=== PATIENT | female | born 1995 | race Caucasian/White ===

== ENCOUNTER 2020-03-13 08:10 | Observation (INO) | payer OTHER, SELFPAY ==
[2020-03-13] VITALS (26 sets, daily range): BP systolic 117–148; BP diastolic 65–106; PULSE 85–135; RESP 12–36; TEMP 36.6–36.8; O2SAT 86–97
--- NOTE | ~2020-03-13 | XR_ITS ---
EXAMINATION: XR chest 1V portable INDICATION: Shortness of breath and chest pressure TECHNIQUE: Portable AP chest at 0844 hours COMPARISON: None available FINDINGS: The lungs are free of acute opacities. There is no pleural effusion or pneumothorax. The ca rdiomediastinal silhouette is normal. The visualized bones and soft tissues are unremarkable. IMPRESSION: 1. No acute cardiopulmonary abnormality. Reviewed, dictated and finalized at location A. [facility]
--- NOTE | 2020-03-13 08:19 | ED.ASTHMA ---
HPI - Asthma General Chief Complaint: Asthma Stated Complaint: diff breathing Time Seen by Provider: 03/13/20 08:14 Source: RN notes reviewed History of Present Illness HPI Narrative: Patient presents to emergency department from home for asthma. Patient states symptoms began 2 days ago. She states that she has been having increased wheezing that she has been trying to control with her home nebulizer machine. She states she is out of her albuterol inhaler. States symptoms progressively got worse and this morning she woke up with increased wheezing and shortness of breath. Patient states she does smoke marijuana she denies any fevers or chills chest pain abdominal pain nausea vomiting or any other symptoms Related Data Home Medications Medication Instructions Recorded Confirmed albuterol (refill) See Rx Instructions .ROUTE 03/13/20 03/13/20 .COMPLEX PRN Allergies Allergy/AdvReac Type Severity Reaction Status Date / Time No Known Allergies Allergy Verified 03/13/20 08:20 Review of Systems Review of Systems: Narrative: Gen.: Denies fevers or chills ENT: Denies congestion Respiratory: See HPI CV: Denies chest pain or palpitations GI: Denies abdominal pain nausea, emesis or diarrhea Musculoskeletal: Denies back pain or muscle pain Neuro: Denies numbness, tingling, weakness or focal weakness Skin: Denies rash Except as documented, all other systems reviewed and negative [facility] Past Medical History Medical History (Updated 03/13/20 @ 11:12 by Aaron Quinn DO) Asthma Social History Social History (Updated 03/13/20 @ 08:20 by Aaron Quinn DO) Smoking status: Never smoker Substance use type: marijuana Gender identity (if verbalized by the patient): Female Exam Narrative: Exam Narrative: APPEARANCE: Moderate respiratory distress, sitting upright in bed speaking short phrases EYES: EOMI HEENT: Normocephalic, atraumatic, OMM RESPIRATORY: Mild respiratory distress wheezing throughout the bilateral lung fernando with decreased breath sounds in the bases no rhonchi CARDIOVASCULAR: Regular rate and rhythm without murmurs rubs or gallops. ABDOMINAL: Soft, nontender, nondistended, no rebound or guarding MUSCULOSKELETAl: Moves all extremities. No clubbing, cyanosis or edema. NEURO: Awake and alert. Following commands, speech normal, no focal deficits SKIN:: Warm, dry. No rashes lesions or abrasions PSYCHIATRIC: Normal affect/mood, Course Course Emergency Course: Following breathing treatments patient's wheezing did improve still has mild wheezing upper lung fernando. The patient continued to have oxygen saturations running in the low 90s of approximately 91 to 92% was placed on 2 L nasal cannula at that time which did also alleviate the patient's heart rate which have been running in the 150s down to the 120s. Magnesium was added at that time. With continued wheezing and required oxygen will admit at this time Discussed with Dr. Mason presentation work-up. Agrees with admission at this time Discussed with patient and family results of workup and diagnosis. Discussed need for admission. Patient and family understand and agree to current treatment plan Vital Signs Vital signs: Vital Signs Temperature 97.9 F 03/13/20 08:14 Pulse Rate 121 H 03/13/20 08:14 Respiratory Rate 17 03/13/20 08:14 Blood Pressure 136/106 H 03/13/20 08:14 Pulse Oximetry 93 03/13/20 08:14 Temperature 97.9 F 03/13/20 08:14 Pulse Rate 104 H 03/13/20 10:17 Respiratory Rate 12 03/13/20 10:17 Blood Pressure 119/68 03/13/20 10:17 Pulse Oximetry 96 03/13/20 10:17 MDM - Asthma Lab Data Result diagrams: 03/13/20 08:27 03/13/20 08:27 Labs: Lab Results 03/13/20 03/13/20 Range/Units 08:27 08:27 WBC 10.7 H (4.5-10.0) K/mm3 RBC 4.60 (4.2-5.4) M/mm3 Hgb 14.8 (12.0-15.0) g/dL Hct 42.6 (37.0-47.0) % MCV 92.6 (80-100) fl MCH 32.2 (26-34) pg
[2020-03-13] MEDS: ALBUTEROL SULFATE NEB 2.5 MG/0.5 ML INH 5 MG INHALATION ×4 (08:21→14:49)
[2020-03-13] MEDS: IPRATROPIUM BR 0.02% INH SOLN 0.5 MG/2.5 ML VIAL INHALATION ×5 (08:21→19:38)
--- NOTE | 2020-03-13 08:23 | ECG_ITS ---
Measurements Intervals [place] Rate: 97 P: TN: 0 QRS: 85 QRSD: 91 T: -14 QT: 332 QTc: 422 Interpretive Statements SINUS RHYTHM WITH MARKED SINUS ARRHYTHMIA ST-T WAVE ABNORMALITY IN INFERIOR LEADS- CONSIDER ISCHEMIA BASELINE ARTIFACT- I, AVR ABNORMAL ECG Electronically Signed On 03-13-2020 8:27:47 HE[employer] RECEPTIONIST by Nasir Hutchison D.O.
[2020-03-13] MEDS: methylPREDNISolone SOD SUCC 125 MG VIAL IV PUSH (08:32)
[2020-03-13 08:33] LABS: Basophils Absolute Auto 0.1 K/mm3 (0.0-0.1); Basophils Percent Auto 1.1 % (0.2-1.2); Eosinophils Absolute Auto 0.5 K/mm3 (0-0.3); Eosinophils Percent Auto 4.5 % (0-4.4); Hematocrit 42.6 % (37.0-47.0); Hemoglobin 14.8 g/dL (12.0-15.0); Immature Granulocyte Absolute 0.03 K/mm3 (0.00-0.031); Immature Granulocyte Percent A 0.3 % (0-0.5); Lymphocytes Absolute Auto 1.41 K/mm3 (0.9-3.2); Lymphocytes Percent Auto 13.2 % (18.3-44.2); Mean Corpuscular HGB Conc 34.7 g/dl (32-36); Mean Corpuscular Hemoglobin 32.2 pg (26-34); Mean Corpuscular Volume 92.6 fl (80-100); Mean Platelet Volume 9.8 fl (7.4-10.4); Monocytes Absolute Auto 0.8 K/mm3 (0.1-0.6); Monocytes Percent Auto 7.2 % (2.6-8.5); Neutrophils Absolute Auto 7.9 K/mm3 (1.3-6.7); Neutrophils Percent Auto 73.7 % (45.5-73.1); Platelet Count Result 275 k/mm3 (150-375); Red Cell Distribution Width 11.9 % (11.5-14.5); White Blood Count 10.7 K/mm3 (4.5-10.0)
[2020-03-13 08:45] LABS: Anion Gap 10 mmol/L (8-16); Blood Urea Nitrogen 13 mg/dL (7-17); Calcium 9.4 mg/dL (8.4-10.2); Carbon Dioxide 27 mmol/L (22-30); Chloride 106 mmol/L (98-107); Estimated CRCL calculation 168 ml/min; Estimated Glomerular Filt Rate > 60; Glucose 102 mg/dL (65-105); Potassium 3.9 mmol/L (3.4-5.0); Sodium 143 mmol/L (137-145)
[2020-03-13] MEDS: ONDANSETRON INJ 4 MG/2 ML VIAL IV PUSH (09:36)
[2020-03-13] MEDS: SODIUM CHLORIDE 0.9% IV 1,000 ML 999 ML IV CONT (09:37)
--- NOTE | 2020-03-13 09:40 | PC.NURSE ---
placed on o2 at 2 lpm nc per md request for room air sats 90-93%. pt's sat improved to 96 % after oxygen placed
[2020-03-13] MEDS: MAGNESIUM SULF 2 GM/WATER 50ML 2 GM/50 ML BAG IVPB (09:47)
--- NOTE | 2020-03-13 12:30 | PC.NURSE ---
This patient, Alexandra Rendon, was admitted to [facility] Surg Room 304-01 on 03/13/20 @ 1230. Patient/family oriented to hospital policies and general routines including ID bracelet, bed and alarms, visiting hours, pain management, procedures, bathroom and other care routines, personal items, smoking policy, room service/diet, and visiting hours. Information on how to activate the Rapid Response Team has been discussed. Patient/Family are encouraged to report perceived risks to care and to ask questions if they do not understand what they are told or what they should do.
[2020-03-13] MEDS: methylPREDNISolone SOD SUCC 125 MG VIAL 60 MG IV PUSH ×4 (13:05→23:05)
--- NOTE | 2020-03-13 19:00 | PM.IMHP ---
H&P: HPI History of Present Illness Date/Time: 03/13/20 19:00 Chief complaint: Shortness of breath. Narrative: Alexandra Rendon is a very pleasant 24-year-old female with asthma who presented to the emergency department earlier this morning from home for evaluation of shortness of breath. She was diagnosed with asthma about 4 years ago after being treated for walking pneumonia, and was maintained on Dulera for some time however she ran out of that about a year ago. She now uses an albuterol nebulizer as needed, which seems to be quite rare except around the spring and fall allergy seasons. For the last 3 days or so she reports productive of clear sputum, wheezing, and shortness of breath to the point where she has some conversational dyspnea. Her a nebulizer has provided her with lesser and lesser benefit and thus she came in for evaluation. Last night she used her nebulizer 3 times, and once this morning and still has continued to be very short of breath. She also describes a tightness in her chest due to the wheezing and shortness of breath. She smoked cigarettes for about 5 years and quit maybe for 4 years ago or so. She does smoke marijuana in large quantities, smoking about 5 blunts a day for at least the past 8 years. In the emergency department she received a continuous nebulizer, Solu-Medrol, and magnesium with some improvement however she continues to wheeze pretty significantly and has an oxygen requirement, and thus is being admitted for further treatment. She has lived in the same house for about 5 years, and reports that there was some old prior to the moving in which was eradicated. They have a dog and a cat, both who are outside. She has a 1-year-old daughter at home whom she is breast-feeding and is very anxious being away from her. No sick contacts, exposure to COVID-19, fever, sinus congestion, otalgia, odynophagia (she did have a mild sore throat last week), or pleuritic pain. Review of Systems Review of Systems: Narrative: Twelve systems were reviewed with pertinent positives and negatives as per HPI. Weight has remained stable. She reports anxiety being away from her daughter and feelings of palpitations and racing heart after the nebulizers and steroids. No nausea, vomiting, or diarrhea. No dysphagia or concerns for aspiration. She denies dysuria. Last menstrual period was on 02/25/2020. No history of venous thromboembolism. She denies eczema and drug allergies, but it sounds like she has some mild environmental allergies. [facility] Past Medical History Medical History (Updated 03/13/20 @ 20:21 by Sara Mcneill PA-C) Asthma Marijuana abuse Surgical History Surgical History (Updated 03/13/20 @ 20:16 by Sara Mcneill PA-C) History of breast biopsy Family History Family History (Updated 03/13/20 @ 20:16 by Sara Mcneill PA-C) Sibling Asthma Social History Social History (Updated 03/13/20 @ 20:17 by Sara Mcneill PA-C) Social History: The patient lives in [place] with her long-term boyfriend and that 1-year-old daughter. 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 She smoked about a pack of cigarettes per day for 3 years and quit 5 years ago. She smokes 5 blunts a day and has for at least 8 to 9 years. No alcohol use. She designates her mother, Mikaela Rendon, and her boyfriend, Himanshu Watson, as her surrogate decision makers and she wishes to be a full code. Spiritual care concerns: No Meds Home Medications and Allergies Home Medications Medication Instructions Recorded Confirmed Type albuterol (refill) See Rx Instructions .ROUTE 03/13/20 03/13/20 History .COMPLEX PRN mometasone-formoterol [Dulera] 2 puff INHALATION PRN PRN 03/13/20 03/13/20 History Allergies Allergy/AdvReac Type Severity Reaction Status Date / Time No Known Allergies Allergy Verified 03/13/20 12:57 Vital Signs Vital Signs - 24 hr 03/13/20 08:14 03/13/20 08:21 03/13/20 08:31 Temperature
[2020-03-13] MEDS: guaiFENesin 12 HR 600 MG TABCR PO (20:41)
[2020-03-13] MEDS: ALPRAZolam (*CRX) 0.125 MG TABLET PO (23:00)
[2020-03-13] MEDS: ACETAMINOPHEN 325 MG TABLET 650 MG PO (23:00)
[2020-03-13] MEDS: LEVALBUTEROL NEB 1.25 MG/3 ML 0.63 MG INHALATION (23:05)
[2020-03-14] VITALS (13 sets, daily range): BP systolic 121–124; BP diastolic 61–69; PULSE 99–133; RESP 18–20; TEMP 36.4; O2SAT 93–97
[2020-03-14] MEDS: IPRATROPIUM BR 0.02% INH SOLN 0.5 MG/2.5 ML VIAL INHALATION ×3 (01:54→13:42)
[2020-03-14] MEDS: methylPREDNISolone SOD SUCC 125 MG VIAL 60 MG IV PUSH ×2 (05:38→17:55)
[2020-03-14 06:46] LABS: Basophils Percent Auto 0.2 % (0.2-1.2); Hematocrit 37.9 % (37.0-47.0); Hemoglobin 13.1 g/dL (12.0-15.0); Immature Granulocyte Absolute 0.05 K/mm3 (0.00-0.031); Immature Granulocyte Percent A 0.4 % (0-0.5); Lymphocytes Absolute Auto 0.72 K/mm3 (0.9-3.2); Lymphocytes Percent Auto 6.3 % (18.3-44.2); Mean Corpuscular HGB Conc 34.6 g/dl (32-36); Mean Corpuscular Volume 92.4 fl (80-100); Mean Platelet Volume 10.1 fl (7.4-10.4); Monocytes Absolute Auto 0.2 K/mm3 (0.1-0.6); Monocytes Percent Auto 1.8 % (2.6-8.5); Neutrophils Absolute Auto 10.5 K/mm3 (1.3-6.7); Neutrophils Percent Auto 91.3 % (45.5-73.1); Platelet Count Result 252 k/mm3 (150-375); Red Cell Distribution Width 12.2 % (11.5-14.5); White Blood Count 11.5 K/mm3 (4.5-10.0)
[2020-03-14] MEDS: ACETAMINOPHEN 325 MG TABLET 650 MG PO (06:52)
[2020-03-14 07:13] LABS: Anion Gap 10 mmol/L (8-16); Blood Urea Nitrogen 13 mg/dL (7-17); Calcium 9.1 mg/dL (8.4-10.2); Carbon Dioxide 27 mmol/L (22-30); Chloride 104 mmol/L (98-107); Estimated CRCL calculation 168 ml/min; Estimated Glomerular Filt Rate > 60; Glucose 148 mg/dL (65-105); Potassium 3.5 mmol/L (3.4-5.0); Sodium 141 mmol/L (137-145)
[2020-03-14 08:01] LABS: Thyroid Stimulating Hormone Reflex 0.047 uIU/mL (0.465-4.68)
[2020-03-14] MEDS: guaiFENesin 12 HR 600 MG TABCR PO (09:45)
[2020-03-14 12:24] LABS: Total Triiodothyronine (T3) 0.99 NG/ML (0.97-1.69)
--- NOTE | 2020-03-14 17:00 | PM.CNPUL ---
Assessment and Plan Assessment and plan (1) Asthma: Code(s): J45.909 - Unspecified asthma, uncomplicated Status: Acute Assessment and Plan: ok for her to go home; her peak flow is 290 L/min, improved since admission. Her estimated personal best PF may be ~ 600, will have to see after she recovers. can follow up in 2 weeks in the office plan on PFTs in 6-8 weeks, probably in May; she needs to stop smoking marijuana, avoid excessively fragrance in home products such as detergents, fabric sprays such as Febreze, wax melts and air fresheners. These VOC -volatile organic compounds- can worsen air quality and act as endocrine disruputors. She may need more testing after recovery. Her pets live outdoors. She needs Dulera 200/5 inhaler and albuterol for her nebulizer to go home. She is out of both of these. (2) Status asthmaticus: Qualifiers: Asthma severity: severe Asthma persistence: unspecified Qualified Code(s): J45.902 - Unspecified asthma with status asthmaticus Code(s): J45.902 - Unspecified asthma with status asthmaticus Status: Acute Assessment and Plan: admitted with uncontrolled asthma, feels much better now. Last uncontrolled episode was several years ago with walking pneumonia, was treated in the ER for 4 hours and sen home. (3) Marijuana abuse: Code(s): F12.10 - Cannabis abuse, uncomplicated Status: Acute Assessment and Plan: She smokes a great amount of marijuana. Smoking is bad for pulmonary health. She may be able to change form smoking marijuana to using edibles. She has depression and anxiety, may be self treating thes conditions with marijuana. She needs to have a primary care provider manage some of these conditions with a different SSRI. History of Present Illness History of Present Illness Consult date: 03/14/20 Chief complaint: Shortness of breath. Narrative: cc: asthma Alexandra Rendon is a 24 yo female, and her mnother Mikaela is at the bedside. She was diagnosed with asthma 4 years ago at an ER visit when she had walking pneumonia, was discharged home after 4 hours. She has a nebulizer at home currently is out of medication. She does not have asthma symptoms on most days. She had a Dulera inhaler, ran out a year ago. She is smoking marijuana 5 blunts daily ( 1 Blunt = 1 gram ) which she uses for anxiety. She started smoking marijuana at age 14, also smoked tobacco less than a pack a day for 3 years, quit 6 years ago. 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 Her symptoms started to increase 3 days prior to admission, and frequent use of her nebulizer could not alleviated her wheezing and shortness of breath. She had clear sputum, wheezing, chest tightness She has triggers for her asthma including infections; she deos nto hav efrequent infections. SHe does nto have problems being aroudn pets, has a cat and a dog who live in the garage. She has a family history with her 31 year old sister having asthma. Review of Systems Review of Systems: All systems reviewed & are unremarkable except as noted in HPI and below PMFSH Past Medical History Medical History Asthma Marijuana abuse Surgical History Surgical History History of breast biopsy Family History Family History Sibling Asthma Social History Social History (Updated 03/13/20 @ 20:17 by Sara Mcneill PA-C) Social History: The patient lives in [place] with her long-term boyfriend and that 1-year-old daughter. 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
[2020-03-14] MEDS: ACETAMINOPHEN 500 MG TABLET 1000 MG (17:52)
--- NOTE | 2020-03-14 17:54 | PM.DS ---
DS: Admitting Diagnosis Admitting Diagnosis Admitting Diagnosis: Shortness of breath. DS: Discharge Diagnosis Discharge Diagnosis (1) Acute respiratory failure with hypoxia: Code(s): J96.01 - Acute respiratory failure with hypoxia Status: Acute (2) Status asthmaticus: Code(s): J45.902 - Unspecified asthma with status asthmaticus Status: Acute DS: Summary Hospital Course Reason for hospitalization: SOB Hospital Course: Alexandra Rendon is a very pleasant 24-year-old female with asthma who presented to the emergency department earlier this morning from home for evaluation of shortness of breath. She was diagnosed with asthma about 4 years ago after being treated for walking pneumonia, and was maintained on Dulera for some time however she ran out of that about a year ago. She now uses an albuterol nebulizer as needed, which seems to be quite rare except around the spring and fall allergy seasons. For the last 3 days or so she reports productive of clear sputum, wheezing, and shortness of breath to the point where she has some conversational dyspnea. Her nebulizer has provided her with lesser and lesser benefit and thus she came in for evaluation. Currently she is doing much better, still wheezing on exam but not SOB anymore, she is back on room air saturating above 92%. She is going to be discharged on Dulera, albuterol and a prednisone taper, she was counseled about marihuana smoking cessation. The patient was seen by pulmonary and is to follow up with them in 2 weeks. Time spent discussing smoking cessation with patient: 3 to 10 minutes Status at Discharge Functional status at discharge: independent ambulation Overall status at discharge: patient is back to baseline Time Spent with Patient Time attestation: Total time spent providing and/or coordinating discharge services: Time spent: Greater than 30 minutes Exam Const: General: cooperative, comfortable, alert and awake Neck: Neck: supple and no JVD Resp: Effort & Inspection: normal respiratory effort and able to speak in complete sentences Auscultation: wheezes Cardio: Rate: regular rate and tachycardic Rhythm: regular rhythm Heart sounds: S1 normal heart sound present and S2 normal heart sound present GI: GI Palp: Yes Soft to palpation Auscultation: normal bowel sounds Skin: General skin exam: no rashes or lesions noted Neuro: General: patient oriented x3 and no focal motor deficits Extrem: General: no clubbing, cyanosis or edema DS: Data Data Completed and Pending Labs on day of discharge: Labs from last 24 hours 03/14/20 03/14/20 03/14/20 05:44 05:44 05:44 WBC RBC Hgb Hct MCV MCH MCHC RDW Plt Count MPV Immature Gran % (Auto) Neut % (Auto) Lymph % (Auto) Gilchrist % (Auto) Eos % (Auto) Baso % (Auto) Lymph # (Auto) Gilchrist # (Auto) Eos # (Auto) Baso # (Auto) Abs Immat Gran (auto) Absolute Neuts (auto) Absolute Nucleated RBC Nucleated RBC % Sodium 141 Potassium 3.5 Chloride 104 Carbon Dioxide 27 Anion Gap 10 BUN 13 Creatinine 0.60 L Estim Creat Clear Calc 168 Estimated GFR > 60 Glucose 148 H Calcium 9.1 TSH (Reflex) Free T4 1.00 Total T3 0.99 03/14/20 03/14/20 05:44 05:44 WBC 11.5 H RBC 4.10 L Hgb 13.1 Hct 37.9 MCV 92.4 MCH 32.0 MCHC 34.6 RDW 12.2 Plt Count 252 MPV 10.1 Immature Gran % (Auto) 0.4 Neut % (Auto) 91.3 H Lymph % (Auto) 6.3 L Gilchrist % (Auto) 1.8 L Eos % (Auto) 0.0 Baso % (Auto) 0.2 Lymph # (Auto) 0.72 L Gilchrist # (Auto) 0.2 Eos # (Auto) 0.0 Baso # (Auto) 0.0 Abs Immat Gran (auto) 0.05 H Absolute Neuts (auto) 10.5 H Absolute Nucleated RBC 0.0 Nucleated RBC % 0.0 Sodium Potassium Chloride Carbon Dioxide Anion Gap BUN Creatinine Estim Creat Clear Calc Estimated GFR Glucose Calcium TSH (Reflex) 0.04
== END 2020-03-14 19:25 | disposition home or self-care (01) ==
LOC: ANHED 11:12 → ANH3MEDSUR 13:22
PROVIDERS: Physician Assistant; Admitting Provider Family Medicine; Emergency Provider Emergency Medicine; Visit Provider Hospitalist
DX: J96.01 Acute respiratory failure with hypoxia (principal); J45.902 Unspecified asthma with status asthmaticus; R00.0 Tachycardia, unspecified; F12.10 Cannabis abuse, uncomplicated; F41.8 Other specified anxiety disorders; Z82.5 Family history of asthma and other chronic lower respiratory diseases; Z87.891 Personal history of nicotine dependence; Z79.51 Long term (current) use of inhaled steroids
CPT/HCPCS: 36415; 71045; 80048; 84439; 84443; 84480; 85025; 93005; 94640; 94667; 94668; 96365; 96374; 96375; 96376; 99285; A9270; G0378; G0379; J2405; J2930; J3475; J7030

== ENCOUNTER 2020-05-20 10:09 | Outpatient (CLI) | payer OTHER, SELFPAY ==
--- NOTE | 2020-05-20 16:27 | WPDPFTINT ---
PFT Interpretation This is a pulmonary function test with pre and post-bronchodilator spirometry, plethysmography and diffusing capacity. The test was performed and results interpreted in accordance with the 2019 and 2005 ATS/ERS Task Force guidelines respectively using the Tiago/Luciano reference equations. Findings: Spirometry: There is decreased maximal expiratory airflow at all lung volumes with a concave expiratory flow tracing. The pre-bronchodilator FVC is 4.44 L, 108% predicted. The pre bronchodilator FEV1 is 2.80 L, 85% predicted. The FEV1: FVC ratio was 63%. The post bronchodilator FVC is 4.47 L, representing 1% increase. The post bronchodilator FEV1 is 2.89 L, representing a 3% increase. Plethysmography: The total lung capacity is 5.97 L, 107% predicted. The functional residual capacity is 3.38 L, 111% predicted. The residual volume is 1.53 L, 90% predicted. Diffusing capacity: The absolute diffusing capacity is 21.4, 86% predicted. The diffusing capacity corrected for alveolar volume is 4.38, 94% predicted. Impression: There is a mild obstructive abnormality without significant improvement after inhaling a single dose of albuterol. The lung volumes are normal. The diffusing capacity is normal. There are no prior studies for comparison.
== END 2020-05-20 10:10 | disposition home or self-care (01) ==
PROVIDERS: PCP Internal Medicine Infectious Disease; Visit Provider Nurse Practitioner Family
DX: J45.909 Unspecified asthma, uncomplicated (principal)
CPT/HCPCS: 94060; 94726; 94729

== ENCOUNTER 2020-07-28 05:41 | Emergency (ER) | payer OTHER, SELFPAY ==
--- NOTE | ~2020-07-28 | XR_ITS ---
EXAMINATION: XR chest 1V portable DATE: 07/28/2020 05:58 INDICATION: 2 days of cough and shortness of breath TECHNIQUE: frontal view of the chest was obtained. COMPARISON: Chest radiograph dated 03/13/2020 FINDINGS: The lungs remain clear with no focal airspace opacities, pulmonary edema, pleural effusion or pneumot horax. The cardiomediastinal silhouette is normal. Visualized bones and soft tissues are unremarkable . IMPRESSION: 1. No acute cardiopulmonary disease. Reviewed, dictated and finalized at location A.
[2020-07-28 05:45] VITALS: BP 150/87; PULSE 105; RESP 20; TEMP 36.7; O2SAT 97
--- NOTE | 2020-07-28 05:59 | ED.SOB ---
HPI - SOB/Dyspnea General Chief Complaint: Shortness of Breath/Dyspnea Stated Complaint: SOB Time Seen by Provider: 07/28/20 05:47 Source: RN notes reviewed History of Present Illness HPI Narrative: Patient presents emergency room from home for shortness of breath. Patient states she has a history of asthma which has been flared up for the past 2 days since she was doing some alex work at her house. States that she has been wheezing with a nonproductive cough states she has been using her inhaler at home with minimal relief is followed by pulmonary denies any fevers or chills chest pain abdominal pain nausea vomiting or any other symptoms Related Data Home Medications Medication Instructions Recorded Confirmed mometasone-formoterol HFA 200 2 puff INHALATION BID 07/05/20 07/05/20 mcg-5 mcg/actuation aerosol inhaler Allergies Allergy/AdvReac Type Severity Reaction Status Date / Time No Known Allergies Allergy Verified 07/28/20 05:48 Review of Systems Review of Systems: Narrative: Gen.: Denies fevers or chills ENT: Denies congestion Respiratory: See HPI CV: Denies chest pain or palpitations GI: Denies abdominal pain nausea, emesis or diarrhea denies chance of Musculoskeletal: Denies back pain or muscle pain Neuro: Denies numbness, tingling, weakness or focal weakness Skin: Denies rash Except as documented, all other systems reviewed and negative [facility] Past Medical History Medical History Asthma Marijuana abuse Surgical History Surgical History History of breast biopsy Family History Family History Sibling Asthma Social History Social History Social History: The patient lives in [place] with her long-term boyfriend and that 1-year-old daughter. 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 She smoked about a pack of cigarettes per day for 3 years and quit 5 years ago. She smokes 1 blunt a day and has for at least 8 to 9 years. No alcohol use. She designates her mother, Mikaela Rendon, and her boyfriend, Himanshu Watson, as her surrogate decision makers and she wishes to be a full code. Spiritual care concerns: No Exam Narrative: Exam Narrative: APPEARANCE: Mild respiratory distress nontoxic, resting in bed HEENT: Normocephalic, atraumatic OMM RESPIRATORY: Mild respiratory distress, wheezing throughout bilateral lung fernando with decreased breath sounds in the bases no rhonchi CARDIOVASCULAR: Regular rate and rhythm without murmurs rubs or gallops. ABDOMINAL: Soft, nontender, nondistended, no rebound or guarding MUSCULOSKELETAl: Moves all extremities. No clubbing, cyanosis or edema. Bilateral calves soft and nontender NEURO: Awake and alert. Following commands, speech normal, no focal deficits SKIN:: Warm, dry. Normal Color PSYCHIATRIC: Normal affect/mood, Course Course Emergency Course: Patient states she is feeling much better following breathing treatment repeat lung exam is clear to auscultation bilaterally Discussed with patient results of workup and diagnosis. Discussed need for follow-up with primary care, proper use of medication, and reasons to return to the emergency department. Patient understands and agrees to current treatment plan Vital Signs Vital signs: Vital Signs Temperature 98.1 F 07/28/20 05:45 Pulse Rate 105 H 07/28/20 05:45 Respiratory Rate 20 07/28/20 05:45 Blood Pressure 150/87 H 07/28/20 05:45 Pulse Oximetry 97 07/28/20 05:45 Temperature 98.1 F 07/28/20 05:45 Pulse Rate 105 H 07/28/20 05:45 Respiratory Rate 20 07/28/20 05:45 Blood Pressure 150/87 H 07/28/20 05:45 Pulse Oximetry 97 07/28/20 05:45 MDM - SOB/Dyspnea Imaging Data Attestation: I personally reviewed and interpreted this imaging study as follows: My imp
[2020-07-28] MEDS: IPRATROPIUM BR 0.02% INH SOLN 0.5 MG/2.5 ML VIAL INHALATION (06:04)
[2020-07-28] MEDS: predniSONE 20 MG TABLET 60 MG PO (06:04)
[2020-07-28] MEDS: ALBUTEROL SULFATE NEB 2.5 MG/0.5 ML INH 5 MG INHALATION (06:05)
[2020-07-28 07:01] VITALS: BP 140/78; PULSE 89; RESP 18; O2SAT 98
== END 2020-07-28 07:02 | disposition home or self-care (01) ==
PROVIDERS: Emergency Provider Emergency Medicine; PCP Internal Medicine Infectious Disease
DX: J45.901 Unspecified asthma with (acute) exacerbation (principal); Z87.891 Personal history of nicotine dependence
CPT/HCPCS: 71045; 99283; J7512

== ENCOUNTER 2020-07-28 19:39 | Observation (INO) | payer OTHER, SELFPAY ==
[2020-07-28] VITALS (24 sets, daily range): BP systolic 117–149; BP diastolic 54–118; PULSE 78–127; RESP 13–26; TEMP 36.9; O2SAT 95
--- NOTE | ~2020-07-28 | XR_ITS ---
XR chest 1V portable DATE: 07/28/2020 21:02 INDICATION: Cough and shortness of breath for 2 days. History of asthma and COPD. TECHNIQUE: Portable AP chest on 07/28/2020 at 2057 hours COMPARISON: 07/28/2020 portable AP chest at 0602 hours FINDINGS: No pulmonary infiltrate or consolidation, pleural effusion or pulmonary vascular congestion or pneumo thorax. Normal heart size. No hilar or mediastinal enlargement. Included skeletal structures are unremarkable other than minimal dextroscoliosis thoracic spine. IMPRESSION: No active cardiopulmonary disease Reviewed, dictated and finalized at location A.
--- NOTE | 2020-07-28 19:52 | ECG_ITS ---
Measurements Intervals [place] Rate: 75 P: -30 IN: 128 QRS: 77 QRSD: 88 T: -22 QT: 344 QTc: 384 Interpretive Statements SINUS OR ECTOPIC ATRIAL RHYTHM ST-T WAVE ABNORMALITY IN ANTEROLAT/INF LEADS- CONSIDER ISCHEMIA ABNORMAL ECG Electronically Signed On 07-29-2020 7:07:31 CDT by Nasir Hutchison D.O.
--- NOTE | 2020-07-28 19:52 | ED.ASTHMA ---
HPI - Asthma General Chief Complaint: Asthma Stated Complaint: difficulty breathing Time Seen by Provider: 07/28/20 19:48 Source: RN notes reviewed History of Present Illness HPI Narrative: Patient presents emergency department from home for shortness of breath. Patient with a history of asthma. Patient was seen this morning for asthma exacerbation at that time she was given steroids and breathing treatments improvement of her symptoms and resolution of wheezing gone home and again noted this afternoon began to feel wheezing short of breath again used her inhaler at home with minimal relief she states she has not taken any further prednisone since her visit this morning she denies any fevers or chills abdominal pain nausea vomiting she does note a feeling of chest tightness with her shortness of breath Related Data Home Medications Medication Instructions Recorded Confirmed mometasone-formoterol HFA 200 2 puff INHALATION BID 07/05/20 07/05/20 mcg-5 mcg/actuation aerosol inhaler Allergies Allergy/AdvReac Type Severity Reaction Status Date / Time No Known Allergies Allergy Verified 07/28/20 05:48 Review of Systems Review of Systems: Narrative: Gen.: Denies fevers or chills ENT: Denies congestion Respiratory: See HPI CV: Denies chest pain or palpitations GI: Denies abdominal pain nausea, emesis or diarrhea Musculoskeletal: Denies back pain or muscle pain Neuro: Denies numbness, tingling, weakness or focal weakness Skin: Denies rash Except as documented, all other systems reviewed and negative [facility] Past Medical History Medical History Asthma Marijuana abuse Surgical History Surgical History History of breast biopsy Family History Family History Sibling Asthma Social History Social History Social History: The patient lives in [place] with her long-term boyfriend and that 1-year-old daughter. 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 She smoked about a pack of cigarettes per day for 3 years and quit 5 years ago. She smokes 1 blunt a day and has for at least 8 to 9 years. No alcohol use. She designates her mother, Mikaela Rendon, and her boyfriend, Himanshu Watson, as her surrogate decision makers and she wishes to be a full code. Spiritual care concerns: No Exam Narrative: Exam Narrative: APPEARANCE: Moderate respiratory distress nontoxic, resting in bed HEENT: Normocephalic, atraumatic OMM RESPIRATORY: No respiratory distress wheezing throughout the bilateral lung fernando with decreased breath sounds in the bases no rhonchi CARDIOVASCULAR: Regular rate and rhythm without murmurs rubs or gallops. ABDOMINAL: Soft, nontender, nondistended, no rebound or guarding MUSCULOSKELETAl: Moves all extremities. No clubbing, cyanosis or edema. Bilateral calves soft and nontender NEURO: Awake and alert. Following commands, speech normal, no focal deficits SKIN:: Warm, dry. Normal Color PSYCHIATRIC: Normal affect/mood, Course Course Emergency Course: Following breathing treatments the patient states breathing is improved at rest the patient's wheezing has improved on repeat exam patient with a walking pulse ox in the ED shows oxygen stayed normal patient's heart rate increases up to the 1 25-1 30 RN patient again becomes short of breath Discussed with Dr. Busby presentation work-up agrees with admission at this time Discussed with patient and family results of workup and diagnosis. Discussed need for admission. Patient and family understand and agree to current treatment plan Vital Signs Vital signs: Vital Signs Temperature 98.5 F 07/28/20 19:41 Pulse Rate 119 H 07/28/20 19:41 Respiratory Rate 20 07/28/20 19:41 Blood Pressure 142/73 H 07/28/20 19:41 Pulse Oximetry 95 07/28/20 19:41
[2020-07-28] MEDS: ALBUTEROL SULFATE NEB 2.5 MG/0.5 ML INH 5 MG INHALATION ×2 (19:55→20:32)
[2020-07-28] MEDS: IPRATROPIUM BR 0.02% INH SOLN 0.5 MG/2.5 ML VIAL INHALATION ×2 (19:55→20:31)
[2020-07-28] MEDS: methylPREDNISolone SOD SUCC 125 MG VIAL IV PUSH (20:16)
[2020-07-28 20:20] LABS: Basophils Percent Auto 0.3 % (0.2-1.2); Eosinophils Percent Auto 0.1 % (0-4.4); Hematocrit 37.5 % (37.0-47.0); Hemoglobin 13.3 g/dL (12.0-15.0); Immature Granulocyte Absolute 0.02 K/mm3 (0.00-0.031); Immature Granulocyte Percent A 0.3 % (0-0.5); Lymphocytes Absolute Auto 0.93 K/mm3 (0.9-3.2); Lymphocytes Percent Auto 12.2 % (18.3-44.2); Mean Corpuscular HGB Conc 35.5 g/dl (32-36); Mean Corpuscular Hemoglobin 31.4 pg (26-34); Mean Corpuscular Volume 88.7 fl (80-100); Mean Platelet Volume 9.7 fl (7.4-10.4); Monocytes Absolute Auto 0.6 K/mm3 (0.1-0.6); Monocytes Percent Auto 8.4 % (2.6-8.5); Neutrophils Percent Auto 78.7 % (45.5-73.1); Platelet Count Result 263 k/mm3 (150-375); Red Blood Count 4.23 M/mm3 (4.2-5.4); Red Cell Distribution Width 11.3 % (11.5-14.5); White Blood Count 7.7 K/mm3 (4.5-10.0)
[2020-07-28 20:33] LABS: Anion Gap 9 mmol/L (8-16); Blood Urea Nitrogen 10 mg/dL (7-17); Calcium 9.6 mg/dL (8.4-10.2); Carbon Dioxide 22 mmol/L (22-30); Chloride 107 mmol/L (98-107); Estimated CRCL calculation 133 ml/min; Estimated Glomerular Filt Rate > 60; Glucose 118 mg/dL (65-105); Potassium 3.7 mmol/L (3.4-5.0); Sodium 138 mmol/L (137-145)
[2020-07-29] VITALS (10 sets, daily range): BP systolic 121–127; BP diastolic 60–83; PULSE 83–120; RESP 12–20; TEMP 36.7–36.9; O2SAT 95–99
--- NOTE | 2020-07-29 01:13 | PC.NURSE ---
This patient, Alexandra Rendon, was admitted to [facility] Surg Room 326-01. Patient/family oriented to hospital policies and general routines including ID bracelet, bed and alarms, visiting hours, pain management, procedures, bathroom and other care routines, personal items, smoking policy, room service/diet, and visiting hours. Information on how to activate the Rapid Response Team has been discussed. Patient/Family are encouraged to report perceived risks to care and to ask questions if they do not understand what they are told or what they should do.
[2020-07-29] MEDS: ALBUTEROL SULFATE NEB 2.5 MG/0.5 ML INH INHALATION ×4 (02:56→18:42)
[2020-07-29] MEDS: methylPREDNISolone SOD SUCC 40 MG VIAL IV PUSH ×3 (05:47→21:30)
[2020-07-29 06:26] LABS: Basophils Percent Auto 0.1 % (0.2-1.2); Hematocrit 37.5 % (37.0-47.0); Immature Granulocyte Absolute 0.04 K/mm3 (0.00-0.031); Immature Granulocyte Percent A 0.5 % (0-0.5); Lymphocytes Absolute Auto 0.54 K/mm3 (0.9-3.2); Lymphocytes Percent Auto 7.3 % (18.3-44.2); Mean Corpuscular HGB Conc 34.7 g/dl (32-36); Mean Corpuscular Hemoglobin 31.1 pg (26-34); Mean Corpuscular Volume 89.7 fl (80-100); Mean Platelet Volume 9.8 fl (7.4-10.4); Monocytes Absolute Auto 0.1 K/mm3 (0.1-0.6); Monocytes Percent Auto 1.4 % (2.6-8.5); Neutrophils Absolute Auto 6.7 K/mm3 (1.3-6.7); Neutrophils Percent Auto 90.7 % (45.5-73.1); Platelet Count Result 249 k/mm3 (150-375); Red Blood Count 4.18 M/mm3 (4.2-5.4); Red Cell Distribution Width 11.4 % (11.5-14.5); White Blood Count 7.4 K/mm3 (4.5-10.0)
[2020-07-29 06:43] LABS: Anion Gap 9 mmol/L (8-16); Blood Urea Nitrogen 11 mg/dL (7-17); Calcium 8.9 mg/dL (8.4-10.2); Carbon Dioxide 23 mmol/L (22-30); Chloride 107 mmol/L (98-107); Estimated CRCL calculation 113 ml/min; Estimated Glomerular Filt Rate > 60; Glucose 164 mg/dL (65-105); Potassium 3.8 mmol/L (3.4-5.0); Sodium 139 mmol/L (137-145)
--- NOTE | 2020-07-29 08:17 | PM.IMHP ---
H&P: HPI History of Present Illness Date/Time: 07/29/20 08:17 Chief Complaint: Shortness of breath Narrative: This is a 24-year-old female with past medical history significant for recently diagnosed chronic obstructive pulmonary disease had PFTs done recently in the outpatient setting and was started on albuterol and mometasone formoterol. the patient presented to the emergency room just due to worsening shortness of breath ,cough which is nonproductive, no fevers no rigors no chills, no hemoptysis. The patient has been having shortness of breath for about she does have recently is rated her home floor and she says that she was exposed to black mold, also patient will volunteers that she used to smoke a lot of weed to help her cope with her anxiety but she has quit. On the 1st occasion that she presented to emergency room she was given neb treatment and was discharged home once she was back into her house, noticed increased nasal secretions, chest congestion and shortness of breath that came back. She presented to the emergency room a 2nd time and she again was treated with breathing treatments but she was noted to be tachycardic upon standing and walking around the room at that moment to the doctor in ED decided to place her in the hospital. Preliminary workup has been essentially not revealing. Review of Systems Review of Systems: Narrative: patient has been having shortness of breath worsening for the last couple weeks or had outpatient PFTs done which showed chronic obstructive pulmonary disease pattern. Patient presented to the emergency x2 due to shortness of breath dry cough of renal Deborah chest congestion and was decided to admit the patient Constitutional: Comments: no fevers no rigors no chills ENT: Reports nasal congestion and Reports nasal discharge Cardiovascular: Comments: no chest pain no PND no orthopnea Respiratory: Comments: shortness of breath chest congestion dry cough Gastrointestinal: Comments: no nausea no vomiting no abdominal pain no diarrhea Musculoskeletal: Comments: no joint or muscle pain Integumentary/Breasts: Comments: no rashes Neurologic: Comments: no sensorimotor deficit PMFSH Past Medical History Medical History Asthma Marijuana abuse Surgical History Surgical History History of breast biopsy Family History Family History Sibling Asthma Social History Social History Social History: The patient lives in [place] with her long-term boyfriend and that 1-year-old daughter. 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 She smoked about a pack of cigarettes per day for 3 years and quit 5 years ago. She smokes 1 blunt a day and has for at least 8 to 9 years. No alcohol use. She designates her mother, Mikaela Rendon, and her boyfriend, Himanshu Watson, as her surrogate decision makers and she wishes to be a full code. Smoking status: Former smoker Alcohol intake: never Substance use: former Substance use type: marijuana Gender identity (if verbalized by the patient): Female Spiritual care concerns: No Meds Home Medications and Allergies Home Medications Medication Instructions Recorded Confirmed Type mometasone-formoterol HFA 200 2 puff INHALATION BID 07/05/20 07/29/20 History mcg-5 mcg/actuation aerosol inhaler albuterol sulfate 2 puff INHALATION QID PRN #6.7 gm 07/28/20 07/29/20 Rx prednisone 20 mg PO BID #10 tablet 07/28/20 07/29/20 Rx Allergies Allergy/AdvReac Type Severity Reaction Status Date / Time No Known Allergies Allergy Verified 07/28/20 05:48 Vital Signs Vital Signs - 24 hr 07/28/20 19:41 07/28/20 19:50 07/28/20 19:51 Temperature 98.5 F Pulse Rate 119 H 115 H 112 H Respiratory Rate 20 20 18 Blood Pressure
--- NOTE | 2020-07-29 13:12 | PCRCNOTE ---
Window of time for administration has passed. See next scheduled administration.
[2020-07-30 02:21] VITALS: PULSE 89; RESP 16
[2020-07-30] MEDS: ALBUTEROL SULFATE NEB 2.5 MG/0.5 ML INH INHALATION ×2 (02:21→08:56)
[2020-07-30 02:29] VITALS: PULSE 84; RESP 18
[2020-07-30 06:00] VITALS: BP 100/44; PULSE 72; RESP 18; TEMP 36.6; O2SAT 97
[2020-07-30] MEDS: methylPREDNISolone SOD SUCC 40 MG VIAL IV PUSH (06:19)
[2020-07-30] MEDS: ACETAMINOPHEN 325 MG TABLET 650 MG PO (06:24)
--- NOTE | 2020-07-30 08:35 | PM.DS ---
DS: Admitting Diagnosis Admitting Diagnosis Admitting Diagnosis: (1) Status asthmaticus: (2) Asthma with acute exacerbation: (3) Failure of outpatient treatment: (4) Marijuana abuse: DS: Discharge Diagnosis Discharge Diagnosis (1) Status asthmaticus: Qualifiers: Asthma persistence: unspecified Asthma severity: severe Qualified Code(s): J45.902 - Unspecified asthma with status asthmaticus Code(s): J45.902 - Unspecified asthma with status asthmaticus Status: Acute (2) Failure of outpatient treatment: Code(s): Z78.9 - Other specified health status Status: Acute (3) Marijuana abuse: Code(s): F12.10 - Cannabis abuse, uncomplicated Status: Acute (4) Anxiety: Code(s): F41.9 - Anxiety disorder, unspecified Status: Acute DS: Summary Hospital Course Reason for hospitalization: SOB Hospital Course: This is a 25-year-old female who presented to the emergency due to shortness of breath, wheezing, nasal congestion and discharge chest congestion, she has had pulmonary function testing in the outpatient setting with has shown did undergo obstructive pulmonary disease pattern.She presented 2 times to the emergency room the 1st time she got nebulizer treatment and she was let go home but she returned later in the evening due to worsening symptoms of nasal congestion shortness of breath and dry cough. in view of these it was decided to admit the patient for observation she was treated with IV systemic steroids schedule nebulizer treatment and she did well. no consults were obtained no procedures were performed Time Spent with Patient Time attestation: Total time spent providing and/or coordinating discharge services: Exam Const: General: comfortable, no acute distress, well developed, alert and awake Nutritional Appearance: average body habitus Orientation/consciousness: patient oriented x3 HENMT: Head: normal to inspection, normocephalic and atraumatic Ears: hearing grossly normal bilaterally Face and sinus: normal facial exam Eyes: General: appearance normal, both eyes and all related structures Pupils: Equal, round and reactive pupils present EOM: EOMs intact bilaterally Neck: Neck: full ROM, no lymphadenopathy and no JVD Thyroid: thyroid normal Lymphatic: no lymphadenopathy noted Resp: Effort & Inspection: normal respiratory effort and able to speak in complete sentences Auscultation: clear to auscultation bilaterally Cardio: Jugular venous distension: no JVD Rate: regular rate Rhythm: regular rhythm Heart sounds: S1 normal heart sound present and S2 normal heart sound present GI: GI Palp: Yes Soft to palpation and Yes No hepatosplenomegaly present : General: Yes deferred Skin: Rashes: no rashes Wounds: no wounds Neuro: General: patient oriented x3 and CN's II-XI intact bilaterally Cranial nerves: Yes CN's II-XII intact bilaterally and Yes Equal, round and reactive pupils present Cognition (Neuro): normal cognition Speech: normal speech Gait exam (Neuro): Normal gait present Motor exam (neuro): 5/5 motor strength present throughout Extrem: General: normal to inspection, full ROM, no joint enlargement and no pedal edema DS: Data Data Completed and Pending Completed studies during hospitalization: EXAMINATION: XR chest 1V portable DATE: 07/28/2020 05:58 INDICATION: 2 days of cough and shortness of breath TECHNIQUE: frontal view of the chest was obtained. COMPARISON: Chest radiograph dated 03/13/2020 FINDINGS: The lungs remain clear with no focal airspace opacities, pulmonary edema, pleural effusion or pneumothorax. The cardiomediastinal silhouette is normal. Visualized bones and soft tissues are unremarkable. IMPRESSION: 1. No acute cardiopulmonary disease. XR chest 1V portable DATE: 07/28/2020 21:02 INDICATION: Cough and shortness of breath for 2 days. History of asthma and COPD. TECHNIQUE: Portable
[2020-07-30] MEDS: FLUTICASONE/SALMETEROL 230-21 MCG INHALER 1 PUFF 2 PUFF INHALATION (08:56)
[2020-07-30 08:59] VITALS: PULSE 106; RESP 18
[2020-07-30 09:08] VITALS: PULSE 92; RESP 18
== END 2020-07-30 11:45 | disposition home or self-care (01) ==
LOC: ANHED 23:16 → ANH3MEDSUR 07-29 06:53
PROVIDERS: Admitting Provider Internal Medicine; Emergency Provider Emergency Medicine; PCP Internal Medicine Infectious Disease; Visit Provider Internal Medicine
DX: J45.902 Unspecified asthma with status asthmaticus (principal); J45.901 Unspecified asthma with (acute) exacerbation; Z87.891 Personal history of nicotine dependence; F12.10 Cannabis abuse, uncomplicated; F41.9 Anxiety disorder, unspecified; Z79.51 Long term (current) use of inhaled steroids
CPT/HCPCS: 36415; 71045; 80048; 81025; 85025; 93005; 94640; 96374; 96376; 99285; A9270; G0378; G0379; J2920; J2930; J7512

== ENCOUNTER 2023-03-30 15:25 | Observation (INO) | payer OTHER, SELFPAY ==
[2023-03-30 15:55] VITALS: BMI 27.0
--- NOTE | 2023-03-30 15:55 | OBADM ---
This patient, Alexandra Rendon, admitted to the OB room Labor/Delivery/Recovery 105 for observation. Patient/family oriented to hospital policies and general routines including ID bracelet, bed and alarms, visiting hours, pain management, procedures, bathroom and other care routines, personal items, smoking policy, room service/diet, and visiting hours. Patient/Family are encouraged to report perceived risks to care and to ask questions if they do not understand what they are told or what they should do.
[2023-03-30 16:01] VITALS: BP 139/80; PULSE 87
[2023-03-30 16:16] VITALS: BP 137/77; PULSE 80
[2023-03-30 16:23] LABS: Appearance Urine Clear (Clear); Bilirubin Urine Negative (Negative); Blood Urine Negative (Negative); Color Urine Yellow (Yellow); Glucose Urine UA Negative (Negative); Ketones Urine Negative (Negative); Leukocyte Esterase Ur Negative LEU/UL (Negative); Nitrate Urine Negative (Negative); Protein Urine Negative (Negative); Specific Grav Ur 1.018 (1.001-1.035); pH Urine 7.5 (5.0-9.0)
[2023-03-30 16:35] LABS: Add Urine Microscopic? NO
--- NOTE | 2023-03-30 16:53 | PC.NURSE ---
Patient with arrival on unit at 1525 with complaints of pressure and back pain. Patient received care at [facility] and is now wanting to be seen here. Prenatals requested. Patient denies any obstetric complications. FHT category 1 with no contractions noted. SVE 1.5/70/-2. No leaking of fluids or vaginal bleeding. Dr. Henderson notified of findings. Okay to discharge.
[2023-03-30 17:12] VITALS: BP 137/77; PULSE 80
--- NOTE | 2023-04-28 08:52 | PM.OBTRLD ---
OB - Triage/Final Diagnosis Visit Information Comments/Additional reasons for admission: I have assessed the risk for this patient, Alexandra Rendon, and determined that she would benefit from observation care. Evaluation Laboratory results: Laboratory Tests 03/30/23 16:07 Urine Color Yellow Urine Appearance Clear Urine pH 7.5 Ur Specific [place] 1.018 Urine Protein Negative Urine Glucose (UA) Negative Urine Ketones Negative Ur Blood (Man) Negative Urine Nitrate Negative Urine Bilirubin Negative Urine Urobilinogen 1.0 Leukocyte Esterase Rfl Negative Final Diagnosis (1) Low back pain: Code(s): M54.50 - Low back pain, unspecified Status: Acute
== END 2023-03-30 17:10 | disposition home or self-care (01) ==
PROVIDERS: Admitting Provider Obstetrics & Gynecology; PCP Family Medicine; Visit Provider Obstetrics & Gynecology
DX: O99.891 Other specified diseases and conditions complicating pregnancy (principal); M54.50 Low back pain, unspecified; Z3A.39 39 weeks gestation of pregnancy
CPT/HCPCS: 59025; 81003; G0378; G0379

== ENCOUNTER 2023-04-04 23:24 | Observation (INO) | payer OTHER, SELFPAY ==
[2023-04-04 23:44] VITALS: BP 134/83; PULSE 78
[2023-04-05 00:01] VITALS: BP 131/78; PULSE 77
[2023-04-05 00:16] VITALS: BP 130/75; PULSE 81
[2023-04-05 00:31] VITALS: BP 125/69; PULSE 81
[2023-04-05 00:46] VITALS: BP 140/88; PULSE 84
[2023-04-05 01:01] VITALS: BP 138/89; PULSE 91
[2023-04-05 01:16] VITALS: BP 122/78; PULSE 83
[2023-04-05 01:38] VITALS: BMI 27.3
--- NOTE | 2023-04-05 01:38 | OBADM ---
This patient, Alexandra Rendon, admitted to the OB room Labor/Delivery/Recovery 106 for observation. Patient/family oriented to hospital policies and general routines including ID bracelet, bed and alarms, visiting hours, pain management, procedures, bathroom and other care routines, personal items, smoking policy, room service/diet, and visiting hours. Patient/Family are encouraged to report perceived risks to care and to ask questions if they do not understand what they are told or what they should do.
--- NOTE | 2023-04-05 01:50 | PC.NURSE ---
0150 DISCHARGE INSTRUCTIONS GIVEN WRITTEN AND VERBALLY. PT DENIES QUESTIONS OR CONCERNS AND VERBALIZES UNDERSTANDING. PT LEAVES L&D AMBULATORY, NO DISTRESS NOTED.
--- NOTE | 2023-04-06 09:26 | PM.OBTRLD ---
OB - Triage/Final Diagnosis Visit Information Comments/Additional reasons for admission: I have assessed the risk for this patient, Alexandra Rendon, and determined that she would benefit from observation care. Final Diagnosis (1) Irregular contractions: Code(s): O47.9 - False labor, unspecified Status: Acute
== END 2023-04-05 01:55 | disposition home or self-care (01) ==
PROVIDERS: Admitting Provider Obstetrics & Gynecology; PCP Family Medicine; Visit Provider Obstetrics & Gynecology
DX: O47.1 False labor at or after 37 completed weeks of gestation (principal); Z3A.39 39 weeks gestation of pregnancy
CPT/HCPCS: G0378; G0379

== ENCOUNTER 2023-04-09 22:43 | Inpatient (IN) | payer OTHER, SELFPAY ==
[2023-04-09 23:00] VITALS: BP 125/82; PULSE 82
[2023-04-09 23:01] VITALS: BP 126/77; PULSE 87
[2023-04-09 23:17] VITALS: BP 120/49; PULSE 86
[2023-04-09 23:31] VITALS: BP 137/78; PULSE 75
[2023-04-09 23:46] VITALS: BP 116/63; PULSE 74
[2023-04-10] VITALS (124 sets, daily range): BP systolic 93–174; BP diastolic 39–103; PULSE 61–139; RESP 16; TEMP 36.7–37; O2SAT 94–100; BMI 26.6
[2023-04-10] MEDS: AMPICILLIN 2 GM/NS 100 ML 2 GM/100 ML BAG IVPB (00:15)
[2023-04-10] MEDS: LACTATED RINGERS 500 ML 999 ML IV CONT (00:15)
[2023-04-10 00:36] LABS: Basophils Percent Auto 0.4 % (0.2-1.2); Eosinophils Absolute Auto 0.1 K/mm3 (0-0.3); Eosinophils Percent Auto 1.8 % (0-4.4); Hematocrit 36.9 % (37.0-47.0); Hemoglobin 12.9 g/dL (12.0-15.0); Immature Granulocyte Absolute 0.02 K/mm3 (0.00-0.031); Immature Granulocyte Percent A 0.3 % (0-0.5); Lymphocytes Absolute Auto 1.99 K/mm3 (0.9-3.2); Lymphocytes Percent Auto 24.9 % (18.3-44.2); Mean Corpuscular Volume 85.8 fl (80-100); Mean Platelet Volume 10.1 fl (7.4-10.4); Monocytes Absolute Auto 0.7 K/mm3 (0.1-0.6); Monocytes Percent Auto 9.1 % (2.6-8.5); Neutrophils Absolute Auto 5.1 K/mm3 (1.3-6.7); Neutrophils Percent Auto 63.5 % (45.5-73.1); Platelet Count Result 295 k/mm3 (150-375); Red Cell Distribution Width 12.8 % (11.5-14.5)
--- NOTE | 2023-04-10 00:48 | WPDANESEPP ---
Anes - Eval Pre Procedure Procedure: labor epidural Date/Time: 04/10/23 00:48 Pre Op Diagnosis: contractions Patient Data Age: 27 Gender: F Height: Weight: Last Vital Signs Pulse 88 04/10/23 00:46 BP 142/98 H 04/10/23 00:46 Allergies Allergy/AdvReac Type Severity Reaction Status Date / Time No Known Allergies Allergy Verified 07/06/22 09:26 Home Medications Medication Instructions Recorded Confirmed Type albuterol sulfate 2.5 mg/3 mL 2.5 mg (3 mL) inhalation QID PRN 01/03/21 07/06/22 Rx (0.083 %) solution for nebulization shortness of breath or wheezing #360 mL Dulera 100 mcg-5 mcg/actuation HFA 2 puff inhalation Q12H #13 grams 09/30/22 Rx aerosol inhaler (mometasone-formoterol) albuterol sulfate 90 mcg/actuation See Rx Instructions .Route 09/30/22 Rx aerosol inhaler .COMPLEX #8.5 grams Laboratory Tests 04/10/23 00:18 WBC 8.0 K/mm3 (4.5-10.0) RBC 4.30 M/mm3 (4.2-5.4) Hgb 12.9 g/dL (12.0-15.0) Hct 36.9 L % (37.0-47.0) MCV 85.8 fl (80-100) MCH 30.0 pg (26-34) MCHC 35.0 g/dl (32-36) RDW 12.8 % (11.5-14.5) Plt Count 295 k/mm3 (150-375) MPV 10.1 fl (7.4-10.4) Immature Gran % (Auto) 0.3 % (0-0.5) Neut % (Auto) 63.5 % (45.5-73.1) Lymph % (Auto) 24.9 % (18.3-44.2) Harnett % (Auto) 9.1 H % (2.6-8.5) Eos % (Auto) 1.8 % (0-4.4) Baso % (Auto) 0.4 % (0.2-1.2) Lymph # (Auto) 1.99 K/mm3 (0.9-3.2) Harnett # (Auto) 0.7 H K/mm3 (0.1-0.6) Eos # (Auto) 0.1 K/mm3 (0-0.3) Baso # (Auto) 0.0 K/mm3 (0.0-0.1) Abs Immat Gran (auto) 0.02 K/mm3 (0.00-0.031) Absolute Neuts (auto) 5.1 K/mm3 (1.3-6.7) Absolute Nucleated RBC 0.0 K/mm3 (0.0-0.012) Nucleated RBC % 0.0 % (0.0-0.2) Sodium Pending Potassium Pending Chloride Pending Carbon Dioxide Pending Anion Gap Pending BUN Pending Creatinine Pending Estim Creat Clear Calc Pending Estimated GFR Pending Glucose Pending Calcium Pending Total Bilirubin Pending AST Pending ALT Pending Alkaline Phosphatase Pending Total Protein Pending Albumin Pending RPR Pending Hep Bs Antigen Pending HIV 1&2 Ab/P24 Ag 4thGn Pending Rubella IgG Antibody Pending Patient hx anesthesia problems: none Family hx anesthesia problems: none Results Review: All pre-operative results and documents have been reviewed as part of the pre-operative evaluation. [facility] Past Medical History Medical History Acute respiratory failure with hypoxia Anxiety Asthma COVID-19 Marijuana abuse Obesity, Class I, BMI 30-34.9 Status asthmaticus Surgical History Surgical History History of breast biopsy Family History Family History Sibling Asthma Social History Social History Social History: The patient lives in [place] with her long-term boyfriend and daughter. She smoked about a pack of cigarettes per day for 3 years and quit 2013. She smokes 1 blunt a day and has for at least 8 to 9 years; transitioned to edibles. No alcohol use. She designates her mother, Mikaela Rendon, and her boyfriend, Himanshu Watson, as her surrogate decision makers and she wishes to be a full code. Smoking status: Former smoker Alcohol intake: never Substance use: former Substance use type: marijuana Occupation/Education: occupation Additional occupation/education comments: [employer] Gender identity (if verbalized by the patient): Female Spiritual care concerns: No Exam Day of Procedure 04/10/23 00:48 Patient weight: obese Heart: regular rate and rhythm Lungs: clear to auscultat
[2023-04-10 01:08] LABS: Alanine Aminotransferase 13 U/L (6-35); Albumin Level 3.6 g/dL (3.5-5.1); Alkaline Phosphatase 109 U/L (38-126); Anion Gap 10 mmol/L (8-16); Aspartate Amino Transferase 19 U/L (14-36); Bilirubin,Total 0.5 mg/dL (0.2-1.3); Blood Urea Nitrogen 7 mg/dL (7-17); Calcium 8.7 mg/dL (8.4-10.2); Carbon Dioxide 21 mmol/L (22-30); Chloride 104 mmol/L (98-107); Estimated Glomerular Filt Rate > 60; Glucose 86 mg/dL (65-110); Potassium 3.4 mmol/L (3.4-5.0); Sodium 135 mmol/L (137-145)
[2023-04-10] MEDS: ONDANSETRON INJ 4 MG/2 ML VIAL IV PUSH (01:28)
[2023-04-10] MEDS: LACTATED RINGERS 1,000 ML 125 ML IV CONT (01:57)
[2023-04-10 02:00] LABS: Barbiturate Screen Urine Negative (Negative); Benzodiazepines Screen Urine Negative (Negative)
[2023-04-10 02:01] LABS: Amphetamine Screen Urine Negative (Negative); Cannabinoid Screen Urine Positive (Negative); Cocaine Screen Urine Negative (Negative); Opiate Screen Urine Negative (Negative); Phencyclidine Screen Urine Negative (Negative)
[2023-04-10 02:23] LABS: Hepatitis B Surface Antigen Negative (Negative)
[2023-04-10 02:30] LABS: Rubella IgG Antibody 26.4 IU/ML
[2023-04-10 02:40] LABS: Methadone Screen Urine Negative (Negative)
[2023-04-10 03:14] LABS: HIV 1/2 Ab P24 Ag Result Negative (Negative)
[2023-04-10] MEDS: AMPICILLIN 1 GM/NS 50 ML 1 GM/50 ML BAG IVPB (04:30)
--- NOTE | 2023-04-10 04:51 | LDADM ---
This patient, Alexandra Rendon, was admitted to Labor/Delivery/Recovery 106 on 04/10/23 at 00:00. Plans for labor, pain management and were discussed with patient. Patient/family oriented to hospital policies and general routines including ID bracelet, bed and alarms, visiting hours, pain management, procedures, bathroom and other care routines, personal items, smoking policy, room service/diet and guest tray routines, infant security routines, and visiting hours. Patient/Family are encouraged to report perceived risks to care and to ask questions if they do not understand what they are told or what they should do. See OBIX for further documentation.
[2023-04-10] MEDS: OXYTOCIN 30 UNITS/NS 500 ML 30 UNITS/500 ML BAG IV CONT (05:11)
[2023-04-10] MEDS: FAMOTIDINE 20 MG/2 ML VIAL IV PUSH (06:55)
--- NOTE | 2023-04-10 08:17 | WPDHPUPDATE1 ---
History and Physical Update Update Date/Time: 04/10/23 08:17 History and Physical has been reviewed, including an updated exam of the patient. There are NO changes in the patient's condition. Risks, benefits, and alternatives have been discussed and questions answered. Patient agrees to proceed with procedure.
--- NOTE | 2023-04-10 08:18 | PM.OBPRVD ---
OB - Vaginal Delivery Note Procedure Delivery date: 04/10/23 Induction method: None Delivery monitor: External FHT and External Uterine Route of delivery: Episiotomy description: Midline Laceration Description: None Delivery repair: vicryl Specimen: Yes Quantitative Blood Loss (ml): 75 Anesthesia type: Epidural Disposition: Floor Complications: No immediate complications Baby Date of : 04/10/23 Weeks of gestation at delivery: 40 Infant gender: Female Placenta delivery description: Spontaneous score one minute: 9 score five minutes: 9
[2023-04-10] MEDS: OXYTOCIN 30 UNITS/NS 500 ML 30 UNITS/500 ML BAG 125 UNITS IV CONT (08:42)
[2023-04-10] MEDS: BENZOCAINE 20% AER SPR (*SP) 56 GM CAN 1 SPRAY TOPICAL (10:52)
[2023-04-10] MEDS: WITCH HAZEL 40 PADS 1 PAD TOPICAL (10:52)
[2023-04-10] MEDS: IBUPROFEN 600 MG TABLET PO ×2 (11:31→17:06)
[2023-04-10] MEDS: DOCUSATE SODIUM 100 MG CAPSULE PO (11:31)
[2023-04-10] MEDS: MULTIVIT/MIN/PREN/FOL AC/IRON TABLET 1 TAB PO (11:31)
--- NOTE | 2023-04-10 12:27 | OBPPTRN ---
1113-Patient transferred to post room #281 via wheelchair. Support person present. Oriented to unit, room, information board, rooming in, admission packet and security measures. Patient verbalizes understanding.
[2023-04-10] MEDS: HYDROcodone/acetaminophen (*CRX) 5-325 MG TABLET 1 TAB PO (19:44)
[2023-04-11 00:05] VITALS: BP 123/85; PULSE 70; RESP 18; TEMP 36.5; O2SAT 99
[2023-04-11 04:00] VITALS: BP 112/71; PULSE 73; RESP 18; TEMP 36.6; O2SAT 98
[2023-04-11] MEDS: HYDROcodone/acetaminophen (*CRX) 5-325 MG TABLET 1 TAB PO ×4 (04:44→19:38)
[2023-04-11] MEDS: IBUPROFEN 600 MG TABLET PO ×2 (04:44→14:14)
[2023-04-11 05:20] LABS: Hematocrit 33.5 % (37.0-47.0); Hemoglobin 11.3 g/dL (12.0-15.0)
[2023-04-11 07:30] VITALS: BP 128/89; PULSE 73; RESP 16; TEMP 36.3; O2SAT 100
[2023-04-11] MEDS: DOCUSATE SODIUM 100 MG CAPSULE PO (09:48)
[2023-04-11] MEDS: MULTIVIT/MIN/PREN/FOL AC/IRON TABLET 1 TAB PO (09:48)
--- NOTE | 2023-04-11 12:07 | PM.OBPNVD ---
OB - PN: Subj Subjective Date/time seen: 04/11/23 12:07 Patient comments: no complaints, pain well controlled, incisional pain, tolerating diet and flatus present OB - PN: Obj Data Labs 04/11/23 03:53 04/10/23 00:18 Labs: Laboratory Results - last 24 hr 04/11/23 03:53 Hgb 11.3 L Hct 33.5 L OB - PN A/P Plan day: 1 Plan: routine care Comments: No problems, routine care Time Spent With Patient Time: Total time spent is greater than 50% in coordination of care (as documented) at patient's floor/unit and/or counseling patient: Exam Const: General: comfortable, no acute distress and alert Resp: Effort & Inspection: normal respiratory effort Auscultation: no crackles, no rales and no rhonchi Cardio: Rate: regular rate Heart sounds: no click, no murmurs and no rubs GI: Inspection: non-distended GI Palp: No Tenderness to palpation present (GI) Auscultation: normal bowel sounds Other: Incision - CDI Extrem: General: normal to inspection, no pedal edema and no calf tenderness
[2023-04-11 19:38] VITALS: BP 118/77; PULSE 62; RESP 18; TEMP 36.9; O2SAT 98
[2023-04-12] MEDS: IBUPROFEN 600 MG TABLET PO ×2 (00:30→11:14)
[2023-04-12] MEDS: HYDROcodone/acetaminophen (*CRX) 5-325 MG TABLET 1 TAB PO ×3 (00:30→11:14)
[2023-04-12 07:04] VITALS: BP 113/60; PULSE 60; RESP 16; TEMP 36.2; O2SAT 98
[2023-04-12] MEDS: MULTIVIT/MIN/PREN/FOL AC/IRON TABLET 1 TAB PO (07:04)
[2023-04-12 07:34] VITALS: TEMP 36.9
--- NOTE | 2023-04-12 11:23 | PM.OBDSVD ---
DS: Admitting Diagnosis Discharge Date April 12, 2023 Admitting Diagnosis term , labor DS: Discharge Diagnosis Discharge Diagnosis (1) Term delivered: Code(s): O80 - Encounter for full-term uncomplicated delivery Status: Acute OB - DS: Summary OB Procedures : None OB Procedures Intrapartum: Spontaneous Vag Delivery OB Procedures: : None Peripartum Data Laceration Description: None Episiotomy description: Midline Time Spent with Patient Time attestation: Total time spent providing and/or coordinating discharge services: Discharge Plan Discharge Discharging Clinician: Peggy Henderson Patient Disposition: Home, Self-Care Activity: pelvic rest Diet: regular Patient Instructions: Antibiotic Form Stand Alone Forms: General Discharge Information Follow-up/Referrals: Peggy Henderson MD [Physician] - Discharge Medications: Continued albuterol sulfate 2.5 mg /3 mL (0.083 %) solution for nebulization 2.5 mg inhalation QID PRN (Reason: shortness of breath or wheezing) Qty: 360 1RF Dulera 100-5 mcg/actuation HFA aerosol inhaler 2 puff inhalation Q12H Qty: 13 5RF Rx Instructions: Rinse and spit. albuterol sulfate 90 mcg/actuation HFA aerosol inhaler See Rx Instructions .ROUTE .COMPLEX Qty: 8.5 2RF Dose Instruction: INHALE 1 PUFF BY MOUTH EVERY 4-6 HOURS NEEDED FOR SHORTNESS OF BREATH OR WHEEZING Rx Instructions: INHALE 1-2 PUFFS BY MOUTH EVERY 4-6 HOURS NEEDED FOR SHORTNESS OF BREATH OR WHEEZING Date of admission: 04/09/23 22:43 Primary Care Provider: Stacia,Lea Han Admitting Provider: Peggy Henderson Attending physician on admission: Peggy Henderson Condition: Stable
--- NOTE | 2023-04-12 13:14 | PC.NURSE ---
[id number] Introductions were made and Mother verbalizes she is able to independently latch with appropriate positioning and alignment. She denies any nipple discomfort and is responsively . Infant is currently meeting outcomes for weight, output, jaundice, blood sugar and feeding frequencies of 8-12 times in 24 hours. Mother declines any additional assistance and demonstrates effectively her infant to the left breast using football positioning. Reminded mother to use good handwashing technique to prevent infection. Mother is feeding appropriately for growth of and understands stimulating to eat if needed. Infant has had appropriate feedings in the last 24 hours meets the outcomes for weight, output, blood sugar and jaundice at this time. Reinforced understanding of milk production, transition of milk, signs of adequate intake, transition of stool, prevention/relief of engorgement, plugged ducts, mastitis, responsive watching for feeding cues, the different methods of stimulating to breastfeed 1-3 hours after the start of the last feeding, community resources, medication information reviewed per [facility] and when to call a provider using the resource of the mom and baby guide. Mother voiced understanding of the education shared.
[2023-04-12 16:17] LABS: Rapid Plasma Reagin Non-Reactive (NonReactive)
[2023-04-14 09:12] VITALS: BP 130/81; PULSE 72; RESP 18; TEMP 36.9; O2SAT 100
== END 2023-04-12 14:07 | disposition home or self-care (01) | DRG 560 ==
LOC: ANHLDR 04-12 08:07 → ANHOB2 04-12 08:07
PROVIDERS: Admitting Provider Obstetrics & Gynecology; PCP Family Medicine; Visit Provider Obstetrics & Gynecology
DX: O99.824 Streptococcus B carrier state complicating childbirth (principal); O77.0 Labor and delivery complicated by meconium in amniotic fluid; Z3A.40 40 weeks gestation of pregnancy; Z37.0 Single live birth
CPT/HCPCS: 36415; 80053; 80307; 85014; 85018; 85025; 86592; 86703; 86762; 86850; 86900; 86901; 87340; A9270; G0432; J0290; J2405; J2590; J7120

== ENCOUNTER 2024-03-11 11:44 | Inpatient (IN) | payer OTHER, SELFPAY ==
[2024-03-11] VITALS (47 sets, daily range): BP systolic 124–169; BP diastolic 59–121; PULSE 90–148; RESP 13–36; TEMP 36.4–36.8; O2SAT 92–100; BMI 27.1
--- NOTE | ~2024-03-11 | US_ITS ---
EXAMINATION: US thyroid DATE: 03/12/2024 08:47 INDICATION: Hyperthyroidism. TECHNIQUE: Multiple ultrasound images of the thyroid were obtained. COMPARISON: None. FINDINGS: The right thyroid lobe measures 6.1 x 1.9 x 2.7 cm. The left thyroid lobe measures 6.1 x 2.3 x 2.4 c m. The thyroid is diffusely heterogeneous and hypoechoic. Vascularity is increased. No discrete nodu le. IMPRESSION: 1. Heterogeneous, hypervascular thyroid, which may be seen with chronic lymphocytic (Nick's) thy roiditis or Graves' disease. Reviewed, dictated and finalized at location A. OPERATOR IMPRESSION: 1. Heterogeneous, hypervascular thyroid, which may be seen with chronic lymphoc ytic (Nick's) thyroiditis or Graves' disease.
--- NOTE | ~2024-03-11 | XR_ITS ---
EXAMINATION: XR chest 2V DATE: 03/11/2024 12:51 INDICATION: Labored breathing and increasing shortness of breath TECHNIQUE: PA and lateral views of the chest were obtained. COMPARISON: Chest radiograph dated 07/28/2020 FINDINGS: The lungs remain clear with no focal airspace opacities, pulmonary edema, pleural effusion or pneumot horax. The cardiomediastinal silhouette is normal. Visualized bones and soft tissues are unremarkable . IMPRESSION: 1. No acute cardiopulmonary disease. Reviewed, dictated and finalized at location A.
--- NOTE | 2024-03-11 12:08 | ECG_ITS ---
Test Date: 2024-03-11 12:19:59 Measurements Intervals [place] Rate: 133 P: 76 AR: 126 QRS: 88 QRSD: 86 T: 52 QT: 332 QTc: 496 Interpretive Statements SINUS TACHYCARDIA NONSPECIFIC ST & T-WAVE ABNORMALITY- ANTEROLAT/INF LEADS BASELINE ARTIFACT- I, II, III, AVR, AVL, AVF, V1-V6 ABNORMAL ECG No previous ECG available for comparison Electronically Signed On 03-11-2024 17:06:18 CDT by Nasir Hutchison D.O.
[2024-03-11] MEDS: IPRATROPIUM 0.5 MG/ALBUTEROL SULFATE 2.5 MG AMPUL.NEB 3 ML INHALATION (12:34)
[2024-03-11] MEDS: methylPREDNISolone SOD SUCC 125 MG VIAL IV PUSH (12:38)
[2024-03-11 12:44] LABS: Basophils Percent Auto 0.4 % (0.2-1.2); Eosinophils Absolute Auto 0.2 K/mm3 (0-0.3); Hematocrit 36.3 % (37.0-47.0); Hemoglobin 12.4 g/dL (12.0-15.0); Immature Granulocyte Absolute 0.01 K/mm3 (0.00-0.031); Immature Granulocyte Percent A 0.1 % (0-0.5); Lymphocytes Absolute Auto 0.95 K/mm3 (0.9-3.2); Lymphocytes Percent Auto 11.8 % (18.3-44.2); Mean Corpuscular HGB Conc 34.2 g/dl (32-36); Mean Corpuscular Hemoglobin 28.4 pg (26-34); Mean Corpuscular Volume 83.1 fl (80-100); Mean Platelet Volume 10.6 fl (7.4-10.4); Monocytes Absolute Auto 0.6 K/mm3 (0.1-0.6); Monocytes Percent Auto 7.7 % (2.6-8.5); Neutrophils Absolute Auto 6.2 K/mm3 (1.3-6.7); Platelet Count Result 229 k/mm3 (150-375); Red Blood Count 4.37 M/mm3 (4.2-5.4); Red Cell Distribution Width 13.3 % (11.5-14.5); White Blood Count 8.1 K/mm3 (4.5-10.0)
--- NOTE | 2024-03-11 12:47 | ED.ASTHMA ---
HPI - Asthma General Chief Complaint: Asthma Stated Complaint: asthma Time Seen by Provider: 03/11/24 12:05 Source: patient Mode of arrival: ambulatory Limitations: no limitations History of Present Illness HPI Narrative: Patient presents with difficulty breathing. She has a history of asthma but ran out of her inhaler although it was helping. Symptoms started night. She has been having a dry cough but denies any fever. She does smoke 1-2 joints of marijuana daily. No prior BiPAP or intubation. Her primary care physician was Dr. Hilary Linares although she hasn't seen them in years (now ). 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 Mckeon. She is 11 months . She also ran out of her nebulizer solution. Denies recently being on steroids for asthma or other reasons. Related Data Allergies Allergy/AdvReac Type Severity Reaction Status Date / Time No Known Allergies Allergy Verified 03/11/24 11:47 [facility] Past Medical History Medical History Anxiety Asthma COVID-19 (~2021) Marijuana use Overweight (BMI 25.0-29.9) Term delivered Surgical History Surgical History History of breast biopsy Family History Family History Sibling Asthma Social History Social History Social History: The patient lives in [place] with her long-term boyfriend and daughter. She smoked about a pack of cigarettes per day for 3 years and quit 2013. She smokes 1 blunt a day and has for at least 8 to 9 years; transitioned to edibles. No alcohol use. She designates her mother, Mikaela Rendon, and her boyfriend, Himanshu Watson, as her surrogate decision makers and she wishes to be a full code. Smoking status: Former smoker Second hand tobacco smoke exposure: No Alcohol intake: never Substance use: current Substance use type: marijuana Do You Feel Safe in your Home?: Yes Lack of Transportation: No Lack of Food: Never True Current Housing: I Have Housing Concerned About Future Housing: No Difficulty Paying Gas/Electric Bills: No Difficulty Paying for Meds: No Currently Unemployed: No Education: Grade School Difficulty w/ Childcare or Family Care: No Occupation/Education: occupation Additional occupation/education comments: [employer] Gender identity (if verbalized by the patient): Female Spiritual care concerns: No Exam Narrative: GENERAL: Well-appearing, well-nourished, and in no acute distress. HEAD: Normocephalic, atraumatic. EYES: Non injected, non icteric. Not proptotic ENT: Nares clear, no rhinorrhea or epistaxis. NECK: Supple. CHEST: Diffuse wheezes bilaterally. Mild tachypnea on exam with some retractions. Speaking in multi word sentences. HEART: tachycardic rate and rhythm. . ABDOMEN: Soft, nondistended. EXTREMITIES: Normal range of motion. No lower extremity edema. SKIN: Warm, dry, no rash. NEURO: No focal deficits. Alert and oriented x3. PSYCH: Normal mood and affect. Course Vital Signs Vital signs: Vital Signs Temperature 97.6 F 03/11/24 11:55 Pulse Rate 146 H 03/11/24 11:55 Respiratory Rate 18 03/11/24 11:55 Blood Pressure 156/101 H 03/11/24 11:55 Pulse Oximetry 96 03/11/24 11:55 Temperature 98.3 F 03/12/24 16:00 Pulse Rate 102 H 03/12/24 18:00 Respiratory Rate 22 H 03/12/24 16:25 Blood Pressure 139/68 03/12/24 16:00 Pulse Oximetry 100 03/12/24 16:07 Oxygen Delivery High Flow Therapy with Nasal Cannula 03/12/24 16:07 Oxygen Flow Rate 45 03/12/24 16:07 Fraction of Inspired Oxygen 40 03/12/24 16:07 MDM - Asthma MDM Narrative Medical decision making narrative: patient presents with shortness of breath starting night. She has also had a dry nonproductive cough. She has a history of asthma but ran out of her albuterol inhaler or nebulized solution. In the emergency department she is afebrile with vital signs notable for tachycardia and hypertension. Considered pulmonary embolism given her tachycardia however she does have diffuse bilateral wheezes and will treat intervene this initially and defer workup for alternative etiologies at this time. patient given steroid. Hypokalemia which will be repleted. Because of patient's tachycardia which is in the 130 some 140s, used levalbuterol/Xopenex instead for 2 additional treatments. Patient does continue to have wheezes. Patient given magnesium. Deferred giving epinephrine as Her tachycardia is in the 150s and at times 160. Additional fluid bolus added as is TSH and dimer. Dimer is normal. Will not proceed with CT study. Ordered bipap but, given patient's oxygen saturation is appropriate, discussed with respiratory therapy and proceeded with high flow. Patient states she always gets tachycardic, especially when she moves around but always when she receives steroids. TSH low. Reflex to T4 and T3. Neal Wartofsky Point Scale Predicts likelihood that biochemical thyrotoxicosis is thyroid storm. Temperature: 0 FRUIT SPRAYER effects:0 GI-hepatic dysfunction:0 HR (bpm):25 CHF:0 Atrial fibrillation present:0 Precipitating event: 10 Result: 35 points, suggestive of impending thyroid storm. Patient continues to have tachycardia in the 120s and 130s. she is frequently seen to be breathing at 28-30 breaths per minute at bedside and on telemetry. no evidence of acute heart failure at this time however I do have concerns about patient's hemodynamics especially in light of her endocrine abnormalities as her T4 is high, Suggestive of at the very least thyroiditis ( presume thyroiditis) but possibly impending thyrotoxicosis versus thyroid storm. propranolol is ordered and patient will be placed on BiPAP With continuous Xopenex. patient states she has a history with hyperthyroidism previously and had been on medication although she does not recall the name. she thinks perhaps it might have ended in lol although can not confirm. patient discussed with on-call hospitalist RESIDENTIAL AIR SEALING TECHNICIAN for admission. Will require IMU given bipap. Patient in agreement with the plan. Critical Care: 1 or more vital organ systems impaired with a high probability of imminent or life-threatening deterioration in the patient's condition requiring frequent personal assessment and manipulation of the patient's condition. This included time spent evaluating the patient, speaking with EMS pre-hospital personnel and family, reviewing/interpreting laboratory/imaging studies, discussing the case with consultants or admitting teams, retrieving data and reviewing charts, monitoring for decompensation, documenting the visit, and performing bundled procedures exclusive of separately billed procedures. Differential Diagnosis Differential diagnosis: Likely Acute exacerbation, Status asthmaticus, Acute asthmatic bronchitis, PE, Pneumonia, Pulmonary edema systolic, Pulmonary edema dystolic, ARDS and Pneumothorax Lab Data Attestation: I reviewed the patient's lab results. 03/12/24 04:23 03/12/24 04:23 Labs: Lab Results 03/11/24 03/11/24 03/11/24 Range/Units 12:27 12:29 13:45 WBC 8.1 (4.5-10.0) K/mm3 RBC 4.37 (4.2-5.4) M/mm3 Hgb 12.4 (12.0-15.0) g/dL Hct 36.3 L (37.0-47.0) % MCV 83.1 (80-100) fl MCH 28.4 (26-34) pg MCHC 34.2 (32-36) g/dl RDW 13.3 (11.5-14.5) % Plt Count 229 (150-375) k/mm3 MPV 10.6 H (7.4-10.4) fl Immature Gran % (Auto) 0.1 (0-0.5) % Neut % (Auto) 77.0 H (45.5-73.1) % Lymph % (Auto) 11.8 L (18.3-44.2) % [place] % (Auto) 7.7 (2.6-8.5) % Eos % (Auto) 3.0 (0-4.4) % Baso % (Auto) 0.4 (0.2-1.2) % Lymph # (Auto) 0.95 (0.9-3.2) K/mm3 [place] # (Auto) 0.6 (0.1-0.6) K/mm3 Eos # (Auto) 0.2 (0-0.3) K/mm3 Baso # (Auto) 0.0 (0.0-0.1) K/mm3 Abs Immat Gran (auto) 0.01 (0.00-0.031) K/mm3 Absolute Neuts (auto) 6.2 (1.3-6.7) K/mm3 Absolute Nucleated RBC 0.000 (0.0-0.012) K/mm3 Nucleated RBC % 0.0 (0.0-0.2) % PT 13.6 (11.1-14.7) Seconds INR 1.0 APTT 26.6 (22.3-36.8) Seconds D-Dimer 0.29 (<0.48) ug/mL Sodium 140 (137-145) mmol/L Potassium 3.2 L (3.4-5.0) mmol/L Chloride 105 (98-107) mmol/L Carbon Dioxide 28 (22-30) mmol/L Anion Gap 7 (4-12) mmol/L BUN 12 D (7-17) mg/dL Creatinine 0.40 L (0.7-1.0) mg/dL Estim Creat Clear Calc 158 ml/min Estimated GFR > 60 (59 - ) Glucose 127 H (65-110) mg/dL Hemoglobin A1c (<5.7) % Calcium 8.9 (8.4-10.2) mg/dL Magnesium 1.8 (1.6-2.3) mg/dL Total Bilirubin 0.8 (0.2-1.3) mg/dL AST 40 H (14-36) U/L ALT 30 (6-35) U/L Alkaline Phosphatase 34 L (38-126) U/L Troponin I < 0.012 (0.000-0.034) ng/mL NT-Pro-B Natriuret Pep 271 H (19.9-100) pg/mL Total Protein 7.0 (6.3-8.2) g/dL Albumin 4.1 (3.5-5.1) g/dL TSH < 0.015 L (0.465-4.680) uIU/mL Free T4 4.21 H (0.78-2.19) ng/mL Free T3 pg/mL Pending Urine Color (Yellow) Urine Appearance (Clear) Urine pH (5.0-9.0) Ur Specific [place] (1.001-1.035) Urine Protein (Negative) mg/dL Urine Glucose (UA) (Negative) mg/dL Urine Ketones (Negative) mg/dL Ur Blood (Man) (Negative) Urine Nitrate (Negative) Urine Bilirubin (Negative) Urine Urobilinogen (<2.0) mg/dL Leukocyte Esterase Rfl (Negative) FRANDY/UL POC Urine HCG, Qual (Negative) Urine Opiates Screen (Negative) Urine Methadone Screen (Negative) Ur Barbiturates Screen (Negative) Ur Phencyclidine Scrn (Negative) Ur Amphetamine Screen (Negative) U Benzodiazepines Scrn (Negative) Urine Cocaine Screen (Negative) U Cannabinoids Screen (Negative) Influenza A (RT-PCR) Negative (Negative) Influenza B (RT-PCR) Negative (Negative) RSV (RT-PCR) Negative (Negative) SARS-CoV-2 RNA (RT-PCR) Negative (Negative) 03/11/24 03/11/24 03/12/24 Range/Units 14:59 15:56 04:23 WBC 8.4 (4.5-10.0) K/mm3 RBC 4.79 (4.2-5.4) M/mm3 Hgb 13.5 (12.0-15.0) g/dL Hct 40.1 (37.0-47.0) % MCV 83.7 (80-100) fl MCH 28.2 (26-34) pg MCHC 33.7 (32-36) g/dl RDW 13.2 (11.5-14.5) % Plt Count 249 (150-375) k/mm3 MPV 10.6 H (7.4-10.4) fl Immature Gran % (Auto) 0.4 (0-0.5) % Neut % (Auto) 86.0 H (45.5-73.1) % Lymph % (Auto) 6.0 L (18.3-44.2) % [place] % (Auto) 7.4 (2.6-8.5) % Eos % (Auto) 0.0 (0-4.4) % Baso % (Auto) 0.2 (0.2-1.2) % Lymph # (Auto) 0.50 L (0.9-3.2) K/mm3 [place] # (Auto) 0.6 (0.1-0.6) K/mm3 Eos # (Auto) 0.0 (0-0.3) K/mm3 Baso # (Auto) 0.0 (0.0-0.1) K/mm3 Abs Immat Gran (auto) 0.03 (0.00-0.031) K/mm3 Absolute Neuts (auto) 7.2 H (1.3-6.7) K/mm3 Absolute Nucleated RBC 0.000 (0.0-0.012) K/mm3 Nucleated RBC % 0.0 (0.0-0.2) % PT (11.1-14.7) Seconds INR APTT (22.3-36.8) Seconds D-Dimer (<0.48) ug/mL Sodium 138 (137-145) mmol/L Potassium 4.9 (3.4-5.0) mmol/L Chloride 102 (98-107) mmol/L Carbon Dioxide 25 (22-30) mmol/L Anion Gap 11 (4-12) mmol/L BUN 11 (7-17) mg/dL Creatinine 0.40 L (0.7-1.0) mg/dL Estim Creat Clear Calc 158 ml/min Estimated GFR > 60 (59 - ) Glucose 113 H (65-110) mg/dL Hemoglobin A1c 5.4 (<5.7) % Calcium 9.4 (8.4-10.2) mg/dL Magnesium (1.6-2.3) mg/dL Total Bilirubin (0.2-1.3) mg/dL AST (14-36) U/L ALT (6-35) U/L Alkaline Phosphatase (38-126) U/L Troponin I (0.000-0.034) ng/mL NT-Pro-B Natriuret Pep (19.9-100) pg/mL Total Protein (6.3-8.2) g/dL Albumin (3.5-5.1) g/dL TSH (0.465-4.680) uIU/mL Free T4 (0.78-2.19) ng/mL Free T3 pg/mL Urine Color Yellow (Yellow) Urine Appearance Clear (Clear) Urine pH 8.0 (5.0-9.0) Ur Specific [place] 1.012 (1.001-1.035) Urine Protein Negative (Negative) mg/dL Urine Glucose (UA) Negative (Negative) mg/dL Urine Ketones Negative (Negative) mg/dL Ur Blood (Man) Negative (Negative) Urine Nitrate Negative (Negative) Urine Bilirubin Negative (Negative) Urine Urobilinogen 0.2 (<2.0) mg/dL Leukocyte Esterase Rfl Negative (Negative) FRANDY/UL POC Urine HCG, Qual Negative (Negative) Urine Opiates Screen Negative (Negative) Urine Methadone Screen Negative (Negative) Ur Barbiturates Screen Negative (Negative) Ur Phencyclidine Scrn Negative (Negative) Ur Amphetamine Screen Negative (Negative) U Benzodiazepines Scrn Negative (Negative) Urine Cocaine Screen Negative (Negative) U Cannabinoids Screen Positive A (Negative) Influenza A (RT-PCR) (Negative) Influenza B (RT-PCR) (Negative) RSV (RT-PCR) (Negative) SARS-CoV-2 RNA (RT-PCR) (Negative) ABG Data ABG results: 03/11/24 13:57 Puncture Site Left brachial ABG pH 7.435 ABG pCO2 34.0 L ABG pO2 84.0 ABG PO2/FiO2 Ratio 4.00 ABG HCO3 22.3 ABG O2 Saturation 96.7 ABG O2 Content 16.1 ABG Base Excess -1.3 A-a Gradient 25.0 Oxyhemoglobin 96.0 Total Hemoglobin 11.9 L O2 Delivery Device Room air O2 Liters/Min Not Reportable FiO2 21 Attestation: I personally reviewed and interpreted this ABG as follows: Interpretation: Primary respiratory alkalosis; additoinal metabolic alkalosis Imaging Data Radiologist's impression: MPRESSION: 1. No acute cardiopulmonary disease. ECG Data EKG #1: Attestation: I personally reviewed and interpreted this ECG as follows: ECG completion date: 03/11/24 ECG completion time: 12:19 Interpretation: Sinus tachycardia at a rate of 133 beats per minute. MO interval 126. QRS 86. QT/QTC 332/410. Significant baseline artifact limits full interpretation. Good R-wave progression across the precordial leads. No T-wave inversions. Normal axis. Critical Care Time Critical Care Time Critical Care Time: Yes Total Critical Care Time: 40 Discharge Plan Discharge Clinical Impression: Asthma exacerbation, Marijuana use, Thyroiditis Patient Disposition: Still a Patient Condition: Serious
[2024-03-11 12:55] LABS: Prothrombin Time 13.6 Seconds (11.1-14.7)
[2024-03-11 12:56] LABS: Partial Thromboplastin Time 26.6 Seconds (22.3-36.8)
[2024-03-11 12:58] LABS: Alanine Aminotransferase 30 U/L (6-35); Albumin Level 4.1 g/dL (3.5-5.1); Alkaline Phosphatase 34 U/L (38-126); Anion Gap 7 mmol/L (4-12); Aspartate Amino Transferase 40 U/L (14-36); Bilirubin,Total 0.8 mg/dL (0.2-1.3); Blood Urea Nitrogen 12 mg/dL (7-17); Calcium 8.9 mg/dL (8.4-10.2); Carbon Dioxide 28 mmol/L (22-30); Chloride 105 mmol/L (98-107); Estimated CRCL calculation 158 ml/min; Estimated Glomerular Filt Rate > 60; Glucose 127 mg/dL (65-110); Potassium 3.2 mmol/L (3.4-5.0); Sodium 140 mmol/L (137-145)
[2024-03-11] MEDS: LEVALBUTEROL NEB 1.25 MG/3 ML INHALATION ×2 (13:05→13:55)
[2024-03-11 13:16] LABS: Troponin I < 0.012 ng/mL (0.000-0.034)
[2024-03-11] MEDS: SODIUM CHLORIDE 0.9% IV 1,000 ML 999 ML IV CONT ×2 (13:17→15:09)
[2024-03-11] MEDS: MAGNESIUM SULF 2 GM/WATER 50ML 2 GM/50 ML BAG IVPB (13:17)
[2024-03-11 13:22] LABS: Magnesium 1.8 mg/dL (1.6-2.3)
[2024-03-11 14:09] LABS: Base Excess ABG -1.3 mEq/l (+/-2.0); Device ROOM AIR; Fractional Inspired Oxygen 21 %; HCO3 ABG 22.3 mEq/l (22.0-26.0); Oxygen Content ABG 16.1 %vol (16.0-22.0); Oxygen Saturation ABG 96.7 % (95.0-100.0); Site Drawn LEFT BRACHIAL; Total Hemoglobin 11.9 g/dL (12.0-18.0); pH ABG 7.435 (7.350-7.450)
[2024-03-11] MEDS: IPRATROPIUM BR 0.02% INH SOLN 0.5 MG/2.5 ML VIAL 1 MG INHALATION (14:21)
[2024-03-11] MEDS: LEVALBUTEROL NEB 1.25 MG/3 ML 2.5 MG INHALATION (14:21)
[2024-03-11 14:26] LABS: Influenza A QL RT-PCR Negative (Negative); Influenza B QL RT-PCR Negative (Negative); RSV RNA, RT-PCR Negative (Negative); SARS-CoV-2 RNA PCR Negative (Negative)
[2024-03-11] MEDS: POTASSIUM BICARBONATE 25 MEQ TABEF 50 MEQ PO (14:43)
[2024-03-11 14:44] LABS: D Dimer 0.29 ug/mL (<0.48)
[2024-03-11 15:20] LABS: Thyroid Stimulating Hormone < 0.015 uIU/mL (0.465-4.680)
[2024-03-11 15:51] LABS: BEDSIDEPREGUCG Negative (Negative)
[2024-03-11 16:11] LABS: Free T4 Free Thyroxine 4.21 ng/mL (0.78-2.19)
[2024-03-11 16:15] LABS: Add Urine Microscopic? NO; Appearance Urine Clear (Clear); Bilirubin Urine Negative (Negative); Blood Urine Negative (Negative); Color Urine Yellow (Yellow); Glucose Urine UA Negative (Negative); Ketones Urine Negative (Negative); Leukocyte Esterase Ur Negative LEU/UL (Negative); Nitrate Urine Negative (Negative); Protein Urine Negative (Negative); Specific Grav Ur 1.012 (1.001-1.035); Urobilinogen Urine 0.2 mg/dL (<2.0)
[2024-03-11 16:20] LABS: Amphetamine Screen Urine Negative (Negative); Barbiturate Screen Urine Negative (Negative); Benzodiazepines Screen Urine Negative (Negative); Cannabinoid Screen Urine Positive (Negative); Cocaine Screen Urine Negative (Negative); Methadone Screen Urine Negative (Negative); Opiate Screen Urine Negative (Negative); Phencyclidine Screen Urine Negative (Negative)
--- NOTE | 2024-03-11 17:19 | PM.IMHP ---
H&P: HPI History of Present Illness Date/Time: 03/11/24 17:19 Chief Complaint: Shortness of Breath Narrative: 28 y/o F presents here with shortness of breath with PMH of hyperthyroidism, asthma, and anxiety. The patient presents here from home for further evaluation of shortness of breath. She reports onset of shortness of breath on Wednesday, 03/10. However was wheezing for the last 1-1.5 weeks. Reporting that she ran out of her home inhalers that she uses to treat her asthma yesterday. She reports that it was recently filled but her asthma has been so bad that it is out. She is endorsing chest tightness, dry cough that occasionally has sputum production accompanying the shortness of breath. Denying chest pain, dizziness, or palpations. The patient arrived tachycardic in the 140s and hypertensive with a blood pressure of 156/101. The patient remains short of breath despite 4 breathing treatments while in the emergency department. Currently endorsing continued shortness of breath and chest tightness like she can't get a deep breath. Patient has had a baby in the last year with delivery date on 04/10/23. She has a history of hyperthyroidism and has previously been treated with methimazole. Last check of her thyroid was more than 2 years ago and has been off medications for her thyroid 2 years ago, let her script lapse and didn't think she needed it treated anymore. She is currently endorsing night sweats, heat intolerance, weakness. Denying heat intolerance, weight loss, palpitations, oligomenorrhea, or anxiety. Has not previously had an ultrasound of her thyroid. Patient has previously needed BiPAP for her asthma, no previous intubations. Initial VS at presentation: 97.6? F, HR 146, RR 18, 156/101, and 96% on RA. ED workup showed: no leukocytosis, no anemia, normal coags, negative D-dimer, ABG largely unremarkable, potassium 3.2, creatinine 0.4 and GFR >60, glucose 127, TSH less than 0.015, UA unremarkable, and viral PCR negative. CXR showed no acute cardiopulmonary disease. Review of Systems Review of Systems: All systems reviewed & are unremarkable except as noted in HPI and below PMFSH Past Medical History Medical History Anxiety Asthma COVID-19 (~2021) Marijuana use Overweight (BMI 25.0-29.9) Term delivered Surgical History Surgical History History of breast biopsy Family History Family History Sibling Asthma Social History Social History Social History: The patient lives in [place] with her long-term boyfriend and daughter. She smoked about a pack of cigarettes per day for 3 years and quit 2013. She smokes 1 blunt a day and has for at least 8 to 9 years; transitioned to edibles. No alcohol use. She designates her mother, Mikaela Rendon, and her boyfriend, Himanshu Watson, as her surrogate decision makers and she wishes to be a full code. Smoking status: Former smoker Second hand tobacco smoke exposure: No Alcohol intake: never Substance use: current Substance use type: marijuana Do You Feel Safe in your Home?: Yes Lack of Transportation: No Lack of Food: Never True Current Housing: I Have Housing Concerned About Future Housing: No Difficulty Paying Gas/Electric Bills: No Difficulty Paying for Meds: No Currently Unemployed: No Education: Grade School Difficulty w/ Childcare or Family Care: No Occupation/Education: occupation Additional occupation/education comments: [employer] Gender identity (if verbalized by the patient): Female Spiritual care concerns: No Meds Home Medications and Allergies Home Medications Medication Instructions Recorded Confirmed Type albuterol sulfate 90 mcg/actuation 1 - 2 inh inhalation Q4-6H PRN 02/21/24 03/11/24 Rx aerosol inhaler shortness of breath or wheezing #8.5 grams Allergies Allergy/AdvReac Type Severity Reaction Status Date / Time No Known Allergies Allergy Verified 03/11/24 11:47 Vital Signs Vital Signs - 24 hr 03/11/24 11:55 03/11/24 12:07 03/11/24 12:22 Temperature 97.6 F Pulse Rate 146 H 137 H Respiratory Rate 18 26 H Blood Pressure 156/101 H 156/101 H Pulse Oximetry 96 97 96 Oxygen Delivery Room Air Oxygen Flow Rate Fraction of Inspired Oxygen 03/11/24 12:36 03/11/24 12:40 03/11/24 13:06 Temperature Pulse Rate 127 H 135 H 124 H Respiratory Rate 18 20 18 Blood Pressure Pulse Oximetry Oxygen Delivery Oxygen Flow Rate Fraction of Inspired Oxygen 03/11/24 13:12 03/11/24 13:22 03/11/24 13:56 Temperature Pulse Rate 139 H 122 H 126 H Respiratory Rate 22 H 18 15 Blood Pressure 154/80 H Pulse Oximetry 97 Oxygen Delivery Oxygen Flow Rate Fraction of Inspired Oxygen 03/11/24 14:11 03/11/24 14:23 03/11/24 14:33 Temperature Pulse Rate 126 H 137 H Respiratory Rate 18 17 Blood Pressure Pulse Oximetry 97 Oxygen Delivery High Flow Therapy with Na Oxygen Flow Rate 35 Fraction of Inspired Oxygen 21 03/11/24 14:33 03/11/24 14:45 03/11/24 11:57 Temperature Pulse Rate 130 H 135 H 145 H Respiratory Rate 20 30 H 16 Blood Pressure 154/113 H 156/101 H Pulse Oximetry 97 99 96 Oxygen Delivery High Flow Therapy with Na Oxygen Flow Rate 35 Fraction of Inspired Oxygen 21 03/11/24 12:32 03/11/24 12:48 03/11/24 13:01 Temperature Pulse Rate 129 H 133 H 132 H Respiratory Rate 26 H 20 28 H Blood Pressure 124/60 159/95 H 154/80 H Pulse Oximetry 97 96 94 Oxygen Delivery Oxygen Flow Rate Fraction of Inspired Oxygen 03/11/24 13:32 03/11/24 13:45 03/11/24 14:00 Temperature Pulse Rate 128 H 132 H 129 H Respiratory Rate 15 18 17 Blood Pressure 145/107 H Pulse Oximetry 96 99 96 Oxygen Delivery Oxygen Flow Rate Fraction of Inspired Oxygen 03/11/24 14:15 03/11/24 14:30 03/11/24 15:55 Temperature Pulse Rate 148 H 126 H 129 H Respiratory Rate 19 22 H 19 Blood Pressure Pulse Oximetry 96 100 Oxygen Delivery Oxygen Flow Rate Fraction of Inspired Oxygen 03/11/24 16:33 Temperature Pulse Rate 128 H Respiratory Rate 25 H Blood Pressure Pulse Oximetry 95 Oxygen Delivery High Flow Therapy with Na Oxygen Flow Rate 35 Fraction of Inspired Oxygen 28 Exam Const: General: no acute distress and uncomfortable Other: , female, mildly ill-appearing with moderate respiratory distress HENMT: Face/Nose/Sinus: Normal nares present Mouth: Yes moist mucous membranes Other: thyroid palpated, no nodules appreciated. Eyes: General: appearance normal, both eyes and all related structures Sclera: sclerae normal Pupils: Equal, round and reactive pupils present EOM: EOMs intact bilaterally Resp: Other: insp and exp wheeze, tachypnea with mild accessory muscle use Cardio: Rate: tachycardic Rhythm: regular rhythm Other: S1-S2 present without murmur, rub, ectopy GI: Other: abdomen soft, nondistended, nontender. Skin: General skin exam: normal color and no rashes or lesions noted Wounds: no wounds Neuro: Speech: normal speech Motor exam (neuro): 5/5 motor strength present throughout Sensory Exam: normal sensation Other: A&O x4 Extrem: General: normal to inspection Psych: Mental Status: mental status grossly normal Affect: normal affect Other: good insight and judgment, pleasant H&P: Results Labs Labs: Short CBC 03/11/24 Range/Units 12:29 WBC 8.1 (4.5-10.0) K/mm3 Hgb 12.4 (12.0-15.0) g/dL Hct 36.3 L (37.0-47.0) % Plt Count 229 (150-375) k/mm3 BMP 03/11/24 12:29 Sodium 140 Potassium 3.2 L Chloride 105 Carbon Dioxide 28 BUN 12 D Creatinine 0.40 L Glucose 127 H Calcium 8.9 Cardiac Enzymes 03/11/24 Range/Units 12:29 Troponin I < 0.012 (0.000-0.034) ng/mL Liver Function 03/11/24 Range/Units 12:29 Total Bilirubin 0.8 (0.2-1.3) mg/dL AST 40 H (14-36) U/L ALT 30 (6-35) U/L Alkaline Phosphatase 34 L (38-126) U/L Albumin 4.1 (3.5-5.1) g/dL Urine 03/11/24 Range/Units 15:56 Urine Color Yellow (Yellow) Urine Appearance Clear (Clear) Urine pH 8.0 (5.0-9.0) Ur Specific [place] 1.012 (1.001-1.035) Urine Protein Negative (Negative) mg/dL Urine Glucose (UA) Negative (Negative) mg/dL Assessment and Plan Assessment and plan (1) Asthma exacerbation: Qualifiers: Asthma persistence: persistent Asthma severity: severe Qualified Code(s): J45.51 - Severe persistent asthma with (acute) exacerbation Code(s): J45.901 - Unspecified asthma with (acute) exacerbation Status: Acute Assessment and Plan: - initially given 2G of Mag, Solu-Medrol 125 mg, DuoNeb x1, and Levalbuterol x3 with minimal improvement In ED. - continue scheduled nebs - oral prednisone x5 days - BiPAP initiated at 17:30, not tolerating well. 1 mg of Ativan given for anxiety. Will reassess toleration post anxiolytic. (2) Hyperthyroidism: Code(s): E05.90 - Thyrotoxicosis, unspecified without thyrotoxic crisis or storm Status: Acute Assessment and Plan: - hx of hyperthyroidism, previously on PTU and possibly on a beta-gerardo. No history of same in external med rec, however only have history of medications starting in September of 2023. - TSH <0.015, T4 4.21, and T3 pending - thyroid ultrasound ordered, not done previously - start methimazole at 10 mg daily, will need recheck of TSH w/reflex in 4 weeks outpatient. - consider further treatment with propranolol for symptomatic relief, however patient has history of asthma which is currently exacerbated Plan mild hypokalemia, treated with potassium bicarbonate 50 mEq x 1. recheck in a.m. Patient is not currently established with a PCP, PCP she was seeing in the area previously has . will need referral for reestablishment/ outpatient follow-up for hyperthyroidism. Diet: regular GI Prophylaxis: not currently indicated DVT Prophylaxis: low risk Lines: peripheral Code Status: full code Quality If No VTE Prophylaxis Answer both mechanical and pharmacologic: Reason no mechanical VTE proph: low risk/not indicated Reason no pharmacologic proph: low risk/not indicated Hospitalist MIPS Advance Care Plan I have confirmed that the patient's Advanced Care Plan is present, code status is documented, or surrogate decision maker is listed in patient medical record.: Yes Medication Reconciliation I have utilized all available resources to obtain, update and review the patients current medications (includes all prescriptions, OTC, herbals, cannabis, and nutritional supplements).: Yes
[2024-03-11] MEDS: PROPRANOLOL HCL 60 MG CAPSULE CR PO (18:02)
[2024-03-11 18:17] LABS: NT Pro B Type Natriuretic Pept 271 pg/mL (19.9-100)
--- NOTE | 2024-03-11 18:23 | ADMIMU ---
This patient, Alexandra Rendon, was admitted to IMU status, and placed in IMU Room 207-01 @ 1823. Patient/family oriented to hospital policies and general routines including ID bracelet, bed and alarms, visiting hours, pain management, procedures, bathroom and other care routines, personal items, smoking policy, room service/diet, and visiting hours. Valuables list has been completed. Information on how to activate the Rapid Response Team has been discussed. Patient/Family are encouraged to report perceived risks to care and to ask questions if they do not understand what they are told or what they should do.
[2024-03-11] MEDS: LEVALBUTEROL NEB 1.25 MG/3 ML 0.63 MG INHALATION (20:35)
[2024-03-11] MEDS: LORazepam INJ (*CRX) 2 MG/ML VIAL 1 MG IV PUSH (20:40)
[2024-03-12] VITALS (36 sets, daily range): BP systolic 123–151; BP diastolic 59–84; PULSE 80–128; RESP 20–33; TEMP 36.7–37; O2SAT 98–100
[2024-03-12] MEDS: LORazepam INJ (*CRX) 2 MG/ML VIAL 1 MG IV PUSH (00:33)
--- NOTE | 2024-03-12 01:03 | PC.NURSE ---
Daylight Savings Time For Daylight Savings Time Ending in the Fall - Clocks are moved back. For Daylight Savings Time Beginning in the Spring - Clocks are moved ahead. For [facility], the time of change occurs at 0200 hrs. Time is taken from the observer gravity prospecting. This entry on the patient's chart recognizes the change in time reflected during documentation. Example: 2 entries for vital signs may be charted for 0200 hrs.
[2024-03-12] MEDS: LEVALBUTEROL NEB 1.25 MG/3 ML 0.63 MG INHALATION ×4 (04:11→11:01)
[2024-03-12 05:05] LABS: Basophils Percent Auto 0.2 % (0.2-1.2); Hematocrit 40.1 % (37.0-47.0); Hemoglobin 13.5 g/dL (12.0-15.0); Immature Granulocyte Absolute 0.03 K/mm3 (0.00-0.031); Immature Granulocyte Percent A 0.4 % (0-0.5); Mean Corpuscular HGB Conc 33.7 g/dl (32-36); Mean Corpuscular Hemoglobin 28.2 pg (26-34); Mean Corpuscular Volume 83.7 fl (80-100); Mean Platelet Volume 10.6 fl (7.4-10.4); Monocytes Absolute Auto 0.6 K/mm3 (0.1-0.6); Monocytes Percent Auto 7.4 % (2.6-8.5); Neutrophils Absolute Auto 7.2 K/mm3 (1.3-6.7); Platelet Count Result 249 k/mm3 (150-375); Red Blood Count 4.79 M/mm3 (4.2-5.4); Red Cell Distribution Width 13.2 % (11.5-14.5); White Blood Count 8.4 K/mm3 (4.5-10.0)
[2024-03-12 05:12] LABS: Hemoglobin A1C 5.4 % (<5.7)
[2024-03-12 05:18] LABS: Anion Gap 11 mmol/L (4-12); Blood Urea Nitrogen 11 mg/dL (7-17); Calcium 9.4 mg/dL (8.4-10.2); Carbon Dioxide 25 mmol/L (22-30); Chloride 102 mmol/L (98-107); Estimated CRCL calculation 158 ml/min; Estimated Glomerular Filt Rate > 60; Glucose 113 mg/dL (65-110); Potassium 4.9 mmol/L (3.4-5.0); Sodium 138 mmol/L (137-145)
[2024-03-12] MEDS: predniSONE 20 MG TABLET 40 MG PO (08:00)
[2024-03-12] MEDS: methiMAzole 10 MG TAB PO (08:00)
[2024-03-12] MEDS: LEVALBUTEROL NEB 1.25 MG/3 ML 3.75 MG INHALATION (08:01)
[2024-03-12] MEDS: IPRATROPIUM BR 0.02% INH SOLN 0.5 MG/2.5 ML VIAL 1 MG INHALATION (08:01)
[2024-03-12 10:26] LABS: Alveolar/Arterial O2 Gradient 113.8 mmHg; Base Excess ABG 2.3 mEq/l (+/-2.0); Fractional Inspired Oxygen 40 %; HCO3 ABG 27.9 mEq/l (22.0-26.0); Oxygen Content ABG 18.4 %vol (16.0-22.0); Oxygen Saturation ABG 98.2 % (95.0-100.0); Oxyhemoglobin 97.8 % THb (90.0-100.0); PCO2 ABG 47.4 mmHg (35.0-45.0); PO2 ABG 116.9 mmHg (80.0-100.0); PO2 FiO2 Ratio Arterial Blood 2.92 %; Site Drawn LEFT BRACHIAL; Total Hemoglobin 13.3 g/dL (12.0-18.0); pH ABG 7.388 (7.350-7.450)
[2024-03-12 10:27] LABS: Device NON-INVASIVE VENT; Non-Invasive Expiratory Pressure 5 CMH2O; Non-Invasive Inspiratory Pressure 12 CMH2O; Non-Invasive Vent Rate 12 /MIN
--- NOTE | 2024-03-12 15:20 | P.PNIM_ITS ---
Progress Note: A&P Assessment and Plan (1) Asthma exacerbation: Qualifiers: Asthma persistence: persistent Asthma severity: severe Qualified Code(s): J45.51 - Severe persistent asthma with (acute) exacerbation Code(s): J45.901 - Unspecified asthma with (acute) exacerbation Status: Acute Assessment and Plan: - initially given 2G of Mag, Solu-Medrol 125 mg, DuoNeb x1, and Levalbuterol x3 with minimal improvement In ED. - continue scheduled nebs - IV steroid - continue BiPAP consulted pulm (2) Hyperthyroidism: Code(s): E05.90 - Thyrotoxicosis, unspecified without thyrotoxic crisis or storm Status: Acute Assessment and Plan: - hx of hyperthyroidism, previously on PTU and possibly on a beta-gerardo. No history of same in external med rec, however only have history of medications starting in September of 2023. - TSH <0.015, T4 4.21, and T3 pending - thyroid ultrasound ordered, not done previously - start methimazole at 10 mg daily, will need recheck of TSH w/reflex in 4 weeks outpatient. -t3 Pending, trial of Propranolol Plan Hypokalemia resolved Monitor and replace accordingly Diet: regular GI Prophylaxis: not currently indicated DVT Prophylaxis: low risk Lines: peripheral Code Status: full code Subjective Date/time seen: 03/12/24 15:20 Interval history: mild resp distress Review of Systems Review of Systems: All systems reviewed & are unremarkable except as noted in HPI and below Exam Narrative: insp and exp wheeze, tachy, tachypnea with mild accessory muscle use Const: General: no acute distress and uncomfortable Other: , female, mildly ill-appearing with moderate respiratory distress HENMT: Face/Nose/Sinus: Normal nares present Mouth: Yes moist mucous membranes Other: thyroid palpated, no nodules appreciated. Eyes: General: appearance normal, both eyes and all related structures S clera: sclerae normal Pupils: Equal, round and reactive pupils present EOM: EOMs intact bilaterally Resp: Other: insp and exp wheeze, tachypnea with mild accessory muscle use Cardio: Rate: tachycardic Rhythm: regular rhythm Other: S1-S2 present without murmur, rub, ectopy GI: Other: abdomen soft, nondistended, nontender. Skin: General skin exam: normal color and no rashes or lesions noted Wounds: no wounds Neuro: Cranial nerves: Yes Equal, round and reactive pupils present Speech: normal speech Motor exam (neuro): 5/5 motor strength present throughout Sensory Exam: normal sensation Other: A&O x4 Extrem: General: normal to inspection Psych: Mental Status: mental status grossly normal Affect: normal affect Other: good insight and judgment, pleasant Objective Data Vital Signs Vital Signs: Vital Signs - 24 hr 03/11/24 16:33 03/11/24 17:24 03/11/24 16:31 Temperature Pulse Rate 128 H 124 H 133 H Respiratory Rate 25 H 21 H 25 H Blood Pressure 132/64 Pulse Oximetry 95 100 92 Oxygen Delivery High Flow Therapy with Na BiPAP Oxygen Flow Rate 35 Fraction of Inspired Oxygen 28 03/11/24 17:01 03/11/24 17:31 03/11/24 18:02 Temperature Pulse Rate 130 H 119 H 128 H Respiratory Rate 16 13 Blood Pressure 144/80 H 145/78 H Pulse Oximetry 98 100 Oxygen Delivery Oxygen Flow Rate Fraction of Inspired Oxygen 03/11/24 18:04 03/11/24 18:29 03/11/24 18:40 Temperature 98.2 F Pulse Rate 128 H 127 H Respiratory Rate 21 H 20 Blood Pressure 151/78 H 169/76 H Pulse Oximetry 100 95 100 Oxygen Delivery Nasal Cannula Oxygen Flow Rate 2 Fraction of Inspired Oxygen 03/11/24 18:49 03/11/24 20:35 03/11/24 20:31 Temperature Pulse Rate 122 H 122 H Respiratory Rate 34 H 34 H Blood Pressure Pulse Oximetry 100 100 Oxygen Delivery Nasal Cannula BiPAP Oxygen Flow Rate 2 Fraction of Inspired Oxygen 03/11/24 20:40 03/11/24 20:41 03/11/24 20:00 Temperature 98.2 F Pulse Rate 132 H 132 H 120 H Respiratory Rate 36 H 36 H 22 H Blood Pressure 154/121 H Pulse Oximetry 100 100 Oxygen Delivery BiPAP Oxygen Flow Rate Fraction of Inspired Oxygen 40 03/11/24 20:00 03/11/24 23:33 03/11/24 23:34 Temperature Pulse Rate 108 H 108 H Respiratory Rate 32 H 32 H Blood Pressure Pulse Oximetry 100 99 99 Oxygen Delivery BiPAP BiPAP BiPAP Oxygen Flow Rate Fraction of Inspired Oxygen 40 40 03/11/24 20:00 03/11/24 23:40 03/12/24 00:00 Temperature Pulse Rate 90 105 H Respiratory Rate 29 H Blood Pressure Pulse Oximetry 100 Oxygen Delivery BiPAP Oxygen Flow Rate Fraction of Inspired Oxygen 40 03/12/24 00:14 03/12/24 00:00 03/11/24 22:00 Temperature 98.0 F Pulse Rate 100 92 101 H Respiratory Rate 33 H 20 Blood Pressure 151/80 H Pulse Oximetry 100 Oxygen Delivery Oxygen Flow Rate Fraction of Inspired Oxygen 03/12/24 00:00 03/12/24 01:53 CDT 03/12/24 03:19 Temperature Pulse Rate 108 H 100 Respiratory Rate Blood Pressure Pulse Oximetry 100 Oxygen Delivery BiPAP Oxygen Flow Rate Fraction of Inspired Oxygen 40 03/12/24 02:40 03/12/24 04:10 03/12/24 04:22 Temperature Pulse Rate 108 H 108 H 103 H Respiratory Rate 24 H 31 H 24 H Blood Pressure Pulse Oximetry 99 Oxygen Delivery BiPAP Oxygen Flow Rate Fraction of Inspired Oxygen 03/12/24 04:00 03/12/24 04:00 03/12/24 06:00 Temperature 98.1 F Pulse Rate 106 H 109 H 115 H Respiratory Rate 20 Blood Pressure 126/84 Pulse Oximetry 100 Oxygen Delivery Oxygen Flow Rate Fraction of Inspired Oxygen 03/12/24 07:36 03/12/24 07:49 03/12/24 07:51 Temperature Pulse Rate 103 H 101 H 93 Respiratory Rate 22 H 27 H 28 H Blood Pressure Pulse Oximetry 100 Oxygen Delivery BiPAP Oxygen Flow Rate Fraction of Inspired Oxygen 03/12/24 08:01 03/12/24 07:58 03/12/24 08:19 Temperature 98.1 F Pulse Rate 104 H 101 H 124 H Respiratory Rate 28 H 20 Blood Pressure 130/64 Pulse Oximetry 100 99 Oxygen Delivery BiPAP Oxygen Flow Rate Fraction of Inspired Oxygen 40 03/12/24 08:00 03/12/24 09:35 03/12/24 10:37 Temperature Pulse Rate 81 106 H 83 Respiratory Rate 25 H 22 H Blood Pressure Pulse Oximetry 100 Oxygen Delivery BiPAP Oxygen Flow Rate Fraction of Inspired Oxygen 03/12/24 11:02 03/12/24 11:13 03/12/24 11:23 Temperature Pulse Rate 105 H 94 104 H Respiratory Rate 30 H 24 H 22 H Blood Pressure Pulse Oximetry 98 Oxygen Delivery High Flow Therapy with Na Oxygen Flow Rate 55 Fraction of Inspired Oxygen 50 03/12/24 10:00 03/12/24 11:56 03/12/24 12:00 Temperature 98.2 F Pulse Rate 86 98 102 H Respiratory Rate 20 Blood Pressure 134/62 Pulse Oximetry 98 Oxygen Delivery Oxygen Flow Rate Fraction of Inspired Oxygen 03/12/24 12:00 03/12/24 14:00 Temperature Pulse Rate 128 H Respiratory Rate Blood Pressure Pulse Oximetry 98 Oxygen Delivery High Flow Therapy with Na Oxygen Flow Rate 55 Fraction of Inspired Oxygen Intake/Output Intake/Output: Intake & Output 03/09/24 03/10/24 03/11/24 03/12/24 23:59 23:59 23:59 22:59 Intake Total 2050 180 Output Total 700 Balance 1350 180 Meds/Results Medications: Active Medications Generic Name Dose Route Start Last Admin Trade Name Freq PRN Reason Stop Dose Admin Acetaminophen 650 mg 03/11/24 17:12 Acetaminophen 325 Mg Tablet PO Q4H PRN Mild Pain (1-3) or Fever Albuterol 1 - 2 puff 03/11/24 19:28 Albuterol Sulfate (*Sp) Aerosol 1 Puff INHALATION Q4-6H PRN shortness of breath or wheezing Ipratropium [place] 0.5 mg 03/12/24 16:00 Ipratropium Br 0.02% Inh Soln 0.5 Mg/2.5 Ml Vial INHALATION Q4HRT [facility] Levalbuterol HCl 1.25 mg 03/12/24 16:00 Levalbuterol Neb 1.25 Mg/3 Ml INHALATION Q4HRT [facility] Methimazole 10 mg 03/12/24 09:00 03/12/24 08:00 Methimazole 10 Mg Tab PO 10 mg DAILY [facility] Administration Methylprednisolone Sodium Succinate 40 mg 03/12/24 22:00 Methylprednisolone Sod Succ 40 Mg Vial IV PUSH Q8HR [facility] Miscellaneous Information 1 each 03/12/24 00:01 Advair Ordered, Stop Xopenex? XX 04/11/24 00:00 CLARIFY [facility] Ondansetron HCl 4 mg 03/11/24 17:12 Ondansetron Inj 4 Mg/2 Ml Vial IV PUSH Q4H PRN Nausea Prednisone 40 mg 03/12/24 08:00 03/12/24 08:00 Prednisone 20 Mg Tablet PO 03/17/24 07:59 40 mg DAILY@0800 [facility] Administration Fluticasone/Salmeterol 2 puff 03/12/24 20:00 Fluticasone/Salmeterol 115-21 Mcg Inhaler 1 Puff INHALATION Q12HRT [facility] Radiology Results: ITS Impressions Chest X-Ray 03/11/24 12:53 IMPRESSION: 1. No acute cardiopulmonary disease. Labs Labs: Laboratory Results - last 24 hr 03/11/24 03/11/24 03/12/24 12:27 15:56 04:23 WBC 8.4 RBC 4.79 Hgb 13.5 Hct 40.1 MCV 83.7 MCH 28.2 MCHC 33.7 RDW 13.2 Plt Count 249 MPV 10.6 H Immature Gran % (Auto) 0.4 Neut % (Auto) 86.0 H Lymph % (Auto) 6.0 L [place] % (Auto) 7.4 Eos % (Auto) 0.0 Baso % (Auto) 0.2 Lymph # (Auto) 0.50 L [place] # (Auto) 0.6 Eos # (Auto) 0.0 Baso # (Auto) 0.0 Abs Immat Gran (auto) 0.03 Absolute Neuts (auto) 7.2 H Absolute Nucleated RBC 0.000 Nucleated RBC % 0.0 Puncture Site ABG pH ABG pCO2 ABG pO2 ABG PO2/FiO2 Ratio ABG HCO3 ABG O2 Saturation ABG O2 Content ABG Base Excess A-a Gradient Oxyhemoglobin Total Hemoglobin O2 Delivery Device O2 Liters/Min Vent Rate FiO2 Expiratory Pressure Inspiratory Pressure Sodium 138 Potassium 4.9 Chloride 102 Carbon Dioxide 25 Anion Gap 11 BUN 11 Creatinine 0.40 L Estim Creat Clear Calc 158 Estimated GFR > 60 Glucose 113 H Hemoglobin A1c 5.4 Calcium 9.4 NT-Pro-B Natriuret Pep 271 H Urine Opiates Screen Negative Urine Methadone Screen Negative Ur Barbiturates Screen Negative Ur Phencyclidine Scrn Negative Ur Amphetamine Screen Negative U Benzodiazepines Scrn Negative Urine Cocaine Screen Negative U Cannabinoids Screen Positive A 03/12/24 10:15 WBC RBC Hgb Hct MCV MCH MCHC RDW Plt Count MPV Immature Gran % (Auto) Neut % (Auto) Lymph % (Auto) [place] % (Auto) Eos % (Auto) Baso % (Auto) Lymph # (Auto) [place] # (Auto) Eos # (Auto) Baso # (Auto) Abs Immat Gran (auto) Absolute Neuts (auto) Absolute Nucleated RBC Nucleated RBC % Puncture Site Left brachial ABG pH 7.388 ABG pCO2 47.4 H ABG pO2 116.9 H ABG PO2/FiO2 Ratio 2.92 ABG HCO3 27.9 H ABG O2 Saturation 98.2 ABG O2 Content 18.4 ABG Base Excess 2.3 A-a Gradient 113.8 Oxyhemoglobin 97.8 Total Hemoglobin 13.3 O2 Delivery Device Non-invasive vent O2 Liters/Min Not Reportable Vent Rate 12 FiO2 40 Expiratory Pressure 5 Inspiratory Pressure 12 Sodium Potassium Chloride Carbon Dioxide Anion Gap BUN Creatinine Estim Creat Clear Calc Estimated GFR Glucose Hemoglobin A1c Calcium NT-Pro-B Natriuret Pep Urine Opiates Screen Urine Methadone Screen Ur Barbiturates Screen Ur Phencyclidine Scrn Ur Amphetamine Screen U Benzodiazepines Scrn Urine Cocaine Screen U Cannabinoids Screen
[2024-03-12] MEDS: IPRATROPIUM BR 0.02% INH SOLN 0.5 MG/2.5 ML VIAL INHALATION ×2 (16:07→19:54)
[2024-03-12] MEDS: LEVALBUTEROL NEB 1.25 MG/3 ML INHALATION ×2 (16:07→19:55)
[2024-03-12] MEDS: PROPRANOLOL HCL 10 MG TABLET PO (16:25)
--- NOTE | 2024-03-12 18:23 | PC.NURSE ---
This RN gave report to second medical RN, Yvonne.
--- NOTE | 2024-03-12 18:47 | PC.NURSE ---
This pt transferred to second medical room 250 @ [id number].
[2024-03-12] MEDS: methylPREDNISolone SOD SUCC 40 MG VIAL IV PUSH (21:18)
[2024-03-13] VITALS (35 sets, daily range): BP systolic 115–146; BP diastolic 53–88; PULSE 72–131; RESP 18–22; TEMP 36.4–37; O2SAT 96–100
[2024-03-13] MEDS: LEVALBUTEROL NEB 1.25 MG/3 ML INHALATION ×6 (00:06→23:38)
[2024-03-13] MEDS: IPRATROPIUM BR 0.02% INH SOLN 0.5 MG/2.5 ML VIAL INHALATION ×6 (00:06→23:39)
[2024-03-13 05:41] LABS: Basophils Percent Auto 0.2 % (0.2-1.2); Eosinophils Percent Auto 0.2 % (0-4.4); Hematocrit 38.4 % (37.0-47.0); Hemoglobin 13.1 g/dL (12.0-15.0); Immature Granulocyte Absolute 0.02 K/mm3 (0.00-0.031); Immature Granulocyte Percent A 0.4 % (0-0.5); Lymphocytes Absolute Auto 0.53 K/mm3 (0.9-3.2); Lymphocytes Percent Auto 9.9 % (18.3-44.2); Mean Corpuscular HGB Conc 34.1 g/dl (32-36); Mean Corpuscular Hemoglobin 28.3 pg (26-34); Mean Corpuscular Volume 82.9 fl (80-100); Mean Platelet Volume 10.4 fl (7.4-10.4); Monocytes Absolute Auto 0.1 K/mm3 (0.1-0.6); Monocytes Percent Auto 2.2 % (2.6-8.5); Neutrophils Absolute Auto 4.7 K/mm3 (1.3-6.7); Neutrophils Percent Auto 87.1 % (45.5-73.1); Platelet Count Result 260 k/mm3 (150-375); Red Blood Count 4.63 M/mm3 (4.2-5.4); Red Cell Distribution Width 12.9 % (11.5-14.5); White Blood Count 5.4 K/mm3 (4.5-10.0)
[2024-03-13 05:53] LABS: Alanine Aminotransferase 31 U/L (6-35); Alkaline Phosphatase 35 U/L (38-126); Anion Gap 9 mmol/L (4-12); Aspartate Amino Transferase 20 U/L (14-36); Bilirubin,Total 0.5 mg/dL (0.2-1.3); Blood Urea Nitrogen 19 mg/dL (7-17); Calcium 9.2 mg/dL (8.4-10.2); Carbon Dioxide 26 mmol/L (22-30); Chloride 101 mmol/L (98-107); Estimated CRCL calculation 130 ml/min; Estimated Glomerular Filt Rate > 60; Glucose 168 mg/dL (65-110); Potassium 4.6 mmol/L (3.4-5.0); Sodium 136 mmol/L (137-145)
[2024-03-13] MEDS: methylPREDNISolone SOD SUCC 40 MG VIAL IV PUSH ×3 (06:11→22:12)
[2024-03-13 08:56] LABS: Alveolar/Arterial O2 Gradient 111.1 mmHg; Base Excess ABG 2.2 mEq/l (+/-2.0); Fractional Inspired Oxygen 36 %; Oxygen Content ABG 19.7 %vol (16.0-22.0); Oxygen Saturation ABG 97.4 % (95.0-100.0); Oxyhemoglobin 96.9 % THb (90.0-100.0); PCO2 ABG 42.5 mmHg (35.0-45.0); PO2 ABG 96.3 mmHg (80.0-100.0); PO2 FiO2 Ratio Arterial Blood 2.68 %; Total Hemoglobin 14.4 g/dL (12.0-18.0); pH ABG 7.421 (7.350-7.450)
[2024-03-13 08:57] LABS: Device HIGH FLOW THERAPY; Modified Allen's Test Pass; Site Drawn RIGHT RADIAL
[2024-03-13] MEDS: methiMAzole 10 MG TAB PO (09:02)
[2024-03-13] MEDS: FLUTICASONE/SALMETEROL 115-21 MCG INHALER 1 PUFF 2 PUFF INHALATION ×2 (11:49→20:40)
--- NOTE | 2024-03-13 13:52 | PM.IMPN ---
Progress Note: A&P Assessment and Plan (1) Asthma exacerbation: Qualifiers: Asthma persistence: persistent Asthma severity: severe Qualified Code(s): J45.51 - Severe persistent asthma with (acute) exacerbation Code(s): J45.901 - Unspecified asthma with (acute) exacerbation Status: Acute Assessment and Plan: Continue Ipratropium and Xaponex, IV steroids Symbicort Continue titrating oxygen pulm consulted (2) Hyperthyroidism: Code(s): E05.90 - Thyrotoxicosis, unspecified without thyrotoxic crisis or storm Status: Acute Assessment and Plan: - hx of hyperthyroidism, previously on PTU and possibly on a beta-gerardo. patient noted she discontinued her medication herself - TSH <0.015, T4 4.21, and T3 0.99 - thyroid ultrasound showed changes consistent with Grave's disease vs Nick's thyroiditis - on methimazole, give one dose of Atenolol 12.5 mg today and dose daily Will need Endo referral on discharge Plan Hypokalemia resolved Monitor and replace accordingly Diet: regular GI Prophylaxis: not currently indicated DVT Prophylaxis: low risk Lines: peripheral Code Status: full code Subjective Date/time seen: 03/13/24 13:52 Interval history: mild resp distress still requiring 40 L HFNC pulmonology consulted, discussed with Dr Espinoza yesterday Review of Systems Review of Systems: All systems reviewed & are unremarkable except as noted in HPI and below Exam Narrative: insp and exp wheeze, tachy, tachypnea with mild accessory muscle use Const: General: no acute distress and uncomfortable Other: , female, mildly ill-appearing with moderate respiratory distress HENMT: Face/Nose/Sinus: Normal nares present Mouth: Yes moist mucous membranes Other: thyroid palpated, no nodules appreciated. Eyes: General: appearance normal, both eyes and all related structures Sclera: sclerae normal Pupils: Equal, round and reactive pupils present EOM: EOMs intact bilaterally Resp: Other: insp and exp wheeze, tachypnea with mild accessory muscle use Cardio: Rate: tachycardic Rhythm: regular rhythm Other: S1-S2 present without murmur, rub, ectopy GI: Other: abdomen soft, nondistended, nontender. Skin: General skin exam: normal color and no rashes or lesions noted Wounds: no wounds Neuro: Cranial nerves: Yes Equal, round and reactive pupils present Speech: normal speech Motor exam (neuro): 5/5 motor strength present throughout Sensory Exam: normal sensation Other: A&O x4 Extrem: General: normal to inspection Psych: Mental Status: mental status grossly normal Affect: normal affect Other: good insight and judgment, pleasant Objective Data Vital Signs Vital Signs: Vital Signs - 24 hr 03/12/24 14:00 03/12/24 16:07 03/12/24 16:10 Temperature Pulse Rate 128 H 97 98 Respiratory Rate 22 H 22 H Blood Pressure Pulse Oximetry 100 Oxygen Delivery High Flow Therapy with Na Oxygen Flow Rate 45 Fraction of Inspired Oxygen 40 03/12/24 16:25 03/12/24 16:00 03/12/24 16:25 Temperature 98.3 F Pulse Rate 121 H 80 115 H Respiratory Rate 22 H 24 H Blood Pressure 139/68 Pulse Oximetry 99 Oxygen Delivery Oxygen Flow Rate Fraction of Inspired Oxygen 03/12/24 16:00 03/12/24 16:00 03/12/24 18:00 Temperature Pulse Rate 88 102 H Respiratory Rate Blood Pressure Pulse Oximetry 99 Oxygen Delivery High Flow Therapy with Na Oxygen Flow Rate 45 Fraction of Inspired Oxygen 03/12/24 19:55 03/12/24 20:07 03/12/24 20:10 Temperature Pulse Rate 102 H 108 H 102 H Respiratory Rate 22 H 22 H 22 H Blood Pressure Pulse Oximetry 99 Oxygen Delivery High Flow Therapy with Na Oxygen Flow Rate 45 Fraction of Inspired Oxygen 40 03/12/24 20:40 03/12/24 20:00 03/12/24 20:00 Temperature 98.6 F Pulse Rate 91 94 93 Respiratory Rate 22 H Blood Pressure 123/59 L Pulse Oximetry 98 98 Oxygen Delivery High Flow Therapy with Na Oxygen Flow Rate 45 Fraction of Inspired Oxygen 40 03/12/24 22:00 03/13/24 00:06 03/13/24 00:19 Temperature Pulse Rate 82 102 H 98 Respiratory Rate 22 H 20 Blood Pressure Pulse Oximetry Oxygen Delivery Oxygen Flow Rate Fraction of Inspired Oxygen 03/13/24 00:24 03/13/24 00:20 03/13/24 00:00 Temperature 98.1 F Pulse Rate 89 85 88 Respiratory Rate 20 22 H Blood Pressure 138/64 Pulse Oximetry 99 96 Oxygen Delivery BiPAP Oxygen Flow Rate Fraction of Inspired Oxygen 03/13/24 00:00 03/13/24 02:00 03/13/24 04:00 Temperature Pulse Rate 75 Respiratory Rate Blood Pressure Pulse Oximetry 99 99 Oxygen Delivery BiPAP BiPAP Oxygen Flow Rate Fraction of Inspired Oxygen 40 40 03/13/24 04:00 03/13/24 05:16 03/13/24 06:00 Temperature 98.6 F Pulse Rate 77 79 87 Respiratory Rate 20 Blood Pressure 122/56 L Pulse Oximetry 100 Oxygen Delivery Oxygen Flow Rate Fraction of Inspired Oxygen 03/13/24 07:52 03/13/24 08:03 03/13/24 08:03 Temperature 97.5 F L Pulse Rate 72 89 89 Respiratory Rate 20 20 20 Blood Pressure 115/60 Pulse Oximetry 99 96 Oxygen Delivery High Flow Therapy with Na Oxygen Flow Rate 40 Fraction of Inspired Oxygen 36 03/13/24 08:19 03/13/24 08:00 03/13/24 11:39 Temperature 97.9 F Pulse Rate 94 94 Respiratory Rate 20 18 Blood Pressure 132/70 Pulse Oximetry 96 99 Oxygen Delivery High Flow Nasal Cannula Oxygen Flow Rate 40 Fraction of Inspired Oxygen 36 03/13/24 11:50 03/13/24 11:50 03/13/24 12:00 Temperature Pulse Rate 96 96 104 H Respiratory Rate 20 20 20 Blood Pressure Pulse Oximetry 97 Oxygen Delivery High Flow Therapy with Na Oxygen Flow Rate 40 Fraction of Inspired Oxygen 36 03/13/24 08:00 03/13/24 10:00 03/13/24 12:00 Temperature Pulse Rate 76 102 H 131 H Respiratory Rate Blood Pressure Pulse Oximetry Oxygen Delivery Oxygen Flow Rate Fraction of Inspired Oxygen 03/13/24 12:00 Temperature Pulse Rate Respiratory Rate Blood Pressure Pulse Oximetry 97 Oxygen Delivery High Flow Nasal Cannula Oxygen Flow Rate 40 Fraction of Inspired Oxygen 36 Intake/Output Intake/Output: Intake & Output 03/11/24 03/12/24 03/12/24 03/13/24 00:59 00:59 23:59 23:59 Intake Total 1320 Output Total 600 Balance 720 Meds/Results Medications: Active Medications Generic Name Dose Route Start Last Admin Trade Name Freq PRN Reason Stop Dose Admin Acetaminophen 650 mg 03/11/24 17:12 Acetaminophen 325 Mg Tablet PO Q4H PRN Mild Pain (1-3) or Fever Albuterol 1 - 2 puff 03/11/24 19:28 Albuterol Sulfate (*Sp) Aerosol 1 Puff INHALATION Q4-6H PRN shortness of breath or wheezing Ipratropium [place] 0.5 mg 03/12/24 16:00 03/13/24 11:48 Ipratropium Br 0.02% Inh Soln 0.5 Mg/2.5 Ml Vial INHALATION 0.5 mg Q4HRT CARMINA Administration Levalbuterol HCl 1.25 mg 03/12/24 16:00 03/13/24 11:48 Levalbuterol Neb 1.25 Mg/3 Ml INHALATION 1.25 mg Q4HRT CARMINA Administration Methimazole 10 mg 03/12/24 09:00 03/13/24 09:02 Methimazole 10 Mg Tab PO 10 mg DAILY CARMINA Administration Methylprednisolone Sodium Succinate 40 mg 03/12/24 22:00 03/13/24 13:42 Methylprednisolone Sod Succ 40 Mg Vial IV PUSH 40 mg Q8HR CARMINA Administration Ondansetron HCl 4 mg 03/11/24 17:12 Ondansetron Inj 4 Mg/2 Ml Vial IV PUSH Q4H PRN Nausea Fluticasone/Salmeterol 2 puff 03/13/24 09:00 03/13/24 11:49 Fluticasone/Salmeterol 115-21 Mcg Inhaler 1 Puff INHALATION 2 puff Q12HRT ACRMINA Administration Radiology Results: ITS Impressions Chest X-Ray 03/11/24 12:53 IMPRESSION: 1. No acute cardiopulmonary disease. Thyroid Ultrasound 03/13/24 09:32 IMPRESSION: 1. Heterogeneous, hypervascular thyroid, which may be seen with chronic lymphocytic (Nick's) thyroiditis or Graves' disease. Labs Labs: Laboratory Results - last 24 hr 03/13/24 03/13/24 04:43 08:42 WBC 5.4 RBC 4.63 Hgb 13.1 Hct 38.4 MCV 82.9 MCH 28.3 MCHC 34.1 RDW 12.9 Plt Count 260 MPV 10.4 Immature Gran % (Auto) 0.4 Neut % (Auto) 87.1 H Lymph % (Auto) 9.9 L [place] % (Auto) 2.2 L Eos % (Auto) 0.2 Baso % (Auto) 0.2 Lymph # (Auto) 0.53 L [place] # (Auto) 0.1 Eos # (Auto) 0.0 Baso # (Auto) 0.0 Abs Immat Gran (auto) 0.02 Absolute Neuts (auto) 4.7 Absolute Nucleated RBC 0.000 Nucleated RBC % 0.0 Puncture Site Right radial ABG pH 7.421 ABG pCO2 42.5 ABG pO2 96.3 ABG PO2/FiO2 Ratio 2.68 ABG HCO3 27.0 H ABG O2 Saturation 97.4 ABG O2 Content 19.7 ABG Base Excess 2.2 A-a Gradient 111.1 Oxyhemoglobin 96.9 Total Hemoglobin 14.4 O2 Delivery Device High flow therapy O2 Liters/Min 40.0 FiO2 36 Sodium 136 L Potassium 4.6 Chloride 101 Carbon Dioxide 26 Anion Gap 9 BUN 19 H Creatinine 0.50 L Estim Creat Clear Calc 130 Estimated GFR > 60 Glucose 168 H Calcium 9.2 Magnesium 2.0 Total Bilirubin 0.5 AST 20 ALT 31 Alkaline Phosphatase 35 L Total Protein 8.0 Albumin 4.0
[2024-03-13] MEDS: atenoloL 12.5 MG TABLET PO (15:07)
--- NOTE | 2024-03-13 16:53 | P.CONPL_ITS ---
Assessment and Plan Assessment and plan (1) Asthma exacerbation: Qualifiers: Asthma persistence: persistent Asthma severity: severe Qualified Code(s): J45.51 - Severe persistent asthma with (acute) exacerbation Code(s): J45.901 - Unspecified asthma with (acute) exacerbation Status: Acute Assessment and Plan: On no controller therapy at home, smokes marijuana. Admitted Nov 2, continue to wheeze, cough, small amount of light colored sputum. May have had viral trigger. (2) Marijuana use: Code(s): F12.90 - Cannabis use, unspecified, uncomplicated Status: Acute Assessment and Plan: Smokes 4-5 blunts per day, contributing to worsening asthma. Plan plan: 1. Check peak flows pre and post nebulized bronchodilator to track response to treatment. 2. alpha-1 antitrypsin phenotype; r/o genetic abnormality; if pressent, there is a specific treatment, in addition to stopping smoking everything. 3. O2 to maintain adequate oxygenation; asthma alone generally does not cause hypoxemia. She may have other conditions contributing to hypoxemia. She had a normal CXR Nov 2, may need chest CT if O2 not weaned off. 4. She needs to have plan for use of controller therapy at discharge. Was not using anything to manage asthma other than albuterol. 5. Environmental triggers are contributing to worsening of asthma, including excessive fragrances and daily smoking marijuana. She says that she will quit smoking marijuana. 6. She is using marijuana for anxiety, does not plan to treat with medical therapies because she prefers marijuana. She says that she will switch to marijuana gummies. 7. Needs to avoid fragrances in home products; includes detergents, fabric sprays such as Febreze, wax melts and air fresheners. These VOC -volatile organic compounds- can worsen air quality and act as endocrine disruptors. 8. Can follow up in office after discharge. Had PFTs in 2020, would repeat in 6-8 weeks after recovery. History of Present Illness History of Present Illness Consult date: 03/13/24 Requesting physician: Dennis Cox MD Chief complaint: Asthma excerbation on bipap, hypxemia Narrative: Patient seen March 13, 2024 18:55 Room 207 [facility] Himanshu and their daughter Cyndy 5 years old are at the bedside [facility] consult: Alexandra Rendon is a 28-year-old female with a history of asthma diagnosed several years ago, admitted with intractable coughing, wheezing and shortness of breath. She has required O2 up to She was diagnosed with asthma about 8-9 years ago, quit smoking after her March 2020 admission. I saw her at the time, she was smoking tobacco at the time and the same amount of marijuana, 4-5 blunts a day. Since then, she quit tobacco. She was coming to our office, last office visit was Jun 2022 almost 2 years ago. She moved to [place] after that, has not had pulmonary follow up She is relying on rescue medication for asthma, and decided to stop taking her medications for her hyperthyroidism. At one point, she used Dulera, not recently. She started smoking marijuana at age 14, also smoked tobacco less than a pack a day for 3 years, quit 6 years ago. 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 Her symptoms started to increase 3 days prior to admission, and frequ ent use of her nebulizer could not alleviated her wheezing and shortness of breath. She had clear sputum, wheezing, chest tightness;? Her triggers for asthma include: infections/weather changes, cut grass, anxiety; she does not have frequent infections. Does not have problems being around pets; has no indoor pets. She has worked at [employer], on her feet 10 hours a day, 4 days a week. Because she is in the hospital, she says that she is fired, will have to show evidence that she was treated as an in-patient before being allowed to return to work. Chart shows that she has bipolar disease adn anxiety. Boyfriend Himanshu says that she was better using Xanax or Klonopin, was not as anxious or in-her-head. DATA * 03/11/2024. CXR = no acute disease. * 05/20/20 ; PFT; There is a mild obstructive abnormality without significant improvement after inhaling a single dose of albuterol.? The lung volumes are normal.? The diffusing capacity is normal. Review of Systems Review of Systems: All systems reviewed & are unremarkable except as noted in HPI and below PMFSH Past Medical History Medical History Anxiety Asthma COVID-19 (~2021) Marijuana use Overweight (BMI 25.0-29.9) Term delivered Surgical History Surgical History History of breast biopsy Family History Family History Sibling Asthma Social History Social History Social History: The patient lives in [place] with her long-term boyfriend and daughter. She smoked about a pack of cigarettes per day for 3 years and quit 2013. She smokes 1 blunt a day and has for at least 8 to 9 years; transitioned to edibles. No alcohol use. She designates her mother, Mikaela Rendon, and her boyfriend, Himanshu Watson, as her surrogate decision makers and she wishes to be a full code. Smoking status: Former smoker Second hand tobacco smoke exposure: No Alcohol intake: never Substance use: current Substance use type: marijuana Do You Feel Safe in your Home?: Yes Lack of Transportation: No Lack of Food: Never True Current Housing: I Have Housing Concerned About Future Housing: No Difficulty Paying Gas/Electric Bills: No Difficulty Paying for Meds: No Currently Unemployed: No Education: Grade School Difficulty w/ Childcare or Family Care: No Occupation/Education: occupation Additional occupation/education comments: [employer] Gender identity (if verbalized by the patient): Female Spiritual care concerns: No Meds Home Medications and Allergies Home Medications Medication Instructions Recorded Confirmed Type albuterol sulfate 90 mcg/actuation 1 - 2 inh inhalation Q4-6H PRN 02/21/24 1 05/11/23 Rx aerosol inhaler shortness of breath or wheezing #8.5 grams Allergies Allergy/AdvReac Type Severity Reaction Status Date / Time No Known Allergies Allergy Verified 03/11/24 11:47 Vital Signs Vital Signs - 24 hr 03/12/24 18:00 03/12/24 19:55 03/12/24 20:07 Temperature Pulse Rate 102 H 102 H 108 H Respiratory Rate 22 H 22 H Blood Pressure Pulse Oximetry Oxygen Delivery Oxygen Flow Rate Fraction of Inspired Oxygen 03/12/24 20:10 03/12/24 20:40 03/12/24 20:00 Temperature 37.0 C Pulse Rate 102 H 91 94 Respiratory Rate 22 H 22 H Blood Pressure 123/59 L Pulse Oximetry 99 98 98 Oxygen Delivery High Flow Therapy with Na High Flow Therapy with Na Oxygen Flow Rate 45 45 Fraction of Inspired Oxygen 40 40 03/12/24 20:00 03/12/24 22:00 03/13/24 00:06 Temperature Pulse Rate 93 82 102 H Respiratory Rate 22 H Blood Pressure Pulse Oximetry Oxygen Delivery Oxygen Flow Rate Fraction of Inspired Oxygen 03/13/24 00:19 03/13/24 00:24 03/13/24 00:20 Temperature 36.7 C Pulse Rate 98 89 85 Respiratory Rate 20 20 22 H Blood Pressure 138/64 Pulse Oximetry 99 96 Oxygen Delivery BiPAP Oxygen Flow Rate Fraction of Inspired Oxygen 03/13/24 00:00 03/13/24 00:00 03/13/24 02:00 Temperature Pulse Rate 88 75 Respiratory Rate Blood Pressure Pulse Oximetry 99 Oxygen Delivery BiPAP Oxygen Flow Rate Fraction of Inspired Oxygen 40 03/13/24 04:00 03/13/24 04:00 03/13/24 05:16 Temperature 37.0 C Pulse Rate 77 79 Respiratory Rate 20 Blood Pressure 122/56 L Pulse Oximetry 99 100 Oxygen Delivery BiPAP Oxygen Flow Rate Fraction of Inspired Oxygen 40 03/13/24 06:00 03/13/24 07:52 03/13/24 08:03 Temperature 36.4 C L Pulse Rate 87 72 89 Respiratory Rate 20 20 Blood Pressure 115/60 Pulse Oximetry 99 96 Oxygen Delivery High Flow Therapy with Na Oxygen Flow Rate 40 Fraction of Inspired Oxygen 36 03/13/24 08:03 03/13/24 08:19 03/13/24 08:00 Temperature Pulse Rate 89 94 Respiratory Rate 20 20 Blood Pressure Pulse Oximetry 96 Oxygen Delivery High Flow Nasal Cannula Oxygen Flow Rate 40 Fraction of Inspired Oxygen 36 03/13/24 11:39 03/13/24 11:50 03/13/24 11:50 Temperature 36.6 C Pulse Rate 94 96 96 Respiratory Rate 18 20 20 Blood Pressure 132/70 Pulse Oximetry 99 97 Oxygen Delivery High Flow Therapy with Na Oxygen Flow Rate 40 Fraction of Inspired Oxygen 36 03/13/24 12:00 03/13/24 08:00 03/13/24 10:00 Temperature Pulse Rate 104 H 76 102 H Respiratory Rate 20 Blood Pressure Pulse Oximetry Oxygen Delivery Oxygen Flow Rate Fraction of Inspired Oxygen 03/13/24 12:00 03/13/24 12:00 03/13/24 15:07 Temperature Pulse Rate 131 H 94 Respiratory Rate Blood Pressure Pulse Oximetry 97 Oxygen Delivery High Flow Nasal Cannula Oxygen Flow Rate 40 Fraction of Inspired Oxygen 36 03/13/24 16:12 03/13/24 16:12 03/13/24 16:23 Temperature 36.4 C Pulse Rate 100 100 116 H Respiratory Rate 20 20 20 Blood Pressure 137/53 L Pulse Oximetry 100 100 Oxygen Delivery High Flow Therapy with Na Oxygen Flow Rate 40 Fraction of Inspired Oxygen 36 03/13/24 16:30 03/13/24 16:30 03/13/24 16:32 Temperature Pulse Rate 95 Respiratory Rate 20 Blood Pressure Pulse Oximetry 100 100 Oxygen Delivery Nasal Cannula Oxygen Flow Rate 8 4 Fraction of Inspired Oxygen 36 03/13/24 16:38 03/13/24 16:51 Temperature Pulse Rate Respiratory Rate Blood Pressure Pulse Oximetry 100 98 Oxygen Delivery Nasal Cannula Nasal Cannula Oxygen Flow Rate 4 4 Fraction of Inspired Oxygen 36 36 Exam Narrative: GEN: Alert, oriented, not in distress. Cough is paroxysmal and wheezy, scant amounts of light colored sputum. HEENT: pupils are equal, EOMI, symmetrical face; oral membranes moist, Mallampati II airway, normal dentition NECK: Trachea is midline CHEST: Equal air entry, symmetric excursion, diffused expiratory wheezes CV: Regular S1S2 no m/g/r ABD : (+) bowel sounds Extremities : no clubbing, cyanosis, or edema; no rashes, no calf tenderness PSYCH: normal thought and speech, gait is not tested Results Laboratory Findings 03/13/24 04:43 03/13/24 04:43 ABG, PT/INR, D-dimer: ABG ABG pH 7.421 (7.350-7.450) 03/13/24 08:42 ABG pCO2 42.5 mmHg (35.0-45.0) 03/13/24 08:42 ABG pO2 96.3 mmHg (80.0-100.0) 03/13/24 08:42 ABG O2 Saturation 97.4 % (95.0-100.0) 03/13/24 08:42 PT/INR, D-dimer PT 13.6 Seconds (11.1-14.7) 03/11/24 12:29 INR 1.0 03/11/24 12:29 D-Dimer 0.29 ug/mL (<0.48) 03/11/24 12:27 Abnormal lab findings: Abnormal Labs 03/11/24 03/11/24 03/11/24 12:27 12:29 13:57 Hct 36.3 L MPV 10.6 H Neut % (Auto) 77.0 H Lymph % (Auto) 11.8 L [place] % (Auto) Lymph # (Auto) Absolute Neuts (auto) ABG pCO2 34.0 L ABG pO2 ABG HCO3 Total Hemoglobin 11.9 L Sodium Potassium 3.2 L BUN Creatinine 0.40 L Glucose 127 H AST 40 H Alkaline Phosphatase 34 L NT-Pro-B Natriuret Pep 271 H TSH < 0.015 L Free T4 4.21 H U Cannabinoids Screen 03/11/24 03/12/24 03/12/24 15:56 04:23 10:15 Hct MPV 10.6 H Neut % (Auto) 86.0 H Lymph % (Auto) 6.0 L [place] % (Auto) Lymph # (Auto) 0.50 L Absolute Neuts (auto) 7.2 H ABG pCO2 47.4 H ABG pO2 116.9 H ABG HCO3 27.9 H Total Hemoglobin Sodium Potassium BUN Creatinine 0.40 L Glucose 113 H AST Alkaline Phosphatase NT-Pro-B Natriuret Pep TSH Free T4 U Cannabinoids Screen Positive A 03/13/24 03/13/24 04:43 08:42 Hct MPV Neut % (Auto) 87.1 H Lymph % (Auto) 9.9 L [place] % (Auto) 2.2 L Lymph # (Auto) 0.53 L Absolute Neuts (auto) ABG pCO2 ABG pO2 ABG HCO3 27.0 H Total Hemoglobin Sodium 136 L Potassium BUN 19 H Creatinine 0.50 L Glucose 168 H AST Alkaline Phosphatase 35 L NT-Pro-B Natriuret Pep TSH Free T4 U Cannabinoids Screen
[2024-03-14] VITALS (23 sets, daily range): BP systolic 116–158; BP diastolic 55–79; PULSE 82–131; RESP 12–20; TEMP 36.6–36.9; O2SAT 95–100
[2024-03-14] MEDS: LEVALBUTEROL NEB 1.25 MG/3 ML INHALATION ×4 (04:51→15:47)
[2024-03-14] MEDS: IPRATROPIUM BR 0.02% INH SOLN 0.5 MG/2.5 ML VIAL INHALATION ×4 (04:51→15:47)
[2024-03-14 05:07] LABS: Basophils Percent Auto 0.1 % (0.2-1.2); Hematocrit 39.6 % (37.0-47.0); Hemoglobin 13.4 g/dL (12.0-15.0); Immature Granulocyte Absolute 0.04 K/mm3 (0.00-0.031); Immature Granulocyte Percent A 0.5 % (0-0.5); Lymphocytes Absolute Auto 0.44 K/mm3 (0.9-3.2); Lymphocytes Percent Auto 5.4 % (18.3-44.2); Mean Corpuscular HGB Conc 33.8 g/dl (32-36); Mean Corpuscular Hemoglobin 27.9 pg (26-34); Mean Corpuscular Volume 82.3 fl (80-100); Mean Platelet Volume 10.1 fl (7.4-10.4); Monocytes Absolute Auto 0.4 K/mm3 (0.1-0.6); Monocytes Percent Auto 4.3 % (2.6-8.5); Neutrophils Absolute Auto 7.3 K/mm3 (1.3-6.7); Neutrophils Percent Auto 89.7 % (45.5-73.1); Platelet Count Result 267 k/mm3 (150-375); Red Blood Count 4.81 M/mm3 (4.2-5.4); Red Cell Distribution Width 12.6 % (11.5-14.5); White Blood Count 8.2 K/mm3 (4.5-10.0)
[2024-03-14 05:27] LABS: Alanine Aminotransferase 25 U/L (6-35); Albumin Level 4.2 g/dL (3.5-5.1); Alkaline Phosphatase 36 U/L (38-126); Anion Gap 11 mmol/L (4-12); Aspartate Amino Transferase 17 U/L (14-36); Bilirubin,Total 0.5 mg/dL (0.2-1.3); Blood Urea Nitrogen 16 mg/dL (7-17); Calcium 9.2 mg/dL (8.4-10.2); Carbon Dioxide 23 mmol/L (22-30); Chloride 103 mmol/L (98-107); Estimated CRCL calculation 158 ml/min; Estimated Glomerular Filt Rate > 60; Glucose 150 mg/dL (65-110); Magnesium 2.1 mg/dL (1.6-2.3); Potassium 3.8 mmol/L (3.4-5.0); Sodium 137 mmol/L (137-145)
[2024-03-14] MEDS: methylPREDNISolone SOD SUCC 40 MG VIAL IV PUSH (06:32)
[2024-03-14] MEDS: FLUTICASONE/SALMETEROL 115-21 MCG INHALER 1 PUFF 2 PUFF INHALATION (08:44)
[2024-03-14] MEDS: methiMAzole 10 MG TAB PO (09:27)
--- NOTE | 2024-03-14 14:21 | P.PNPL_ITS ---
Progress Note: A&P Assessment and Plan (1) Asthma exacerbation: Qualifiers: Asthma persistence: persistent Asthma severity: severe Qualified Code(s): J45.51 - Severe persistent asthma with (acute) exacerbation Code(s): J45.901 - Unspecified asthma with (acute) exacerbation Status: Acute Assessment and Plan: On no controller therapy at home, smokes marijuana. Admitted Nov 2 with wheeing, cough, need for O2, productive cough. Peak flows recorded by RT show values starting at 375 L/min this morning @ 4:35 am, increased to 480 L/min, her best predicted PF. She is stable for discharge. Her last visit in our office was Jun 2022, almost 2 years ago. (2) Marijuana use: Code(s): F12.90 - Cannabis use, unspecified, uncomplicated Status: Acute Assessment and Plan: Smokes 4-5 blunts per day, contributing to worsening asthma. Plan plan: 1. Her peak flows are now normal. She needs to check peak flows at home and record. 2. alpha-1 antitrypsin phenotype was sent. 3. I discussed her care with Dr Cox; ok to go home today on * prednisone taper ; 60 mg x 2 days, decreased by 10 mg x 2 days etc * Advair 115/14 as her controller inhaler TWO puffs twice a day, rinse and spit. * Lev-Albuterol as her rescue inhaler; has extreme tachycardia associated with her hyperthyroidism. 4. Dr. Cox is referring her to Endocrinology for management of her thyroid. 4. Environmental triggers are contributing to worsening of asthma, including excessive fragrances and daily smoking marijuana .Needs to avoid fragrances in home products; includes detergents, fabric sprays such as Febreze, wax melts and air fresheners. These VOC -volatile organic compounds- can worsen air quality and act as endocrine disruptors. 5. Marijuana; She says that she will quit smoking marijuana. Strongly advised NO SMOKING or vaping. I recommend that she sees a psychiatrist or manager er at [facility] across the [address] from [place]. Dr Lao has a practice that offers excellent care. She has untreated bipolar disorder. She is using marijuana to manage anxiety. This is not helping her. [facility] [address], [place] [address] 6. Can follow up in office after discharge. Had PFTs in 2020, would repeat in 6- 8 weeks after recovery. [phone] [facility] Subjective Date/time seen: 03/14/24 14:21 Interval history: hospital follow up; 03/14/24; much better. She had heart rate in the 170s earlier while having emotional phone call with a friend. feels much better today, no coughing, minimal sputum, weaned off O2. Peak flow was 375 L/min, increased to 480 L/min. This is her predicted best. Discussed having her see psychiatrist to get management of bipolar instead of smoking marijuana. 03/13/24, new consult; Alexandradarryl Rendon is a 28-year-old female with a history of asthma diagnosed several years ago, admitted with intractable coughing, wheezing and shortness of breath. She has required O2 up to She was diagnosed with asthma about 8-9 years ago, quit smoking after her March 2020 admission. I saw her at the time, she was smoking tobacco at the time and the same amount of marijuana, 4-5 blunts a day. Since then, she quit tobacco. She was coming to our office, last office visit was Jun 2022 almost 2 years ago. She moved to [place] after that, has not had pulmonary follow up She is relying on rescue medication for asthma, and decided to stop taking her medications for her hyperthyroidism. At one point, she used Dulera, not recently. She started smoking marijuana at age 14, also smoked tobacco less than a pack a day for 3 years, quit 6 years ago. 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 Her symptoms started to increase 3 days prior to admission, and frequent use of her nebulizer could not alleviated her wheezing and shortness of breath. She had clear sputum, wheezing, chest tightness;? Her triggers for asthma include: infections/weather changes, cut grass, anxiety; she does not have frequent infections. Does not have problems being around pets; has no indoor pets. She has worked at [employer] on her feet 10 hours a day, 4 days a week. Because she is in the hospital, she says that she is fired, will have to show evidence that she was treated as an in-patient before being allowed to return to work. Chart shows that she has bipolar disease adn anxiety. Boyfriend Himanshu says that she was better using Xanax or Klonopin, was not as anxious or in-her-head. DATA * 03/11/2024. CXR = no acute disease. * 05/20/20 ; PFT; There is a mild obstructive abnormality without significant improvement after inhaling a single dose of albuterol.? The lung volumes are normal.? The diffusing capacity is normal. Review of Systems Review of Systems: All systems reviewed & are unremarkable except as noted in HPI and below Exam Narrative: GEN: Alert, oriented, not in distress. Seh is on room air, not coughing, and has minimal sputum. NECK: Trachea is midline CHEST: Equal air entry, symmetric excursion, clear lung fernando. Yesterday, she had scattered wheezes, today, better. CV: Regular S1S2 no m/g/r ABD : (+) bowel sounds Extremities : no clubbing, cyanosis, or edema; no rashes, no calf tenderness PSYCH: normal thought and speech, gait is not tested Objective Data Vital Signs Vital Signs: Vital Signs - 24 hr 03/13/24 15:07 03/13/24 16:12 03/13/24 16:12 Temperature Pulse Rate 94 100 100 Respiratory Rate 20 20 Blood Pressure Pulse Oximetry 100 Oxygen Delivery High Flow Therapy with Na Oxygen Flow Rate 40 Fraction of Inspired Oxygen 36 03/13/24 16:23 03/13/24 16:30 03/13/24 16:30 Temperature 36.4 C Pulse Rate 116 H 95 Respiratory Rate 20 20 Blood Pressure 137/53 L Pulse Oximetry 100 100 Oxygen Delivery Oxygen Flow Rate 8 Fraction of Inspired Oxygen 03/13/24 16:32 03/13/24 16:38 03/13/24 16:51 Temperature Pulse Rate Respiratory Rate Blood Pressure Pulse Oximetry 100 100 98 Oxygen Delivery Nasal Cannula Nasal Cannula Nasal Cannula Oxygen Flow Rate 4 4 4 Fraction of Inspired Oxygen 36 36 36 03/13/24 16:00 03/13/24 18:00 03/13/24 16:00 Temperature Pulse Rate 80 97 Respiratory Rate Blood Pressure Pulse Oximetry 98 Oxygen Delivery Nasal Cannula Oxygen Flow Rate 4 Fraction of Inspired Oxygen 03/13/24 19:50 03/13/24 19:51 03/13/24 19:55 Temperature 36.6 C Pulse Rate 94 94 88 Respiratory Rate 20 18 Blood Pressure 146/88 H Pulse Oximetry 98 98 Oxygen Delivery Nasal Cannula Oxygen Flow Rate 3 Fraction of Inspired Oxygen 03/13/24 20:40 03/13/24 20:40 03/13/24 20:51 Temperature Pulse Rate 82 83 103 H Respiratory Rate 20 20 Blood Pressure Pulse Oximetry 97 Oxygen Delivery Nasal Cannula Oxygen Flow Rate 2 Fraction of Inspired Oxygen 03/13/24 22:00 03/13/24 22:00 03/13/24 23:39 Temperature Pulse Rate 99 99 92 Respiratory Rate 18 20 Blood Pressure Pulse Oximetry 97 Oxygen Delivery Nasal Cannula Oxygen Flow Rate 1 Fraction of Inspired Oxygen 03/13/24 23:49 03/14/24 00:11 03/14/24 00:00 Temperature 36.6 C Pulse Rate 82 93 92 Respiratory Rate 20 18 Blood Pressure 142/79 H Pulse Oximetry 100 Oxygen Delivery Oxygen Flow Rate Fraction of Inspired Oxygen 03/14/24 00:00 03/14/24 02:00 03/14/24 03:59 Temperature Pulse Rate 95 88 82 Respiratory Rate 18 Blood Pressure Pulse Oximetry 100 Oxygen Delivery Nasal Cannula Oxygen Flow Rate 1 Fraction of Inspired Oxygen 03/14/24 04:00 03/14/24 04:22 03/14/24 04:54 Temperature 36.6 C Pulse Rate 82 83 100 Respiratory Rate 18 18 20 Blood Pressure 133/55 L Pulse Oximetry 100 99 Oxygen Delivery Room Air Oxygen Flow Rate Fraction of Inspired Oxygen 03/14/24 05:08 03/14/24 08:11 03/14/24 08:38 Temperature 36.9 C Pulse Rate 100 83 Respiratory Rate 20 16 Blood Pressure 116/75 Pulse Oximetry 95 96 Oxygen Delivery Room Air Oxygen Flow Rate Fraction of Inspired Oxygen 03/14/24 08:40 03/14/24 08:55 03/14/24 08:00 Temperature Pulse Rate 92 124 H 94 Respiratory Rate 20 20 20 Blood Pressure Pulse Oximetry 98 Oxygen Delivery Room Air Oxygen Flow Rate Fraction of Inspired Oxygen 03/14/24 08:00 03/14/24 09:58 03/14/24 11:19 Temperature Pulse Rate 93 98 101 H Respiratory Rate 20 Blood Pressure Pulse Oximetry Oxygen Delivery Oxygen Flow Rate Fraction of Inspired Oxygen 03/14/24 11:34 03/14/24 11:37 03/14/24 12:00 Temperature 36.9 C Pulse Rate 100 96 Respiratory Rate 20 12 Blood Pressure 149/77 H Pulse Oximetry 97 97 Oxygen Delivery Room Air Oxygen Flow Rate Fraction of Inspired Oxygen 03/14/24 12:00 Temperature Pulse Rate 112 H Respiratory Rate Blood Pressure Pulse Oximetry Oxygen Delivery Oxygen Flow Rate Fraction of Inspired Oxygen Intake/Output Intake/Output: Intake & Output 03/12/24 03/12/24 03/13/24 03/14/24 00:59 23:59 23:59 23:59 Intake Total 1860 1060 Output Total 600 900 Balance 1260 160 Meds/Results Medications: Active Medications Generic Name Dose Route Start Last Admin Trade Name Freq PRN Reason Stop Dose Admin Acetaminophen 650 mg 03/11/24 17:12 Acetaminophen 325 Mg Tablet PO Q4H PRN Mild Pain (1-3) or Fever Albuterol 1 - 2 puff 03/11/24 19:28 Albuterol Sulfate (*Sp) Aerosol 1 Puff INHALATION Q4-6H PRN shortness of breath or wheezing Ipratropium [place] 0.5 mg 03/12/24 16:00 03/14/24 11:18 Ipratropium Br 0.02% Inh Soln 0.5 Mg/2.5 Ml Vial INHALATION 0.5 mg Q4HRT CARMINA Administration Levalbuterol HCl 1.25 mg 03/12/24 16:00 03/14/24 11:19 Levalbuterol Neb 1.25 Mg/3 Ml INHALATION 1.25 mg Q4HRT CARMINA Administration Methimazole 10 mg 03/12/24 09:00 03/14/24 09:27 Methimazole 10 Mg Tab PO 10 mg DAILY CARMINA Administration Methylprednisolone Sodium Succinate 40 mg 03/12/24 22:00 03/14/24 06:32 Methylprednisolone Sod Succ 40 Mg Vial IV PUSH 40 mg Q8HR CARMINA Administration Ondansetron HCl 4 mg 03/11/24 17:12 Ondansetron Inj 4 Mg/2 Ml Vial IV PUSH Q4H PRN Nausea Fluticasone/Salmeterol 2 puff 03/13/24 09:00 03/14/24 08:44 Fluticasone/Salmeterol 115-21 Mcg Inhaler 1 Puff INHALATION 2 puff Q12HRT CARMINA Administration Radiology Results: ITS Impressions Chest X-Ray 03/11/24 12:53 IMPRESSION: 1. No acute cardiopulmonary disease. Thyroid Ultrasound 03/13/24 09:32 IMPRESSION: 1. Heterogeneous, hypervascular thyroid, which may be seen with chronic lymphocytic (Nick's) thyroiditis or Graves' disease. Labs Labs: Laboratory Results - last 24 hr 03/14/24 04:50 WBC 8.2 RBC 4.81 Hgb 13.4 Hct 39.6 MCV 82.3 MCH 27.9 MCHC 33.8 RDW 12.6 Plt Count 267 MPV 10.1 Immature Gran % (Auto) 0.5 Neut % (Auto) 89.7 H Lymph % (Auto) 5.4 L [place] % (Auto) 4.3 Eos % (Auto) 0.0 Baso % (Auto) 0.1 L Lymph # (Auto) 0.44 L [place] # (Auto) 0.4 Eos # (Auto) 0.0 Baso # (Auto) 0.0 Abs Immat Gran (auto) 0.04 H Absolute Neuts (auto) 7.3 H Absolute Nucleated RBC 0.000 Nucleated RBC % 0.0 Sodium 137 Potassium 3.8 Chloride 103 Carbon Dioxide 23 Anion Gap 11 BUN 16 Creatinine 0.40 L Estim Creat Clear Calc 158 Estimated GFR > 60 Glucose 150 H Calcium 9.2 Magnesium 2.1 Total Bilirubin 0.5 AST 17 ALT 25 Alkaline Phosphatase 36 L Total Protein 8.0 Albumin 4.2
--- NOTE | 2024-03-14 16:10 | P.DS_ITS ---
DS: Admitting Diagnosis Discharge Date 03/14/2024 Admitting Diagnosis Asthma DS: Discharge Diagnosis Discharge Diagnosis (1) Asthma exacerbation: Qualifiers: Asthma persistence: persistent Asthma severity: severe Qualified Code(s): J45.51 - Severe persistent asthma with (acute) exacerbation Code(s): J45.901 - Unspecified asthma with (acute) exacerbation Status: Acute Assessment and Plan: Continue Ipratropium and Xaponex, IV steroids Symbicort Continue titrating oxygen pulm consulted (2) Hyperthyroidism: Code(s): E05.90 - Thyrotoxicosis, unspecified without thyrotoxic crisis or storm Status: Acute Assessment and Plan: - hx of hyperthyroidism, previously on PTU and possibly on a beta-gerardo. patient noted she discontinued her medication herself - TSH <0.015, T4 4.21, and T3 0.99 - thyroid ultrasound showed changes consistent with Grave's disease vs Nick's thyroiditis - on methimazole, give one dose of Atenolol 12.5 mg today and dose daily Will need Endo referral on discharge Plan 28 y/o F presents here with shortness of breath with PMH of hyperthyroidism, asthma, and anxiety. The patient presents here from home for further evaluation of shortness of breath. She reports onset of shortness of breath on Wednesday, 03/10. However was wheezing for the last 1-1.5 weeks. Reporting that she ran out of her home inhalers that she uses to treat her asthma yesterday. She reports that it was recently filled but her asthma has been so bad that it is out. She is endorsing chest tightness, dry cough that occasionally has sputum production accompanying the shortness of breath. Denying chest pain, dizziness, or palpations. The patient arrived tachycardic in the 140s and hypertensive with a blood pressure of 156/101. The patient remains short of breath despite 4 breathing treatments while in the emergency department. Currently endorsing continued shortness of breath and chest tightness like she can't get a deep breath. Patient has had a baby in the last year with delivery date on 04/10/23. She has a history of hyperthyroidism and has previously been treated with methimazole. Last check of her thyroid was more than 2 years ago and has been off medications for her thyroid 2 years ago, let her script lapse and didn't think she needed it treated anymore. She is currently endorsing night sweats, heat intolerance, weakness. Denying heat intolerance, weight loss, palpitations, oligomenorrhea, or anxiety. Has not previously had an ultrasound of her thyroid. Patient has previously needed BiPAP for her asthma, no previous intubations. Initial VS at presentation: 97.6? F, HR 146, RR 18, 156/101, and 96% on RA. ED workup showed: no leukocytosis, no anemia, normal coags, negative D-dimer, ABG largely unremarkable, potassium 3.2, creatinine 0.4 and GFR >60, glucose 127, TSH less than 0.015, UA unremarkable, and viral PCR negative. CXR showed no acute cardiopulmonary disease. In regards to Hyperparathyroidism: - hx of hyperthyroidism, previously on PTU and possibly on a beta-gerardo. No history of same in external med rec, however only have history of medications starting in September of 2023.TSH <0.015, T4 4.21, and T3 pending.start methimazole at 10 mg daily, will need recheck of TSH w/reflex in 4 weeks outpatient.t3 Pending, trial of Propranolol .Thyroid US sh ows Heterogeneous, hypervascular thyroid, which may be seen with chronic lymphocytic (Nick's) thyroiditis or Graves' disease.Patient needs to see Plant Pathologist and is advised that the continuation of methimazole 10 mg is appropriate. Also started Metoprolol 25 mg PO BID for tachycardia. In in regards to asthma pulmonology was consulted :On no controller therapy at home, smokes marijuana. Admitted Nov 2 with wheezing, cough, need for O2, productive cough. Peak flows recorded by RT show values starting at 375 L/min this morning @ 4:35 am, increased to 480 L/min, her best predicted PF. She is stable for discharge. Her last visit in our office was Jun 2022, almost 2 years ago. Smokes 4-5 blunts per day, contributing to worsening asthma. Recommendation: * prednisone taper ; 60 mg x 2 days, decreased by 10 mg x 2 days etc * Advair 115/14 as her controller inhaler TWO puffs twice a day, rinse and spit. * Lev-Albuterol as her rescue inhaler; has extreme tachycardia associated with her hyperthyroidism. * Advised to see Psychiatrist for proper psych evaluation. DS: Summary Hospital Course Hospital Course: 28 y/o F presents here with shortness of breath with PMH of hyperthyroidism, asthma, and anxiety. The patient presents here from home for further evaluation of shortness of breath. She reports onset of shortness of breath on Wednesday, 03/10. However was wheezing for the last 1-1.5 weeks. Reporting that she ran out of her home inhalers that she uses to treat her asthma yesterday. She reports that it was recently filled but her asthma has been so bad that it is out. She is endorsing chest tightness, dry cough that occasionally has sputum production accompanying the shortness of breath. Denying chest pain, dizziness, or palpations. The patient arrived tachycardic in the 140s and hypertensive with a blood pressure of 156/101. The patient remains short of breath despite 4 breathing treatments while in the emergency department. Currently endorsing continued shortness of breath and chest tightness like she can't get a deep breath. Patient has had a baby in the last year with delivery date on 04/10/23. She has a history of hyperthyroidism and has previously been treated with methimazole. Last check of her thyroid was more than 2 years ago and has been off medications for her thyroid 2 years ago, let her script lapse and didn't think she needed it treated anymore. She is currently endorsing night sweats, heat intolerance, weakness. Denying heat intolerance, weight loss, palpitations, oligomenorrhea, or anxiety. Has not previously had an ultrasound of her thyroid. Patient has previously needed BiPAP for her asthma, no previous intubations. Initial VS at presentation: 97.6? F, HR 146, RR 18, 156/101, and 96% on RA. ED workup showed: no leukocytosis, no anemia, normal coags, negative D-dimer, ABG largely unremarkable, potassium 3.2, creatinine 0.4 and GFR >60, glucose 127, TSH less than 0.015, UA unremarkable, and viral PCR negative. CXR showed no acute cardiopulmonary disease. In regards to Hyperparathyroidism: - hx of hyperthyroidism, previously on PTU and possibly on a beta-gerardo. No history of same in external med rec, however only have history of medications starting in September of 2023.TSH <0.015, T4 4.21, and T3 pending.start methimazole at 10 mg daily, will need recheck of TSH w /reflex in 4 weeks outpatient.t3 Pending, trial of Propranolol .Thyroid US shows Heterogeneous, hypervascular thyroid, which may be seen with chronic lymphocytic (Nick's) thyroiditis or Graves' disease.Patient needs to see Plant Pathologist and is advised that the continuation of methimazole 10 mg is appropriate. . Also started Metoprolol 25 mg PO BID for tachycardia. In in regards to asthma pulmonology was consulted :On no controller therapy at home, smokes marijuana. Admitted Nov 2 with wheezing, cough, need for O2, productive cough. Peak flows recorded by RT show values starting at 375 L/min this morning @ 4:35 am, increased to 480 L/min, her best predicted PF. She is stable for discharge. Her last visit in our office was Jun 2022, almost 2 years ago. Smokes 4-5 blunts per day, contributing to worsening asthma. Recommendation: * prednisone taper ; 60 mg x 2 days, decreased by 10 mg x 2 days etc * Advair 115/14 as her controller inhaler TWO puffs twice a day, rinse and spit. * Lev-Albuterol as her rescue inhaler; has extreme tachycardia associated with her hyperthyroidism. * Advised to see Psychiatrist for proper psych evaluation. Status at Discharge Cognitive/behavioral status at discharge: Stable Time Spent with Patient Time attestation: Total time spent providing and/or coordinating discharge services:45 mins Exam Narrative: insp and exp wheeze, tachy, tachypnea with mild accessory muscle use Const: General: no acute distress and uncomfortable Other: , female, mildly ill-appearing with moderate respiratory distress HENMT: Face/Nose/Sinus: Normal nares present Mouth: Yes moist mucous membranes Other: thyroid palpated, no nodules appreciated. Eyes: General: appearance normal, both eyes and all related structures Sclera: sclerae normal Pupils: Equal, round and reactive pupils present EOM: EOMs intact bilaterally Resp: Other: insp and exp wheeze, tachypnea with mild accessory muscle use Cardio: Rate: tachycardic Rhythm: regular rhythm Other: S1-S2 present without murmur, rub, ectopy GI: Other: abdomen soft, nondistended, nontender. Skin: General skin exam: normal color and no rashes or lesions noted Wounds: no wounds Neuro: Cranial nerves: Yes Equal, round and reactive pupils present Speech: normal speech Motor exam (neuro): 5/5 motor strength present throughout Sensory Exam: normal sensation Other: A&O x4 Extrem: General: normal to inspection Psych: Mental Status: mental status grossly normal Affect: normal affect Other: good insight and judgment, pleasant DS: Data Data Completed and Pending Labs on day of discharge: Labs from last 24 hours 03/14/24 04:50 WBC 8.2 RBC 4.81 Hgb 13.4 Hct 39.6 MCV 82.3 MCH 27.9 MCHC 33.8 RDW 12.6 Plt Count 267 MPV 10.1 Immature Gran % (Auto) 0.5 Neut % (Auto) 89.7 H Lymph % (Auto) 5.4 L [place] % (Auto) 4.3 Eos % (Auto) 0.0 Baso % (Auto) 0.1 L Lymph # (Auto) 0.44 L [place] # (Auto) 0.4 Eos # (Auto) 0.0 Baso # (Auto) 0.0 Abs Immat Gran (auto) 0.04 H Absolute Neuts (auto) 7.3 H Absolute Nucleated RBC 0.000 Nucleated RBC % 0.0 Sodium 137 Potassium 3.8 Chloride 103 Carbon Dioxide 23 Anion Gap 11 BUN 16 Creatinine 0.40 L Estim Creat Clear Calc 158 Estimated GFR > 60 Glucose 150 H Calcium 9.2 Magnesium 2.1 Total Bilirubin 0.5 AST 17 ALT 25 Alkaline Phosphatase 36 L Total Protein 8.0 Albumin 4.2 Alpha-1-AT Phenotype Pending Discharge Plan Discharge Attending physician on discharge: Prabhjot Painter Consulting providers: Kathya Franco Discharging Clinician: Prabhjot Painter Patient Disposition: Home, Self-Care Activity: as tolerated Diet: regular Discharge Instructions: Prednisone taper as instructed Advair 115/14 as her controller inhaler TWO puffs twice a day, rinse and spit. Lev-Albuterol as her rescue inhaler; has extreme tachycardia associated with her hyperthyroidism. Follow up with Pulmonology in a week Follow up with Endocrinology for hyperparathyroidism.Started Methimazole 10 mg PO QD. Follow-up with the psychiatrist Advised to stop marijuana/smoking cigarettes Patient Instructions: Antibiotic Form Stand Alone Forms: General Discharge Information, Work/School Release IP Follow-up/Referrals: Kathya Franco MD [Physician] - 1 Week Discharge Medications: New levalbuterol HCl 1.25 mg/3 mL Solution For Nebulization 1.25 mg inhalation Q4HRT Qty: 90 0RF fluticasone propion-salmeterol [Advair HFA] 115-21 mcg/actuation Hfa Aerosol Inhaler 2 puff inhalation Q12HRT Qty: 30 0RF prednisone 10 mg tablet 10 mg PO DIRECTED Qty: 45 0RF Rx Instructions: 60 mg PO Daily x 2 days, 50mg PO Daily x 2 days,40mg PO Daily x 2 days, 30mg PO Daily x 2 days, 20mg PO Daily x 2 days, 10mg PO Daily x 2 days methimazole 10 mg tablet 10 mg PO DAILY Qty: 30 0RF metoprolol tartrate 25 mg tablet 25 mg PO BID Qty: 60 0RF Discontinued albuterol sulfate 90 mcg/actuation HFA aerosol inhaler 1 - 2 inh inhalation Q4-6H PRN (Reason: shortness of breath or wheezing) Qty: 8.5 1RF Rx Instructions: Need appt for add't refills Date of admission: 03/13/24 09:08 Primary Care Provider: Stacia,Lea Han Admitting Provider: Martínez Keller Attending physician on admission: Dennis Cox Condition: Stable
[2024-03-14] MEDS: predniSONE 20 MG TABLET 60 MG PO (16:27)
[2024-03-15 05:49] LABS: T3 Free 13.1 pg/mL (2.3-4.2)
== END 2024-03-14 17:00 | disposition home or self-care (01) | DRG 141 ==
LOC: ANHED 12:12 → ANHIMU 18:32
PROVIDERS: Emergency Medicine; Internal Medicine; Internal Medicine Critical Care Medicine; Student in an Organized Health Care Education/Training Program; Admitting Provider Internal Medicine; Emergency Provider Student in an Organized Health Care Education/Training Program; PCP Family Medicine; Visit Provider General Practice
DX: J45.51 Severe persistent asthma with (acute) exacerbation (principal); E05.90 Thyrotoxicosis, unspecified without thyrotoxic crisis or storm; R09.02 Hypoxemia; E87.6 Hypokalemia; F31.9 Bipolar disorder, unspecified; F41.9 Anxiety disorder, unspecified; F12.90 Cannabis use, unspecified, uncomplicated; Z20.822 Contact with and (suspected) exposure to COVID-19; Z86.16 Personal history of COVID-19; Z87.891 Personal history of nicotine dependence
CPT/HCPCS: 36415; 36600; 71046; 76536; 80048; 80053; 80307; 81003; 81025; 82104; 82805; 83036; 83735; 83880; 84439; 84443; 84480; 84484; 85018; 85025; 85380; 85610; 85730; 87637; 93005; 94002; 94003; 94640; 96361; 96365; 96366; 96374; 96375; 99285; A9270; G0378; G0379; J2060; J2919; J3475; J7030; J7512

== ENCOUNTER 2024-07-20 09:10 | Emergency (ER) | payer OTHER, SELFPAY ==
[2024-07-20 09:15] VITALS: TEMP 36.6
[2024-07-20 09:49] VITALS: BP 140/78; PULSE 98; RESP 15; O2SAT 99
--- OUTSIDE RECORDS SUMMARY | 2024-07-20 10:07 | XMS_ITS | Clinical Summary ---
Author Organization [facility] Address [address], [address] [address] Phone Care Team Providers Care Supervisor Lending Activities Name Role Phone David Jha MD Unavailable [phone] Alicia Azar MD Unavailable [phone] Allergies No known active allergies Medications Vit-Fe Fumarate-FA ( MULTIVITAMIN) 28-0.8 MG Tablet Take 1 Tab by mouth daily. 02/15/2017 Active metroNIDAZOLE (FLAGYL) 500 MG Tablet Take 500 mg by mouth 3 times daily. Active Active Problems Problem Noted Date Diagnosed Date Breast mass 02/24/2017 Family History Medical History Relation Name Comments Asthma Sister Relation Name Status Comments Sister Social History Tobacco Use Types Packs/Day Years Used Date Smoking Tobacco: Former Cigarettes Smokeless Tobacco: Never Alcohol Use Standard Drinks/Week Comments No 0 (1 standard drink = 0.6 oz pur e alcohol) Sexually Active Control Partners Comments Yes None Male Comments Unknown Sex and Gender Information Value Date Recorded Sex Assigned at Not on file Legal Sex Female 11:03 AM CDT Gender Identity Not on file Sexual Orientation Not on file Last Filed Vital Signs Vital Sign Reading Time Taken Comments Blood Pressure 110/80 02/24/2017 9:26 AM CDT Pulse 72 02/24/2017 9:26 AM CDT Temperature 37 C (98.6 F) 02/24/2017 9:26 AM CDT Respiratory Rate 19 02/24/2017 9:26 AM CDT Oxygen Saturation 98% 02/24/2017 9:26 AM CDT Inhaled Oxygen Concentration - - Weight 63 kg (138 lb 12.8 oz) 02/24/2017 9:26 AM CDT Height 165.1 cm (5' 5 ) 02/24/2017 9:26 AM CDT Body Mass Index 23.1 02/24/2017 9:26 AM CDT Plan of Treatment Health Maintenance Due Date Last Done Comments Hepatitis C Virus (HCV) Screening 1994 TdaP Immunization 1994 Hepatitis B Immunization (1 of 3 - 19+ 3-dose series) 2013 Pap Smear 2015 Influenza Immunization (#1) 2024 SARS-COV-2 Immunization ( - 2023- season) 2024 Cervical Cancer Screening (CCS) 2024 HPV/Cotest 2024 Respiratory Syncytial Virus (RSV) Immunization (Adult) (1 - 1-dose 75+ series) 2069 Meningococcal Immunization (ACWY) Aged Out No longer eligible based on patient's age to complete this topic Pneumococcal Immunization Combined Aged Out No longer eligible based on patient's age to complete this topic Rotavirus Immunization Aged Out No lo nger eligible based on patient's age to complete this topic Insurance MEDICAID [employer] Care Teams Supervisor Lending Activities Relationship Specialty Start Date End Date David Jha MD General Surgery 02/15/17 Alicia Azar MD [address] [place] [address] Obstetrics & Gynecology 02/15/17
--- OUTSIDE RECORDS SUMMARY | 2024-07-20 10:08 | XMS_ITS | Referral Summary ---
Author Organization [facility] Address [address] [place] [address] Care Team Providers Care Director Of Diversity And Inclusion Name Role Phone Adrienne Botello MD Primary Care Provider Allergies No known active allergies Medications DULERA 200-5 mcg/actuation inhaler 8 Active vitamin ferrous fumarate-folic () 28 mg iron- 800 mcg tablet Take 1 tablet by mouth daily 30 tablet 11 9 Active norethindrone (MITCH) 0.35 mg tabletIndications: Contraception Take 1 tablet (0.35 mg total) by mouth daily 28 tablet 14 9 Active Active Problems Problem Noted Date Diagnosed Date Right inguinal hernia 06/29/2018 Mild intermittent asthma 06/24/2018 Overview (06/24/2018): Inhaler PRN Resolved Problems Problem Noted Date Diagnosed Date Resolved Date 05/12/2018 02/23/2019 Vaginal delivery 02/23/2019 Immunizations Immunization Administration Dates Next Due Tdap 01/08/2019 Social History Tobacco Use Types Packs/Day Years Used Date Smoking Tobacco: Former Cigarettes 2 013 - 2015 Smokeless Tobacco: Never Tobacco Cessation:Counseling Given: Yes Alcohol Use Standard Drinks/Week Comments No 0 (1 standard drink = 0.6 oz pur e alcohol) Comments No Sex and Gender Information Value Date Recorded Sex Assigned at Not on file Legal Sex Female 8:15 AM BULK FOLDER Gender Identity Not on file Sexual Orientation Not on file 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 Not on file Not on file Last Filed Vital Signs Vital Sign Reading Time Taken Comments Blood Pressure 132/80 03/15/2019 10:36 AM BULK FOLDER Pulse 83 01/09/2019 7:10 AM CDT Temperature 36.6 C (97.8 F) 01/09/2019 7:10 AM CDT Respiratory Rate 19 01/09/2019 7:10 AM CDT Oxygen Saturation 98% 01/08/2019 5:05 PM CDT Inhaled Oxygen Concentration - - Weight 71.2 kg (157 lb) 03/15/2019 10:36 AM BULK FOLDER Height 167.6 cm (5' 6 ) 10/13/2018 11:25 AM CDT Body Mass Index 25.34 10/13/2018 11:25 AM CDT Plan of Treatment Not on file Insurance [id number] [facility] Advance Directives For more information, please contact: [phone] * Full Code (Latest Code Status on File) Date Activated Date Inactivated Comments 01/07/2019 10:57 PM 01/09/2019 8:39 PM Full CPR in case of cardiopulmonary arrest Care Teams Director Of Diversity And Inclusion Relationship Specialty Start Date End Date Adrienne Botello MD [address] [place] [id number] PCP - General Internal Medicine 01/27/18
--- OUTSIDE RECORDS SUMMARY | 2024-07-20 10:08 | XMS_ITS | Data Portability ---
Author Organization [facility] [place] Address [address] [place] [address] [place] [address] Assessment Encounter Date Assessment Date Assessment LastModified by Organization Details LastModified Time 07/12/2024 07/12/2024 Patient is ___weeks . Discussed plan. [email or web address] Not available 07/12/2024 14:01:19 Plan of Treatment Reminders Order Date Submit Date Provider Last Modified By Organization Details Last Modified Time Details Appointments IOP COLPO 2024 11:00A M RN SCHEDULE Not available Not available Not available IOP COLPO 2024 11:00A Cricket HENDERSON MD Not available Not available Not available OB NEW 2024 10:30A Cricket HENDERSON MD Not available Not available Not available Lab None recorded . Referral None recorded . Procedures None recorded . Surgeries None recorded . Imaging US, obstetri c, limited 2024 025 [email or web address] [place], [address], [place], [address], 07/06/2024 22:26:43 non-stre ss test 2022 023 [place], [address], [place], [address], 04/09/2023 17:06:05 Medication Orders Kassiyd 0.35 mg tablet 2023 024 [id number], [address], [place], [place], [id number], 05/12/2023 16:47:22 Patient TargetsNo targets recorded. Patient InstructionsNo instructions recorded. Reason for Referral None Reported. Results Created Date Observation Date Name Description Value Unit Range Abnormal Flag Note LastModifiedBy Organization Detail LastModifiedTime 07/18/19 25 07/17/2024 [UNIT Y] ANEUP LOIDY NIPT fraction 5.6% normal Not Available [facility] [address] [facility], [place], [address], 07/17/2024 15:04:54 07/18/19 25 07/17/2024 [UNIT Y] ANEUP LOIDY NIPT 22Q11.2 microdeletio n LOW RISK <1 in 10,000 normal Not Available [facility] [address] [facility], [place], [address], 07/17/2024 15:04:54 07/18/19 25 07/17/2024 [UNIT Y] ANEUP LOIDY NIPT sex chromosome aneuploidy NOT DETECT ED normal Not Available [facility] [address] [facility], [place], [address], 07/17/2024 15:04:54 07/18/19 25 07/17/2024 [UNIT Y] ANEUP LOIDY NIPT monosomy X LOW RISK <1 in 10,000 normal Not Available [facility] [address] [place], [address], 07/17/2024 15:04:54 07/18/19 25 07/17/2024 [UNIT Y] ANEUP LOIDY NIPT trisomy 13 LOW RISK <1 in 10,000 normal Not Available [facility] [address] [place], [address], 07/17/2024 15:04:54 07/18/19 25 07/17/2024 [UNIT Y] ANEUP LOIDY NIPT trisomy 18 LOW RISK <1 in 10,000 normal Not Available [facility] [address] [place], [address], 07/17/2024 15:04:54 07/18/19 25 07/17/2024 [UNIT Y] ANEUP LOIDY NIPT trisomy 21 LOW RISK <1 in 10,000 normal Not Available [facility] [address] [facility], [place], [address], 07/17/2024 15:04:54 07/18/19 25 07/17/2024 [UNIT Y] ANEUP LOIDY NIPT sex MALE normal Not Available [facility] [address] [facility], [place], [address], 07/17/2024 15:04:54 07/18/19 25 07/17/2024 [UNIT Y] ANEUP LOIDY NIPT gestation SINGLE TON normal Not Available [facility] [address] [facility], [place], [address], 07/17/2024 15:04:54 07/18/19 25 07/17/2024 [UNIT Y] ANEUP LOIDY NIPT for detailed report, see pdf See PDF normal Not Available [facility] [address] [facility], [place], [address], 07/17/2024 15:04:54 07/13/19 25 07/12/2024 CBC W/DIF F WBC 6.5 10'3/ uL 3.5-10 .5 Not Available [facility] (Lab) [address] [place], [address], 07/13/2024 19:32:18 07/13/19 25 07/12/2024 CBC W/DIF F RBC 4.43 10'6/ uL (based on docume nted legal sex) 3.80-5 .20 Not Available [facility] (Lab) [address] [place], [address], 07/13/2024 19:32:18 07/13/19 25 07/12/2024 CBC W/DIF F HGB 12.2 g/dL (based on docume nted legal sex) 11.6-1 5.4 Not Available [facility] (Lab) [address] [facility], [place], [address], 07/13/2024 19:32:18 07/13/1907/12/2024 CBC W/DIF F HCT 36.4 % (based on docume nted legal sex) 34.0-4 5.0 Not Available [facility] (Lab) [address] [facility], [place], [address], 07/13/2024 19:32:18 07/13/19 25 07/12/2024 CBC W/DIF F MCV 82.2 fL 80.0-9 9.0 Not Available [facility] (Lab) [address] [facility], [place], [address], 07/13/2024 19:32:18 07/13/19 25 07/12/2024 CBC W/DIF F MCH 27.5 pg 27.0-3 4.0 Not Available [facility] (Lab) [address] [facility], [place], [address], 07/13/2024 19:32:18 07/13/19 25 07/12/2024 CBC W/DIF F MCHC 33.5 g/dL 32.0-3 5.5 Not Available [facility] (Lab) [address] [facility], [place], [address], 07/13/2024 19:32:18 07/13/1907/12/2024 CBC W/DIF F RDW 12.6 % 11.0-1 5.0 Not Available [facility] (Lab) [address] [facility], [place], [address], 07/13/2024 19:32:18 07/13/19 25 07/12/2024 CBC W/DIF F plt 260 10'3/ uL 150-40 0 Not Available [facility] (Lab) [address] [facility], [place], [address], 07/13/2024 19:32:18 07/13/19 07/12/2024 CBC W/DIF F MPV 10.5 fL 8.8-12 .1 Not Available [facility] (Lab) [address] [facility], [place], [address], 07/13/2024 19:32:18 07/13/1907/12/2024 CBC W/DIF F neutrophils 69.3 % 34.0-7 3.0 Not Available [facility] (Lab) [address] [place], [address], 07/13/2024 19:32:18 07/13/1907/12/2024 CBC W/DIF F lymphocytes 19.3 % 15.0-5 0.0 Not Available [facility] (Lab) [address] [facility], [place], [address], 07/13/2024 19:32:18 07/13/1907/12/2024 CBC W/DIF F monocytes 8.7 % 1.0-15 .0 Not Available [facility] (Lab) [address] [facility], [place], [address], 07/13/2024 19:32:18 07/13/1907/12/2024 CBC W/DIF F eosinophils 2.3 % 0.0-8. 0 Not Available [facility] (Lab) [address] [place], [address], 07/13/2024 19:32:18 07/13/1907/12/2024 CBC W/DIF F basophils 0.2 % 0.0-2. 0 Not Available [facility] (Lab) [address] [place], [address], 07/13/2024 19:32:18 07/13/1907/12/2024 CBC W/DIF F immature granulocytes 0.2 % no define d refere nce range Immat ure Granu locyt es (IG) repre sents autom ated enume ratio n of Metam yeloc ytes, Myelo cytes and Promy elocy jessee when IG is < 5%. Blast s are not inclu ded in IG and repor sandra separ ately if prese nt. Not Available [facility] (Lab) [address] [facility], [place], [address], 07/13/2024 19:32:18 07/13/1907/12/2024 CBC W/DIF F absolute neutrophils 4.5 10'3/ uL 1.5-8. 0 Not Available [facility] (Lab) [address] [place], [address], 07/13/2024 19:32:18 07/13/1907/12/2024 CBC W/DIF F absolute lymphocytes 1.3 10'3/ uL 1.0-4. 0 Not Available [facility] (Lab) [address] [facility], [place], [address], 07/13/2024 19:32:18 07/13/1907/12/2024 CBC W/DIF F absolute monocytes 0.6 10'3/ uL 0.2-1. 0 Not Available [facility] (Lab) [address] [facility], [place], [address], 07/13/2024 19:32:18 07/13/1907/12/2024 CBC W/DIF F absolute eosinophils 0.2 10'3/ uL 0.0-0. 6 Not Available [facility] (Lab) [address] [facility], [place], [address], 07/13/2024 19:32:18 07/13/1907/12/2024 CBC W/DIF F absolute basophils 0.0 10'3/ uL 0.0-0. 3 Not Available [facility] (Lab) [address] [place], [address], 07/13/2024 19:32:18 07/13/19 25 07/12/2024 CBC W/DIF F absolute immature granulocytes 0.0 10'3/ uL 0.00-0 .10 Refer ence range s for nonbi nary/ inter sex or unspe cifie d gende r patie nts have not been estab lishe d. Pleas e refer to the follo wing table for range s estab lishe d for cisge nder patie nts and evalu ate in the clini tammi harjit xt of the indiv idual patie nt: https ://la bhand book. nm.or g/gen derx Not Available [facility] (Lab) [address], [place], [address], 07/13/2024 19:32:18 07/13/1907/12/2024 HEPAT ITIS B SURFA CE ANTIG EN hepatitis B surface antigen Non-re active non-re active This assay was perfo rmed using [employer] ratio n reage nts and test kits. Value s obtai aren with other assay metho ds or kits canno t be used inter zayas eably . Not Available [facility] (Lab) [address], [place], [address], 07/13/2024 19:32:18 07/13/1907/12/2024 HIV 1/2 ANTIG EN/AN TIBOD Y, REFLE X CONFI RMATI ON HIV antigen/anti body Nonrea ctive nonrea ctive HIV-1 antig en and HIV-1 /HIV- 2 antib odies were not detec sandra. No labor atory evide nce of HIV infec tion. Not Available [facility] (Lab) [address], [place], [address], 07/13/2024 19:32:19 07/13/19 25 07/12/2024 HEPAT ITIS C ANTIB LIZZIE SCREE N, REFLE X TO CONFI RMATI ON hepatitis C antibody Non-re active non-re active Antib odies to HCV Not Detec sandra, does not exclu de the possi bilit y of expos ure to HCV. Not Available [facility] (Lab) [address], [place], [address], 07/13/2024 19:32:19 07/13/19 25 07/12/2024 RUBEL LA IGG ANTIB LIZZIE, QUANT rubella antibodies, IgG Reacti ve reacti ve Not Available [facility] (Lab) [address] [facility], [place], [address], 07/13/2024 19:32:20 07/13/19 25 07/12/2024 RUBEL LA IGG ANTIB LIZZIE, QUANT rubella antibodies, IgG quant 33.7 IU/mL >=10 Non-r eacti ve (Non- Immun e) <10 IU/mL React bety (Immu ne) > or = 10 IU/mL Not Available [facility] (Lab) [address] [facility], [place], [address], 07/13/2024 19:32:20 07/13/19 25 07/12/2024 TYPE/ RH/SC REEN ABO/Rh type O POS Not Available [facility] (Lab) [address] [facility], [place], [address], 07/13/2024 19:32:20 07/13/19 25 07/12/2024 TYPE/ RH/SC REEN antibody screen NEG Not Available [facility] (Lab) [address] [facility], [place], [address], 07/13/2024 19:32:20 07/13/19 25 07/12/2024 TYPE/ RH/SC REEN exp date 2024 23:59 Not Available [facility] (Lab) [address] [facility], [place], [address], 07/13/2024 19:32:20 07/13/19 25 07/12/2024 RPR SCREE N, REFLE X TITER /CONF IRMAT ION RPR qualitative Nonrea ctive nonrea ctive Not Available [facility] (Lab) [address] [facility], [place], [address], 07/13/2024 19:32:20 07/13/19 25 07/12/2024 HEMOG LOBIN A1C hemoglobin A1C 5.2 % 4.0-5. 6 The Ameri can Diabe j[place] [employer] iatio n recom mends that a prima ry goal of thera py dennis d be a HBA1C of < 7% and that physi cians shoul d reeva luate the treat ment regim en in patie nts with HBA1C value s consi stent ly > 8%. <5.7% Sade l 5.7 - 6.4% Incre ased risk for diabe jessee >=6.5 % Diagn ostic of diabe jessee <7.0% Goal of thera py >8.0% Actio n sugge sted Not Available [facility] (Lab) [address] [facility], [place], [address], 07/13/2024 19:32:21 07/13/19 25 07/12/2024 IMAGE GUIDE D PAP AND HPV REGAR DLESS image guided Pap, HPV regardless of Pap result SEE RESULT S BELOW abnormal CASE REPOR T: Cytol ogy Gynec ologi tammi Repor t Case: [id number] Autho juan mcfadden Provi black: Ronald Henderson MD Colle cted: 07/12 1647 Order ing Locat ion: [place] [facility] Recei jemima: 07/13 0945 First Scree n: Bria [place], [place] Patho logis t: Kim Zayas MD Speci men: Cam cloud Pap - Image d, Cervi x STATE MENT OF ADEQU ACY: Satis facto ry for evalu ation Trans forma tion zone compo nent absen t ----- ----- ----- ----- ----- ----- ----- ----- ----- ----- ----- ----- ----- ----- ----- ----- ----- ---- FINAL DIAGN OSIS: Epith elial Cell Abnor malit y, Squam ous Cell: Atypi tammi Squam ous Cells of Undet ermin ed Signi fican ce (ASC- US). Funga l organ isms morph ologi pierre consi stent with Veronique da spp. Elect wiliamfavian calvo by Kim Zayas MD on 2024 at 1223 CDT ----- ----- ----- ----- ----- ----- ----- ----- ----- ----- ----- ----- ----- ----- ----- ----- ----- ---- HPV RESUL TS: HPV mRNA E6/E7 : Posit bety - HPV mRNA Detec sandra HPV GENOT YPE 16 (DASHAWN) : Not Detec sandra HPV GENOT YPE 18/45 (DASHAWN) : Not Detec sandra NOTE: This high risk HPV mRNA assay detec ts fourt een high- risk HPV types (16, 18, 31, 33, 35, 39, 45, 51, 52, 56, 58, 59, 66, 68) witho ut diffe renti ation . This assay can diffe renti ate HPV 16 from HPV 18/45 , but does not diffe renti ate betwe en HPV 18 and HPV 45. A negat bety HPV 16, 18/45 genot ype assay resul t does not exclu de the possi bilit y of cytol ogic abnor malit ies or of futur e or under lying SANDRA 1, SANDRA 3 or cance r. COMME NT: This speci men was revie wed by a Cytot echno logis t and/o r Patho logis t (as indic ated in this repor t) after evalu ation using the Thinp rep Imagi ng Syste m. CLINI ATMMI INFOR MATIO N: Menst rual Statu s: LMP (if appli cable ): Clini tammi Histo ry/Pr eviou s Pap: Type of Neopl bharati (if appli cable ): Debby funez Clini tammi Findi ngs: Other Histo ry: Hormo pierre (if appli cable ): JENA GRUBBS FOLLO W-UP: Follo w up as warra nted, based on curre nt guide lines and indiv idual patie nt consi derat ions. Not Available [facility] (Lab) [address] [facility], [place], [address], 07/18/2024 13:25:57 07/13/19 25 07/12/2024 CULTU RE: URINE result report SEE RESULT S BELOW Test: Cultu re: Urine Speci men Sourc e: Urine - Clean Catch Speci men Type: Urine Speci men Date: 1647 Resul t Date: 0605 Resul t Statu s: Final resul t Abnor mal: No Resul ting Lab: [facility] [address] [facility] [address] Tel: CULTU RE ----- ----- ----- --- No growt h in 1 day (dete ction level of 10,00 0 colon ies / ml.) Not Available [facility] (Lab) [address] [facility], [place], [address], 07/18/2024 13:25:59 07/13/19 25 07/12/2024 drug scree n, urine Amphetamines : negati ve Not Available [place] [address], [place], [address], 07/12/2024 19:26:38 07/13/19 25 07/12/2024 drug scree n, urine Cannabinoids : positi ve Not Available [place] [address], [place], [address], 07/12/2024 19:26:38 07/13/19 25 07/12/2024 drug scree n, urine Cocaine: negati ve Not Available [place] [address], [place], [address], 07/12/2024 19:26:38 07/13/19 25 07/12/2024 drug scree n, urine Opiates: negati ve Not Available [place] [address], [place], [address], 07/12/2024 19:26:38 07/13/19 25 07/12/2024 drug scree n, urine Barbiturates : negati ve Not Available [place] [address], [place], [address], 07/12/2024 19:26:38 07/13/19 25 07/12/2024 drug scree n, urine Benzodiazepi pierre: negati ve Not Available [place] [address], [place], [address], 07/12/2024 19:26:38 04/09/20 23 04/09/2023 non-s tress test No observ ation record ed. [email or web address] [place] [address], [place], [address], 04/09/2023 17:02:36 07/06/19 25 07/06/2024 US, obste tric, limit ed No observ ation record ed. [email or web address] [place] [address], [place], [address], 07/06/2024 18:37:58 07/06/19 25 07/06/2024 US, obste tric, limit ed No observ ation record ed. [email or web address] [address], [place], [address], 07/06/2024 21:26:03 Result Notes None recorded. Problems Name Problem SNOMED Code Status Onset Date Resolution Date Notes Provider Name and Address Organization Details Recorded Time Pregnanc y 79762437 Completed 202204/15/2023 Lay nesbitt, [facility] 5 14:24:12 Group B Streptoc occus carrier 8692224616 103 Completed in urine Denita nesbitt [facility] 3 13:14:46 Pregnanc y 60529895 [facility] 14:24:12 Female steriliz ation Active Francois Henderson MD [address], [place], [address], [facility] 14:29:21 Asthma 538953484 Active Francois Henderson MD [address], [place], [address], [facility] 14:29:36 Lesion of vulva 885949560 Active skin redundan cy previous lacerati on site Francois Henderson MD [address], [place], [address], [facility] 14:30:40 Tachycar flaco 0879938 Active prescrib ed metoprol ol at outside hospital Referral faxed to [facility] Sanaz Zapata [facility] 18:51:48 Hyperthy roidism 35948592 Active methimaz ole Referral faxed to [facility] schedule d 07/31 9:45 Level II US & Consult Sanaz Zapata [facility] 17:25:17 Problem Notes None recorded. Procedures Surgical History Date Name Laterality Status Provider Name and Address Organization Details Recorded Time 10/22/2022 Date of Last Pap Smear completed Verito Ortega [facility] 04/09/2023 15:48:03 Imaging Results Imaging Date Name Status LastModified by [facility] Details LastModified Time 04/09/2023 non-stress test completed [email or web address] [place] [address], [place], [address], 04/09/2023 17:02:36 07/06/2024 US, obstetric, limited completed [email or web address] [place] [address], [place], [address], 07/06/2024 18:37:58 07/06/2024 US, obstetric, limited completed [email or web address] [address] [facility], [place], [address], 07/06/2024 21:26:03 Procedure Notes None recorded. Medical Equipment None Reported. Allergies No known drug allergies Medications Name Sig Start Date Stop Date Status Note LastModified by Organization Details LastModified Time prednisone 10 mg tablet active Not Available Not Available Not Available albuterol sulfate 2.5 mg/3 mL (0.083 %) solution for nebulizatio n active Not Available Not Available Not Available ibuprofen 800 mg tablet active Not Available Not Available Not Available fluconazole 150 mg tablet active Not Available Not Available Not Available prednisone 20 mg tablet 04/09 completed Not Available Not Available Not Available metronidazo le 500 mg tablet 04/09 completed Not Available Not Available Not Available acetaminoph en 500 mg tablet active Not Available Not Available Not Available amoxicillin 500 mg tablet active Not Available Not Available Not Available amoxicillin 875 mg tablet 04/09 completed Not Available Not Available Not Available cephalexin 500 mg capsule 04/09 completed Not Available Not Available Not Available albuterol sulfate HFA 90 mcg/actuati on aerosol inhaler INHALE 1 TO 2 PUFFS BY MOUTH EVERY 4 TO 6 HOURS NEEDED FOR SHORTNESS OF BREATH OR WHEEZING active Not Available Not Available No t Available norethindro ne (contracept bety) 0.35 mg tablet Take 1 tablet every day by oral route. active Not Available Not Available No t Available amoxicillin 875 mg-potassiu m clavulanate 125 mg tablet TAKE 1 TABLET BY MOUTH EVERY 12 HOURS 04/09 completed Not Available Not Available Not Available metoprolol tartrate 25 mg tablet active Not Available Not Available No t Available Vitamin active Not Available Not Available Not Available Dulera 200 mcg-5 mcg/actuati on HFA aerosol inhaler 04/09 completed Not Available Not Available Not Available Dulera 100 mcg-5 mcg/actuati on HFA aerosol inhaler active Not Available Not Available Not Available Vitals Date Recorded Body height Body mass index (BMI) Body weight Systolic blood pressure Diastolic blood pressure Provider Name and Address Organization Details Last Updated DateTime 04/09/2023 167.64 cm 27 kg/m2 25812.92 579 g 135 mm[Hg] 88 mm[Hg] Verito Ortega [facility] 3 15:34:38 Date Recorded Body height Body mass index (BMI) Body weight Systolic blood pressure Diastolic blood pressure Provider Name and Address Organization Details Last Updated DateTime 05/12/2023 167.64 cm 24.2 kg/m2 10259.86 g 129 mm[Hg] 77 mm[Hg] Verito Ortega [facility] 4 16:21:51 Date Recorded Body height Body mass index (BMI) Body weight Systolic blood pressure Diastolic blood pressure Provider Name and Address Organization Details Last Updated DateTime 07/12/2024 167.64 cm 24.6 kg/m2 01043.48 g 162 mm[Hg] 86 mm[Hg] Lay Fish [facility] 5 14:06:07 Social History Question Answer Notes LastModified by Organizat ion Details LastModified Time Tobacco Smoking Status Former Smoker Verito Ortega [facility] 04/09/2023 15:35:49 Do You Have An Advance Directive? No [email or web address] Information n ot available 07/12/2024 What Is Your Level Of Alcohol Consumption? None [email or web address] Information not available 07/12/2024 Are You Blind Or Do You Have Difficulty Seeing? No [email or web address] Information n ot available 07/12/2024 What Is Your Level Of Caffeine Consumption? Moderate [email or web address] Information not available 07/12/2024 How Much Tobacco Do You Chew? None [email or web address] Information not available 07/12/2024 In The 14 Days Before Symptom Onset, Have You Had Close Contact With A Laboratory-confirm ed COVID-19 While That Case Was Ill? No [email or web address] Information n ot available 07/12/2024 In The 14 Days Before Symptom Onset, Have You Had Close Contact With A Person Who Is Under Investigation For COVID-19 While That Person Was Ill? No [email or web address] Information not available 07/12/2024 Have You Been To An Area Known To Be High Risk For COVID-19? No [email or web address] Information not available 07/12/2024 Are You Deaf Or Do You Have Serious Difficulty Hearing? No [email or web address] Information not available 07/12/2024 What Type Of Diet Are You Following? REGULAR Information n ot available 07/12/2024 What Is The Highest Grade Or Level Of School You Have Completed Or The Highest Degree You Have Received? [id number] [email or web address] Information not available 07/12/2024 Are There Any Guns Present In Your Home? No [email or web address] Information not available 07/12/2024 Do You Use Protection During Sex? Usually [email or web address] Information not available 07/12/2024 Do You Use Your Seat Belt Or Car Seat Routinely? Yes [email or web address] Information not available 07/12/2024 Do You Have Smoke And Carbon Monoxide Detectors In Your Home? Yes [email or web address] Information not available 07/12/2024 How Much Tobacco Do You Smoke? No [email or web address] Information not available 07/12/2024 Do You Feel Stressed (tense, Restless, Nervous, Or Anxious, Or Unable To Sleep At Night)? PC15717-5 [email or web address] Information not available 07/12/2024 Do You Use Any Illicit Or Recreational Drugs? No [email or web address] Information not available 07/12/2024 Do You Use Sunscreen Routinely? Yes [email or web address] Information not available 07/12/2024 Have You Used IV Drugs? No [email or web address] Information not available 07/12/2024 Sex: Unknown Functional Status Question Answer Note LastModified by Organization D etails LastModified Time Are you able to walk? YESWOREST [email or web address] Information not available 07/12/2024 What is your exercise level? Moderate [email or web address] Information not available 07/12/2024 Mental Status None recorded. Family History Relationship Description Onset Age of this Age Resolved Age Notes LastModified by Organization Details LastModified Time Sister Asthma [email or web address] Not available 04/09/2023 15:48:59 Paternal Grandfather Diabetes mellitus [email or web address] Not available 2022 15:49:09 Paternal Grandfather Disorder of thyroid gland [email or web address] Not available 2022 15:49:18 Medical History Condition Response Allergies (Food, seasonal, environmental ) N Other N Breast Cancer N Drug/Latex Allergies/Reactions N Blood Transfusion N Dermatologic Disorders N Lung Disease N Defects or Inherited Disease N Breast Problem N Gestational Diabetes N Hematologic disorders N Anesthesia Complications N History of STI N Deep Vein Thrombosis N Polycystic ovary syndrome N Anxiety Disorder N Autoimmune disease N Arthritis N Infertility N Polyps N Acid Reflux (GERD) N History of abnormal pap N Cancer N Stroke N Varicosities N Neurologic/Epilepsy N Endometriosis N High Cholesterol N Headaches N Fibromyalgia N Kidney Disease N Heart Problems N Kidney or Bladder Problems N Thyroid Problems N GI Problems N Eating Disorder N Anemia N Art (IVF or FET) N Psychiatric Illness N Ovarian Cancer N Diabetes N Pulmonary (TB, Asthma) N Hepatitis/Liver Disease N No Past Medical History N Eczema N Urinary Tract Infection N Abuse/Domestic Violence N Asthma N Trauma/Violence N Depression/ depression N Heart Disease N Pre-Eclampsia N Hypertension N Osteoporosis N Thrombophilias N Gynecological History Statement/Question Response Abnormal Pap Y Date of LMP 03/22/2024 N Was last menstrual period normal Y STIs/STDs N HPV Vaccine N Duration of Flow (days) 4 Current Control Method Age at First Child 23 Date of control 03/16/2024 Frequency of Cycle (Q days) 4 Sexually Active? Y Age of first menstrual cycle 12 Date of Last Pap Smear 10/22/2022 Sexual Problems? N LMP Approximate N 06/30/2024 Obstetrics History GPAL:G 4 P 1 0 1 2 Type Value Full Term 1 Spontaneous 1 Living 2 Total 4 Past Encounters Encounter ID Performer Location Encounter Start Date Encounter Closed Date Diagnosis/Indication Diagnosis SNOMED-CT Code Diagnosis ICD10 Code Diagnosis Note [id number] Francois Henderson MD [place] [address] [address] 04/09/2023 14:46:10 04/09/2023 16:35:02 Routine care [id number] Z34.83 [id number] Lisa [facility] [address] [address] 04/09/2023 16:16:55 04/09/2023 17:06:05 Post-term [id number] O48.0 [id number] Verito Ortega [place] [address] [address] 05/12/2023 16:00:06 05/12/2023 16:54:51 state [id number] Z39.2 patient is a 28-year-ol d multiparou s who presents for follow-up. She had a vaginal . She is 4 weeks . She is breastfeed ing. She is not bleeding. She is not had sex. Her baby is doing well. She is doing well. She is going to start progestero ne only pill. She is no complaints . Her mood is good. She will follow up in 2 months for well-woman exam. [id number] Elinor Faith [place] [address] [address] 07/06/2024 15:11:12 07/06/2024 15:54:05 screening [id number] Z36.87 O09.32 Z3A.15 [id number] Kristine Farhat [place] [address] [address] 07/12/2024 13:52:54 07/12/2024 15:10:19 Routine care [id number] Z34.83 Health Concerns Section Related Observation LastModified by Organization Detai ls LastModified Time None Recorded Concern Status LastModified by Organization Details LastModified Time None Recorded Advance Directives Directive N: Payers Encounter Date Sequence Insurance Name Policy Number Policy Anand Covered Member ID Anand Member ID Guarantor Name 04/09/2023 1 [facility] ON OR AFTER 11/07/20 (MEDICAID REPLACEMENT - HMO) Alexandra Rendon [id number] Alexandra Rendon 04/09/2023 1 [facility] ON OR AFTER 11/07/20 (MEDICAID REPLACEMENT - HMO) Alexandra Rendon [id number] Alexandra Rendon 05/12/2023 1 [facility] ON OR AFTER 11/07/20 (MEDICAID REPLACEMENT - HMO) Alexandra Rendon [id number] Alexandra Rendon 07/06/[address] [facility] ON OR AFTER 11/07/20 (MEDICAID REPLACEMENT - HMO) Alexandra Rendon [id number] Alexandra Rendon 07/12/2024 1 [facility] ON OR AFTER 11/07/20 (MEDICAID REPLACEMENT - HMO) Alexandra Rendon [id number] Alexandra Rendon Notes Date Note Type Note Provider Name and Address Organization Details Recorded Time 05/12/2023 text/html patient is a 28-year-old multiparous who presents for follow-up. She had a vaginal . She is 4 weeks . She is . She is not bleeding. She is not had sex. Her baby is doing well. She is doing well. She is going to start progesterone only pill. She is no complaints. Her mood is good. She will follow up in 2 months for well-woman exam. Verito Ortega [facility] 05/19/2023 18:00:54 OBGyn Episode Ob Episode Information Episode Created Date Number of Fetuses Patient Bloodtype Patient rh Status Prepregnancy Weight lbs Domestic Partner Domestic Partner Phone Father Name Buyer Status 07/13/19 25 1 211.2 OPEN Fetus Data First Name Last Name Admitted to NICU Weight (g) Sex Living Outcome Pediatric Complications Fetus ID Race Codes Race Delivery Type [id number] Problems Problem Notes scheduled 07/31 9:45 Level II US & Consult Problem Name Start Date End Date Resolution Snomed Code Not e Tachycardia [id number] prescrib ed metoprolol at outside hospital Referral faxed to [facility] Female sterilization [id number] Asthma [id number] Lesion of vulva [id number] skin redundancy previous laceration site Hyperthyroidism [id number] meth imazole Referral faxed to [facility] scheduled 07/31 9:45 Level II US & Consult Virgilio Calculation Initial Virgilio Date Initial Exam Date Initial Exam Provider Initial Ultrasound Date Last Menstrual Period Date Ultra Sound Weeks Gestation 07/12/2024 07/06/2024 03/21/2024 15 Eighteen To Twenty Week Virgilio Update Ultra Sound Date Fundal Height At Umbil Quickening Date Ultra Sound Latest Weeks Gestation Final Virgilio Confirmed By Final Virgilio Confirmed Date Final Virgilio Date Ultra Sound Latest Days Gestation 0 0 Pre- Flowsheet Flowsheet Date 07/12/2024 [place] Score Blood Edema Fundus Height Fundus Units Glucose Ketones Leukocytes Nitrite Labor Signs Protein Cervic Dilation Cervic Effacement Cervic Station none Type Weight in lbs Pre/Post Dialysis Refused Weight 152.463435561202 BP Diastolic BP Location Tested BP Systolic BP Type 86 L arm 162 sitting Fetus Heart Rate Present Fetus Movement Comments this patient is a 29-year-ol d multipparous female at 17 weeks' gestation who presents for initial care. She has a history of term vaginal births. Her medical, surgical, obstetric history is unremarkable. She is vaccinated. She was given precautions recommendations for . We talked about vaccines in . Talked about care in detail. She is having genetic testing. She had a normal 12 week ultrasound. To begin routine care. Menstrual History Last Menstrual Date Menses Monthly On Bcp Conception Prior Menses Frequency Hcg Plus Date Menarche Onset Age 1103/21/2024 true 5 Delivery Information Delivery Date Delivery Type Labor Anesthesia Weeks Gestation Incision Type Labor Labor Length Hrs Delivered By Post Complications Tubal Sterilization Discharge Date Comments Discharge Information Feeding Method Contraceptive Method Maternal HG B and HCT Levels Ob Episode Information Episode Created Date Number of Fetuses Patient Bloodtype Patient rh Status Prepregnancy Weight lbs Domestic Partner Domestic Partner Phone Father Name Buyer Status 04/09/20 23 1 O Positive CLOSED Fetus Data First Name Last Name Admitted to NICU Weight (g) Sex Living Outcome Pediatric Complications Fetus ID Race Codes Race Delivery Type 3401.94 F true Full Term [id number] Vaginal Delivery Problems Problem Notes Problem Name Start Date End Date Resolution Snomed Code Not e Group B Streptococcus carrier [id number] in urine Virgilio Calculation Initial Virgilio Date Initial Exam Date Initial Exam Provider Initial Ultrasound Date Last Menstrual Period Date Ultra Sound Weeks Gestation 04/09/2023 04/09/2023 12/09/2022 22 Eighteen To Twenty Week Virgilio Update Ultra Sound Date Fundal Height At Umbil Quickening Date Ultra Sound Latest Weeks Gestation Final Virgilio Confirmed By Final Virgilio Confirmed Date Final Virgilio Date Ultra Sound Latest Days Gestation 0 [email or web address] 04/09/2023 04/09/20 23 0 Pre- Flowsheet Flowsheet Date 04/09/2023 [place] Score Blood Edema Fundus Height Fundus Units Glucose Ketones Leukocytes Nitrite Labor Signs Protein Cervic Dilation Cervic Effacement Cervic Station trace trace Type Weight in lbs Pre/Post Dialysis Refused Weight 167.290246769776 BP Diastolic BP Location Tested BP Systolic BP Type 88 R arm 135 sitting Fetus Heart Rate Present Fetus Movement Comments 27-year-old female 3 para 1011 at approximately 40 weeks' gestation. Baseline 22 week ultrasound she is 40 weeks today. She has a uncertain last menstrual period. there is a question of whether was June 27. She does not seem too sure. She has care in both [place] and [place]. We did not have her record. We have some labs and a 22 week ultrasound report. She will have an NST and be induced in 3 days. Flowsheet Date 04/09/2023 [place]edo Score Blood Edema Fundus Height Fundus Units Glucose Ketones Leukocytes Nitrite Labor Signs Protein Cervic Dilation Cervic Effacement Cervic Station Type Weight in lbs Pre/Post Dialysis Refused BP Diastolic BP Location Tested BP Systolic BP Type Fetus Heart Rate Present Fetus Movement Comments Menstrual History Last Menstrual Date Menses Monthly On Bcp Conception Prior Menses Frequency Hcg Plus Date Menarche Onset Age Genetic Screening And Infection History Question Response Note Mental Retardation/Autism false Patient's Age Will Be 35 Years Or Older At Estim ated Date of Delivery false Thalassemia (Tristanian, Citizen Of [place], Mediterranean, Or Background): MCV < 80 false Neural Tube Defect (Meningomyelocele, Spina Bifi da, Or Anencephaly) false Congenital Heart Defect false Down Syndrome false Zachary-Sachs (eg, Anabaptist, Cajun, Erit[place]an-[place]) f alse Kathi Disease false Sickle Cell Disease Or Trait () false Hemophilia Or Other Blood Disorders false Muscular Dystrophy false Cystic Fibrosis false Filippo's Chorea false Intellectual Disability/Autism false If Yes, Was Person Tested For Fragile X? false Other Inherited Genetic Or Chromosomal Disorder false Maternal Metabolic Disorder (eg, Type 1 Diabetes , PKU) false Patient Or Baby's Father Had A Child With Defects Not Listed Above false Recurrent Loss, Or A Stillbirth false Medications (including Suppl ements, Vitamins, Herbs, OTC Drugs), Illicit/Recreational Drugs, Alcohol false If Yes, Agent(s) And Strength/Dosage false Any Other Genetic History false Live With Someone With TB Or Exposed To TB false Patient Or Partner Has History Of Genital Herpes false Rash Or Viral Illness Since Last Menstrual Perio d false History Of STD, Gonorrhea, Chlamydia, HPV, Syphi lis false Other Infection History false History of HIV false History of Hepatitis false Prior GBS-infected child false Hemoglobinopathy Or Carrier false Other Structural Defect false Recent Travel History Outside of Country false Delivery Information Delivery Date Delivery Type Labor Anesthesia Weeks Gestation Incision Type Labor Labor Length Hrs Delivered By Post Complications Tubal Sterilization Discharge Date Comments 12/02/202 3 Maranda sandra [facility].1 Francois Burger MD Group B Streptoco ccus carrier Discharge Information Feeding Method Contraceptive Method Maternal HG B and HCT Levels Ob Episode Information Episode Created Date Number of Fetuses Patient Bloodtype Patient rh Status Prepregnancy Weight lbs Domestic Partner Domestic Partner Phone Father Name Buyer Status 04/09/20 23 1 CLOSED Fetus Data First Name Last Name Admitted to NICU Weight (g) Sex Living Outcome Pediatric Complications Fetus ID Race Codes Race Delivery Type 3316.66 [id number] Vaginal Delivery Virgilio Calculation Initial Virgilio Date Initial Exam Date Initial Exam Provider Initial Ultrasound Date Last Menstrual Period Date Ultra Sound Weeks Gestation 0 Eighteen To Twenty Week Virgilio Update Ultra Sound Date Fundal Height At Umbil Quickening Date Ultra Sound Latest Weeks Gestation Final Virgilio Confirmed By Final Virgilio Confirmed Date Final Virgilio Date Ultra Sound Latest Days Gestation 0 0 Menstrual History Last Menstrual Date Menses Monthly On Bcp Conception Prior Menses Frequency Hcg Plus Date Menarche Onset Age Delivery Information Delivery Date Delivery Type Labor Anesthesia Weeks Gestation Incision Type Labor Labor Length Hrs Delivered By Post Complications Tubal Sterilization Discharge Date Comments 9 Cyndy Discharge Information Feeding Method Contraceptive Method Maternal HG B and HCT Levels Ob Episode Information Episode Created Date Number of Fetuses Patient Bloodtype Patient rh Status Prepregnancy Weight lbs Domestic Partner Domestic Partner Phone Father Name Buyer Status 04/09/20 23 1 CLOSED Fetus Data First Name Last Name Admitted to NICU Weight (g) Sex Living Outcome Pediatric Complications Fetus ID Race Codes Race Delivery Type , [place]ontane ous [id number] Virgilio Calculation Initial Virgilio Date Initial Exam Date Initial Exam Provider Initial Ultrasound Date Last Menstrual Period Date Ultra Sound Weeks Gestation 0 Eighteen To Twenty Week Virgilio Update Ultra Sound Date Fundal Height At Umbil Quickening Date Ultra Sound Latest Weeks Gestation Final Virgilio Confirmed By Final Virgilio Confirmed Date Final Virgilio Date Ultra Sound Latest Days Gestation 0 0 Menstrual History Last Menstrual Date Menses Monthly On Bcp Conception Prior Menses Frequency Hcg Plus Date Menarche Onset Age Delivery Information Delivery Date Delivery Type Labor Anesthesia Weeks Gestation Incision Type Labor Labor Length Hrs Delivered By Post Complications Tubal Sterilization Discharge Date Comments 3 Discharge Information Feeding Method Contraceptive Method Maternal HG B and HCT Levels
--- OUTSIDE RECORDS SUMMARY | 2024-07-20 10:08 | XMS_ITS | Clinical Summary ---
Author Organization [facility] Address [address] [place] [address] Care Team Providers Care Drywall Finisher Foreman Name Role Phone Adrienne Botello MD Primary [...] Immunization Administration Dates Next Due Tdap 01/08/2019 Surgical History Surgery Date Site/Laterality Comments BREAST BIOPSY 05/10/2011 - 05/09/2012 Right WISDOM TOOTH EXTRACTION Medical History Medical History Date Comments Asthma Genital warts Anxiety Stopped PRN medi cation in 2018. Reports mood as stable. Abnormal Pap smear of cervix 12/09 - [facility]. 12/2017 - [facility] (no HPV result) Abnormal Pap smear of cervix 2018 [facility], HPV negative. Colposcopy - SANDRA 1. Family History Medical History Relation Name Comments COPD Maternal Grandfather COPD Maternal Grandmother Lung cancer Maternal Grandmother COPD Paternal Grandfather Diabetes Paternal Grandfather COPD Paternal Grandmother Relation Name Status Comments Brother Alive Father Alive Maternal Grandfather Maternal Grandmother Mother Alive Paternal Grandfather Paternal Grandmother Sister Alive Social History Tobacco Use Types Packs/Day Years Used Date Smoking Tobacco: Former Cigarettes 2 - 2014 Smokeless Tobacco: Never Tobacco Cessation:Counseling Given: Yes Alcohol Use Standard Drinks/Week Comments No 0 (1 standard drink = 0.6 oz pur e alcohol) Comments No Sex and Gender Information Value Date Recorded Sex Assigned at Not on file Legal Sex Female 8:15 AM ADVERTISING EDITOR Gender Identity Not on file Sexual Orientation Not on file 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 Last Filed Vital Signs Vital Sign Reading Time Taken Comments Blood Pressure 132/80 03/15/2019 10:36 AM ADVERTISING EDITOR Pulse 83 01/09/2019 7:10 AM CDT Temperature 36.6 C (97.8 F) 01/09/2019 7:10 AM CDT Respiratory Rate 19 01/09/2019 7:10 AM CDT Oxygen Saturation 98% 01/08/2019 5:05 PM CDT Inhaled Oxygen Concentration - - Weight 71.2 kg (157 lb) 03/15/2019 10:36 AM ADVERTISING EDITOR Height 167.6 cm (5' 6 ) 10/13/2018 11:25 AM CDT Body Mass Index 25.34 10/13/2018 11:25 AM CDT Plan of Treatment Not on file Insurance Advance Directives For more information, please contact: [phone] * Full Code (Latest Code Status on File) Date Activated Date Inactivated Comments 01/07/2019 10:57 PM 01/09/2019 8:39 PM Full CPR in case of cardiopulmonary arrest Care Teams Drywall Finisher Foreman Relationship Specialty Start Date End Date Adrienne Botello MD [address] [place] [address] PCP - General Internal Medicine 01/27/18
--- NOTE | 2024-07-20 10:26 | ED.GENADULT ---
HPI - General Adult General Chief complaint: Unspecified Stated complaint: almost 18 weeks preg, multiple complaints Time Seen by Provider: 07/20/24 10:26 Source: patient History of Present Illness HPI narrative: 29 years old white female drove herself to the emergency room complaining of migraine headache for the last 3 days, 17 weeks , bilateral ear pain mainly on the left side, some neck stiffness, intermittent lower abdominal discomfort for the last 2-3 weeks, body aches, sore throat, not feeling well. History of hyperthyroidism and asthma She denies any fever or chills. She denies vaginal bleeding or discharge. Related Data Allergies Allergy/AdvReac Type Severity Reaction Status Date / Time No Known Allergies Allergy Verified 07/20/24 09:11 Review of Systems Review of Systems: All systems reviewed & are unremarkable except as noted in HPI and below PMFSH Past Medical History Medical History Marijuana use Term delivered Overweight (BMI 25.0-29.9) COVID-19 (~2021) Anxiety Asthma Surgical History Surgical History History of breast biopsy Family History Family History Sibling Asthma Social History Social History Social History: The patient lives in [place] with her long-term boyfriend and daughter. She smoked about a pack of cigarettes per day for 3 years and quit 2013. She smokes 1 blunt a day and has for at least 8 to 9 years; transitioned to edibles. No alcohol use. She designates her mother, Mikaela Rendon, and her boyfriend, Himanshu Watson, as her surrogate decision makers and she wishes to be a full code. Smoking status: Former smoker Second hand tobacco smoke exposure: No Alcohol intake: never Substance use: current Substance use type: marijuana Do You Feel Safe in your Home?: Yes Lack of Transportation: No Lack of Food: Never True Current Housing: I Have Housing Concerned About Future Housing: No Difficulty Paying Gas/Electric Bills: No Difficulty Paying for Meds: No Currently Unemployed: No Education: Grade School Difficulty w/ Childcare or Family Care: No Occupation/Education: occupation Additional occupation/education comments: [employer] Gender identity (if verbalized by the patient): Female Spiritual care concerns: No Exam Narrative: General appearance: Well-developed, well-nourished Skin: Normal color Head: Normocephalic, nontraumatic Eyes: Clear conjunctiva ENT: Oropharynx normal, ears normal, nose normal Neck: Supple, nontender Chest and respiratory: Airway patent, no respiratory distress, no accessory muscle use Heart: Regular rate/rhythm Abdomen: Soft, nontender, no organomegaly, quiet bowel sounds Vascular: Normal peripheral pulses, normal capillary refill. Musculoskeletal: Normal range of motion, nontender back Neurologic: Alert and oriented ?3, GROUP WORKER is normal as tested, no gross motor deficit Course Vital Signs Vital signs: Vital Signs Temperature 36.6 C 07/20/24 09:15 Temperature 36.6 C 07/20/24 09:15 Pulse Rate 99 07/20/24 13:13 Respiratory Rate 15 07/20/24 13:13 Blood Pressure 125/57 L 07/20/24 13:13 Pulse Oximetry 99 07/20/24 13:13 Medical Decision Making [facility] Narrative Medical decision making narrative: Patient presents with multiple symptoms she is 17 weeks Vital signs are stable Physical examination unremarkable Blood workup today includes CBC, CMP, TSH, lipase, showed TSH of less than 0.015 otherwise insignificant abnormalities Urinalysis showed no evidence of infection Patient patient tested negative for strep throat, mono and COVID flu and RSV Diagnosis migraine headache, anxiety like symptoms, like symptoms, viral syndrome, hyperthyroidism, and otalgia Patient was advised to follow-up with her OBGYN and family physician for further evaluation. The pt was discharged to home.the pt,s condition upon discharge was fair,education was provided to the pt in reference to the final impression,discharge study results,treatment,prognosis and need for follow up . Vital Signs Vital Signs: Vital Signs Temperature 36.6 C 07/20/24 09:15 Temperature 36.6 C 07/20/24 09:15 Pulse Rate 99 07/20/24 13:13 Respiratory Rate 15 07/20/24 13:13 Blood Pressure 125/57 L 07/20/24 13:13 Pulse Oximetry 99 07/20/24 13:13 Lab Data 07/20/24 10:41 07/20/24 10:41 Labs: Lab Results 07/20/24 07/20/24 07/20/24 Range/Units 10:41 10:42 10:59 WBC 8.6 (4.5-10.0) K/mm3 RBC 3.91 L (4.2-5.4) M/mm3 Hgb 11.1 L (12.0-15.0) g/dL Hct 31.9 L (37.0-47.0) % MCV 81.6 (80-100) fl MCH 28.4 (26-34) pg MCHC 34.8 (32-36) g/dl RDW 13.1 (11.5-14.5) % Plt Count 220 (150-375) k/mm3 MPV 9.4 (7.4-10.4) fl Immature Gran % (Auto) 0.4 (0-0.5) % Neut % (Auto) 75.4 H (45.5-73.1) % Lymph % (Auto) 13.5 L (18.3-44.2) % [place] % (Auto) 9.6 H (2.6-8.5) % Eos % (Auto) 0.9 (0-4.4) % Baso % (Auto) 0.2 (0.2-1.2) % Lymph # (Auto) 1.15 (0.9-3.2) K/mm3 [place] # (Auto) 0.8 H (0.1-0.6) K/mm3 Eos # (Auto) 0.1 (0-0.3) K/mm3 Baso # (Auto) 0.0 (0.0-0.1) K/mm3 Abs Immat Gran (auto) 0.03 (0.00-0.031) K/mm3 Absolute Neuts (auto) 6.5 (1.3-6.7) K/mm3 Absolute Nucleated RBC 0.000 (0.0-0.012) K/mm3 Nucleated RBC % 0.0 (0.0-0.2) % Sodium 134 L (137-145) mmol/L Potassium 3.9 (3.4-5.0) mmol/L Chloride 103 (98-107) mmol/L Carbon Dioxide 22 (22-30) mmol/L Anion Gap 9 (4-12) mmol/L BUN 5 L D (7-17) mg/dL Creatinine 0.34 L (0.7-1.0) mg/dL Estim Creat Clear Calc 179 ml/min Estimated GFR > 60 (59 - ) Glucose 98 (65-110) mg/dL Calcium 8.8 (8.4-10.2) mg/dL Total Bilirubin 0.5 (0.2-1.3) mg/dL AST 18 (14-36) U/L ALT 14 (6-35) U/L Alkaline Phosphatase 37 L (38-126) U/L Total Protein 7.0 (6.3-8.2) g/dL Albumin 3.6 (3.5-5.1) g/dL Lipase 27 (23-300) U/L TSH < 0.015 L (0.465-4.680) uIU/mL Beta HCG, Quant 79639.00 mIU/ML Urine Color Dark yellow (Yellow) Urine Appearance Clear (Clear) Urine pH 6.0 (5.0-9.0) Ur Specific [place] 1.023 (1.001-1.035) Urine Protein Trace (Negative) mg/dL Urine Glucose (UA) Negative (Negative) mg/dL Urine Ketones 1+ H (Negative) mg/dL Ur Blood (Man) Negative (Negative) Urine Nitrate Negative (Negative) Urine Bilirubin Negative (Negative) Urine Urobilinogen 1.0 (<2.0) mg/dL Leukocyte Esterase Rfl Trace H (Negative) FRANDY/UL Urine RBC 0-2 (0-2) /hpf Urine WBC 0-3 (0-3) /hpf Ur Squamous Epith Cells Few (Few) /hpf Urine Bacteria 4+ H (None) /hpf Urine Mucus Heavy H /lpf Monoscreen Negative (Negative) Influenza A (RT-PCR) Negative (Negative) Influenza B (RT-PCR) Negative (Negative) RSV (RT-PCR) Negative (Negative) SARS-CoV-2 RNA (RT-PCR) Negative (Negative) Group A Strep (PCR) Not detected (Negative) Critical Care Time Critical Care Time Critical Care Time: No Discharge Plan Discharge Clinical Impression: Otalgia, , Acute viral syndrome Patient Disposition: Home, Self-Care Condition: Improved Instructions: Antibiotic Form, Earache (ED), Viral Syndrome (ED) Additional Instructions: Return if symptoms are worsening , call your family physician, and your OBGYN for appointment, take Tylenol as as needed for aches and pain, continue home medications. Patient Language: Faroese Prescriptions: New amoxicillin 875 mg tablet 875 mg PO Q12H Qty: 14 0RF ondansetron 4 mg tablet,disintegrating 4 mg PO Q4H PRN (Reason: nausea and vomiting) 3 Days Qty: 10 0RF No Action levalbuterol HCl 1.25 mg/3 mL Solution For Nebulization 1.25 mg inhalation Q4HRT Qty: 90 0RF fluticasone propion-salmeterol [Advair HFA] 115-21 mcg/actuation Hfa Aerosol Inhaler 2 puff inhalation Q12HRT Qty: 30 0RF prednisone 10 mg tablet 10 mg PO DIRECTED Qty: 45 0RF Rx Instructions: 60 mg PO Daily x 2 days, 50mg PO Daily x 2 days,40mg PO Daily x 2 days, 30mg PO Daily x 2 days, 20mg PO Daily x 2 days, 10mg PO Daily x 2 days methimazole 10 mg tablet 10 mg PO DAILY Qty: 30 0RF metoprolol tartrate 25 mg tablet 25 mg PO BID Qty: 60 0RF Follow-up/Referrals: Stacia,Lea Han MD [Primary Care Provider] -
[2024-07-20 10:34] VITALS: BP 135/72; PULSE 104; RESP 16; O2SAT 99
[2024-07-20 10:49] LABS: Basophils Percent Auto 0.2 % (0.2-1.2); Eosinophils Absolute Auto 0.1 K/mm3 (0-0.3); Eosinophils Percent Auto 0.9 % (0-4.4); Hematocrit 31.9 % (37.0-47.0); Hemoglobin 11.1 g/dL (12.0-15.0); Immature Granulocyte Absolute 0.03 K/mm3 (0.00-0.031); Immature Granulocyte Percent A 0.4 % (0-0.5); Lymphocytes Absolute Auto 1.15 K/mm3 (0.9-3.2); Lymphocytes Percent Auto 13.5 % (18.3-44.2); Mean Corpuscular HGB Conc 34.8 g/dl (32-36); Mean Corpuscular Hemoglobin 28.4 pg (26-34); Mean Corpuscular Volume 81.6 fl (80-100); Mean Platelet Volume 9.4 fl (7.4-10.4); Monocytes Absolute Auto 0.8 K/mm3 (0.1-0.6); Monocytes Percent Auto 9.6 % (2.6-8.5); Neutrophils Absolute Auto 6.5 K/mm3 (1.3-6.7); Neutrophils Percent Auto 75.4 % (45.5-73.1); Platelet Count Result 220 k/mm3 (150-375); Red Blood Count 3.91 M/mm3 (4.2-5.4); Red Cell Distribution Width 13.1 % (11.5-14.5); White Blood Count 8.6 K/mm3 (4.5-10.0)
[2024-07-20] MEDS: SODIUM CHLORIDE 0.9% IV 1,000 ML 999 ML IV CONT ×2 (10:49→11:40)
[2024-07-20 11:00] LABS: Alanine Aminotransferase 14 U/L (6-35); Albumin Level 3.6 g/dL (3.5-5.1); Alkaline Phosphatase 37 U/L (38-126); Anion Gap 9 mmol/L (4-12); Aspartate Amino Transferase 18 U/L (14-36); Bilirubin,Total 0.5 mg/dL (0.2-1.3); Blood Urea Nitrogen 5 mg/dL (7-17); Calcium 8.8 mg/dL (8.4-10.2); Carbon Dioxide 22 mmol/L (22-30); Chloride 103 mmol/L (98-107); Estimated CRCL calculation 179 ml/min; Estimated Glomerular Filt Rate > 60; Glucose 98 mg/dL (65-110); Lipase 27 U/L (23-300); Potassium 3.9 mmol/L (3.4-5.0); Sodium 134 mmol/L (137-145)
[2024-07-20 11:13] LABS: Add Urine Microscopic? YES; Appearance Urine Clear (Clear); Bilirubin Urine Negative (Negative); Blood Urine Negative (Negative); Color Urine Dark Yellow (Yellow); Glucose Urine UA Negative (Negative); Ketones Urine 1+ mg/dL (Negative); Leukocyte Esterase Ur Trace LEU/UL (Negative); Nitrate Urine Negative (Negative); Protein Urine Trace mg/dL (Negative); Specific Grav Ur 1.023 (1.001-1.035)
[2024-07-20 11:14] LABS: Strep Group A RT-PCR NOT DETECTED (Negative)
[2024-07-20 11:26] LABS: Influenza A QL RT-PCR Negative (Negative); Influenza B QL RT-PCR Negative (Negative); RSV RNA, RT-PCR Negative (Negative); SARS-CoV-2 RNA PCR Negative (Negative)
[2024-07-20] MEDS: ONDANSETRON INJ 4 MG/2 ML VIAL 8 MG IV PUSH (11:40)
[2024-07-20 11:46] LABS: Bacteria Urine 4+ /hpf; Mucus Urine Heavy /lpf
[2024-07-20 11:47] LABS: RBC Urine 0-2 /hpf (0-2); WBC Urine 0-3 /hpf (0-3)
[2024-07-20 11:48] LABS: Squamous Epithelial Cell Urine Few /hpf (Few)
[2024-07-20 11:54] VITALS: BP 128/63; PULSE 86; RESP 16; O2SAT 99
[2024-07-20] MEDS: KETOROLAC 30 MG/ML VIAL (*BKC) IV PUSH (11:54)
[2024-07-20 12:03] LABS: Negative Monotest Control Negative (Negative); Positive Monotest Control Positive (Positive)
[2024-07-20 12:04] LABS: Monoscreen Negative (Negative)
[2024-07-20 12:39] LABS: Thyroid Stimulating Hormone < 0.015 uIU/mL (0.465-4.680)
--- OUTSIDE RECORDS SUMMARY | 2024-07-20 12:57 | XMS_ITS | Referral Summary ---
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 Not on file Not on file Last Filed Vital Signs Vital Sign Reading Time Taken Comments Blood Pressure 132/80 03/15/2019 10:36 AM ACETYLENE CUTTER Pulse 83 01/09/2019 7:10 AM CDT Temperature 36.6 C (97.8 F) 01/09/2019 7:10 AM CDT Respiratory Rate 19 01/09/2019 7:10 AM CDT Oxygen Saturation 98% 01/08/2019 5:05 PM CDT Inhaled Oxygen Concentration - - Weight 71.2 kg (157 lb) 03/15/2019 10:36 AM ACETYLENE CUTTER Height 167.6 cm (5' 6 ) 10/13/2018 11:25 AM CDT Body Mass Index 25.34 10/13/2018 11:25 AM CDT Plan of Treatment Not on file Insurance [id number] [facility] Advance Directives For more information, please contact: [phone] * Full Code (Latest Code Status on File) Date Activated Date Inactivated Comments 01/07/2019 10:57 PM 01/09/2019 8:39 PM Full CPR in case of cardiopulmonary arrest Care Teams Registered Occupational Therapist Relationship Specialty Start Date End Date Adrienne Botello MD [address] [place] [address] PCP - General Internal Medicine 01/27/18
--- OUTSIDE RECORDS SUMMARY | 2024-07-20 12:57 | XMS_ITS | Clinical Summary ---
Author Organization [facility] Address [address], [address] [address] Phone Care Team Providers Care Addressograph Operator Name Role Phone David Jha MD Unavailable [phone] Alicia Azar MD Unavailable [phone] Allergies No known active allergies Medications Vit-Fe [...] Insurance MEDICAID [employer] Care Teams Addressograph Operator Relationship Specialty Start Date End Date David Jha MD General Surgery 02/15/17 Alicia Azar MD [address] [place] [address] Obstetrics & Gynecology 02/15/17
--- OUTSIDE RECORDS SUMMARY | 2024-07-20 12:57 | XMS_ITS | Clinical Summary ---
Author Organization [facility] Address [address] [place] [address] Care Team Providers Care Senior Sharepoint Developer Name Role Phone Adrienne Botello MD Primary [...] on file Legal Sex Female 8:15 AM DRUG ABUSE TREATMENT SPECIALIST Gender Identity Not on file Sexual Orientation [...] , Rakan Olguin MD Complications:None Delivery Location:This [facility] ([facility]) Comments 2018 - labor, . Last Filed Vital Signs Vital Sign Reading Time Taken Comments Blood Pressure 132/80 03/15/2019 10:36 AM DRUG ABUSE TREATMENT SPECIALIST Pulse 83 01/09/2019 7:10 AM CDT Temperature 36.6 C (97.8 F) 01/09/2019 7:10 AM CDT Respiratory Rate 19 01/09/2019 7:10 AM CDT Oxygen Saturation 98% 01/08/2019 5:05 PM CDT Inhaled Oxygen Concentration - - Weight 71.2 kg (157 lb) 03/15/2019 10:36 AM DRUG ABUSE TREATMENT SPECIALIST Height 167.6 cm (5' 6 ) 10/13/2018 11:25 AM CDT Body Mass Index 25.34 10/13/2018 11:25 AM CDT Plan of Treatment Not on file Insurance Advance Directives For more information, please contact: [phone] * Full Code (Latest Code Status on File) Date Activated Date Inactivated Comments 01/07/2019 10:57 PM 01/09/2019 8:39 PM Full CPR in case of cardiopulmonary arrest Care Teams Senior Sharepoint Developer Relationship Specialty Start Date End Date Adrienne Botello MD [address] [place] [address] PCP - General Internal Medicine 01/27/18
[2024-07-20] MEDS: ONDANSETRON INJ 4 MG/2 ML VIAL IV PUSH (13:09)
[2024-07-20] MEDS: MORPHINE SULFATE (*CRX) 4 MG/ML INJ IV PUSH (13:11)
[2024-07-20 13:13] VITALS: BP 125/57; PULSE 99; RESP 15; O2SAT 99
[2024-07-20 13:35] VITALS: BP 118/54; PULSE 98; RESP 15; TEMP 36.6; O2SAT 98
== END 2024-07-20 13:37 | disposition home or self-care (01) ==
PROVIDERS: Emergency Provider Emergency Medicine; PCP Family Medicine
DX: O98.512 Other viral diseases complicating pregnancy, second trimester (principal); B34.9 Viral infection, unspecified; O99.891 Other specified diseases and conditions complicating pregnancy; H92.03 Otalgia, bilateral; Z20.822 Contact with and (suspected) exposure to COVID-19; O99.512 Diseases of the respiratory system complicating pregnancy, second trimester; J45.909 Unspecified asthma, uncomplicated; O99.282 Endocrine, nutritional and metabolic diseases complicating pregnancy, second trimester; E05.90 Thyrotoxicosis, unspecified without thyrotoxic crisis or storm; Z3A.17 17 weeks gestation of pregnancy; Z86.16 Personal history of COVID-19; Z87.891 Personal history of nicotine dependence
CPT/HCPCS: 36415; 80053; 81001; 83690; 84443; 84702; 85025; 86308; 87637; 87651; 96361; 96374; 96375; 96376; 99284; J1885; J2270; J2405; J7030

== ENCOUNTER 2024-08-19 01:55 | Emergency (ER) | payer OTHER, SELFPAY ==
--- NOTE | ~2024-08-19 | XR_ITS ---
EXAM/PROCEDURE: XR chest 1V portable - 08/19/2024 02:09 CDT HISTORY: 29 years old Female with CHEST PAIN, 5 months TECHNIQUE: Two view(s) of the chest. COMPARISON: None available. FINDINGS: LUNGS/ PLEURA: No focal consolidation. No appreciable pneumothorax or large pleural effusion. HEART/ MEDIASTINUM: Heart appears normal in size. BONES: No acute osseous abnormality. OTHER: Visualized upper abdomen is unremarkable. IMPRESSION: No acute process. Reviewed, dictated and finalized at location A. IMPRESSION: No acute process.
[2024-08-19 01:51] VITALS: BP 138/78; PULSE 111; RESP 15; TEMP 36.9; O2SAT 97
--- NOTE | 2024-08-19 01:58 | ECG_ITS ---
Test Date: 2024-08-19 02:01:59 Measurements Intervals [place] Rate: 110 P: 25 RI: 128 QRS: 74 QRSD: 84 T: 12 QT: 318 QTc: 432 Interpretive Statements SINUS TACHYCARDIA BORDERLINE ST ABNORMALITY- INFERIOR LEADS ABNORMAL ECG Compared to ECG 03/11/2024 12:19:59 HEART RATE HAS DECREASED Electronically Signed On 08-19-2024 06:45:54 CDT by Nasir Hutchison D.O.
--- NOTE | 2024-08-19 02:05 | PC.NURSE ---
Blossom from OB notified of pt c/o back pain for monitoring per Dr Iglesias's request.
[2024-08-19 02:08] VITALS: O2SAT 100
[2024-08-19 02:09] LABS: Basophils Percent Auto 0.2 % (0.2-1.2); Eosinophils Absolute Auto 0.1 K/mm3 (0-0.3); Eosinophils Percent Auto 0.8 % (0-4.4); Hemoglobin 11.5 g/dL (12.0-15.0); Immature Granulocyte Absolute 0.05 K/mm3 (0.00-0.031); Immature Granulocyte Percent A 0.4 % (0-0.5); Lymphocytes Absolute Auto 1.44 K/mm3 (0.9-3.2); Lymphocytes Percent Auto 11.4 % (18.3-44.2); Mean Corpuscular HGB Conc 34.8 g/dl (32-36); Mean Corpuscular Hemoglobin 28.8 pg (26-34); Mean Corpuscular Volume 82.5 fl (80-100); Mean Platelet Volume 9.8 fl (7.4-10.4); Monocytes Absolute Auto 0.9 K/mm3 (0.1-0.6); Monocytes Percent Auto 7.2 % (2.6-8.5); Neutrophils Absolute Auto 10.1 K/mm3 (1.3-6.7); Platelet Count Result 227 k/mm3 (150-375); Red Cell Distribution Width 13.8 % (11.5-14.5); White Blood Count 12.6 K/mm3 (4.5-10.0)
[2024-08-19 02:21] LABS: Prothrombin Time 13.5 Seconds (11.1-14.7)
--- NOTE | 2024-08-19 02:25 | PC.NURSE ---
OB in room to monitor patient.
--- OUTSIDE RECORDS SUMMARY | 2024-08-19 02:29 | XMS_ITS | Referral Summary ---
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 Not on file Not on file Last Filed Vital Signs Vital Sign Reading Time Taken Comments Blood Pressure 132/80 03/15/2019 10:36 AM NATIONAL BUSINESS DIRECTOR Pulse 83 01/09/2019 7:10 AM CDT Temperature 36.6 C (97.8 F) 01/09/2019 7:10 AM CDT Respiratory Rate 19 01/09/2019 7:10 AM CDT Oxygen Saturation 98% 01/08/2019 5:05 PM CDT Inhaled Oxygen Concentration - - Weight 71.2 kg (157 lb) 03/15/2019 10:36 AM NATIONAL BUSINESS DIRECTOR Height 167.6 cm (5' 6 ) 10/13/2018 11:25 AM CDT Body Mass Index 25.34 10/13/2018 11:25 AM CDT Plan of Treatment Not on file Insurance [id number] [facility] Advance Directives For more information, please contact: [phone] * Full Code (Latest Code Status on File) Date Activated Date Inactivated Comments 01/07/2019 10:57 PM 01/09/2019 8:39 PM Full CPR in case of cardiopulmonary arrest Care Teams Cancer Registry Coordinator Relationship Specialty Start Date End Date Adrienne Botello MD [address] [place] [address] PCP - General Internal Medicine 01/27/18
--- OUTSIDE RECORDS SUMMARY | 2024-08-19 02:29 | XMS_ITS | Clinical Summary ---
Author Organization [facility] Address [address], [address] [address] Phone Care Team Providers Care Parts Person Name Role Phone David Jha MD Unavailable [phone] Alicia Azar MD Unavailable Allergies No known active allergies Medications Vit-Fe [...] Insurance MEDICAID [employer] Care Teams Parts Person Relationship Specialty Start Date End Date David Jha MD General Surgery 02/15/17 Alicia Azar MD [address] [place] [address] Obstetrics & Gynecology 02/15/17
--- OUTSIDE RECORDS SUMMARY | 2024-08-19 02:29 | XMS_ITS | Continuity of Care Document ---
Author Organization [facility] Address [address] [place] [address] Assessment No assessment recorded. Plan of Treatment Reminders Order Date Submit Date Provider Last Modified By Organization Details Last Modified Time Details Appointments U/S OB BASELIN E 2024 09:00A M ULTRASOUND Not available Not available Not available OB ROUTINE 2024 10:45A M Peggy WAITE MD Not available Not available Not available Lab None recorde d. Referral None recorde d. Procedures None recorde d. Surgeries None recorde d. Imaging None recorde d. Medication Orders None recorde d. Patient TargetsNo targets recorded. Patient InstructionsNo instructions recorded. Reason for Referral None Reported. Results Created Date Observation Date Name Description Value Unit Range Abnormal Flag Note LastModifiedBy Organization Detail LastModifiedTime 08/01/19 25 07/31/2024 US, obste tric, follo w-up No observ ation record ed. [email or web address] [facility] [address] [facility] [address], [place], [address], 08/02/2024 22:54:16 08/03/19 25 07/31/2024 imagi ng/di agnos tic resul t No observ ation record ed. [email or web address] [facility] [address] , [place], [address], 08/08/2024 22:52:43 Result Notes None recorded. Problems Name Problem SNOMED Code Status Onset Date Resolution Date Notes Provider Name and Address Organization Details Recorded Time Pregnanc y 18169889 Completed 202204/15/2023 Lay Fish [facility] 5 14:24:12 Group B Streptoc occus carrier 8491776155 103 Completed in urine Denita Escobar [facility] 3 13:14:46 Pregnanc y 88290420 Active 2024 Lay Fish [facility] 5 14:24:12 Female steriliz ation Active Francois Waite MD [address], [place], [address], [facility] 5 14:29:21 Asthma 816954757 Active Francois Waite MD [address], [place], [address], [facility] 5 14:29:36 Lesion of vulva 151830251 Active skin redundan cy previous lacerati on site Francois Waite MD [address], [place], [address], [facility] 5 14:30:40 Tachycar flaco 5672109 Active prescrib ed metoprol ol at outside hospital Referral faxed to [facility] Sanaz Zapata [facility] 5 18:51:48 Hyperthy roidism 11548572 Active methimaz ole Referral faxed to [facility] schedule d 07/31 9:45 Level II US & Consult Sanaz Zapata [facility] 5 17:25:17 Dysplasi a on cervical smear 096734273 Active Francois Waite MD [address], [place], [address], [facility] 5 12:16:43 Problem Notes None recorded. Procedures Surgical History Date Name Laterality Status Provider Name and Address Organization Details Recorded Time 08/02/19 Colposcopy completed Francois Waite MD [address], [place], [address], [place] [facility] 08/06/2024 22:29:57 08/02/19 Colposcopy completed [facility] 08/01/2024 10:45:00 08/02/19 Colposcopy completed [facility] 08/01/2024 10:45:36 07/13/19 Date of Last Pap Smear completed [facility] 07/28/2024 12:00:32 Imaging Results None recorded. Procedure Notes None recorded. Medical Equipment None Reported. Allergies No known drug allergies Medications Name Sig Start Date Stop Date Status Note LastModified by Organization Details LastModified Time prednisone 10 mg tablet 07/28 completed Not Available Not Available Not Available albuterol sulfate 2.5 mg/3 mL (0.083 %) solution for nebulizatio n active Not Available Not Available Not Available ibuprofen 800 mg tablet 07/28 completed Not Available Not Available Not Available fluconazole 150 mg tablet 07/28 completed Not Available Not Available Not Available prednisone 20 mg tablet 04/09 completed Not Available Not Available Not Available metronidazo le 500 mg tablet 04/09 completed Not Available Not Available Not Available acetaminoph en 500 mg tablet 07/28 completed Not Available Not Available Not Available amoxicillin 500 mg tablet 07/28 completed Not Available Not Available Not Available amoxicillin 875 mg tablet 07/28 completed Not Available Not Available Not Available cephalexin 500 mg capsule 04/09 completed Not Available Not Available Not Available methimazole 5 mg tablet TAKE 3 TABLETS BY MOUTH DAILY active Not Available Not Available No t Available albuterol sulfate HFA 90 mcg/actuati on aerosol inhaler INHALE 1 TO 2 PUFFS BY MOUTH EVERY 4 TO 6 HOURS NEEDED FOR SHORTNESS OF BREATH OR WHEEZING active Not Available Not Available No t Available norethindro ne (contracept bety) 0.35 mg tablet Take 1 tablet every day by oral route. 07/28 completed Not Available Not Available Not Available fluticasone propionate 50 mcg/actuati on nasal spray,suspe nsion SHAKE LIQUID AND USE 2 SPRAYS IN EACH NOSTRIL DAILY active Not Available Not Available No t Available amoxicillin 875 mg-potassiu m clavulanate 125 mg tablet TAKE 1 TABLET BY MOUTH EVERY 12 HOURS 04/09 completed Not Available Not Available Not Available metoprolol tartrate 25 mg tablet 07/28 completed Not Available Not Available Not Available Vitamin active Not Available Not Available Not Available Symbicort 80 mcg-4.5 mcg/actuati on HFA aerosol inhaler INHALE 1 PUFF BY MOUTH TWICE DAILY active Not Available Not Available No t Available Dulera 200 mcg-5 mcg/actuati on HFA aerosol inhaler 04/09 completed Not Available Not Available Not Available Dulera 100 mcg-5 mcg/actuati on HFA aerosol inhaler 07/28 completed Not Available Not Available Not Available Vitals None Recorded Social History Question Answer Notes LastModified by Organizat ion Details LastModified Time Tobacco Smoking Status Former Smoker Verito Ortega [facility] 04/09/2023 15:35:49 Do You Have An Advance Directive? No [email or web address] Information n ot available 07/12/2024 What Is Your Level Of Alcohol Consumption? None [email or web address] Information not available 07/12/2024 Are You Blind Or Do You Have Difficulty Seeing? No Information n ot available 07/12/2024 What Is Your Level Of Caffeine Consumption? Moderate Information not available 07/12/2024 How Much Tobacco Do You Chew? None [email or web address] Information not available 07/12/2024 In The 14 Days Before Symptom Onset, Have You Had Close Contact With A Laboratory-confirm ed COVID-19 While That Case Was Ill? No [email or web address] Information n ot available 07/12/2024 In The 14 Days Before Symptom Onset, Have You Had Close Contact With A Person Who Is Under Investigation For COVID-19 While That Person Was Ill? No [email or web address] Information not available 07/12/2024 Have You Been To An Area Known To Be High Risk For COVID-19? No Information not available 07/12/2024 Are You Deaf Or Do You Have Serious Difficulty Hearing? No [email or web address] Information not available 07/12/2024 What Type Of Diet Are You Following? REGULAR [email or web address] Information n ot available 07/12/2024 What Is The Highest Grade Or Level Of School You Have Completed Or The Highest Degree You Have Received? [id number] [email or web address] Information not available 07/12/2024 Are There Any Guns Present In Your Home? No [email or web address] Information not available 07/12/2024 Do You Use Protection During Sex? Usually [email or web address] Information not available 07/12/2024 Do You Use Your Seat Belt Or Car Seat Routinely? Yes [email or web address] Information not available 07/12/2024 Do You Have Smoke And Carbon Monoxide Detectors In Your Home? Yes [email or web address] Information not available 07/12/2024 How Much Tobacco Do You Smoke? No [email or web address] Information not available 07/12/2024 Do You Feel Stressed (tense, Restless, Nervous, Or Anxious, Or Unable To Sleep At Night)? [id number] [email or web address] Information not available 07/12/2024 Do You Use Any Illicit Or Recreational Drugs? No [email or web address] Information not available 07/12/2024 Do You Use Sunscreen Routinely? Yes [email or web address] Information not available 07/12/2024 Have You Used IV Drugs? No [email or web address] Information not available 07/12/2024 Sex: Unknown Functional Status Question Answer Note LastModified by Organization D etails LastModified Time Are you able to walk? YESWOREST [email or web address] Information not available 07/12/2024 What is your exercise level? Moderate [email or web address] Information not available 07/12/2024 Mental Status None recorded. Family History Relationship Description Onset Age of this Age Resolved Age Notes LastModified by Organization Details LastModified Time Sister Asthma [email or web address] Not available 04/09/2023 15:48:59 Paternal Grandfather Diabetes mellitus [email or web address] Not available 2022 15:49:09 Paternal Grandfather Disorder of thyroid gland [email or web address] Not available 2022 15:49:18 Medical History Condition Response Allergies (Food, seasonal, environmental ) Y Other N Drug/Latex Allergies/Reactions N Blood Transfusion N Breast Cancer N Dermatologic Disorders N Lung Disease N Defects or Inherited Disease N Breast Problem N Gestational Diabetes N Hematologic disorders N Anesthesia Complications N History of STI Y Deep Vein Thrombosis N Polycystic ovary syndrome N Anxiety Disorder N Autoimmune disease N Arthritis N Polyps N Infertility N Acid Reflux (GERD) N History of abnormal pap Y Cancer N Varicosities N Stroke N Neurologic/Epilepsy N Endometriosis N High Cholesterol N Fibromyalgia N Headaches N Kidney Disease N Heart Problems Y Thyroid Problems N Kidney or Bladder Problems N GI Problems N Eating Disorder N Anemia N Art (IVF or FET) N Psychiatric Illness N Ovarian Cancer N Diabetes N Pulmonary (TB, Asthma) N Hepatitis/Liver Disease N No Past Medical History N Eczema N Urinary Tract Infection N Abuse/Domestic Violence N Asthma Y Trauma/Violence N Depression/ depression N Heart Disease N Pre-Eclampsia N Hypertension Y Osteoporosis N Thrombophilias N Gynecological History Statement/Question Response Abnormal Pap Yes Date of LMP 03/22/2024 N Was last menstrual period normal Y STIs/STDs Y HPV Vaccine N Colposcopy 08/01/2024 Duration of Flow (days) 4 Current Control Method Age at First Child 23 Date of control 03/16/2024 Are cycles usually normal Y Frequency of Cycle (Q days) 28 Sexually Active? Y Menses Monthly Y Age of first menstrual cycle 12 Date of Last Pap Smear 07/12/2024 Sexual Problems? N LMP Approximate N 06/30/2024 Obstetrics History GPAL:G 4 P 1 0 1 2 Type Value Full Term 1 Spontaneous 1 Living 2 Total 4 Past Encounters Encounter ID Performer Location Encounter Start Date Encounter Closed Date Diagnosis/Indication Diagnosis SNOMED-CT Code Diagnosis ICD10 Code Diagnosis Note [id number] Francois Waite MD [facility] [address] [address] 07/28/2024 11:36:06 07/28/2024 12:18:09 Routine care 524221821 Z34.83 [id number] Francois Waite MD [facility] [address] [address] 08/01/2024 10:22:24 08/07/2024 00:32:28 Abnormal cervical Papanicolaou smear 627092042 R87.619 colposcopy performed, satisfacto ry, normal. To follow-up after . [id number] Francois Waite MD [facility] [address] [address] 08/18/2024 10:18:26 08/18/2024 22:13:14 Health Concerns Section Related Observation LastModified by Organization Detai ls LastModified Time None Recorded Concern Status LastModified by Organization Details LastModified Time None Recorded Payers Encounter Date Sequence Insurance Name Policy Number Policy Anand Covered Member ID Anand Member ID Guarantor Name 08/18/2024 1 [facility] ON OR AFTER 11/07/20 (MEDICAID REPLACEMENT - HMO) Alexandra Rendon [id number] Alexandra Rendon OBGyn Episode Ob Episode Information Episode Created Date Number of Fetuses Patient Bloodtype Patient rh Status Prepregnancy Weight lbs Domestic Partner Domestic Partner Phone Father Name 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 Status 07/13/19 25 1 O Positive 152 OPEN Fetus Data First Name Last Name Admitted to NICU Weight (g) Sex Living Outcome Pediatric Complications Fetus ID Race Codes Race Delivery Type [id number] Problems Problem Notes scheduled 07/31 9:45 Level II US & Consult Problem Name Start Date End Date Resolution Snomed Code Not e Tachycardia 2873327 prescrib ed metoprolol at outside hospital Referral faxed to [facility] Dysplasia on cervical smear 057238906 Female sterilization 20741259 Asthma 903492987 Lesion of vulva 263217746 skin redundancy previous laceration site Hyperthyroidism 52358446 meth imazole Referral fax[facility] to [facility] scheduled 07/31 9:45 Level II US & [...] Date Ultra Sound Latest Days Gestation 0 12/25/19 25 0 Pre- Flowsheet Flowsheet Date 07/12/2024 [place] Score Blood Edema Fundus Height Fundus Units Glucose Ketones Leukocytes Nitrite Labor Signs Protein Cervic Dilation Cervic Effacement Cervic Station none Type Weight in lbs Pre/Post Dialysis Refused Weight 152.611903331768 BP Diastolic BP Location Tested BP Systolic [...] 12 week ultrasound. To begin routine care. Flowsheet Date 07/28/2024 [place] Score Blood Edema Fundus Height Fundus Units Glucose Ketones Leukocytes Nitrite Labor Signs Protein Cervic Dilation Cervic Effacement Cervic Station Type Weight in lbs Pre/Post Dialysis Refused 157.293003805499 BP Diastolic BP Location Tested BP Systolic BP Type 87 L arm 147 sitting Fetus Heart Rate Present A 142 Present Fetus Movement A Yes Comments no complaints, no problems, routine care, no contractions, no vaginal bleeding, no loss of fluid, no cramping Flowsheet Date 08/01/2024 [place] Score Blood Edema Fundus Height Fundus Units Glucose Ketones Leukocytes Nitrite Labor Signs Protein Cervic Dilation Cervic Effacement Cervic Station Type Weight in lbs Pre/Post Dialysis Refused 157.215682860640 BP Diastolic BP Location Tested BP Systolic BP Type 91 L arm 147 sitting Fetus Heart Rate Present Fetus Movement A Yes Comments Flowsheet Date 08/18/2024 [place] Score Blood Edema Fundus Height Fundus [...] Plus Date Menarche Onset Age 1103/21/20[birth year] true Delivery Information Delivery Date Delivery Type Labor Anesthesia Weeks Gestation Incision Type Labor Labor Length Hrs Delivered By Post Complications Tubal Sterilization Discharge Date Comments Discharge Information Feeding Method Contraceptive Method Maternal HG B and HCT Levels
--- OUTSIDE RECORDS SUMMARY | 2024-08-19 02:29 | XMS_ITS | Clinical Summary ---
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 Last Filed Vital Signs Vital Sign Reading Time Taken Comments Blood Pressure 132/80 03/15/2019 10:36 AM SHOE DESIGNER Pulse 83 01/09/2019 7:10 AM CDT Temperature 36.6 C (97.8 F) 01/09/2019 7:10 AM CDT Respiratory Rate 19 01/09/2019 7:10 AM CDT Oxygen Saturation 98% 01/08/2019 5:05 PM CDT Inhaled Oxygen Concentration - - Weight 71.2 kg (157 lb) 03/15/2019 10:36 AM SHOE DESIGNER Height 167.6 cm (5' 6 ) 10/13/2018 11:25 AM CDT Body Mass Index 25.34 10/13/2018 11:25 AM CDT Plan of Treatment Not on file Insurance Member Subscriber Plan / Payer ( fective 2018-Present) Name:Gurjit Rendonn Sawyer Relation to Subscriber:Self Name:Devi Rendonitlyn Sawyer Payer ID:[id number] (NAIC) Group ID:Not on file Type:MEDICAID RISK OTHER Address: [address] [place] [address] Advance Directives For more information, please contact: [phone] * Full Code (Latest Code Status on File) Date Activated Date Inactivated Comments 01/07/2019 10:57 PM 01/09/2019 8:39 PM Full CPR in case of cardiopulmonary arrest Care Teams Coppersmith Apprentice Relationship Specialty Start Date End Date Adrienne Botello MD [address] [place] [address] PCP - General Internal Medicine 01/27/18
--- OUTSIDE RECORDS SUMMARY | 2024-08-19 02:29 | XMS_ITS | Data Portability ---
Author Organization [facility] [place] Address [address] [place] [address] Assessment Encounter Date Assessment Date Assessment LastModified by Organization Details LastModified Time 07/12/2024 07/12/2024 Patient is ___weeks . Discussed plan. [email or web address] Not available 07/12/2024 14:01:19 Plan of Treatment Reminders Order Date Submit Date Provider Last Modified By Organization Details Last Modified Time Details Appointments U/S OB BASELIN E 2024 09:00A M ULTRASOUND Not available Not available Not available OB ROUTINE 2024 10:45A M Peggy HENDERSON MD Not available Not available Not available Lab None recorde d. Referral None recorde d. Procedures None recorde d. Surgeries None recorde d. Imaging US, obstetr ic, limited 2024 025 [email or web address] [place], [facility] [address], [place], [address], 07/06/2024 22:26:43 Medication Orders None recorde d. Patient TargetsNo targets recorded. Patient InstructionsNo instructions recorded. Reason for Referral None Reported. Results Created Date Observation Date Name Description Value Unit Range Abnormal Flag Note LastModifiedBy Organization Detail LastModifiedTime 07/18/1907/17/2024 [UNIT Y] ANEUP LOIDY NIPT fraction 5.6% normal Not Available Mary Kay menard [address] [facility] [address] , [place], [address], 07/17/2024 15:04:54 07/18/19 25 07/17/2024 [UNIT Y] ANEUP LOIDY NIPT 22Q11.2 microdeletio n LOW RISK <1 in 10,000 normal Not Available [facility] [address] [facility], [place], [address], 07/17/2024 15:04:54 07/18/19 25 07/17/2024 [UNIT Y] ANEUP LOIDY NIPT sex chromosome aneuploidy NOT DETECT ED normal Not Available [facility] [address] [facility], [place], [address], 07/17/2024 15:04:54 07/18/19 25 07/17/2024 [UNIT Y] ANEUP LOIDY NIPT monosomy X LOW RISK <1 in 10,000 normal Not Available [facility] [address] [facility], [place], [address], 07/17/2024 15:04:54 07/18/19 25 07/17/2024 [UNIT Y] ANEUP LOIDY NIPT trisomy 13 LOW RISK <1 in 10,000 normal Not Available [facility] [address] [facility], [place], [address], 07/17/2024 15:04:54 07/18/19 25 07/17/2024 [UNIT Y] ANEUP LOIDY NIPT trisomy 18 LOW RISK <1 in 10,000 normal Not Available [facility] [address] [facility], [place], [address], 07/17/2024 15:04:54 07/18/19 25 07/17/2024 [UNIT Y] ANEUP LOIDY NIPT trisomy 21 LOW RISK <1 in 10,000 normal Not Available [facility] [address] [facility], [place], [address], 07/17/2024 15:04:54 07/18/19 25 07/17/2024 [UNIT Y] ANEUP LOIDY NIPT sex MALE normal Not Available [facility] [address] [facility], [place], [address], 07/17/2024 15:04:54 07/18/19 25 07/17/2024 [UNIT Y] ANEUP LOIDY NIPT gestation SINGLE TON normal Not Available [facility] [address], [place], [address], 07/17/2024 15:04:54 07/18/19 25 07/17/2024 [UNIT Y] ANEUP LOIDY NIPT for detailed report, see pdf See PDF normal Not Available [facility] [address], [place], [address], 07/17/2024 15:04:54 07/26/19 25 07/25/2024 [UNIT Y] GRABIEL Eugene sickle cell disease/beta -thalassemia /hemoglobino pathies carrier screen NEGATI VE normal Not Available [facility] [address], [place], [address], 07/25/2024 17:02:32 07/26/19 25 07/25/2024 [UNIT Y] GRABIEL Eugene alpha-thalas semia carrier screen NEGATI VE normal Not Available [facility] [address], [place], [address], 07/25/2024 17:02:32 07/26/19 25 07/25/2024 [UNIT Y] GRABIEL Eugene cystic fibrosis carrier screen NEGATI VE normal Not Available [facility] [address], [place], [address], 07/25/2024 17:02:32 07/26/19 25 07/25/2024 [UNIT Y] GRABIEL Eugene spinal muscular atrophy carrier screen NEGATI VE 2 SMN1 copies , SNP not presen t normal Not Available [facility] [address], [place], [address], 07/25/2024 17:02:32 07/26/19 25 07/25/2024 [UNIT Y] GRABIEL Eugene for detailed report, see pdf See PDF normal Not Available [facility] [address], [place], [address], 07/25/2024 17:02:32 07/13/19 25 07/12/2024 CBC W/DIF F WBC 6.5 10'3/ uL 3.5-10 .5 Not Available [facility] (Lab) [address], [place], [address], 07/13/2024 19:32:18 07/13/19 25 07/12/2024 CBC W/DIF F RBC 4.43 10'6/ uL (based on docume nted legal sex) 3.80-5 .20 Not Available [facility] (Lab) [address], [place], [address], 07/13/2024 19:32:18 07/13/19 25 07/12/2024 CBC W/DIF F HGB 12.2 g/dL (based on docume nted legal sex) 11.6-1 5.4 Not Available [facility] (Lab) [address], [place], [address], 07/13/2024 19:32:18 07/13/19 25 07/12/2024 CBC W/DIF F HCT 36.4 % (based on docume nted legal sex) 34.0-4 5.0 Not Available [facility] (Lab) [address], [place], [address], 07/13/2024 19:32:18 07/13/19 25 07/12/2024 CBC W/DIF F MCV 82.2 fL 80.0-9 9.0 Not Available [facility] (Lab) [address], [place], [address], 07/13/2024 19:32:18 07/13/19 25 07/12/2024 CBC W/DIF F MCH 27.5 pg 27.0-3 4.0 Not Available [facility] (Lab) [address], [place], [address], 07/13/2024 19:32:18 07/13/19 25 07/12/2024 CBC W/DIF F MCHC 33.5 g/dL 32.0-3 5.5 Not Available [facility] (Lab) [address] [facility], [place], [address], 07/13/2024 19:32:18 07/13/19 25 07/12/2024 CBC W/DIF F RDW 12.6 % 11.0-1 5.0 Not Available [facility] (Lab) [address] [facility], [place], [address], 07/13/2024 19:32:18 07/13/19 25 07/12/2024 CBC W/DIF F plt 260 10'3/ uL 150-40 0 Not Available [facility] (Lab) [address] [facility], [place], [address], 07/13/2024 19:32:18 07/13/19 25 07/12/2024 CBC W/DIF F MPV 10.5 fL 8.8-12 .1 Not Available [facility] (Lab) [address] [facility], [place], [address], 07/13/2024 19:32:18 07/13/19 25 07/12/2024 CBC W/DIF F neutrophils 69.3 % 34.0-7 3.0 Not Available [facility] (Lab) [address] [facility], [place], [address], 07/13/2024 19:32:18 07/13/19 25 07/12/2024 CBC W/DIF F lymphocytes 19.3 % 15.0-5 0.0 Not Available [facility] (Lab) [address] [facility], [place], [address], 07/13/2024 19:32:18 07/13/19 25 07/12/2024 CBC W/DIF F monocytes 8.7 % 1.0-15 .0 Not Available [facility] (Lab) [address] [facility], [place], [address], 07/13/2024 19:32:18 07/13/19 25 07/12/2024 CBC W/DIF F eosinophils 2.3 % 0.0-8. 0 Not Available [facility] (Lab) [address], [place], [address], 07/13/2024 19:32:18 07/13/19 25 07/12/2024 CBC W/DIF F basophils 0.2 % 0.0-2. 0 Not Available [facility] (Lab) [address], [place], [address], 07/13/2024 19:32:18 07/13/1907/12/2024 CBC W/DIF F immature granulocytes 0.2 % no define d refere nce range Immat ure Granu locyt es (IG) repre sents autom ated enume ratio n of Metam yeloc ytes, Myelo cytes and Promy elocy jessee when IG is < 5%. Blast s are not inclu ded in IG and repor sandra separ ately if prese nt. Not Available [facility] (Lab) [address] , [place], [address], 07/13/2024 19:32:18 07/13/19 25 07/12/2024 CBC W/DIF F absolute neutrophils 4.5 10'3/ uL 1.5-8. 0 Not Available [facility] (Lab) [address], [place], [address], 07/13/2024 19:32:18 07/13/19 25 07/12/2024 CBC W/DIF F absolute lymphocytes 1.3 10'3/ uL 1.0-4. 0 Not Available [facility] (Lab) [address] [place], [address], 07/13/2024 19:32:18 07/13/19 25 07/12/2024 CBC W/DIF F absolute monocytes 0.6 10'3/ uL 0.2-1. 0 Not Available [facility] (Lab) [address] [facility], [place], [address], 07/13/2024 19:32:18 07/13/19 25 07/12/2024 CBC W/DIF F absolute eosinophils 0.2 10'3/ uL 0.0-0. 6 Not Available [facility] (Lab) [address] [facility], [place], [address], 07/13/2024 19:32:18 07/13/19 25 07/12/2024 CBC W/DIF F absolute basophils 0.0 10'3/ uL 0.0-0. 3 Not Available [facility] (Lab) [address] [facility], [place], [address], 07/13/2024 19:32:18 07/13/19 25 07/12/2024 CBC W/DIF [...] of the indiv idual patie nt: https :[email or web address] [email or web address] book. nm.or g/gen derx Not Available [facility] (Lab) [address] [facility], [place], [address], 07/13/2024 19:32:18 07/13/1907/12/2024 HEPAT ITIS B SURFA CE ANTIG EN hepatitis B surface antigen Non-re active non-re active This assay was perfo rmed using [employer] ratio n reage nts and test kits. Value s obtai aren with other assay metho ds or kits canno t be used inter zayas eably . Not Available [facility] (Lab) [address] [facility], [place], [address], 07/13/2024 19:32:18 03/05/20 25 07/12/2024 HIV 1/2 ANTIG EN/AN TIBOD Y, REFLE X CONFI RMATI ON HIV antigen/anti body Nonrea ctive nonrea ctive HIV-1 antig en and HIV-1 /HIV- 2 antib odies were not detec sandra. No labor atory evide nce of HIV infec tion. Not Available [facility] (Lab) [address] [facility], [place], [address], 07/13/2024 19:32:19 07/13/1907/12/2024 HEPAT ITIS C ANTIB LIZZIE SCREE N, REFLE X TO CONFI RMATI ON hepatitis C antibody Non-re active non-re active Antib odies to HCV Not Detec sandra, does not exclu de the possi bilit y of expos ure to HCV. Not Available [facility] (Lab) [address] [facility], [place], [address], 07/13/2024 19:32:19 07/13/1907/12/2024 RUBEL LA IGG ANTIB LIZZIE, QUANT rubella antibodies, IgG Reacti ve reacti ve Not Available [facility] (Lab) [address] [facility], [place], [address], 07/13/2024 19:32:20 07/13/1907/12/2024 RUBEL LA IGG ANTIB LIZZIE, QUANT rubella antibodies, IgG quant 33.7 IU/mL >=10 Non-r eacti ve (Non- Immun e) <10 IU/mL React bety (Immu ne) > or = 10 IU/mL Not Available [facility] (Lab) [address] [facility], [place], [address], 07/13/2024 19:32:20 07/13/1907/12/2024 TYPE/ RH/SC REEN ABO/Rh type O POS Not Available [facility] (Lab) [address], [place], [address], 07/13/2024 19:32:20 07/13/1907/12/2024 TYPE/ RH/SC REEN antibody screen NEG Not Available [facility] (Lab) [address], [place], [address], 07/13/2024 19:32:20 07/13/19 25 07/12/2024 TYPE/ RH/SC REEN exp date 2024 23:59 Not Available [facility] (Lab) [address] [facility], [place], [address], 07/13/2024 19:32:20 07/13/19 25 07/12/2024 RPR SCREE N, REFLE X TITER /CONF IRMAT ION RPR qualitative Nonrea ctive nonrea ctive Not Available [facility] (Lab) [address] [facility], [place], [address], 07/13/2024 19:32:20 07/13/19 25 07/12/2024 HEMOG LOBIN A1C hemoglobin A1C 5.2 % 4.0-5. 6 The Ameri can Diabe jessee [employer] iatio n recom mends that a prima ry goal of thera py shoul d be a HBA1C of < 7% and that physi cians shoul d reeva luate the treat ment regim en in patie nts with HBA1C value s consi stent ly > 8%. <5.7% Sade l 5.7 - 6.4% Incre ased risk for diabe jessee >=6.5 % Diagn ostic of diabe jessee <7.0% Goal of thera py >8.0% Actio n sugge sted Not Available [facility] (Lab) [address] [facility], [place], [address], 07/13/2024 19:32:21 07/13/19 25 07/12/2024 IMAGE GUIDE D PAP AND HPV REGAR DLESS image guided Pap, HPV regardless of Pap result SEE RESULT S BELOW abnormal CASE REPOR T: Cytol ogy Gynec ologi tammi Repor t Case: [id number] Autho riaditya g Provi black: Ronald Henderson MD Colle cted: 07/12 1647 Order ing Locat ion: [place] Path[facility] log[facility] Recei jemima: 07/13 0945 First Scree n: Bria Lynn ay, [place] Patho logis t: Kim Zayas MD [...] Squam ous Cells of Undet ermin ed Deedeei amando ce (ASC- US). Funga l organ isms morph ologi pierre consi stent with Veronique da spp. Elect roney calvo by Kim Zayas MD on 2024 at 1223 CDT ----- ----- ----- ----- ----- ----- ----- ----- ----- ----- ----- ----- ----- ----- ----- ----- ----- ---- HPV RESUL TS: HPV mRNA E6/E7 : Posit bety - HPV mRNA Detec sandra HPV GENOT YPE 16 (DASHANW) : Not Detec sandra HPV GENOT YPE [...] Thinp rep Imagi ng Syste m. CLINI TAMMI INFOR MATIO N: Menst rual Statu s: LMP (if appli cable ): Clini tammi Histo ry/Pr eviou s Pap: Type of Neopl bharati (if appli cable ): Signi fican t Clini tammi Findi ngs: Other Histo ry: Hormo pierre (if appli cable ): SUGGE STED FOLLO W-UP: Follo w up as warra nted, based on curre nt guide lines and indiv idual patie nt consi derat ions. Not Available [facility] (Lab) [address] [facility], [place], [address], 07/18/2024 13:25:57 07/13/19 25 07/12/2024 TRICH OMONA S VAGIN ROSHAN (RRNA ) trichomonas vaginalis ribosomal RNA (rrna) Negati ve negati ve Not Available [facility] (Lab) [address] [facility], [place], [address], 07/18/2024 13:25:58 07/13/19 25 07/12/2024 CT/GC (DASHAWN) , THINP REP VIAL chlamydia trachomatis, PCR Negati ve negati ve Not Available [facility] (Lab) [address] [place], [address], 07/18/2024 13:25:59 07/13/19 25 07/12/2024 CT/GC (DASHAWN) , THINP REP VIAL neisseria gonorrhoeae, PCR Negati ve negati ve Not Available [facility] (Lab) [address] [facility], [place], [address], 07/18/2024 13:25:59 07/13/19 25 07/12/2024 CULTU RE: URINE result report SEE RESULT S BELOW Test: Cultu re: Urine Speci men Sourc e: Urine - Clean Catch Speci men Type: Urine Speci men Date: 1647 Resul t Date: 0605 Resul t Statu s: Final resul t Abnor mal: No Resul ting Lab: [facility] [address] [facility] [address] Tel: CULTU RE ----- ----- ----- --- No growt h in 1 day (dete ction level of 10,00 0 colon ies / ml.) Not Available [facility] (Lab) [address], [place], [address], 07/18/2024 13:25:59 07/13/19 25 07/12/2024 drug scree n, urine Amphetamines : negati ve Not Available [place] [address], [place], [address], 07/12/2024 19:26:38 07/13/19 25 07/12/2024 drug scree n, urine Cannabinoids : positi ve Not Available [place] [address], [place], [address], 07/12/2024 19:26:38 07/13/19 25 07/12/2024 drug scree n, urine Cocaine: negati ve Not Available [place] [address], [place], [address], 07/12/2024 19:26:38 07/13/19 25 07/12/2024 drug scree n, urine Opiates: negati ve Not Available [place] [address], [place], [address], 07/12/2024 19:26:38 07/13/19 25 07/12/2024 drug scree n, urine Barbiturates : negati ve Not Available [place] [address], [place], [address], 07/12/2024 19:26:38 07/13/19 25 07/12/2024 drug scree n, urine Benzodiazepi pierre: negati ve Not Available [place] [address], [place], [address], 07/12/2024 19:26:38 07/06/19 25 07/06/2024 US, obste tric, limit ed No observ ation record ed. [email or web address] [place] [address], [place], [address], 07/06/2024 18:37:58 07/06/19 25 07/06/2024 US, obste tric, limit ed No observ ation record ed. [email or web address] [address], [place], [address], 07/06/2024 21:26:03 08/01/19 25 07/31/2024 US, obste tric, follo w-up No observ ation record ed. [email or web address] [facility] [address] [facility] [address], [place], [address], 08/02/2024 22:54:16 08/03/19 25 07/31/2024 imagi ng/di agnos tic resul t No observ ation record ed. [email or web address] [facility] [address] [facility], [place], [address], 08/08/2024 22:52:43 Result Notes None recorded. Problems Name Problem SNOMED Code Status Onset Date Resolution Date Notes Provider Name and Address Organization Details Recorded Time Pregnanc y 67020722 Completed 202204/15/2023 Lay nesbitt [place] - [facility] 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 3 13:14:46 Pregnanc y 09581974 Active [address] [facility] 5 14:24:12 Female steriliz ation Active Francois Henderson MD [address], [place], [address], [facility] 5 14:29:21 Asthma 196652079 Active Francois Henderson MD [address], [place], [address], [facility] 5 14:29:36 Lesion of vulva 954144173 Active skin redundan cy previous lacerati on site Francois Henderson MD [address], [place], [address], [facility] 5 14:30:40 Tachycar flaco 8169908 Active prescrib ed metoprol ol at outside hospital Referral faxed to [facility] Sanaz Benny [facility] 5 18:51:48 Hyperthy roidism 62748930 Active methimaz ole Referral faxed to [facility] schedule d 07/31 9:45 Level II US & Consult Sanaz Zapata [facility] 5 17:25:17 Dysplasi a on cervical smear 184242432 Active Francois Henderson MD [address], [place], [address], [facility] 5 12:16:43 Problem Notes None recorded. Procedures Surgical History Date Name Laterality Status Provider Name and Address Organization Details Recorded Time 08/02/19 Colposcopy completed Francois Henderson MD [address], [place], [address], [place] [facility] 08/06/2024 22:29:57 08/02/19 Colposcopy completed [facility] 08/01/2024 10:45:00 08/02/19 Colposcopy completed [facility] 08/01/2024 10:45:36 07/13/19 Date of Last Pap Smear completed [facility] 07/28/2024 12:00:32 Imaging Results Imaging Date Name Status LastModified by Organiz ation Details LastModified Time 07/06/2024 US, obstetric, limited completed [email or web address] [place] [address], [place], [address], 07/06/2024 18:37:58 07/06/2024 US, obstetric, limited completed [email or web address] [address], [place], [address], 07/06/2024 21:26:03 07/31/2024 US, obstetric, follow-up completed [facility] [address] [facility], [place], [address], 08/02/2024 22:54:16 07/31/2024 imaging/diag nostic result active [facility] [address] [facility], [place], [address], 08/08/2024 22:52:43 Procedure Notes None recorded. Medical Equipment None [...] Updated DateTime 07/12/2024 167.64 cm 24.6 kg/m2 40067.48 g 162 mm[Hg] 86 mm[Hg] Lay Fish [facility] 14:06:07 Date Recorded Body weight Body mass index (BMI) Body height Systolic blood pressure Diastolic blood pressure Provider Name and Address Organization Details Last Updated DateTime 07/28/2024 51117.00 209 g 25.3 kg/m2 167.64 cm 147 mm[Hg] 87 mm[Hg] Kristine [facility] 11:58:17 Date Recorded Body weight Systolic blood pressure Diastolic blood pressure Provider Name and Address Organization Details Last Updated DateTime 08/01/2024 33683.0020 9 g 147 mm[Hg] 91 mm[Hg] Kristine [facility] 08/01/2024 10:43:55 Social History Question Answer Notes LastModified by Organizat ion Details LastModified Time Tobacco Smoking Status Former [email or web address] 04/09/2023 15:35:49 Do You Have An Advance Directive? No [email or web address] Information n ot available 07/12/2024 What Is Your Level Of Alcohol Consumption? None [email or web address] Information not available 07/12/2024 Are You Blind Or Do You Have Difficulty Seeing? No [email or web address] Information n ot available 07/12/2024 What Is Your Level Of Caffeine Consumption? Moderate [email or web address] Information not available 07/12/2024 How Much Tobacco Do You Chew? None [email or web address] Information not available 07/12/2024 In The 14 Days Before Symptom Onset, Have You Had Close Contact With A Laboratory-confirm ed COVID-19 While That Case Was Ill? No Information n ot available 07/12/2024 In The 14 Days Before Symptom Onset, Have You Had Close Contact With A Person Who Is Under Investigation For COVID-19 While That Person Was Ill? No Information not available 07/12/2024 Have You Been To An Area Known To Be High Risk For COVID-19? No Information not available 07/12/2024 Are You Deaf Or Do You Have Serious Difficulty Hearing? No [email or web address] Information not available 07/12/2024 What Type Of Diet Are You Following? REGULAR [email or web address] Information n ot available 07/12/2024 What Is The Highest Grade Or Level Of School You Have Completed Or The Highest Degree You Have Received? [id number] Information not available 07/12/2024 Are There Any Guns Present In Your Home? No [email or web address] Information not available 07/12/2024 Do You Use Protection During Sex? Usually [email or web address] Information not available 07/12/2024 Do You Use Your Seat Belt Or Car Seat Routinely? Yes [email or web address] Information not available 07/12/2024 Do You Have Smoke And Carbon Monoxide Detectors In Your Home? Yes [email or web address] Information not available 07/12/2024 How Much Tobacco Do You Smoke? No [email or web address] Information not available 07/12/2024 Do You Feel Stressed (tense, Restless, Nervous, Or Anxious, Or Unable To Sleep At Night)? [id number] [email or web address] Information not available 07/12/2024 Do You Use Any Illicit Or Recreational Drugs? No [email or web address] Information not available 07/12/2024 Do You Use Sunscreen Routinely? Yes [email or web address] Information not available 07/12/2024 Have You Used IV Drugs? No Information not available 07/12/2024 Sex: Unknown Functional Status Question Answer Note LastModified by Organization D etails LastModified Time Are you able to walk? YESWOREST [email or web address] Information not available 07/12/2024 What is your exercise level? Moderate [email or web address] Information not available 07/12/2024 Mental Status None [...] (Food, seasonal, environmental ) Y Other N Blood Transfusion N Drug/Latex Allergies/Reactions N Breast Cancer N Dermatologic Disorders N Lung Disease N Defects or Inherited Disease N Breast Problem N Gestational Diabetes N Hematologic disorders N Anesthesia Complications N History of STI Y Deep Vein Thrombosis N Polycystic ovary syndrome N Anxiety Disorder N Autoimmune disease N Arthritis N Infertility N Polyps N Acid Reflux (GERD) N History of abnormal pap Y Cancer N Stroke N Varicosities N Neurologic/Epilepsy N Endometriosis N High Cholesterol N Headaches N Fibromyalgia N Kidney Disease N Heart Problems Y Kidney or Bladder Problems N Thyroid Problems [...] SNOMED-CT Code Diagnosis ICD10 Code Diagnosis Note [id number] Francois Henderson MD [place] [address] [address] 04/09/2023 14:46:10 04/09/2023 16:35:02 Routine care 005542887 Z34.83 [id number] Lisa [facility] [address] [address] 04/09/2023 16:16:55 04/09/2023 17:06:05 Post-term 51677251 O48.0 [id number] Verito Ortega [place] [address] [address] 05/12/2023 16:00:06 05/12/2023 16:54:51 [facility] [id number] Z39.2 patient is a 28-year-ol d multiparou [...] up in 2 months for well-woman exam. [id number] Elinor Faith [place] [address] [address] 07/06/2024 15:11:12 07/06/2024 15:54:05 screening 031950356 Z36.87 O09.32 Z3A.15 [id number] Kristine Dougherty [place] [address],[place] [address] 07/12/2024 13:52:54 07/12/2024 15:10:19 Routine care 596915072 Z34.83 [id number] Francois Henderson MD [place] [address],[place] [address] 07/28/2024 11:36:06 07/28/2024 12:18:09 Routine care 161520839 Z34.83 [id number] Francois Henderson MD [place] [address],[place] [address] 08/01/2024 10:22:24 08/07/2024 00:32:28 Abnormal cervical Papanicolaou smear 146377541 R87.619 colposcopy performed, satisfacto ry, normal. To follow-up after . [id number] Francois Henderson MD [place] [address],[place] [address] 08/18/2024 10:18:26 08/18/2024 22:13:14 Health Concerns Section Related Observation LastModified by Organization Detai ls LastModified Time None Recorded Concern Status LastModified by Organization Details LastModified Time None Recorded Advance Directives Directive N: Payers Encounter Date Sequence Insurance Name Policy Number Policy Anand Covered Member ID Anand Member ID Guarantor Name 07/06/2024 1 [facility] - DOS ON OR AFTER 20 (MEDICAID REPLACEMENT - HMO) Alexandradarryl Rendon [id number] Alexandra Rendon 07/12/2024 1 [facility] ON OR AFTER 11/07/20 (MEDICAID REPLACEMENT - HMO) Alexandradarryl Rendon [id number] Alexandraya Rendon 07/28/2024 1 [facility] ON OR AFTER 11/07/20 (MEDICAID REPLACEMENT - HMO) Alexandra Rendon [id number] Alexandra R Rendon 08/01/2024 1 [facility] ON OR AFTER 11/07/20 (MEDICAID REPLACEMENT - HMO) Alexandra Rendon [id number] Alexandra Rendon 08/18/2024 1 [facility] ON OR AFTER 11/07/20 (MEDICAID REPLACEMENT - HMO) Alexandra Rendon [id number] Alexandra Rendon Notes Date Note Type Note Provider Name and Address Organization Details Recorded Time 08/01/2024 text/html 29-year-old female presents for colposcopic examination. The procedure was explained to the patient in detail. She understands the procedure. She understands the risks, benefits, and alternatives. She has completed the informed consent process and is ready to proceed. Francois Henderson MD [address], [place], [address], [facility] 08/06/2024 22:30:35 OBGyn Episode Ob Episode Information Episode Created Date Number of Fetuses Patient Bloodtype Patient rh Status Prepregnancy Weight lbs Domestic Partner Domestic Partner Phone Father Name Cook Helper Status 07/13/19 25 1 O Positive 152 OPEN Fetus Data First Name Last Name Admitted to NICU Weight (g) Sex Living Outcome Pediatric Complications Fetus ID Race Codes Race Delivery Type [id number] Problems Problem Notes scheduled 07/31 9:45 Level II US & Consult Problem Name Start Date End Date Resolution Snomed Code Not e Tachycardia 8499118 prescrib ed metoprolol at outside hospital Referral faxed to [facility] Dysplasia on cervical smear [id number] Female sterilization [id number] Asthma [id number] Lesion of vulva [id number] skin redundancy previous laceration site Hyperthyroidism 80364997 meth imazole Referral faxed to [facility] scheduled 07/31 9:45 Level II US & [...] Weight in lbs Pre/Post Dialysis Refused Weight 152.105886560080 BP Diastolic BP Location Tested BP Systolic [...] Type Weight in lbs Pre/Post Dialysis Refused 157.813311762553 BP Diastolic BP Location Tested BP Systolic [...] Type Weight in lbs Pre/Post Dialysis Refused 157.366342041892 BP Diastolic BP Location Tested BP Systolic [...] Domestic Partner Domestic Partner Phone Father Name Cook Helper Status 04/09/20 23 1 O Positive CLOSED Fetus Data First Name Last Name Admitted to NICU Weight (g) Sex Living Outcome Pediatric Complications Fetus ID Race Codes Race Delivery Type 3401.94 F true Full Term [id number] Vaginal Delivery Problems Problem Notes Problem Name Start Date End Date Resolution Snomed Code Not e Group B Streptococcus carrier [id number] in urine Virgilio Calculation Initial Virgilio Date [...] Weight in lbs Pre/Post Dialysis Refused Weight 167.534082267818 BP Diastolic BP Location Tested BP Systolic [...] too sure. She has care in both [place] and [place]. We did not have her record. We [...] Estim ated Date of Delivery false Thalassemia (Turkish, Barbadian, Mediterranean, Or Background): MCV < 80 false Neural Tube Defect (Meningomyelocele, Spina Bifi da, Or Anencephaly) false Congenital Heart Defect false Down Syndrome false Zachary-Sachs (eg, Anabaptism, Cajun, Ivorian-[place]) f alse Kathi Disease false Sickle Cell Disease Or Trait () false Hemophilia Or Other Blood Disorders false Muscular Dystrophy false Cystic Fibrosis false [place]'s Chorea false Intellectual Disability/Autism false If Yes, [...] Complications Tubal Sterilization Discharge Date Comments 3 Maranda [facility] idural 40.1 false Francois Henderson MD Group B Streptoco ccus carrier Discharge Information Feeding Method Contraceptive Method Maternal HG B and HCT Levels Ob Episode Information Episode Created Date Number of Fetuses Patient Bloodtype Patient rh Status Prepregnancy Weight lbs Domestic Partner Domestic Partner Phone Father Name Cook Helper Status 04/09/20 1 CLOSED Fetus Data First Name Last Name Admitted to NICU Weight (g) Sex Living Outcome Pediatric Complications Fetus ID Race Codes Race Delivery Type 3316.66 4704 F [id number] Vaginal Delivery Virgilio Calculation Initial Virgilio Date [...] Domestic Partner Domestic Partner Phone Father Name Cook Helper Status 04/09/20 23 1 CLOSED Fetus Data First Name Last Name Admitted to NICU Weight (g) Sex Living Outcome Pediatric Complications Fetus ID Race Codes Race Delivery Type , Spontane ous [id number] Virgilio Calculation Initial Virgilio Date Initial Exam [...]
[2024-08-19] MEDS: SODIUM CHLORIDE 0.9% IV 1,000 ML 999 ML IV CONT (02:38)
--- NOTE | 2024-08-19 02:49 | ED_ITS ---
HPI - General Adult General Chief complaint: Neck Pain/Injury Stated complaint: Neck pain and nausea/5 mo preg Time Seen by Provider: 08/19/24 02:21 History of Present Illness HPI narrative: Patient 29-year-old female presents emergency department with chief complaint of sore throat neck discomfort and nausea patient states that around 3:00 p.m. yesterday she started having pain in her neck also reports that she has history of asthma and has been coughing and wheezing some the patient reports that she has had no productive cough reports she had a low-grade fever of 99 Related Data Allergies Allergy/AdvReac Type Severity Reaction Status Date / Time No Known Allergies Allergy Verified 08/19/24 01:58 Review of Systems 2 Review of Systems: A 10 system review of systems was completed on the patient and is negative except for what is stated in the HPI. Nursing and ancillary documentation was reviewed. [facility] Past Medical History Medical History Marijuana use Term delivered Overweight (BMI 25.0-29.9) COVID-19 (~2021) Anxiety Asthma Surgical History Surgical History History of breast biopsy Family History Family History Sibling Asthma Social History Social History Social History: The patient lives in [place] with her long-term boyfriend and daughter. She smoked about a pack of cigarettes per day for 3 years and quit 2013. She smokes 1 blunt a day and has for at least 8 to 9 years; transitioned to edibles. No alcohol use. She designates her mother, Mikaela Rendon, and her boyfriend, Himanshu Watson, as her surrogate decision makers and she wishes to be a full code. Smoking status: Former smoker Second hand tobacco smoke exposure: No Alcohol intake: never Substance use: current Substance use type: marijuana Do You Feel Safe in your Home?: Yes Lack of Transportation: No Lack of Food: Never True Current Housing: I Have Housing Concerned About Future Housing: No Difficulty Paying Gas/Electric Bills: No Difficulty Paying for Meds: No Currently Unemployed: No Education: Grade School Difficulty w/ Childcare or Family Care: No Occupation/Education: occupation Additional occupation/education comments: [employer] Gender identity (if verbalized by the patient): Female Spiritual care concerns: No Exam 2 Narrative: GENERAL: Well-appearing, well-nourished, and in no acute distress. HEAD: Normocephalic, atraumatic. EYES: PERRLA and EOMI. ENT: Nares clear, no rhinorrhea or epistaxis. Mucous membranes moist. NECK: Supple. CHEST: Clear to auscultation. No respiratory distress. HEART: Regular rate and rhythm. No murmur heard. Normal peripheral pulses. ABDOMEN: Soft, nontender, nondistended, normal active bowel sounds. EXTREMITIES: Normal range of motion. No edema. SKIN: Warm, dry, no rash. NEURO: No focal deficits. Alert and oriented x3. PSYCH: Normal mood and affect. Course Vital Signs Vital signs: Vital Signs Temperature 36.9 C 08/19/24 01:51 Pulse Rate 111 H 08/19/24 01:51 Respiratory Rate 15 08/19/24 01:51 Blood Pressure 138/78 08/19/24 01:51 Pulse Oximetry 97 08/19/24 01:51 Oxygen Delivery Room Air 08/19/24 01:51 Temperature 36.9 C 08/19/24 01:51 Pulse Rate 115 H 08/19/24 04:17 Respiratory Rate 17 08/19/24 04:17 Blood Pressure 133/60 08/19/24 04:17 Pulse Oximetry 98 08/19/24 04:17 Oxygen Delivery Room Air 08/19/24 02:08 Medical Decision Making [facility] Narrative Medical decision making narrative: Differential diagnosis includes hyperthyroidism, electrolyte abnormality, dehydration, infection COVID flu RSV were negative strep was negative TSH was less than 0.015 free T4 was 3.62 troponin was negative electrolytes showed a potassium of 3.8 CBC showed white count 12.6 hemoglobin 11.5 monitor showed no evidence of contractions EKG showed sinus tachycardia The patient is on medicines for hyperthyroidism The case was discussed with Dr. Henderson who will see the patient in the office on Wednesday. Patient was instructed return precautions for thyroid storm Vital Signs Vital Signs: Vital Signs Temperature 36.9 C 08/19/24 01:51 Pulse Rate 111 H 08/19/24 01:51 Respiratory Rate 15 08/19/24 01:51 Blood Pressure 138/78 08/19/24 01:51 Pulse Oximetry 97 08/19/24 01:51 Oxygen Delivery Room Air 08/19/24 01:51 Temperature 36.9 C 08/19/24 01:51 Pulse Rate 115 H 08/19/24 04:17 Respiratory Rate 17 08/19/24 04:17 Blood Pressure 133/60 08/19/24 04:17 Pulse Oximetry 98 08/19/24 04:17 Oxygen Delivery Room Air 08/19/24 02:08 Lab Data 08/19/24 02:04 08/19/24 02:04 Labs: Lab Results 08/19/24 08/19/24 Range/Units 02:04 02:31 WBC 12.6 H (4.5-10.0) K/mm3 RBC 4.00 L (4.2-5.4) M/mm3 Hgb 11.5 L (12.0-15.0) g/dL Hct 33.0 L (37.0-47.0) % MCV 82.5 (80-100) fl MCH 28.8 (26-34) pg MCHC 34.8 (32-36) g/dl RDW 13.8 (11.5-14.5) % Plt Count 227 (150-375) k/mm3 MPV 9.8 (7.4-10.4) fl Immature Gran % (Auto) 0.4 (0-0.5) % Neut % (Auto) 80.0 H (45.5-73.1) % Lymph % (Auto) 11.4 L (18.3-44.2) % [place] % (Auto) 7.2 (2.6-8.5) % Eos % (Auto) 0.8 (0-4.4) % Baso % (Auto) 0.2 (0.2-1.2) % Lymph # (Auto) 1.44 (0.9-3.2) K/mm3 [place] # (Auto) 0.9 H (0.1-0.6) K/mm3 Eos # (Auto) 0.1 (0-0.3) K/mm3 Baso # (Auto) 0.0 (0.0-0.1) K/mm3 Abs Immat Gran (auto) 0.05 H (0.00-0.031) K/mm3 Absolute Neuts (auto) 10.1 H (1.3-6.7) K/mm3 Absolute Nucleated RBC 0.000 (0.0-0.012) K/mm3 Nucleated RBC % 0.0 (0.0-0.2) % PT 13.5 (11.1-14.7) Seconds INR 1.0 APTT 29.0 (22.3-36.8) Seconds Sodium 132 L (137-145) mmol/L Potassium 3.8 (3.4-5.0) mmol/L Chloride 105 (98-107) mmol/L Carbon Dioxide 20 L (22-30) mmol/L Anion Gap 7 (4-12) mmol/L BUN 6 L (7-17) mg/dL Creatinine 0.32 L (0.7-1.0) mg/dL Estim Creat Clear Calc Not Reportable Estimated GFR > 60 (59 - ) Glucose 95 (65-110) mg/dL Calcium 8.6 (8.4-10.2) mg/dL Total Bilirubin 0.6 (0.2-1.3) mg/dL AST 17 (14-36) U/L ALT 12 (6-35) U/L Alkaline Phosphatase 48 (38-126) U/L Troponin I < 0.012 (0.000-0.034) ng/mL Total Protein 7.0 (6.3-8.2) g/dL Albumin 3.5 (3.5-5.1) g/dL Lipase 38 (23-300) U/L TSH (Reflex) < 0.015 L (0.465-4.68) uIU/mL Free T4 3.62 H (0.78-2.19) ng/dL Influenza A (RT-PCR) Negative (Negative) Influenza B (RT-PCR) Negative (Negative) RSV (RT-PCR) Negative (Negative) SARS-CoV-2 RNA (RT-PCR) Negative (Negative) Group A Strep (PCR) Not detected (Negative) Discharge Plan Discharge Clinical Impression: Hyperthyroidism, Patient Disposition: Home Condition: Stable Instructions: Antibiotic Form, Hyperthyroidism (ED) Additional Instructions: Please follow-up with your OBGYN on Wednesday call the office 1st thing if you develop fever if your heart rate stays above 130 if you developed confusion severe nausea vomiting or diarrhea please return to the emergency department immediately Patient Language: Tajik Prescriptions: No Action levalbuterol HCl 1.25 mg/3 mL Solution For Nebulization 1.25 mg inhalation Q4HRT Qty: 90 0RF fluticasone propion-salmeterol [Advair HFA] 115-21 mcg/actuation Hfa Aerosol Inhaler 2 puff inhalation Q12HRT Qty: 30 0RF prednisone 10 mg tablet 10 mg PO DIRECTED Qty: 45 0RF Rx Instructions: 60 mg PO Daily x 2 days, 50mg PO Daily x 2 days,40mg PO Daily x 2 days, 30mg PO Daily x 2 days, 20mg PO Daily x 2 days, 10mg PO Daily x 2 days methimazole 10 mg tablet 10 mg PO DAILY Qty: 30 0RF metoprolol tartrate 25 mg tablet 25 mg PO BID Qty: 60 0RF amoxicillin 875 mg tablet 875 mg PO Q12H Qty: 14 0RF ondansetron 4 mg tablet,disintegrating 4 mg PO Q4H PRN (Reason: nausea and vomiting) 3 Days Qty: 10 0RF Follow-up/Referrals: Francois Henderson MD [Physician] - Stacia,Lea Han MD [Primary Care Provider] - Time of Disposition: 04:37
--- NOTE | 2024-08-19 02:50 | PC.NURSE ---
0222 RN at bedside, pt is 21 weeks 6 days reports back and abdominal pain. 0224 Contraction monitors applied, blood pressure 133/77, pulse 107, SpO2 100%. 0247 No uterine activity per toco. 0250 Report given to Karley Gamez RN.
[2024-08-19 03:00] LABS: Strep Group A RT-PCR NOT DETECTED (Negative)
[2024-08-19 03:02] VITALS: PULSE 110; RESP 17
[2024-08-19] MEDS: IPRATROPIUM 0.5 MG/ALBUTEROL SULFATE 2.5 MG AMPUL.NEB 3 ML INHALATION (03:02)
[2024-08-19 03:06] VITALS: PULSE 113; RESP 26
[2024-08-19 03:11] LABS: Influenza A QL RT-PCR Negative (Negative); Influenza B QL RT-PCR Negative (Negative); RSV RNA, RT-PCR Negative (Negative); SARS-CoV-2 RNA PCR Negative (Negative)
[2024-08-19 03:19] LABS: Alanine Aminotransferase 12 U/L (6-35); Albumin Level 3.5 g/dL (3.5-5.1); Alkaline Phosphatase 48 U/L (38-126); Anion Gap 7 mmol/L (4-12); Aspartate Amino Transferase 17 U/L (14-36); Bilirubin,Total 0.6 mg/dL (0.2-1.3); Blood Urea Nitrogen 6 mg/dL (7-17); Calcium 8.6 mg/dL (8.4-10.2); Carbon Dioxide 20 mmol/L (22-30); Chloride 105 mmol/L (98-107); Estimated Glomerular Filt Rate > 60; Glucose 95 mg/dL (65-110); Lipase 38 U/L (23-300); Potassium 3.8 mmol/L (3.4-5.0); Sodium 132 mmol/L (137-145); Thyroid Stimulating Hormone Reflex < 0.015 uIU/mL (0.465-4.68)
[2024-08-19 03:31] LABS: Troponin I < 0.012 ng/mL (0.000-0.034)
[2024-08-19 03:50] LABS: Free T4 Free Thyroxine Reflex 3.62 ng/dL (0.78-2.19)
[2024-08-19 04:17] VITALS: BP 133/60; PULSE 115; RESP 17; O2SAT 98
--- NOTE | 2024-08-19 04:38 | PC.NURSE ---
Patient c/o HOWELL. ERP notified and orders being placed.
[2024-08-19] MEDS: ACETAMINOPHEN 325 MG TABLET 650 MG PO (04:40)
[2024-08-19 05:03] VITALS: BP 139/76; PULSE 118; RESP 20; O2SAT 98
== END 2024-08-19 05:04 | disposition home or self-care (01) ==
PROVIDERS: Emergency Provider Emergency Medicine; PCP Family Medicine
DX: O99.282 Endocrine, nutritional and metabolic diseases complicating pregnancy, second trimester (principal); E05.90 Thyrotoxicosis, unspecified without thyrotoxic crisis or storm; O99.512 Diseases of the respiratory system complicating pregnancy, second trimester; J45.909 Unspecified asthma, uncomplicated; Z3A.21 21 weeks gestation of pregnancy; Z20.822 Contact with and (suspected) exposure to COVID-19; Z86.16 Personal history of COVID-19; Z87.891 Personal history of nicotine dependence; O99.891 Other specified diseases and conditions complicating pregnancy; R00.0 Tachycardia, unspecified; Z79.899 Other long term (current) drug therapy
CPT/HCPCS: 36415; 71045; 80053; 83690; 84439; 84443; 84484; 85025; 85610; 85730; 87637; 87651; 93005; 94640; 96360; 99284; A9270; J7030

== ENCOUNTER 2024-10-24 23:13 | Observation (INO) | payer OTHER, SELFPAY ==
[2024-10-24] VITALS (9 sets, daily range): BP systolic 119–133; BP diastolic 63–70; PULSE 78–98; O2SAT 94–95; BMI 27.1
--- NOTE | 2024-10-24 23:13 | PC.NURSE ---
Pt arrives to unit post two falls at 2114 and 2129.
--- NOTE | 2024-10-24 23:26 | OBADM ---
This patient, Alexandra Rendon, admitted to the OB room OB Post 117 for observation. Patient/family oriented to hospital policies and general routines including ID bracelet, bed and alarms, visiting hours, pain management, procedures, bathroom and other care routines, personal items, smoking policy, room service/diet, and visiting hours. Patient/Family are encouraged to report perceived risks to care and to ask questions if they do not understand what they are told or what they should do.
--- OUTSIDE RECORDS SUMMARY | 2024-10-24 23:26 | XMS_ITS | Clinical Summary ---
Author Organization [email or web address] Address [facility] [place] [address] Care Team Providers Care Precast Worker Name Role Phone Unavailable Primary Care Provider Unavailabl e Source Comments [facility] [email or web address],non-owned Affiliates and Associated Physician Practices is amultiple site organization consisting of ambulatory clinics and hospital sitesin [place], [place], [place] and [place]. This disclosure is being madepursuant to the Care Everywhere program and may not contain all information available regarding this patient. Last updated 18.[facility] [email or web address] Allergies No known active allergies Medications * Be aware that medications may not be up to date on this document. Alwaysverify current medications with the patient. Vit-DSS-Fe Fum-FA ( vitamin with iron) tablet Take 1 (one) tablet by mouth once daily Active albuterol HFA (Proventil; Ventolin; Proair) 108 (90 Base) MCG/ACT inhaler Inhale 2 (two) puffs by mouth every 6 hours as needed for Shortness of Breath Active budesonide-formot sushil (Symbicort) 80-4.5 MCG/ACT inhalerIndication s:Mild intermittent asthma without complication (HCC) Inhale 1 (one) puff by mouth 2 times daily 10.2 g 2 5 Active fluticasone propionate (Flonase Allergy Relief) 50 MCG/ACT nasal spray Bonner 2 (two) sprays into each nostril once daily 2 Each 1 5 Active calcium carbonate (Tums) 500 MG chew tabletIndications :Heartburn Take 2 (two) tablets by mouth 3 times daily as needed for Heartburn Reasons: Heartburn Active acetaminophen (Tylenol) 500 MG tablet Take 2 (two) tablets by mouth every 6 hours as needed for Headache, Pain or Fever Active albuterol (Proventil;Ventol in) (2.5 MG/3ML) 0.083% nebulizer solution Inhale 2.5 (two and one-half) mg by mouth 4 times daily as needed for Shortness of Breath or Wheezing Active NIFEdipine CR osmotic 24hr (Procardia-XL) 30 MG tablet Take 1 (one) tablet by mouth once daily 30 tablet 2 5 Active methIMAzole (Tapazole) 10 MG tablet Take 1 (one) tablet by mouth 2 times daily 60 tablet 2 5 Active Active Problems Problem Noted Date Diagnosed Date Hyperthyroidism affecting in second tr imester 09/21/2024 Chronic hypertension affecting 025 Tachycardia 09/09/2024 Marijuana use 07/31/2024 Atypical squamous cells of u ndetermined significance on cytologic smear of cervix (ASC-US) 07/31/2024 Hyperthyroidism 07/31/2024 Asthma 07/31/2024 Short interval between pregn ancies affecting in second trimester, antepartum 07/31/2024 Estimated Date of Delivery Comme nts Yes 12/24/2024 Based on Ultraso und Encounters Date Type Department Care Team Description 10/16/2024 9:35 AM CDT - 10/16/2024 11:59 PM CDT Hospital Encounter [facility] [address] [place] [address]. [address] [place] [address] Rakan Jacobsen DO Discharge Disposition: Home or Self Care 10/16/2024 Travel 09/25/2024 10:30 AM CDT - 09/25/2024 11:59 PM CDT Hospital Encounter [facility] [address] [place] [address] [address] [place] [address] Rakan Jacobsen DO CLOTH HANDLER Discharge Disposition: Home or Self Care 09/25/2024 Travel 09/11/2024 9:36 AM CDT - 09/11/2024 11:59 PM CDT Hospital Encounter [facility] [address] [place] [address] [address] [place] [address] Felipe, Natalia A, BRILLIANDEER LOOPER-DYE PENETRANT TESTING TECHNICIAN Discharge Disposition: Home or Self Care 09/11/2024 9:34 AM CDT - 09/11/2024 9:35 AM CDT Hospital Encounter [facility] [address] [place] [address] Agatha Olmos MD Discharge Disposition: Home or Self Care 09/11/2024 Travel 08/29/[address] [facility] [address] [place] [address] Jos Reyes MD Results 08/28/2024 10:30 AM CDT - 08/28/2024 11:59 PM CDT Hospital Encounter [facility] [address] [place] [address] Joselito Ko MD Wendel, Michael, MD Discharge Disposition: Home or Self Care 08/28/2024 10:30 AM CDT Hospital Encounter [facility] [address] [place] [address] Joselito Ko MD Wendel, Michael, MD Discharge Disposition: Home or Self Care 08/28/2024 9:45 AM CDT - 08/28/2024 10:29 AM CDT Hospital Encounter [facility] [address] [place] [address] Joselito Ko MD Discharge Disposition: Home or Self Care 08/28/2024 Travel 08/01/[address] [facility] [address] [place] [address] Akosua Elias MD Results 07/31/2024 10:11 AM CDT - 07/31/2024 11:59 PM CDT Hospital Encounter [facility] [address] [place] [address] Ronni Yusuf MD Discharge Disposition: Home or Self Care 07/31/2024 9:53 AM CDT - 07/31/2024 10:10 AM CDT Hospital Encounter [facility] [address] [place] [address] Natalia Muller MD Discharge Disposition: Home or Self Care 07/31/2024 9:45 AM CDT - 07/31/2024 9:52 AM CDT Hospital Encounter [facility] [address] [place] [address] Natalia Muller MD Discharge Disposition: Home or Self Care from Last 3 Months Immunizations Immunization Administration Dates Next Due TD, HISTORIC VACCINE 05/10/2015 TDAP (7yrs+) 01/08/2019 TDAP, HISTORIC VACCINE 04/14/2018 Social History Tobacco Use Types Packs/Day Years Used Date Smoking Tobacco: Never Assessed Overall Financial Resource Strain (CARDIA) Answe r Date Recorded How hard is it for you to pa y for the very basics like food, housing, medical care, and heating? Not very hard 07/31/2024 [facility] - Occupational Stress Questionnaire Answer Date Recorded Do you feel stress - tense, restless, nervous, or anxious, or unable to sleep at night because your mind is troubled all the time - these days? Only a little 07/31/2024 Hunger Vital Sign Answer Date Recorded Within the past 12 months, y ou worried that your food would run out before you got the money to buy more. Never true 08/01/19 25 Within the past 12 months, t he food you bought just didn't last and you didn't have money to get more. Never true 07/31/2024 PRAPARE - Transportation Answer Date Re corded In the past 12 months, has l ack of transportation kept you from medical appointments or from getting medications? No 07/09 In the past 12 months, has l ack of transportation kept you from meetings, work, or from getting things needed for daily living? No 07/31/2024 [place] Depression Scale Answer Date Recorded [place] Depression Scale Total 5 07/31/2024 The thought of harming myself has occurred to me . Never 07/31/2024 Housing Stability Vital Sign Answer Jimbo e Recorded In the last 12 months, was t here a time when you were not able to pay the mortgage or rent on time? No 07/31/2024 In the past 12 months, how m any times have you moved where you were living? 2 07/31/2024 At any time in the past 12 m [facility], were you homeless or living in a mcc (including now)? No 07/31/2024 Estimated Date of Delivery Comme nts Yes 12/24/2024 Based on Ultraso und Sex and Gender Information Value Date Recorded Sex Assigned at Not on file Legal Sex Female 2:56 PM FORMS EXAMINER Gender Identity Not on file Sexual Orientation Not on file Last Filed Vital Signs Vital Sign Reading Time Taken Comments Blood Pressure 128/76 09/11/2024 9:44 AM CDT Pulse 96 09/11/2024 9:44 AM CDT Temperature - - Respiratory Rate - - Oxygen Saturation - - Inhaled Oxygen Concentration - - Weight 73.9 kg (163 lb) 09/11/2024 9:44 AM CDT Height 167.6 cm (5' 6) 08/28/2024 12:06 PM CDT Body Mass Index 26.31 08/28/2024 12:06 PM CDT Plan of Treatment Upcoming Encounters Date Type Department Care Team (Late st Contact Info) Description 11/06/2024 9:[address] [facility] [address] [facility] [place] [id number] Health Maintenance Due Date Last Done Comments HEPATITIS C SCREENING 04/30/2012 HEPATITIS B VACCINE (1 of 3 - 19+ 3-dose series) 2013 PNEUMOCOCCAL VACCINE (1 of 2 - PCV) 2013 COVID-19 VACCINE (1 - 2023-2 5 season) 2024 OB-TDAP CURRENT 09/24/20242018, 04/14/2018 OB-RHOGAM INJECTION 10/01/2024 INFLUENZA VACCINE (Season Ended) 2025 PAP SMEAR 07/13/2027 07/12/2024, 07/12/2024 DTAP/TDAP/TD VACCINES (4 - T d or Tdap) 01/08/2029 01/08/2019, 04/14/2018, 05/10/2015 ZOSTER VACCINE (1 of 2) 2044 DEPRESSION SCREENING Completed 07/31/2024 HIV SCREENING Completed 10/05/2024, 07/12/2024 OB-ONE HOUR GLUCOSE Completed 10/05/2024 HIB VACCINE Aged Out No longer eligi ble based on patient's age to complete this topic HPV VACCINE Aged Out No longer eligi ble based on patient's age to complete this topic MENINGOCOCCAL (Group B) VACCINE SHARED DECISION-MAKING Aged Out No longer eligible based on patient's age to complete this topic MENINGOCOCCAL GROUPS A/C/Y/W VACCINE Aged Out No longer eligible b ased on patient's age to complete this topic Respiratory Syncytial Virus (RSV) Vaccine Pt: or over 60 yrs (No Doses Required) Completed Procedures Procedure Name Priority Date/Time Associated Diagnosis Comments SONOGRAM - COMPLETE Routine 10/16/2024 9 :43 AM CDT SONOGRAM - COMPLETE Routine 09/25/2024 1 0:34 AM CDT Encounter for follow-up ultrasound of anatomy (HCC) TSH RECEPTOR ANTIBODY Routine 09/11/2024 10:22 AM CDT Hyperthyroidism THYROID STIMULATING IMMUNOGLOBULIN (TSI) Routine 09/11/2024 10:22 AM CDT Hyperthyroidism URINALYSIS - POCT (IP) BEAKER INTERFACE Routine 09/11/2024 9:55 AM CDT T4 FREE Routine 08/28/2024 12:38 PM CDT Hyperthyroidism SONOGRAM - COMPLETE Routine 08/28/2024 1 0:59 AM CDT Encounter for follow-up ultrasound of anatomy (HCC) T4 FREE Routine 07/31/2024 12:39 PM CDT Hyperthyroidism URINALYSIS - POCT (IP) BEAKER INTERFACE Routine 07/31/2024 12:30 PM CDT SONOGRAM - COMPLETE Routine 07/31/2024 1 0:37 AM CDT Encounter for anatomic survey from Last 3 Months Results * SONOGRAM - COMPLETE (10/16/2024 9:43 AM CDT) Only the most recent of4 resultswithin the time period is included. Linked Results Addendum ========= Indication ======== Suspected SGA Completed anatomy Prominent umbilical vein with possible varix seen 07/31/24 Hyperthyroidism Asthma Tachycardia (maternal) History ====== OB History 4. Para 2 [id number] 1. miscarriage 2012 2. live 2018. Gest. age 39 w + 0 d. Weight 3,288 g. Sex of child: female. Details: Vaginal delivery 3. live 2022. Gest. age 40 w + 0 d. Weight 3,401 g. Sex of child: female. Details: Vaginal delivery Lab Tests Test Date Result NIPT Low risk Maternal Assessment Physical Exam Height 168 cm, 5 ft 6 in. Weight 76 kg, 167 lb. Initial weight 67 kg, 148 lb. BMI 26.95 kg/m . Initial BMI 23.89 kg/m . Weight gain 9 kg, 19 lb Method ====== Transabdominal ultrasound. View: Sufficient ========= Henry . Number of fetuses: 1 Dating ====== Date Details Gest. age BERNADETTE Stated BERNADETTE 30 w + 1 d 12/24/2024 Previous U/S 07/06/2024 GA, GA 15 w + 4 d 30 w + 1 d 12/24/2024 U/S 10/16/2024 based upon AC, BPD, Femur, HC 29 w + 2 d 12/30/2024 Assigned dating based on ultrasound (GA), selected on 07/31/2024 30 w + 1 d 12/24/2024 General Evaluation Cardiac activity present. FHR 145 bpm. Presentation: breech Placenta: Placental site: anterior no previa Umbilical cord: Cord vessels: 3 vessel cord. Insertion site: previously visualized as normal. Possible umbilical vein varix measuring 8.8 mm. Amniotic fluid: Amount of AF: normal. MVP 4.5 cm. JETT 13.1 cm. Q1 2.8 cm, Q2 3.0 cm, Q3 2.7 cm, Q4 4.5 cm Biometry BPD 73.5 mm 29w 3d 19% Hadlock HC 283.0 mm 31w 0d 40% Hadlock AC 248.7 mm 29w 1d 17% Hadlock Femur 51.9 mm 27w 5d 1% Hadlock Humerus 49.2 mm 29w 0d 20% Herrera HC / AC 1.14 Weight Calculation: EFW 1,293 g 8% Hadlock EFW (lb,oz) 2 lb 14 oz EFW by Hadlock (BME-SY-WE-FL) less than expected Growth Overview Exam date GA BPD (mm) HC (mm) AC (mm) FL (mm) HL (mm) EFW (g) 07/31/2024 19w 1d 39.9 12% 150.1 6% 129.3 24% 27.4 18% 27.1 31% 237 12% 08/28/2024 23w 1d 52.2 7% 204.2 15% 182.4 39% 36 3% 35.8 20% 495 13% 09/25/2024 27w 1d 65.5 18% 250.4 23% 216.7 15% 46 3% 42.7 7% 873 8% 10/16/2024 30w 1d 73.5 19% 283 40% 248.7 17% 51.9 1% 49.2 20% 1293 8% Anatomy The following structures appear abnormal: Abdomen Cord insertion. The following structures appear normal: Abdomen Stomach. Kidneys. Bladder. Abdomen other: varix measuring 8.8mm sex: male. Biophysical Profile 2: breathing movements 2: Gross body movements 2: tone 2: Amniotic fluid volume 12/15 Biophysical profile score Doppler Umbilical Artery: normal PI 0.73 8% Gordon S / D 2.14 10% Gordon Impression ========= Here today for interval growth ultrasound due to suspected SGA. Single, live intrauterine at 30w 1d The size is suspected SGA The amniotic fluid volume is normal. Normal appearing anterior placenta. The biophysical profile is reassuring 12/15. The umbilical artery Doppler is normal. Possible small umbilical vein varix measuring 8.8 mm-no turbulent flow noted. Comment ======== The biometry continues to show interval linear growth 420 g since the last study. However the estimated weight is 8% with AC 17%. Only lagging measurements are the femur lengths which may be contributing to the lower EFW. As previously discussed, there were no bony/ skeletal abnormalities noted. This is most likely a constitutionally small fetus rather than growth restriction. The umbilical Doppler studies are normal. Reassuring status BPP 12/15. ultrasound alone cannot detect all structural, genetic, or functional , placental, or maternal abnormalities. Follow-up ======== To return in 3 weeks for growth assessment and depending on those findings will also determine need for additional testing including Doppler studies and or testing along with frequency of interval growth ultrasounds. If the umbilical vein varix persists at next visit than would initiate weekly testing at that time and this would be further discussed with the patient at that time. Pre term labor and preeclampsia precautions along with kick counts. Thank you for allowing us to partake in your patient's care. Coding ====== Procedures 48953: [place] [address]: Umbilical Doppler 74658: Biophysical Profile W/O [facility] [place] PACS Anatomical Region Laterality Modality Other 10/16/2024 9:43 AM CDT R Pepe Henderson MD [facility] ORDERABLES Edited Result - Final * (ABNORMAL) THYROID STIMULATING IMMUNOGLOBULIN (TSI) (09/11/2024 10:22 AM CDT) Thyroid Stimulating Immunoglobulin 2.59(H) 0.00 - 0.55 IU/L 09/13/2024 8:11 AM CDT [facility] ([facility]) Blood BLOOD SPECIMEN / Unknown Venipuncture / Unknown 09/11/2024 10:22 AM CDT 09/11/2024 10:44 AM CDT Narrative [facility] ([facility]) - 09/13/2024 8:11 AM CDT Performed at: [address] [place] [id number] Options Advisor: Amber Bhatt MD, Phone: [phone] Agatha Olmos MD LAB - CHEMISTRY ORDERABLES Nina l Result Performing Organization Address [facility] Co de Phone Number [facility] ([facility]) [address] [place] [address] * (ABNORMAL) TSH RECEPTOR ANTIBODY (09/11/2024 10:22 AM CDT) Thyrotropin Receptor Antibody 2.90(H) 0.00 - 1.75 IU/L 09/12/2024 9:08 PM CDT [facility] ([facility]) Blood BLOOD SPECIMEN / Unknown Venipuncture / Unknown 09/11/2024 10:22 AM CDT 09/11/2024 10:44 AM CDT Narrative [facility] ([facility]) - 09/12/2024 9:08 PM CDT Performed at: [address] [place] [id number] Options Advisor: Amber Bhatt MD, Phone: [phone] us Agatha Olmos MD LAB - CHEMISTRY ORDERABLES Nina l Result Performing Organization Address City/[facility]/ZIP Co de Phone Number [facility] ([facility]) [address] [place] [address] * URINALYSIS - POCT (IP) BEAKER INTERFACE (09/11/2024 9:55 AM CDT) Only the most recent of2 resultswithin the time period is included. Color UA POCT Yellow Straw, Yellow, Dark Yellow, Light Yellow 09/11/2024 9:[address] [facility] Clarity UA POCT Clear Clear 9:[address] [facility] Specific [place] UA POCT 1.020 1.005 - 1.030 09/11/2024 9:[address] [facility] pH UA POCT 6.5 5.0 - 8.0 pH 09/11/2024 9:[address] [facility] Protein UA POCT Negative Negative 9:[address] [facility] Blood UA POCT Negative Negative 09/11/2024 9:[address] [facility] Leukocyte UA POCT Negative Negative 09/11/2024 9:[address] [facility] Nitrite UA POCT Negative Negative 9:[address] [facility] Glucose UA POCT Negative Negative 9:[address] [facility] Ketone UA POCT Negative Negative 09/11/2024 9:[address] [facility] Bilirubin UA POCT Negative Negative 09/11/2024 9:[address] [facility] Urobilinogen UA POCT 0.2 0.1 - 1.0 EU/dL 09/11/2024 9:[address] [facility] Urine URINE / Unknown 09/11/2024 9 :55 AM CDT 09/11/2024 9:57 AM CDT Natalia Wang BRILLIANDEER LOOPER-DYE PENETRANT TESTING TECHNICIAN LAB - POINT OF CARE ORDERABLES Final Result Performing Organization Address City/State/[facility] Co de Phone Number [facility] [address] [place] [address] * (ABNORMAL) T4 FREE (08/28/2024 12:38 PM CDT) Only the most recent of2 resultswithin the time period is included. [facility] T4 Free 2.36(H) 0.70 - 1.50 ng/dL 08/28/2024 2:[address] [facility] Blood BLOOD SPECIMEN / Unknown Venipuncture / Unknown 08/28/2024 12:38 PM CDT 08/28/2024 1:15 PM CDT us Ronni Yusuf MD LAB - CHEMISTRY ORDERABLES Fin al Result Performing Organization Address City/State/[facility] Co de Phone Number [facility] [address] [place] [address] from Last 3 Months Insurance
--- OUTSIDE RECORDS SUMMARY | 2024-10-24 23:26 | XMS_ITS | Clinical Summary ---
Author Organization [facility] Address [address], [address] [address] Phone Care Team Providers Care Transportation Sales Consultant Name Role Phone David Jha MD Unavailable [phone] Alicia Azar MD Unavailable [phone] Allergies No known active allergies Medications Vit-Fe [...] 9:26 AM CDT Height 165.1 cm (5' 5) 02/24/2017 9:26 AM CDT Body Mass Index [...] Insurance MEDICAID [employer] Care Teams Transportation Sales Consultant Relationship Specialty Start Date End Date David Jha MD General Surgery 02/15/17 Alicia Azar MD [address] [place] [address] Obstetrics & Gynecology 02/15/17
[2024-10-25] VITALS (14 sets, daily range): BP systolic 120–127; BP diastolic 47–62; PULSE 76–105; TEMP 36.8; O2SAT 96–99
--- NOTE | 2024-10-25 00:06 | PC.NURSE ---
Called Dr. Cervantes, update on pt, two falls, lower left abdomen pain inconsistent, lower back pain 7 out of 10, no vaginal bleeding, cramping, or irritability, blood pressure, and tracing. Orders received to administer tylenol 1000 mg and monitor for one hour, if pain is not resolved with tylenol, prescribe flexeril 10 mg for five days.
[2024-10-25] MEDS: ACETAMINOPHEN 500 MG TABLET 1000 MG PO (00:17)
--- NOTE | 2024-10-25 01:08 | PC.NURSE ---
Called Dr. Cervantes, update on tracing and lower back pain. Orders received to discharge pt with prescription for flexeril 10 mg for five days, instructions to call the office to make an appointment if flexeril does not decrease pain, keep next scheduled appointment, and when to return to the unit.
--- NOTE | 2024-10-25 01:39 | PC.NURSE ---
Pt discharged with prescription for flexeril 10 mg for five days, instructions call the office to make an appointment if flexeril does not decrease pain, keep next scheduled appointment, and when to return to the unit, pt verbalizes understanding.
--- NOTE | 2024-10-27 18:34 | PM.OBTRLD ---
OB - Triage/Final Diagnosis Visit Information Comments/Additional reasons for admission: I have assessed the risk for this patient, Alexandra Rendon, and determined that she would benefit from observation care. Final Diagnosis (1) Fall: Code(s): W19.XXXA - Unspecified fall, initial encounter Status: Acute
== END 2024-10-25 01:39 | disposition home or self-care (01) ==
PROVIDERS: Admitting Provider Obstetrics & Gynecology; PCP Family Medicine; Visit Provider Obstetrics & Gynecology
DX: O26.893 Other specified pregnancy related conditions, third trimester (principal); W19.XXXA Unspecified fall, initial encounter; Z3A.31 31 weeks gestation of pregnancy
CPT/HCPCS: A9270; G0378; G0379

== ENCOUNTER 2024-12-13 05:55 | Inpatient (IN) | payer MEDICAID, SELFPAY ==
[2024-12-13] VITALS (154 sets, daily range): BP systolic 106–148; BP diastolic 53–92; PULSE 65–133; RESP 14–20; TEMP 36.5–37.1; O2SAT 93–100; BMI 29.5
--- NOTE | 2024-12-13 05:55 | LDADM ---
This patient, Alexandra Rendon, was admitted to Labor/Delivery/Recovery 107 on 12/13/24 at 05:55. Plans for labor, pain management and were discussed with patient. Patient/family oriented to hospital policies and general routines including ID bracelet, bed and alarms, visiting hours, pain management, procedures, bathroom and other care routines, personal items, smoking policy, room service/diet and guest tray routines, infant security routines, and visiting hours. Patient/Family are encouraged to report perceived risks to care and to ask questions if they do not understand what they are told or what they should do. See OBIX for further documentation.
--- OUTSIDE RECORDS SUMMARY | 2024-12-13 06:04 | XMS_ITS | Clinical Summary ---
Author Organization [facility] Address [address], [facility] [address] [place] [address] Phone Care Team Providers Care Shingle Shearing Machine Operator Name Role Phone David Jha MD Unavailable [phone] Alicia Azar MD Unavailable [phone] Allergies No known active allergies Medications Vit-Fe [...] 19+ 3-dose series) 2013 Pap Smear 2015 Human Papillomavirus (HPV) Immunization (1 - 3-dose SCDM series) 2021 SARS-COV-2 Immunization ( - season) 2024 Cervical Cancer Screening (CCS) 2024 HPV/Cotest 2024 Influenza Immunization (#1) 2025 Respiratory Syncytial Virus (RSV) Immunization (Adult) (1 [...] Insurance MED[employer] Care Teams Shingle Shearing Machine Operator Relationship Specialty Start Date End Date David Jha MD General Surgery 02/15/17 Alicia Aazr MD [address] [place], [place] [id number] Obstetrics & Gynecology 02/15/17
--- OUTSIDE RECORDS SUMMARY | 2024-12-13 06:04 | XMS_ITS | Clinical Summary ---
Author Organization [facility] Address [facility] [place] [address] Care Team Providers Care Electrolysis Needle Operator Name Role Phone Unavailable Primary Care Provider Unavailabl e Source Comments [facility],non-owned Affiliates and Associated Physician Practices is amultiple site organization consisting of ambulatory clinics and hospital sitesin [place], [place], [place] and [place]. This disclosure is being madepursuant to the Care Everywhere program and may not contain all information available regarding this patient. Last updated 18.boarding pass [facility] Allergies No known active allergies Medications * [...] as needed for Shortness of Breath Active fluticasone propionate (Flonase Allergy Relief) 50 MCG/ACT nasal spray Boyd 2 (two) sprays into each nostril once daily 2 Each 1 5 Active calcium carbonate (Tums) 500 MG chew tabletIndication s:Heartburn Take 2 (two) tablets by mouth 3 times daily as needed for Heartburn Reasons: Heartburn Active acetaminophen (Tylenol) 500 MG tablet Take 2 (two) tablets by mouth every 6 hours as needed for Headache, Pain or Fever Active albuterol (Proventil;Stew radha) (2.5 MG/3ML) 0.083% nebulizer solution Inhale 2.5 (two and one-half) mg by mouth 4 times daily as needed for Shortness of Breath or Wheezing Active NIFEdipine CR osmotic 24hr (Procardia-XL) 30 MG tablet Take 1 (one) tablet by mouth once daily 30 tablet 2 5 Active budesonide-formo terol (Symbicort) 80-4.5 MCG/ACT inhalerIndicatio ns:Mild intermittent asthma without complication (HCC) Inhale 1 (one) puff by mouth 2 times daily 10.2 g 2 5 Active fexofenadine (Ermelinda) 180 MG tabletIndication s:Seasonal Allergic Rhinitis Take 1 (one) tablet by mouth once daily Reasons: Hayfever 30 tablet 3 5 Active methIMAzole (Tapazole) 10 MG tabletIndication s:Hyperthyroidis m Take 1 (one) tablet by mouth 2 times daily Reasons: Overactive Thyroid Gland 60 tablet 2 5 Active methIMAzole (Tapazole) 5 MG tabletIndication s:Hyperthyroidis m Take 1 (one) tablet by mouth once daily Take in addition to 10 mg dose Reasons: Overactive Thyroid Gland 30 tablet 2 5 Active methIMAzole (Tapazole) 10 MG tablet Take 1 (one) tablet by mouth 2 times daily 60 tablet 2 5 025 Discontin ued(Reord er) Active Problems Problem Noted Date Diagnosed Date Encounter for ultrasound to assess growth 11/06/2024 Hyperthyroidism affecting in second tr imester 09/21/2024 [...] Encounters Date Type Department Care Team Description 12/07/2024 9:14 AM CDT - 12/07/2024 11:59 PM CDT Hospital Encounter [facility] [place] [address] Graeme Chiu MD Discharge Disposition: Home or Self Care 12/07/2024 9:14 AM CDT - 12/07/2024 11:59 PM CDT Hospital Encounter [facility] [address] [place] [address] Kalpana Reyes MD Chavan, Niraj R, MD Wendel, Michael, MD Discharge Disposition: Home or Self Care 12/07/2024 9:00 AM CDT - 12/07/2024 9:13 AM CDT Hospital Encounter [facility]UATION UN[facility] [address] [place] [address] Kalpana Reyes MD Chavan, Niraj R, MD Discharge Disposition: Home or Self Care 12/07/2024 Travel 11/30/2024 7:53 AM CDT - 11/30/2024 11:59 PM CDT Hospital Encounter [facility]UATION [facility] [address] [place] [address] Cassie Muniz MD Discharge Disposition: Home or Self Care 11/30/2024 7:52 AM CDT Hospital Encounter [facility] [address] [place] [address] Cassie Muniz MD Discharge Disposition: Home or Self Care 11/22/2024 1:09 PM CDT - 11/22/2024 11:59 PM CDT Hospital Encounter [facility] [address] [place] [address] Yue Galicia APRN-CNP Gross, Gilad A, MD Discharge Disposition: Home or Self Care 11/22/2024 1:09 PM CDT - 11/22/2024 11:59 PM CDT Hospital Encounter [facility] UN[facility] [address] [place] [address] Yue Galicia APRN-CNP Gross, Gilad A, MD Discharge Disposition: Home or Self Care 11/22/2024 1:00 PM CDT - 11/22/2024 1:08 PM CDT Hospital Encounter [facility] [address] [place] [address] Yue Galicia, SOIL TECHNOLOGIST-MANAGER HYDRAULIC Discharge Disposition: Home or Self Care 11/22/2024 Travel 11/16/2024 Telephone [facility] [address] [place] [address] Donna Robles RN Coordination Of Care 11/15/2024 Telephone [facility] [address] [place] [address] Donna Robles RN Future Appointment 11/06/2024 9:42 AM CDT - 11/06/2024 11:59 PM CDT Hospital Encounter [facility] UNIT [address] [place] [address] Joselito Ko MD Discharge Disposition: Home or Self Care 11/06/2024 Travel 11/01/2024 Telephone [facility] UN[facility] [address] [place] [address] Toshia Mcfarlane Appointment 10/27/2024 Refill [facility] [address] [place] [id number] Jose Raul Coles MD MEDICATION REFILL 10/16/2024 9:35 AM CDT - 10/16/2024 11:59 PM CDT Hospital Encounter [facility]ATION UNIT [address] [place] [address] Rakan Jacobsen DO Discharge Disposition: Home or Self Care 10/16/2024 Travel 09/25/2024 10:30 AM CDT - 09/25/2024 11:59 PM CDT Hospital Encounter [facility] UN[facility] [address] [place] [address] Rakan Jacobsen DO INSTALLER Discharge Disposition: Home or Self Care 09/25/2024 Travel from Last 3 Months Immunizations Immunization Administration [...] care, and heating? Not very hard 07/31/2024 [facility] - Occupational Stress [...] things needed for daily living? No 07/31/2024 [place] Depression Scale Answer Date Recorded [place] Depression Scale Total 5 07/31/2024 The thought [...] any time in the past 12 m [facility], were you homeless or living in a intermediate (including now)? 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 Gender Identity Not on file Sexual Orientation Not on file Last Filed Vital Signs Vital Sign Reading Time Taken Comments Blood Pressure 131/70 12/07/2024 9:44 AM CDT Pulse 73 12/07/2024 9:44 AM CDT Temperature - - Respiratory Rate - - Oxygen Saturation - - Inhaled Oxygen Concentration - - Weight 81.6 kg (180 lb) 12/07/2024 9:44 AM CDT Height 167.6 cm (5' 6) 08/28/2024 12:06 PM CDT Body Mass Index 29.05 08/28/2024 12:06 PM CDT Plan of Treatment Upcoming Encounters Date Type Department Care Team (Late st Contact Info) Description 12/14/2024 9:45 AM CDT Appointment [facility] [address] [place] [address]. [address] [place] [address] 12/14/2024 10:30 AM CDT Appointment [facility] [address] [place] [address]. [address] [place] [address] Health Maintenance Due Date Last Done Comments HEPATITIS C SCREENING 04/30/2012 HEPATITIS B VACCINE (1 of 3 - 19+ 3-dose series) 2013 PNEUMOCOCCAL VACCINE (1 of 2 - PCV) 2013 HPV VACCINE (1 - 3-dose SCDM series) 2021 COVID-19 VACCINE (1 - 2023-2 5 season) 2024 OB-TDAP CURRENT 09/24/20242018, 04/14/2018 OB-RHOGAM INJECTION 10/01/2024 INFLUENZA VACCINE (#1) 2025 PAP SMEAR 07/13/2027 07/12/2024, 07/12/2024 DTAP/TDAP/TD VACCINES (4 - T d or Tdap) 01/08/2029 01/08/2019, 04/14/2018, 05/10/2015 ZOSTER VACCINE (1 of 2) 2044 DEPRESSION SCREENING Completed 07/31/2024 HIV SCREENING Completed 10/05/2024, 07/12/2024 OB-ONE HOUR GLUCOSE Completed 10/05/2024 OB-GROUP B STREP SCREEN Completed 11/29/2024 HIB VACCINE Aged Out No longer eligi [...] Procedure Name Priority Date/Time Associated Diagnosis Comments PROTEIN CREATININE RATIO URINE RANDOM PNL Routine 12/07/2024 10:06 AM CDT Chronic hypertension affecting (HCC) URINALYSIS REFLEX MICROSCOPIC REFLEX CULTURE Routine 12/07/2024 10:06 AM CDT Chronic hypertension affecting (HCC) COMPREHENSIVE METABOLIC PANEL Routine 12/07/2024 10:06 AM CDT Chronic hypertension affecting (HCC) CBC W AUTO DIFFERENTIAL Routine 12/07/2024 10:06 AM CDT Chronic hypertension affecting (HCC) T4 FREE Routine 12/07/2024 10:06 AM CDT Chronic hypertension affecting (HCC) URINALYSIS - POCT (IP) BEAKER INTERFACE Routine 12/07/2024 9:50 AM CDT BIOPHYSICAL PROFILE W NST Routine 12/07/2024 9:16 AM CDT Chronic hypertension affecting (HCC) BIOPHYSICAL PROFILE W NST Routine 11/30/2024 8:27 AM CDT SONOGRAM - COMPLETE Routine 11/22/2024 2 :32 PM CDT Short interval between pregnancies affecting in second trimester, antepartum (HCC) Encounter for ultrasound to assess growth (HCC) SONOGRAM - COMPLETE Routine 11/06/2024 1 0:12 AM CDT SONOGRAM - COMPLETE Routine 10/16/2024 9 :43 AM CDT SONOGRAM - COMPLETE Routine 09/25/2024 1 0:34 AM CDT Encounter for follow-up ultrasound of anatomy (HCC) from Last 3 Months Results * URINALYSIS REFLEX MICROSCOPIC REFLEX CULTURE (12/07/2024 10:06 AM CDT) Color UA Yellow Yellow, Straw 12/07/2024 10:22 AM CDT [facility] Clarity UA Clear Clear 12/07/2024 10:22 AM CDT [facility] Glucose UA Normal Normal 12/07/2024 10:22 AM CDT [facility] Bilirubin UA Negative Negative 12/07/2024 10:22 AM CDT [facility] Ketone UA Negative Negative 12/07/2024 10:22 AM CDT [facility] Specific [place] UA 1.013 1.005 - 1.030 12/07/2024 10:22 AM CDT [facility] Blood UA Negative Negative 12/07/2024 10:22 AM CDT [facility] pH UA 7.0 5.0 - 8.0 12/07/2024 10:22 AM CDT [facility] Protein UA Negative Negative 12/07/2024 10:22 AM CDT [facility] Urobilinogen UA Normal Normal mg/dL 12/07/2024 10:22 AM CDT [facility] Nitrite UA Negative Negative 12/07/2024 10:22 AM CDT [facility] Leukocyte Esterase UA Negative Negative 12/07/2024 10:22 AM [facility] Reflex Status Culture not indicated 12/07/2024 10:22 AM [facility] Urine Microscopy Urine microscopy not indicated 12/07/2024 10:22 AM [facility] Urine URINE SPECIMEN OBTAINED BY CLEAN CATCH PROCEDURE / Unknown Collection / Unknown 12/07/2024 10:06 AM CDT 12/07/2024 10:15 AM CDT Narrative [facility] - 12/07/2024 10:22 AM CDT Ronni Yusuf MD LAB - URINALYSIS ORDERABLES Fi nal Result [facility] [address] [place] [phone] * (ABNORMAL) CBC W AUTO DIFFERENTIAL (12/07/2024 10:06 AM CDT) [facility] Signature WBC 7.7 4.0 - 10.7 x10E9/L 12/07/2024 10:22 AM CDT [facility] RBC Count 4.18 3.90 - 5.20 x10E12/L 12/07/2024 10:22 AM CDT [facility] Hemoglobin 11.8(L) 11.9 - 15.8 g/dL 12/07/2024 10:22 AM CDT [facility] Hematocrit 33.8(L) 34.8 - 46.1 % 12/07/2024 10:22 AM CDT [facility] MCV 80.9 80.0 - 98.0 fL 12/07/2024 10:22 AM CDT [facility] MCH 28.2 26.7 - 33.6 pg 12/07/2024 10:22 AM CDT [facility] MCHC 34.9 31.7 - 36.3 g/dL 12/07/2024 10:22 [facility] RDW-CV 13.0 11.3 - 14.8 % 12/07/2024 10:22 [facility] Platelet Count 297 150 - 420 x10E9/L 12/07/2024 10:22 AM CDT [facility] MPV 10.0 7.8 - 11.4 fL 12/07/2024 10:22 [facility] Neutrophil % 65.6 41.0 - 74.0 % 12/07/2024 10:22 AM CDT [facility] Lymphocyte % 21.2 17.0 - 47.0 % 12/07/2024 10:22 AM CDT [facility] Monocyte % 8.5 3.0 - 11.0 % 12/07/2024 10:22 AM CDT [facility] Eosinophil % 4.0 0.0 - 7.0 % 12/07/2024 10:22 AM CDT [facility] Basophil % 0.4 0.0 - 1.6 % 12/07/2024 10:22 AM CDT [facility] Immature Granulocytes % 0.3 0.0 - 1.0 % 12/07/2024 10:22 AM CDT [facility] Neutrophil Absolute 5.04 1.60 - 7.50 x10E9/L 12/07/2024 10:22 AM CDT [facility] Lymphocyte Absolute 1.63 1.00 - 4.40 x10E9/L 12/07/2024 10:22 AM CDT [facility] Monocyte Absolute 0.65 0.15 - 1.00 x10E9/L 12/07/2024 10:22 AM CDT [facility] Eosinophil Absolute 0.31 0.00 - 0.60 x10E9/L 12/07/2024 10:22 AM CDT [facility] Basophil Absolute 0.03 0.00 - 0.13 x10E9/L 12/07/2024 10:22 AM CDT [facility] Blood BLOOD SPECIMEN / Unknown Venipuncture / Unknown 12/07/2024 10:06 AM CDT 12/07/2024 10:14 AM CDT Ronni Yusuf MD LAB - HEMATOLOGY ORDERABLES Fi nal Result [facility] [address] [place] [address] * (ABNORMAL) COMPREHENSIVE METABOLIC PANEL (12/07/2024 10:06 AM CDT) Glucose 84 70 - 99 mg/dL 12/07/2024 10:35 AM [facility] Sodium 134(L) 136 - 145 mmol/L 12/07/2024 10:35 AM CDT [facility] Potassium 3.9 3.5 - 5.1 mmol/L 12/07/2024 10:35 AM CDT [facility] Chloride 106 98 - 107 mmol/L 12/07/2024 10:35 AM CDT [facility] CO2 20(L) 22 - 29 mmol/L 12/07/2024 10:35 AM CDT [facility] Calcium 8.2(L) 8.4 - 10.4 mg/dL 12/07/2024 10:35 AM CDT [facility] Anion Gap 8 6 - 16 mmol/L 12/07/2024 10:35 AM CDT [facility] BUN 3(L) 5.3 - 18.7 mg/dL 12/07/2024 10:35 AM CDT [facility] Creatinine 0.48(L) 0.57 - 1.11 mg/dL 12/07/2024 10:35 AM CDT [facility] Alkaline Phosphatase 126 40 - 150 U/L 12/07/2024 10:35 AM CDT [facility] ALT 10 6 - 57 U/L 12/07/2024 10:35 AM T [facility] AST 16 10 - 48 U/L 12/07/2024 10:35 AM [facility] Protein Total 6.6 6.4 - 8.3 gm/dL 12/07/2024 10:35 AM [facility] Albumin 2.9(L) 3.1 - 4.5 gm/dL 12/07/2024 10:35 AM [facility] Bilirubin Total 0.4 0.2 - 1.2 mg/dL 12/07/2024 10:35 AM [facility] eGFR by CKD-EPI >90 >=90 mL/min/1.7 3 m2 12/07/2024 10:35 AM [facility] Comment:Estimated Glomerular Filtration Rate (eGFR) calculated using the CKD-EPI Creatinine Equation (2020), per the National Kidney Foundation and [place] [employer]ph[employer] recommendations. Blood BLOOD SPECIMEN / Unknown Venipuncture / Unknown 12/07/2024 10:06 AM CDT 12/07/2024 10:14 AM CDT Ronni Yusuf MD LAB - CHEMISTRY ORDERABLES Fin al Result [facility] [address] [place], [place] [id number] * PROTEIN CREATININE RATIO URINE RANDOM PNL (12/07/2024 10:06 AM CDT) Protein Urine <6.8 <11.9 mg/dL 12/07/2024 10:39 AM [facility] Creatinine Urine 84.04 mg/dL 12/07/2024 10:39 AM CDT [facility] Protein/Creatin ine Ratio Urine 12/07/2024 10:39 AM [facility] Comment:Unable to calculate due to limited levels of measurable protein. Urine URINE SPECIMEN OBTAINED BY CLEAN CATCH PROCEDURE / Unknown Collection / Unknown 12/07/2024 10:06 AM CDT 12/07/2024 10:15 AM CDT Ronni Yusuf MD LAB - URINE CHEMISTRY ORDERABL ES Final Result Performing Organization Address [facility] Co de Phone Number [facility] [address] [place] [id number] * T4 FREE (12/07/2024 10:06 AM CDT) T4 Free 1.23 0.70 - 1.50 ng/dL 12/07/2024 10:54 AM CDT [facility] Blood BLOOD SPECIMEN / Unknown Venipuncture / Unknown 12/07/2024 10:06 AM CDT 12/07/2024 10:14 AM CDT Ronni Yusuf MD LAB - CHEMISTRY ORDERABLES Fin al Result Performing Organization Address [facility] de Phone Number [facility] [address] [place] [phone] * (ABNORMAL) URINALYSIS - POCT (IP) BEAKER INTERFACE (12/07/2024 9:50 AM CDT) Color UA POCT Dark Yellow Straw, Yellow, Dark Yellow, Light Yellow 12/07/2024 9:53 AM CDT [facility] Clarity UA POCT Clear Clear 9:53 AM CDT [facility] Specific [place] UA POCT 1.020 1.005 - 1.030 12/07/2024 9:53 AM CDT [facility] pH UA POCT 7.0 5.0 - 8.0 pH 12/07/2024 9:53 AM CDT [facility] Protein UA POCT Negative Negative 9:53 AM CDT [facility] Blood UA POCT Negative Negative 12/07/2024 9:53 AM CDT [facility] Leukocyte UA POCT Trace(A) Negative 12/07/2024 9:53 AM CDT [facility] Nitrite UA POCT Negative Negative 9:53 AM CDT [facility] Glucose UA POCT Negative Negative 9:53 AM CDT [facility] Ketone UA POCT Negative Negative 12/07/2024 9:53 AM CDT [facility] Bilirubin UA POCT Negative Negative 12/07/2024 9:53 AM CDT [facility] Urobilinogen UA POCT 0.2 0.1 - 1.0 EU/dL 12/07/2024 9:53 AM CDT [facility] Urine URINE / Unknown 12/07/2024 9 :50 AM CDT 12/07/2024 9:53 AM CDT us Graeme Chiu MD LAB - POINT OF CARE ORDERABLES Final Result [facility] [address] [place] [address] * Biophysical Profile w NST (12/07/2024 9:16 AM CDT) Only the most recent of2 resultswithin the time period is included. Linked Results Indication ======== Chronic hypertension (CHTN) complicating Hyperthyroidism complicating Asthma complicating History ====== OB History 4. Para 2 [id number] 1. miscarriage 2012 2. live 2018. Gest. age 39 w + 0 d. Weight 3,288 g. Sex of child: female. Details: Vaginal delivery 3. live 2022. Gest. age 40 w + 0 d. Weight 3,401 g. Sex of child: female. Details: Vaginal delivery Lab Tests Test Date Result NIPT Low risk Maternal Assessment Physical Exam Height 168 cm, 5 ft 6 in. Weight 82 kg, 180 lb. Initial weight 67 kg, 148 lb. BMI 29.05 kg/m . Initial BMI 23.89 kg/m . Weight gain 15 kg, 32 lb Method ====== Transabdominal ultrasound examination. View: Sufficient ========= Henry . Number of fetuses: 1 Dating ====== Date Details Gest. age BERNADETTE Stated BERNADETTE 37 w + 4 d 12/24/2024 Previous U/S 07/06/2024 GA, GA 15 w + 4 d 37 w + 4 d 12/24/2024 Assigned dating based on ultrasound (GA), selected on 07/31/2024 37 w + 4 d 12/24/2024 General Evaluation Cardiac activity present. FHR 129 bpm. Presentation: cephalic Placenta: Placental site: anterior Amniotic Fluid Assessment ==== Amount of AF: normal MVP 4.2 cm. JETT 11.4 cm. Q1 1.9 cm, Q2 2.3 cm, Q3 3.0 cm, Q4 4.2 cm Biophysical Profile 2: breathing movements 2: Gross body movements 2: tone 2: Amniotic fluid volume NST: reactive 02/16 Biophysical profile score Non Stress Test NST interpretation: reactive. Baseline FHR 135 bpm. Baseline variability: moderate. Accelerations: present. Decelerations: absent Growth Overview Exam date GA BPD (mm) [...] 17% 51.9 1% 49.2 20% 1293 8% 11/06/2024 33w 1d 76.8 2% 306.6 39% 283.6 29% 58.8 2% 55.4 36% 1865 13% 11/30/2024 36w 4d 82.3 <1% 317.2 8% 316.4 33% 63.6 <1% 57.9 9% 2471 12% Anatomy The following structures appear normal: Abdomen Stomach. Kidneys. Bladder. sex: male. Impression ========= Single, live, intrauterine at 37w 4d. The amniotic fluid volume is normal. The 8 point Biophysical profile is 10 /10. Comment ======== ultrasound alone cannot detect all structural, genetic, or functional , placental, or maternal abnormalities Follow-up ======== Follow up ultrasound in 1 week for weekly NST and biophysical profile Coding ====== Diagnoses O99.513, J45.909: Diseases of the respiratory system complicating , Asthma O99.283, E05.90: Other endocrine, nutritional and metabolic diseases complicating , Thyrotoxicosis, unspecified without thyrotoxic crisis or storm O10.013, I10: Pre-existing essential hypertension complicating , Essential (primary) hypertension Procedures 57285: [place] Uterus Limited 65489: Biophysical Profile W NST [facility] [employer] PACS Anatomical Region Laterality Modality Other 12/07/2024 9:16 AM CDT Joselito Ko MD [facility] ORDERABLES Edited Result - Final * Sonogram - Complete (11/22/2024 2:32 PM CDT) Only the most recent of4 resultswithin the time period is included. Linked Results Indication ======== Chronic hypertension (CHTN) complicating Hyperthyroidism complicating Asthma complicating Tachycardia Maternal Completed anatomy Prominent umbilical vein with possible varix seen 07/31/24 (normal on 11/06) History ====== OB History 4. Para 2 [id number] 1. miscarriage 2012 2. live 2018. Gest. age 39 w + 0 d. Weight 3,288 g. Sex of child: female. Details: Vaginal delivery 3. live 2022. Gest. age 40 w + 0 d. Weight 3,401 g. Sex of child: female. Details: Vaginal delivery Lab Tests Test Date Result NIPT Low risk Maternal Assessment Physical Exam Height 168 cm, 5 ft 6 in. Weight 78 kg, 173 lb. Initial weight 67 kg, 148 lb. BMI 27.92 kg/m . Initial BMI 23.89 kg/m . Weight gain 11 kg, 25 lb Method ====== Transabdominal ultrasound examination. View: Sufficient ========= Henry . Number of fetuses: 1 Dating ====== Date Details Gest. age BERNADETTE Stated BERNADETTE 35 w + 3 d 12/24/2024 Previous U/S 07/06/2024 GA, GA 15 w + 4 d 35 w + 3 d 12/24/2024 Assigned dating based on ultrasound (GA), selected on 07/31/2024 35 w + 3 d 12/24/2024 General Evaluation Cardiac activity present. FHR 131 bpm. Presentation: cephalic Placenta: Placental site: anterior Amniotic Fluid Assessment ==== Amount of AF: normal MVP 4.3 cm. JETT 11.2 cm. Q1 4.3 cm, Q2 2.4 cm, Q3 1.5 cm, Q4 3.0 cm Biophysical Profile 0: breathing movements 2: Gross body movements 2: tone 2: Amniotic fluid volume NST: reactive 12/17 Biophysical profile score Non Stress Test NST interpretation: reactive Growth Overview Exam date GA BPD (mm) [...] 17% 51.9 1% 49.2 20% 1293 8% 11/06/2024 33w 1d 76.8 2% 306.6 39% 283.6 29% 58.8 2% 55.4 36% 1865 13% Anatomy The following structures appear normal: Abdomen Stomach. Kidneys. Bladder. sex: male. Impression ========= Single, live, intrauterine at 35w3d The amniotic fluid volume is normal The biophysical profile is 8/10 Comment ======== ultrasound alone cannot detect all structural, genetic, or functional , placental, or maternal abnormalities Follow-up ======== Continue weekly BPP Assess size 1 week Coding ====== Diagnoses O36.8330: Maternal care for abnormalities of the heart rate or rhythm O99.513, J45.909: Diseases of the respiratory system complicating , Asthma O99.283, E05.90: Other endocrine, nutritional and metabolic diseases complicating , Thyrotoxicosis, unspecified without thyrotoxic crisis or storm O10.013, I10: Pre-existing essential hypertension complicating , Essential (primary) hypertension Procedures [id number]: [place] Uterus Limited [id number]: Biophysical Profile [facility] [employer] PACS Anatomical Region Laterality Modality Other 11/22/2024 2:32 PM CDT Joselito Ko MD [facility] ORDERABLES Edited Result - Final from Last 3 Months Insurance
[2024-12-13 06:40] LABS: Hematocrit 33.4 % (37.0-47.0); Hemoglobin 11.3 g/dL (12.0-15.0); Immature Granulocyte Percent A 0.2 % (0-0.5); Lymphocytes Absolute Auto 1.55 K/mm3 (0.9-3.2); Mean Corpuscular HGB Conc 33.8 g/dl (32-36); Mean Corpuscular Hemoglobin 27.9 pg (26-34); Mean Corpuscular Volume 82.5 fl (80-100); Nucleated Red Blood Cells Absolute Auto 0.000 K/mm3 (0.0-0.012); Nucleated Red Blood Cells Perc 0.0 % (0.0-0.2); Platelet Count Result 252 k/mm3 (150-375); Red Blood Count 4.05 M/mm3 (4.2-5.4); White Blood Count 8.3 K/mm3 (4.5-10.0)
[2024-12-13] MEDS: LACTATED RINGERS 1,000 ML 125 ML IV CONT ×3 (07:05→11:08)
[2024-12-13] MEDS: OXYTOCIN 30 UNITS/NS 500 ML 30 UNITS/500 ML BAG IV CONT (07:06)
[2024-12-13 07:22] LABS: Syphilis IgG/IgM Antibody Non-Reactive (Nonreactive)
--- NOTE | 2024-12-13 08:05 | WPDANESEPP ---
Anes - Eval Pre Procedure Procedure: labor epidural Date/Time: 12/13/24 08:05 Surgeon: tal Preop Diagnosis: pain during labor Pre Op Diagnosis: IOL Patient Data Age: 29 Gender: F Height: 1.68 m Weight: 83 kg Last Vital Signs Pulse 89 12/13/24 08:01 BP 120/66 12/13/24 08:01 Allergies Allergy/AdvReac Type Severity Reaction Status Date / Time No Known Allergies Allergy Verified 12/08/24 08:39 Home Medications ?Medication ?Instructions ?Recorded ?Confirmed ?Type fluticasone propionate 115 2 puff inhalation Q12HRT #30 grams 03/14/24 12/08/24 Rx mcg-salmeterol 21 mcg/actuation HFA inhaler (Advair HFA) ondansetron 4 mg disintegrating 4 mg PO Q4H PRN nausea and 07/20/24 12/08/24 Rx tablet vomiting 3 days #10 tabs nifedipine 30 mg tablet,extended 30 mg PO DAILY 10/24/24 12/13/24 History release 24 hr cyclobenzaprine 10 mg tablet 10 mg PO DAILY 5 days #5 tabs 10/25/24 12/08/24 Rx budesonide-formoterol HFA 80 1 puff inhalation PRN PRN asthma 12/08/24 12/13/24 History mcg-4.5 mcg/actuation aerosol inhaler (Symbicort) methimazole 10 mg tablet 25 mg PO DAILY 12/08/24 12/08/24 History Laboratory Tests 12/13/24 06:20 WBC 8.3 K/mm3 (4.5-10.0) RBC 4.05 L M/mm3 (4.2-5.4) Hgb 11.3 L g/dL (12.0-15.0) Hct 33.4 L % (37.0-47.0) MCV 82.5 fl (80-100) MCH 27.9 pg (26-34) MCHC 33.8 g/dl (32-36) RDW 13.1 % (11.5-14.5) Plt Count 252 k/mm3 (150-375) MPV 10.1 fl (7.4-10.4) Immature Gran % (Auto) 0.2 % (0-0.5) Neut % (Auto) 65.8 % (45.5-73.1) Lymph % (Auto) 18.7 % (18.3-44.2) [place] % (Auto) 11.1 H % (2.6-8.5) Eos % (Auto) 3.6 % (0-4.4) Baso % (Auto) 0.6 % (0.2-1.2) Lymph # (Auto) 1.55 K/mm3 (0.9-3.2) [place] # (Auto) 0.9 H K/mm3 (0.1-0.6) Eos # (Auto) 0.3 K/mm3 (0-0.3) Baso # (Auto) 0.1 K/mm3 (0.0-0.1) Abs Immat Gran (auto) 0.02 K/mm3 (0.00-0.031) Absolute Neuts (auto) 5.4 K/mm3 (1.3-6.7) Absolute Nucleated RBC 0.000 K/mm3 (0.0-0.012) Nucleated RBC % 0.0 % (0.0-0.2) Syphilis IgG/IgM Ab Non-reactive (Nonreactive) Blood Type O Positive Antibody Screen Negative Patient hx anesthesia problems: none Family hx anesthesia problems: none Results Review: All pre-operative results and documents have been reviewed as part of the pre-operative evaluation. COUNT INCLUDES THE [facility] Past Medical History Medical History (Updated 12/13/24 @ 08:07 by Toma De Luna CRNA) IUP (intrauterine ), incidental COPD (chronic obstructive pulmonary disease) with chronic bronchitis Bipolar 1 disorder Marijuana use Term delivered Overweight (BMI 25.0-29.9) COVID-19 (~2021) Anxiety Asthma Surgical History Surgical History History of breast biopsy Family History Family History (Updated 12/08/24 @ 08:25 by Karie Schneider RN) Sibling Asthma Mother Diabetes mellitus Social History Social History Social History: The patient lives in [place] with her long-term boyfriend and daughter. She smoked about a pack of cigarettes per day for 3 years and quit 2013. She smokes 1 blunt a day and has for at least 8 to 9 years; transitioned to edibles. No alcohol use. She designates her mother, Mikaela Rendon, and her boyfriend, Himanshu Watson, as her surrogate decision makers and she wishes to be a full code. Smoking status: Never smoker Second hand tobacco smoke exposure: No Alcohol intake: never Substance use: never Substance use type: marijuana Do You Feel Safe in your Home?: Yes Lack of Transportation: No Lack of Food: Never True Current Housing: I Have Housing Concerned About Future Housing: No Difficulty Paying Gas/Electric Bills: No Difficulty Paying for Meds: No Currently Unemployed: No Education: Grade School Difficulty w/ Childcare or Family Care: No Occupation/Education: occupation Additional occupation/education comments: [employer] Gender identity (if verbalized by the patient): Female Spiritual care concerns: No Exam Day of Procedure 12/13/24 08:05
--- NOTE | 2024-12-13 10:19 | P.PNOB_ITS ---
OB - PN: Subj Subjective Date/time seen: 12/13/24 10:19 DELETE OB - PN: Obj Data Labs 12/14/24 04:08 Labs: Laboratory Results - last 24 hr 12/13/24 06:20 WBC 8.3 RBC 4.05 L Hgb 11.3 L Hct 33.4 L MCV 82.5 MCH 27.9 MCHC 33.8 RDW 13.1 Plt Count 252 MPV 10.1 Immature Gran % (Auto) 0.2 Neut % (Auto) 65.8 Lymph % (Auto) 18.7 [place] % (Auto) 11.1 H Eos % (Auto) 3.6 Baso % (Auto) 0.6 Lymph # (Auto) 1.55 [place] # (Auto) 0.9 H Eos # (Auto) 0.3 Baso # (Auto) 0.1 Abs Immat Gran (auto) 0.02 Absolute Neuts (auto) 5.4 Absolute Nucleated RBC 0.000 Nucleated RBC % 0.0 Syphilis IgG/IgM Ab Non-reactive Blood Type O Positive Antibody Screen Negative OB - PN A/P Time Spent With Patient Time: Total time spent is greater than 50% in coordination of care (as documented) at patient's floor/unit and/or counseling patient:
--- NOTE | 2024-12-13 10:19 | PM.OBPNLAB ---
Pain Control Date/time seen: 12/13/24 10:19 Comments: pt admitted for dr. parada for IOL, CNM at bs, SVE /-2 AROM clear fluid, foot felt. US done AT bs and breech/transverse position, unstable lie dr. parada notified FHR category 1
[2024-12-13] MEDS: AZITHROMYCIN IV 500 MG in SODIUM CHLORIDE 0.9% IV 250 ML IVPB (11:08)
[2024-12-13] MEDS: ACETAMINOPHEN 500 MG TABLET 1000 MG PO ×2 (11:13→17:51)
[2024-12-13] MEDS: ONDANSETRON INJ 4 MG/2 ML VIAL IV PUSH (13:09)
--- NOTE | 2024-12-13 13:09 | PM.IMHP ---
H&P: HPI History of Present Illness Date/Time: 12/13/24 13:09 Chief Complaint: Term Narrative: 29-year-old multiparous female who presented for induction of labor for gestational hypertension was found to have a fetus in breech position. She has unwanted fertility we agreed to perform delivery and bilateral salpingectomy she understands risks, benefits, and alternatives. She has completed the informed consent process is ready to proceed. The patient understands the details of the procedure. The procedure has been explained in detail. She understands the risks. She understands that injuries may occur that result in hospitalization, more surgery, and severe illness. She understands risk of hemorrhage and infection. She denies any chest pain or shortness of breath. She denies any nausea, vomiting, fever, chills. Review of Systems Review of Systems: All systems reviewed & are unremarkable except as noted in HPI and below Constitutional: Constitutional: Denies chills, Denies fatigue, Denies fever(s) and Denies weakness Eyes: Eyes: Denies blurry vision, Denies change in vision, Denies loss of peripheral vision, Denies loss of vision, Denies other visual disturbances and Denies eye pain ENT: Denies vertigo, Denies dizziness, Denies hearing loss, Denies mouth pain, Denies nasal obstruction, Denies neck mass and Denies neck pain Cardiovascular: Cardiovascular: Denies chest pain, Denies diaphoresis, Denies syncope, Denies leg edema and Denies dyspnea Respiratory: Respiratory: Denies chest congestion, Denies cough, Denies hemoptysis, Denies dyspnea and Denies wheezing Gastrointestinal: Gastrointestinal: Denies abdominal pain, Denies constipation, Denies diarrhea, Denies nausea and Denies vomiting Genitourinary: Genitourinary: Denies hematuria, Denies change in libido, Denies nocturia, Denies genital lesions, Denies flank pain and Denies urinary urgency Musculoskeletal: Musculoskeletal: Denies abnormal gait, Denies back pain, Denies myalgias, Denies arthralgias, Denies joint swelling, Denies muscle weakness and Denies neck pain Integumentary/Breasts: Skin/Breast: Denies swelling, Denies breast pain, Denies breast mass, Denies dry skin, Denies nipple discharge, Denies unusual bruising and Denies jaundice Neurologic: Denies Neuro-related abnormal movements, Denies Abnormal speech present, Denies abnormal gait, Denies behavioral changes, Denies confusion, Denies vertigo, Denies dizziness, Denies syncope, Denies loss of vision, Denies memory loss, Denies convulsions and Denies weakness Psychiatric: Psychiatric: Denies abnormal sleep pattern, Denies behavioral changes, Denies change in libido, Denies confusion, Denies depression, Denies anhedonia and Denies memory loss Endocrine: Endocrine: Reports no additional endocrine complaints, Denies change in libido and Denies fatigue Hematologic/Lymphatic: Hematologic/Lymphatic: Reports no additional hematologic/lymphatic complaints Allergic/Immunologic: Allergic/Immunologic: Reports no additional allergic/immunologic complaints and Denies wheezing PMFSH Past Medical History Medical History (Updated 12/13/24 @ 13:14 by Francois Henderson MD) IUP (intrauterine ), incidental COPD (chronic obstructive pulmonary disease) with chronic bronchitis Bipolar 1 disorder Marijuana use Term delivered Overweight (BMI 25.0-29.9) COVID-19 (~2021) Anxiety Asthma Surgical History Surgical History History of breast biopsy Family History Family History (Updated 12/08/24 @ 08:25 by Karie Schneider RN) Sibling Asthma Mother Diabetes mellitus Social History Social History Social History: The patient lives in [place] with her long-term boyfriend and daughter. She smoked about a pack of cigarettes per day for 3 years and quit 2013. She smokes 1 blunt a day and has for at least 8 to 9 years; transitioned to edibles. No alcohol use. She designates her mother, Mikaela Rendon, and her boyfriend, Himanshu Watson, as her surrogate decision makers and she wishes to be a full code. Smoking status: Never smoker Second hand tobacco smoke exposure: No Alcohol intake: never Substance use: never Substance use type: marijuana Do You Feel Safe in your Home?: Yes Lack of Transportation: No Lack of Food: Never True Current Housing: I Have Housing Concerned About Future Housing: No Difficulty Paying Gas/Electric Bills: No Difficulty Paying for Meds: No Currently Unemployed: No Education: Grade School Difficulty w/ Childcare or Family Care: No Occupation/Education: occupation Additional occupation/education comments: [employer] Gender identity (if verbalized by the patient): Female Spiritual care concerns: No Meds Home Medications and Allergies Home Medications ?Medication ?Instructions ?Recorded ?Confirmed ?Type fluticasone propionate 115 2 puff inhalation Q12HRT #30 grams 03/14/24 12/08/24 Rx mcg-salmeterol 21 mcg/actuation HFA inhaler (Advair HFA) ondansetron 4 mg disintegrating 4 mg PO Q4H PRN nausea and 07/20/24 12/08/24 Rx tablet vomiting 3 days #10 tabs nifedipine 30 mg tablet,extended 30 mg PO DAILY 10/24/24 12/13/24 History release 24 hr cyclobenzaprine 10 mg tablet 10 mg PO DAILY 5 days #5 tabs 10/25/24 12/08/24 Rx budesonide-formoterol HFA 80 1 puff inhalation PRN PRN asthma 12/08/24 12/13/24 History mcg-4.5 mcg/actuation aerosol inhaler (Symbicort) methimazole 10 mg tablet 25 mg PO DAILY 12/08/24 12/08/24 History Allergies Allergy/AdvReac Type Severity Reaction Status Date / Time No Known Allergies Allergy Verified 12/08/24 08:39 Vital Signs Vital Signs - 24 hr 12/13/24 07:05 12/13/24 07:16 12/13/24 07:31 Temperature Pulse Rate 84 92 82 Blood Pressure 134/70 129/84 111/59 L Pulse Oximetry 12/13/24 07:46 12/13/24 08:01 12/13/24 08:31 Temperature Pulse Rate 85 89 77 Blood Pressure 113/53 L 120/66 131/72 Pulse Oximetry 12/13/24 08:43 12/13/24 08:45 12/13/24 08:46 Temperature 98.4 F Pulse Rate 84 Blood Pressure 132/68 Pulse Oximetry 100 12/13/24 08:48 12/13/24 08:51 12/13/24 08:52 Temperature Pulse Rate 94 88 Blood Pressure 133/78 126/75 Pulse Oximetry 98 12/13/24 08:53 12/13/24 08:55 12/13/24 08:58 Temperature Pulse Rate 83 87 Blood Pressure 133/66 139/72 Pulse Oximetry 100 99 12/13/24 09:01 12/13/24 09:03 12/13/24 09:04 Temperature Pulse Rate 101 H 89 Blood Pressure 139/66 141/63 H Pulse Oximetry 99 12/13/24 09:07 12/13/24 09:08 12/13/24 09:10 Temperature Pulse Rate 99 84 Blood Pressure 138/69 127/89 Pulse Oximetry 100 12/13/24 09:13 12/13/24 09:16 12/13/24 09:18 Temperature Pulse Rate 92 84 Blood Pressure 143/82 H 140/71 Pulse Oximetry 99 99 12/13/24 09:19 12/13/24 09:22 12/13/24 09:23 Temperature Pulse Rate 81 80 Blood Pressure 136/70 135/71 Pulse Oximetry 98 12/13/24 09:25 12/13/24 09:28 12/13/24 09:31 Temperature Pulse Rate 84 89 93 Blood Pressure 133/70 138/76 122/72 Pulse Oximetry 99 12/13/24 09:33 12/13/24 09:34 12/13/24 09:37 Temperature Pulse Rate 81 86 Blood Pressure 137/69 127/68 Pulse Oximetry 98 98 12/13/24 09:40 12/13/24 09:42 12/13/24 09:43 Temperature Pulse Rate 83 81 Blood Pressure 131/68 129/66 Pulse Oximetry 98 12/13/24 09:47 12/13/24 09:49 12/13/24 09:50 Temperature 98.8 F Pulse Rate Blood Pressure Pulse Oximetry 99 100 12/13/24 09:54 12/13/24 09:59 12/13/24 10:01 Temperature Pulse Rate 79 Blood Pressure 135/75 Pulse Oximetry 98 99 12/13/24 10:04 12/13/24 10:09 12/13/24 10:12 Temperature Pulse Rate Blood Pressure Pulse Oximetry 99 99 100 12/13/24 10:12 12/13/24 10:13 12/13/24 10:16 Temperature Pulse Rate 93 Blood Pressure 143/92 H Pulse Oximetry 100 100 12/13/24 10:18 12/13/24 10:22 12/13/24 10:27 Temperature Pulse Rate Blood Pressure Pulse Oximetry 100 100 100 12/13/24 10:31 12/13/24 10:32 12/13/24 10:37 Temperature Pulse Rate 82 Blood Pressure 148/80 H Pulse Oximetry 99 100 12/13/24 10:42 12/13/24 10:46 12/13/24 10:47 Temperature Pulse Rate 93 Blood Pressure 134/76 Pulse Oximetry 100 99 12/13/24 10:52 12/13/24 10:57 12/13/24 11:01 Temperature Pulse Rate 79 Blood Pressure 134/69 Pulse Oximetry 99 99 12/13/24 11:02 12/13/24 11:07 12/13/24 11:12 Temperature Pulse Rate Blood Pressure Pulse Oximetry 99 98 99 12/13/24 11:16 12/13/24 11:17 12/13/24 11:22 Temperature Pulse Rate 79 Blood Pressure 136/74 Pulse Oximetry 99 98 12/13/24 11:27 12/13/24 11:31 12/13/24 11:32 Temperature Pulse Rate 87 Blood Pressure 130/78 Pulse Oximetry 98 99 12/13/24 11:37 12/13/24 11:42 12/13/24 11:46 Temperature Pulse Rate 87 Blood Pressure 117/73 Pulse Oximetry 96 98 12/13/24 11:47 12/13/24 11:52 12/13/24 11:55 Temperature 97.7 F Pulse Rate Blood Pressure Pulse Oximetry 99 100 12/13/24 11:57 12/13/24 12:01 12/13/24 12:02 Temperature Pulse Rate 83 Blood Pressure 122/66 Pulse Oximetry 100 99 12/13/24 12:07 12/13/24 12:12 12/13/24 12:16 Temperature Pulse Rate 96 Blood Pressure 124/72 Pulse Oximetry 100 99 12/13/24 12:17 12/13/24 12:22 12/13/24 12:27 Temperature Pulse Rate Blood Pressure Pulse Oximetry 99 99 98 12/13/24 12:31 12/13/24 12:32 12/13/24 12:37 Temperature Pulse Rate 89 Blood Pressure 125/71 Pulse Oximetry 99 99 12/13/24 12:42 12/13/24 12:43 12/13/24 12:46 Temperature Pulse Rate 92 Blood Pressure 125/81 Pulse Oximetry 98 98 12/13/24 12:48 12/13/24 12:53 12/13/24 12:58 Temperature Pulse Rate Blood Pressure Pulse Oximetry 100 99 99 12/13/24 13:01 12/13/24 13:03 12/13/24 13:08 Temperature Pulse Rate 79 Blood Pressure 130/71 Pulse Oximetry 100 100 Exam Const: General: cooperative, healthy appearing, comfortable and no acute distress Orientation/consciousness: oriented to person, oriented to place and oriented to time HENMT: Head: normal to inspection Ears: external ears normal Face/Nose/Sinus: Normal external nose present and normal facial exam Face and sinus: normal facial exam Eyes: General: appearance normal, both eyes and all related structures Neck: Neck: normal visual inspection, trachea midline and supple Resp: Auscultation: clear to auscultation bilaterally, no crackles, no rales, no rhonchi and no wheezes Cardio: Rate: regular rate Rhythm: regular rhythm Heart sounds: no click, no murmurs and no rubs GI: GI Palp: No abdominal tenderness, No Soft to palpation, No Tenderness to palpation present (GI) and No Palpable mass present Auscultation: normal bowel sounds Skin: General skin exam: normal color and no rashes or lesions noted Neuro: General: oriented to person, oriented to place and oriented to time Extrem: General: normal to inspection, no joint enlargement, no clubbing, cyanosis or edema, no pedal edema and no calf tenderness Psych: Appearance: grossly normal Mental Status: mental status grossly normal Speech and movement: Normal speech and movement present H&P: Results Labs Labs: Short CBC 12/13/24 Range/Units 06:20 WBC 8.3 (4.5-10.0) K/mm3 Hgb 11.3 L (12.0-15.0) g/dL Hct 33.4 L (37.0-47.0) % Plt Count 252 (150-375) k/mm3 Assessment and Plan Assessment and plan (1) Unwanted fertility: Code(s): Z30.09 - Encounter for other general counseling and advice on contraception Status: Acute (2) Breech presentation: Code(s): O32.1XX0 - Maternal care for breech presentation, not applicable or unspecified Status: Acute Plan 29-year-old multiparous female who presented for induction of labor for gestational hypertension was found to have a fetus in breech position. She has unwanted fertility we agreed to perform delivery and bilateral salpingectomy she understands risks, benefits, and alternatives. She has completed the informed consent process is ready to proceed.
[2024-12-13] MEDS: FAMOTIDINE 20 MG/2 ML VIAL IV PUSH (13:14)
--- NOTE | 2024-12-13 13:16 | PM.OBTRLD ---
OB - Triage/Final Diagnosis Visit Information Comments/Additional reasons for admission: I have assessed the risk for this patient, Alexandra Rendon, and determined that she would benefit from observation care. Evaluation Laboratory results: Laboratory Tests 12/13/24 06:20 WBC 8.3 RBC 4.05 L Hgb 11.3 L Hct 33.4 L MCV 82.5 MCH 27.9 MCHC 33.8 RDW 13.1 Plt Count 252 MPV 10.1 Immature Gran % (Auto) 0.2 Neut % (Auto) 65.8 Lymph % (Auto) 18.7 [place] % (Auto) 11.1 H Eos % (Auto) 3.6 Baso % (Auto) 0.6 Lymph # (Auto) 1.55 [place] # (Auto) 0.9 H Eos # (Auto) 0.3 Baso # (Auto) 0.1 Abs Immat Gran (auto) 0.02 Absolute Neuts (auto) 5.4 Absolute Nucleated RBC 0.000 Nucleated RBC % 0.0 Syphilis IgG/IgM Ab Non-reactive Blood Type O Positive Antibody Screen Negative Vital signs: Vital Signs - 24 hr 12/13/24 07:05 12/13/24 07:16 12/13/24 07:31 Temperature Pulse Rate 84 92 82 Blood Pressure 134/70 129/84 111/59 L Pulse Oximetry 12/13/24 07:46 12/13/24 08:01 12/13/24 08:31 Temperature Pulse Rate 85 89 77 Blood Pressure 113/53 L 120/66 131/72 Pulse Oximetry 12/13/24 08:43 12/13/24 08:45 12/13/24 08:46 Temperature 98.4 F Pulse Rate 84 Blood Pressure 132/68 Pulse Oximetry 100 12/13/24 08:48 12/13/24 08:51 12/13/24 08:52 Temperature Pulse Rate 94 88 Blood Pressure 133/78 126/75 Pulse Oximetry 98 12/13/24 08:53 12/13/24 08:55 12/13/24 08:58 Temperature Pulse Rate 83 87 Blood Pressure 133/66 139/72 Pulse Oximetry 100 99 12/13/24 09:01 12/13/24 09:03 12/13/24 09:04 Temperature Pulse Rate 101 H 89 Blood Pressure 139/66 141/63 H Pulse Oximetry 99 12/13/24 09:07 12/13/24 09:08 12/13/24 09:10 Temperature Pulse Rate 99 84 Blood Pressure 138/69 127/89 Pulse Oximetry 100 12/13/24 09:13 12/13/24 09:16 12/13/24 09:18 Temperature Pulse Rate 92 84 Blood Pressure 143/82 H 140/71 Pulse Oximetry 99 99 12/13/24 09:19 12/13/24 09:22 12/13/24 09:23 Temperature Pulse Rate 81 80 Blood Pressure 136/70 135/71 Pulse Oximetry 98 12/13/24 09:25 12/13/24 09:28 12/13/24 09:31 Temperature Pulse Rate 84 89 93 Blood Pressure 133/70 138/76 122/72 Pulse Oximetry 99 12/13/24 09:33 12/13/24 09:34 12/13/24 09:37 Temperature Pulse Rate 81 86 Blood Pressure 137/69 127/68 Pulse Oximetry 98 98 12/13/24 09:40 12/13/24 09:42 12/13/24 09:43 Temperature Pulse Rate 83 81 Blood Pressure 131/68 129/66 Pulse Oximetry 98 12/13/24 09:47 12/13/24 09:49 12/13/24 09:50 Temperature 98.8 F Pulse Rate Blood Pressure Pulse Oximetry 99 100 12/13/24 09:54 12/13/24 09:59 12/13/24 10:01 Temperature Pulse Rate 79 Blood Pressure 135/75 Pulse Oximetry 98 99 12/13/24 10:04 12/13/24 10:09 12/13/24 10:12 Temperature Pulse Rate Blood Pressure Pulse Oximetry 99 99 100 12/13/24 10:12 12/13/24 10:13 12/13/24 10:16 Temperature Pulse Rate 93 Blood Pressure 143/92 H Pulse Oximetry 100 100 12/13/24 10:18 12/13/24 10:22 12/13/24 10:27 Temperature Pulse Rate Blood Pressure Pulse Oximetry 100 100 100 12/13/24 10:31 12/13/24 10:32 12/13/24 10:37 Temperature Pulse Rate 82 Blood Pressure 148/80 H Pulse Oximetry 99 100 12/13/24 10:42 12/13/24 10:46 12/13/24 10:47 Temperature Pulse Rate 93 Blood Pressure 134/76 Pulse Oximetry 100 99 12/13/24 10:52 12/13/24 10:57 12/13/24 11:01 Temperature Pulse Rate 79 Blood Pressure 134/69 Pulse Oximetry 99 99 12/13/24 11:02 12/13/24 11:07 12/13/24 11:12 Temperature Pulse Rate Blood Pressure Pulse Oximetry 99 98 99 12/13/24 11:16 12/13/24 11:17 12/13/24 11:22 Temperature Pulse Rate 79 Blood Pressure 136/74 Pulse Oximetry 99 98 12/13/24 11:27 12/13/24 11:31 12/13/24 11:32 Temperature Pulse Rate 87 Blood Pressure 130/78 Pulse Oximetry 98 99 12/13/24 11:37 12/13/24 11:42 12/13/24 11:46 Temperature Pulse Rate 87 Blood Pressure 117/73 Pulse Oximetry 96 98 12/13/24 11:47 12/13/24 11:52 12/13/24 11:55 Temperature 97.7 F Pulse Rate Blood Pressure Pulse Oximetry 99 100 12/13/24 11:57 12/13/24 12:01 12/13/24 12:02 Temperature Pulse Rate 83 Blood Pressure 122/66 Pulse Oximetry 100 99 12/13/24 12:07 12/13/24 12:12 12/13/24 12:16 Temperature Pulse Rate 96 Blood Pressure 124/72 Pulse Oximetry 100 99 12/13/24 12:17 12/13/24 12:22 12/13/24 12:27 Temperature Pulse Rate Blood Pressure Pulse Oximetry 99 99 98 12/13/24 12:31 12/13/24 12:32 12/13/24 12:37 Temperature Pulse Rate 89 Blood Pressure 125/71 Pulse Oximetry 99 99 12/13/24 12:42 12/13/24 12:43 12/13/24 12:46 Temperature Pulse Rate 92 Blood Pressure 125/81 Pulse Oximetry 98 98 12/13/24 12:48 12/13/24 12:53 12/13/24 12:58 Temperature Pulse Rate Blood Pressure Pulse Oximetry 100 99 99 12/13/24 13:01 12/13/24 13:03 12/13/24 13:08 Temperature Pulse Rate 79 Blood Pressure 130/71 Pulse Oximetry 100 100 12/13/24 13:11 12/13/24 13:11 12/13/24 13:14 Temperature Pulse Rate Blood Pressure Pulse Oximetry 99 99 98 12/13/24 13:14 12/13/24 13:14 Temperature Pulse Rate Blood Pressure Pulse Oximetry 99 98
[2024-12-13] MEDS: ceFAZolin 2 GM in SODIUM CHLORIDE 0.9% IV 50 ML 100 ML IVPB (13:23)
--- NOTE | 2024-12-13 14:16 | P.PCNOB_ITS ---
OB - Delivery Note Procedure Delivery date: 12/13/24 Pre-op diagnosis: Breech Presentation Post-op Diagnosis: Same Induction method: None Procedure Performed: Primary and Tubal Ligation (bilateral salpingectomy) Surgeon: Francois Henderson MD Anesthesia type: Spinal Description of Procedure/Findings: The patient was taken the operating room.? She was prepped and draped in dorsal supine position with a leftward tilt.? This was done after spinal anesthetic was applied.? A low-transverse skin incision was made and carried down till of the fascia with the knife.? The fascial incision was made with the knife.? The fascial incision was extended laterally with Caicedo scissors.? The fascia was tented upward superiorly and inferiorly the rectus muscles were dissected off bluntly.? The rectus muscles were the midline.? The preperitoneal fat and peritoneum were dissected open bluntly at the superior aspect of the rectus muscles.? The peritoneal incision was extended superior and inferior with good position of bladder.? The uterine incision was made with a scalpel down to the level of the amniotic cavity.? The amniotic cavity was entered bluntly.? The infant was delivered.? The cord was clamped and cut and the was handed off to waiting pediatric staff.? Cord bloods were obtained.? The placenta was removed manually.? The uterus was exteriorized.? The uterus was cleared of all clots, debris and membranes.? The uterus was closed in 0 Vicryl running lock fashion.? imbricating layer of 0 Vicryl was placed also. Each fallopian tube was grasped and raised with a [place].? With from the underlying venous structures.? The mesosalpinx between the tube and the rest the adnexa was cauterized and transected with LigaSure cautery.? It was performed from the distal tube near the ovary in a stepwise fashion towards the cornua.? The tube at the cornua was cauterized transected with LigaSure cautery.? This was performed in a bilateral fashion. The uterus was returned to the abdomen.? The gutters were cleared of all clots and debris.? The fascia was closed with 0 Vicryl running fashion.? The subcutaneous tissue was irrigated pinpoint bleeders were cauterized.? The skin was closed with subcuticular absorbable aniceto.? The skin incision line was covered with glue.? The patient tolerated the procedure well.? She has taken recovery room in stable condition.? Sponge lap and needle counts were correct x2.?
--- NOTE | 2024-12-13 14:29 | S_PTH ---
PATIENT: Alexandra Rendon LOC: [facility] U#:[id number] AGE/SX: 29/F ROOM: 286 RE12/13/[address]: Francois Henderson MD : [id number] BED: 00 DIS: 12/16/2024 SPEC #: [id number] RECD: 12/14/24 08:57 STATUS: JONEL REQ #: [id number] ENZO: 12/13/24 14:[address]: Francois Henderson DEPT: [facility] Surgical RECD BY: Veronica Lehman ENTERED: 12/14/24 08:57 SP TYPE: Surgical OTHR DR: Lea PalomoMD Tissues: A - Fallopian Tube Bilateral Procedures: Gross and Microscopic Level 2 Hematoxylin and Eosin Stain
[2024-12-13] MEDS: MORPHINE SULFATE INJ (*CRX) 10 MG/ML AMP 2.5 MG IV PUSH ×2 (16:28→17:07)
[2024-12-13] MEDS: LIDOCAINE 5% PATCH 1 PATCH TRANSDERM ×2 (16:42→16:45)
[2024-12-13] MEDS: SIMETHICONE 80 MG TAB.CHEW PO ×2 (16:43→20:25)
[2024-12-13] MEDS: KETOROLAC 15 MG/ML VIAL (*BKC) IV PUSH (17:56)
[2024-12-13] MEDS: oxyCODONE HCL (*CRX) 5 MG TAB IR PO ×2 (20:25→22:02)
[2024-12-14 00:11] VITALS: BP 120/62; PULSE 81; RESP 19; TEMP 36.5; O2SAT 97
[2024-12-14] MEDS: ACETAMINOPHEN 500 MG TABLET 1000 MG PO ×5 (00:21→23:15)
[2024-12-14] MEDS: KETOROLAC 15 MG/ML VIAL (*BKC) IV PUSH ×2 (00:21→05:48)
[2024-12-14] MEDS: oxyCODONE HCL (*CRX) 5 MG TAB IR 10 MG PO ×4 (02:51→21:35)
[2024-12-14 04:07] VITALS: BP 118/62; PULSE 67; RESP 18; TEMP 36.6; O2SAT 97
[2024-12-14 04:21] LABS: Hematocrit 28.9 % (37.0-47.0); Hemoglobin 9.8 g/dL (12.0-15.0); Immature Granulocyte Percent A 0.3 % (0-0.5); Lymphocytes Absolute Auto 1.70 K/mm3 (0.9-3.2); Mean Corpuscular HGB Conc 33.9 g/dl (32-36); Mean Corpuscular Hemoglobin 28.2 pg (26-34); Mean Corpuscular Volume 83.3 fl (80-100); Nucleated Red Blood Cells Absolute Auto 0.000 K/mm3 (0.0-0.012); Nucleated Red Blood Cells Perc 0.0 % (0.0-0.2); Platelet Count Result 195 k/mm3 (150-375); Red Blood Count 3.47 M/mm3 (4.2-5.4); White Blood Count 8.6 K/mm3 (4.5-10.0)
[2024-12-14 08:15] VITALS: BP 117/67; PULSE 71; RESP 18; TEMP 37.3; O2SAT 97
[2024-12-14] MEDS: SIMETHICONE 80 MG TAB.CHEW PO ×3 (09:06→17:30)
[2024-12-14] MEDS: MULTIVIT/MIN/PREN/FOL AC/IRON TABLET 1 TAB PO (09:06)
[2024-12-14] MEDS: DOCUSATE SODIUM 100 MG CAPSULE PO ×2 (09:06→17:30)
[2024-12-14] MEDS: FLUTICASONE/SALMETEROL 115-21 MCG INHALER 1 PUFF 2 PUFF INHALATION (09:20)
[2024-12-14 09:22] VITALS: PULSE 66; RESP 14
--- NOTE | 2024-12-14 10:27 | WPDANLDPN2 ---
Anes-Prog Note L&D Date/Time: 12/14/24 10:27 Comfortable throughout: labor and section Neuraxial method: epidural Epidural/Spinal procedure site: clean & non-tender Neuro status: Neuro function grossly intact. Cardiovascular status: normal Respiratory status: normal Airway patency: baseline Mental status: baseline Post-Op hydration status: normal Vital Signs: Last Vital Signs Temp 99.1 F 12/14/24 08:15 Pulse 66 12/14/24 09:22 Resp 14 12/14/24 09:22 BP 117/67 12/14/24 08:15 Pulse Ox 97 12/14/24 08:15 O2 Del Method Room Air 12/13/24 16:15 Pain score (VAS): 0/10 I/O: Intake & Output 12/13/24 12/14/24 12/14/24 23:59 07:59 15:59 Output Total 700 1550 Balance -700 -1550 Post-procedural complaints: none Patient feedback: Patient satisfied with anesthetic care.
--- NOTE | 2024-12-14 10:28 | WPDANLDNPN2 ---
Anes-Prog Note L&D-Neuraxial Date/Time: 12/14/24 10:28 Neuraxial medications: intrathecal PF morphine Opiod-related complaints: none Patient feedback: Patient satisfied with post-operative pain management.
--- NOTE | 2024-12-14 11:09 | PC.NURSE ---
Spoke with Dr Henderson over the phone, reported patients continuing high pain levels, rating pain a 9-10. MD olivia to order patient an additional 5mg Roxicodone PRN for pain q4h
[2024-12-14] MEDS: IBUPROFEN 600 MG TABLET PO ×3 (11:27→23:15)
[2024-12-14] MEDS: oxyCODONE HCL (*CRX) 5 MG TAB IR PO (11:28)
--- NOTE | 2024-12-14 12:06 | P.PNOB_ITS ---
OB - PN: Subj Subjective Date/time seen: 12/14/24 12:06 Patient comments: no complaints, pain well controlled, tolerating diet and flatus present OB - PN: Obj Data Labs 12/14/24 04:08 Labs: Laboratory Results - last 24 hr 12/14/24 04:08 WBC 8.6 RBC 3.47 L Hgb 9.8 L Hct 28.9 L MCV 83.3 MCH 28.2 MCHC 33.9 RDW 13.1 Plt Count 195 MPV 10.2 Immature Gran % (Auto) 0.3 Neut % (Auto) 67.9 Lymph % (Auto) 19.7 [place] % (Auto) 8.3 Eos % (Auto) 3.2 Baso % (Auto) 0.6 Lymph # (Auto) 1.70 [place] # (Auto) 0.7 H Eos # (Auto) 0.3 Baso # (Auto) 0.1 Abs Immat Gran (auto) 0.03 Absolute Neuts (auto) 5.9 Absolute Nucleated RBC 0.000 Nucleated RBC % 0.0 OB - PN A/P Plan day: 1 Comments: Post Op LTCS - no problems, routine recovery Time Spent With Patient Time: Total time spent is greater than 50% in coordination of care (as documented) at patient's floor/unit and/or counseling patient: Exam 2 Const: General: cooperative, healthy appearing, comfortable and no acute distress Resp: Auscultation: no crackles, no rales, no rhonchi and no wheezes Cardio: Rhythm: regular rhythm Heart sounds: no click and no murmurs GI: Inspection: non-distended Auscultation: normal bowel sounds Extrem: General: normal to inspection, no pedal edema and no calf tenderness
[2024-12-14 12:46] VITALS: BP 138/75; PULSE 74; RESP 16; TEMP 36.8; O2SAT 98
--- NOTE | 2024-12-14 15:41 | PC.NURSE ---
Mother verbalizes she is able to independently latch with appropriate positioning and alignment. She denies any nipple discomfort and is responsively . Infant is currently meeting outcomes for weight, output, jaundice, blood sugar and feeding frequencies of 8-12 times in 24 hours. Mother declines any additional assistance or education at this time. Mother is encouraged to call for assistance if her infant doesn?t latch, pain with latching, questions or concerns. Mother voiced understanding of information shared along with the mom/baby guide for an additional resource. Reported to the Primary RN.
[2024-12-14] MEDS: LIDOCAINE 5% PATCH 1 PATCH TRANSDERM (17:30)
[2024-12-14 19:37] VITALS: BP 158/71; PULSE 90; RESP 19; TEMP 37.3; O2SAT 99
[2024-12-14] MEDS: CYCLOBENZAPRINE HCL 10 MG TABLET PO (21:35)
[2024-12-14] MEDS: FLUTICASONE/SALMETEROL 45-21 MCG INHALER 1 PUFF 2 PUFF INHALATION (21:37)
--- NOTE | 2024-12-14 22:54 | PC.NURSE ---
Breast pump provided due to inability to latch onto the breast for greater than 5 min to feed. Instructions given on cleaning, care, usage, that there should be no pain, pumping schedule for milk production, collection, and storage of human milk. Patient was assessed for correct placement, flange size, to pump for comfort and nipple stretching/stimulation for adequate milk production every 3 hours (8 times in 24 hours) 1-2 times at night. Parents are encouraged to record the pumping schedule on the feeding sheet.?Mother voiced understanding of the education shared along with mom/baby guide and the pump measurement, flange fit handout for additional resource information. Reported to the Primary RN.
[2024-12-15] MEDS: oxyCODONE HCL (*CRX) 5 MG TAB IR 10 MG PO ×3 (04:41→20:34)
--- NOTE | 2024-12-15 07:44 | P.PNOB_ITS ---
OB - PN: Subj Subjective Date/time seen: 12/15/24 07:44 Interval history: pp day 2 doing well incision draining slightly clear fluid, afebrile OB - PN: Obj Data Labs 12/14/24 04:08 OB - PN A/P Plan day: 2 Plan: routine care Time Spent With Patient Time: Total time spent is greater than 50% in coordination of care (as documented) at patient's floor/unit and/or counseling patient: Review of Systems 2 Review of Systems: All systems reviewed & are unremarkable except as noted in HPI and below Exam 2 Const: General: cooperative, healthy appearing and comfortable Chest: Chest palpation & inspection: normal inspection of the chest Resp: Effort & Inspection: normal respiratory effort Cardio: Rate: regular rate GI: Other: tiny amount of serosangioneous fluid, no sign of infection
[2024-12-15 08:15] VITALS: BP 130/72; PULSE 72; RESP 18; TEMP 37.1; O2SAT 98
[2024-12-15 09:15] VITALS: PULSE 70; RESP 14
[2024-12-15] MEDS: FLUTICASONE/SALMETEROL 45-21 MCG INHALER 1 PUFF 2 PUFF INHALATION ×2 (09:15→20:58)
[2024-12-15] MEDS: SIMETHICONE 80 MG TAB.CHEW PO ×3 (09:20→17:25)
[2024-12-15] MEDS: MULTIVIT/MIN/PREN/FOL AC/IRON TABLET 1 TAB PO (09:20)
[2024-12-15] MEDS: DOCUSATE SODIUM 100 MG CAPSULE PO ×2 (09:21→17:25)
[2024-12-15] MEDS: ACETAMINOPHEN 500 MG TABLET 1000 MG PO ×3 (09:21→20:35)
[2024-12-15] MEDS: CYCLOBENZAPRINE HCL 10 MG TABLET PO (09:22)
[2024-12-15] MEDS: IBUPROFEN 600 MG TABLET PO ×3 (09:22→20:35)
[2024-12-15] MEDS: LIDOCAINE 5% PATCH 1 PATCH TRANSDERM (17:24)
[2024-12-15 19:25] VITALS: BP 132/72; PULSE 76; RESP 18; TEMP 36.7; O2SAT 98
[2024-12-15 21:54] VITALS: PULSE 82; RESP 18
[2024-12-16] MEDS: ACETAMINOPHEN 500 MG TABLET 1000 MG PO ×2 (02:07→09:19)
[2024-12-16] MEDS: IBUPROFEN 600 MG TABLET PO ×2 (02:07→09:19)
[2024-12-16] MEDS: oxyCODONE HCL (*CRX) 5 MG TAB IR 10 MG PO (02:07)
[2024-12-16 08:39] VITALS: BP 123/62; PULSE 74; RESP 14; TEMP 36.5; O2SAT 100
[2024-12-16] MEDS: MULTIVIT/MIN/PREN/FOL AC/IRON TABLET 1 TAB PO (09:17)
[2024-12-16] MEDS: DOCUSATE SODIUM 100 MG CAPSULE PO (09:18)
[2024-12-16] MEDS: CYCLOBENZAPRINE HCL 10 MG TABLET PO (09:18)
[2024-12-16] MEDS: SIMETHICONE 80 MG TAB.CHEW PO ×2 (09:18→11:12)
[2024-12-16] MEDS: FLUTICASONE/SALMETEROL 45-21 MCG INHALER 1 PUFF 2 PUFF INHALATION (09:20)
--- NOTE | 2024-12-16 10:41 | P.PNOB_ITS ---
OB - PN: Subj Subjective Date/time seen: 12/16/24 10:41 Interval history: pp day 2 doing well incision draining slightly clear fluid, afebrile Patient comments: no complaints, pain well controlled, incisional pain, tolerating diet and flatus present OB - PN: Obj Data Labs 12/14/24 04:08 OB - PN A/P Plan day: 3 Plan: routine care, discharge home and other Comments: Incision check in one week. Given precautions Time Spent With Patient Time: Total time spent is greater than 50% in coordination of care (as documented) at patient's floor/unit and/or counseling patient: Exam 2 Const: General: comfortable, no acute distress and alert Resp: Effort & Inspection: normal respiratory effort Auscultation: no crackles, no rales and no rhonchi Cardio: Rate: regular rate Heart sounds: no click, no murmurs and no rubs GI: Inspection: non-distended GI Palp: No Tenderness to palpation present (GI) Auscultation: normal bowel sounds Other: Incision - CDI Extrem: General: normal to inspection, no pedal edema and no calf tenderness
--- NOTE | 2024-12-16 10:43 | PM.OBDSVD ---
DS: Admitting Diagnosis Discharge Date 12/16/2024 Admitting Diagnosis Term DS: Discharge Diagnosis Discharge Diagnosis (1) delivery delivered: Code(s): O82 - Encounter for delivery without indication Status: Acute OB - DS: Summary OB Procedures : None OB Procedures Intrapartum: OB Procedures: : None Peripartum Data Procedures: Procedures Operation Date: 12/13/24 13:00 Actual Procedure Side Surgeon p Section Not Applicable Francois Henderson MD Time Spent with Patient Time attestation: Total time spent providing and/or coordinating discharge services: DS: Data Data Completed and Pending Completed studies during hospitalization: Pending at discharge 12/13/24 14:29 Surgical [PTH] Routine Discharge Plan Discharge Discharging Clinician: Francois Henderson Patient Disposition: Home Activity: pelvic rest Diet: regular Patient Instructions: Antibiotic Form Patient Language: Arabic Stand Alone Forms: General Discharge Information Follow-up/Referrals: Francois Henderson MD [Physician] - Discharge Medications: New hydrocodone-acetaminophen 5-325 mg tablet 1 - 2 tablet PO Q6H PRN (Reason: pain) Qty: 25 0RF Continued nifedipine 30 mg tablet extended release 24hr 30 mg PO DAILY cyclobenzaprine 10 mg tablet 10 mg PO DAILY 5 Days Qty: 5 0RF methimazole 10 mg tablet 25 mg PO DAILY budesonide-formoterol [Symbicort] 80-4.5 mcg/actuation HFA aerosol inhaler 1 puff INHALATION PRN PRN (Reason: asthma) fluticasone propion-salmeterol [Advair HFA] 115-21 mcg/actuation Hfa Aerosol Inhaler 2 puff inhalation Q12HRT Qty: 30 0RF ondansetron 4 mg tablet,disintegrating 4 mg PO Q4H PRN (Reason: nausea and vomiting) 3 Days Qty: 10 0RF Date of admission: 12/13/24 05:55 Primary Care Provider: Stacia,Lea Han Admitting Provider: Francois Henderson Attending physician on admission: Francois Henderson Condition: Stable
[2024-12-16] MEDS: oxyCODONE HCL (*CRX) 5 MG TAB IR PO (11:12)
--- NOTE | 2024-12-16 11:15 | PC.NURSE ---
Consulted with mother concerning needs and she shared her ability to independently latch infant optimally without pain. Mother is feeding appropriately for growth of and understands stimulating to eat if needed. Patient is supplementing with formula regularly. has had appropriate feedings in the last 24 hours meets the outcomes for weight, output, blood sugar and jaundice at this time. Reinforced understanding of milk production, mastitis, responsive watching for feeding cues, community resources ([employer] [employer] referral), and when to call a provider using the resource of the feeding sheet along with the mom and baby guide. She has a breast pump at home. Mother voiced understanding of the information shared, is confident to continue effectively her at home, when to call for assistance, denies any additional assistance or education at this time. Reported to the Primary RN.
--- NOTE | 2024-12-16 12:39 | PC.NURSE ---
Patient viewed the discharge video Mother & Baby Care, The First Two Weeks. Patient was given the opportunity and encouraged to ask questions. Patient verbalized understanding of information shared and has been given the mother/baby guide for home reference.
--- NOTE | 2024-12-16 13:30 | PC.NURSE ---
Primary RN says that mom is trying to breastfeed now. Mom had started feeding formula before I got to the room. She says that baby did latch to the left breast but he wouldn't suck. He was circumcised today and is sleepy. Encouraged patient that after he recovers from the circumcision he should be more alert for feedings. Patient verbalized understanding. Primary RN updated.
[2024-12-19 11:10] VITALS: BP 152/89; PULSE 88; RESP 18; TEMP 37.1; O2SAT 100
== END 2024-12-16 14:53 | disposition home or self-care (01) | DRG 539 ==
LOC: ANHLDR 06:03 → ANHOB2 17:28
PROVIDERS: Admitting Provider Obstetrics & Gynecology; PCP Family Medicine; Visit Provider Obstetrics & Gynecology
PROC: 10D00Z1 Extraction of Products of Conception, Low, Open Approach (ICD-10-PCS; CPT 59514; principal; 2024-12-13 13:00)
DX: O13.4 Gestational [pregnancy-induced] hypertension without significant proteinuria, complicating childbirth (principal); O32.1XX0 Maternal care for breech presentation, not applicable or unspecified; Z37.0 Single live birth; Z3A.38 38 weeks gestation of pregnancy; O32.0XX0 Maternal care for unstable lie, not applicable or unspecified; O32.2XX0 Maternal care for transverse and oblique lie, not applicable or unspecified; Z30.2 Encounter for sterilization
CPT/HCPCS: 36415; 85025; 86593; 86850; 86900; 86901; 88302; 94640; J0690; A9270; J0456; J1885; J2004; J2270; J2274; J2371; J2405; J2590; J2795; J3010; J7050; J7120